=== PATIENT | female | born 1950 | race Caucasian/White ===

== ENCOUNTER 2020-08-05 11:08 | Outpatient (CLI) | payer MEDICARE, SELFPAY ==
[2020-08-05 11:26] LABS: Basophils Absolute Auto 0.04 K/mm3 (0.00-0.10); Basophils Percent Auto 0.6 % (0.0-1.0); Eosinophils Absolute Auto 0.24 K/mm3 (0.02-0.50); Eosinophils Percent Auto 3.8 % (1.0-6.0); Hematocrit 40.1 % (35.0-42.0); Hemoglobin 12.7 g/dL (11.7-13.8); Immature Granulocyte Absolute 0.04 K/mm3 (0.00-0.00); Immature Granulocyte Percent A 0.6 % (0.0-0.0); Lymphocytes Percent Auto 20.4 % (18.0-42.0); Mean Corpuscular HGB Conc 31.7 g/dL (32.0-36.0); Mean Corpuscular Hemoglobin 28.7 pg (27.0-31.0); Mean Corpuscular Volume 90.7 fL (78.0-102.0); Mean Platelet Volume 9.1 fl (9.2-11.8); Monocytes Absolute Auto 0.42 K/mm3 (0.10-0.90); Monocytes Percent Auto 6.6 % (2.0-11.0); Neutrophils Absolute Auto 4.3 K/mm3 (1.7-7.2); Platelet Count Result 225 K/mm3 (150-420); Red Blood Count 4.42 M/mm3 (4.20-5.40); Red Cell Distribution Width 14.4 % (11.6-14.4); White Blood Count 6.4 K/mm3 (4.8-10.8)
[2020-08-05 11:27] LABS: Add Urine Microscopic? NO; Appearance Urine Clear (Clear); Bilirubin Urine Negative (Negative); Blood Urine Negative (Negative); Color Urine Yellow (Yellow); Glucose Urine UA Negative (Negative); Ketones Urine Negative (Negative); Leukocyte Esterase Ur Negative LEU/UL (Negative); Nitrate Urine Negative (Negative); Protein Urine Negative (Negative); Urobilinogen Urine 0.2 mg/dL (0.2-1.0)
[2020-08-05 12:17] LABS: BNP 120 pg/mL (0-100)
[2020-08-05 12:27] LABS: Alanine Aminotransferase 24 U/L (14-59); Albumin Level 3.6 g/dL (3.4-5.0); Alkaline Phosphatase 95 U/L (46-116); Anion Gap 9 mmol/L (8-16); Aspartate Amino Transferase 15 U/L (15-37); Bilirubin,Total 0.5 mg/dL (0.00-1.00); Blood Urea Nitrogen 16 mg/dL (7-18); Calcium 8.6 mg/dL (8.5-10.1); Carbon Dioxide 29 mmol/L (21-32); Chloride 104 mmol/L (98-108); Estimated Glomerular Filt Rate 48; Glucose 86 mg/dL (70-99); Osmolality Calculated 294 mOsm/kg (285-295); Potassium 3.9 mmol/L (3.5-5.1); Sodium 142 mmol/L (136-145); Total Protein 7.4 g/dL (6.4-8.2)
== END 2020-08-05 11:09 | disposition home or self-care (01) ==
LOC: CHSLAB 11:12
PROVIDERS: PCP Family Medicine; Visit Provider Family Medicine
DX: R30.0 Dysuria (principal); I11.0 Hypertensive heart disease with heart failure; I50.9 Heart failure, unspecified; R06.00 Dyspnea, unspecified
CPT/HCPCS: 36415; 80053; 81003; 83880; 85025

== ENCOUNTER 2020-08-05 11:43 | Emergency (ER) | payer MEDICARE, SELFPAY ==
--- NOTE | ~2020-08-05 | XR_ITS ---
XR chest 2V 08/05/2020 12:18 Indication: Dyspnea. Shortness of breath. Procedure: AP and lateral views of the chest Comparison: Comparison to multiple prior studies sequentially, with oldest reviewed study dated 09/30. Findings: Moderate cardiomegaly. Interstitial edema. No pleural effusion or pneumothorax. No acute os seous abnormality. Impression: 1: Moderate cardiomegaly with interstitial edema. Reviewed, dictated and finalized at location B. Impression: 1: Moderate cardiomegaly with interstitial edema.
--- NOTE | ~2020-08-05 | CT_ITS ---
EXAMINATION: CT brain wo con DATE: 08/05/2020 12:01 INDICATION: Status post fall. Laceration to the head. TECHNIQUE: Computed tomography (CT) of the head was performed without intravenous contrast. The dose- length product was 605.33 mGy-cm. Automated exposure control and iterative reconstruction technique w ere employed. COMPARISON: None FINDINGS: Small left frontal scalp hematoma. Left frontal soft tissue gas, consistent with laceration . No acute intracranial hemorrhage, infarction, mass or mass effect. There are scattered mild periven tricular and subcortical white matter changes, most likely related to small vessel ischemic disease ( microangiopathy). There is intracranial atherosclerosis. Paranasal sinuses are unremarkable. Small le ft mastoid effusion. No depressed skull fractures. IMPRESSION: 1. No acute intracranial abnormality. Reviewed, dictated and finalized at location B.
--- NOTE | ~2020-08-05 | XR_ITS ---
XR knee RT 3V 08/05/2020 12:19 Indication: Status post fall. Right knee pain. Procedure: 3 views right knee Comparison: No prior studies for comparison. Findings: No fracture, subluxation or dislocation. No significant joint effusion. No radiopaque forei gn bodies. No significant joint space narrowing. Mild patellofemoral compartment osteoarthritis. Impression: 1: Mild osteoarthritis of the right kidney. Reviewed, dictated and finalized at location B. Impression: 1: Mild osteoarthritis of the right kidney.
[2020-08-05 11:45] VITALS: BP 194/106; PULSE 64; RESP 18; TEMP 36.6; O2SAT 94
--- NOTE | 2020-08-05 12:11 | ED.FALL ---
HPI - Fall General Chief Complaint: Head Injury Stated Complaint: fall Time Seen by Provider: 08/05/20 11:44 Source: patient Mode of arrival: wheelchair Limitations: no limitations History of Present Illness HPI Narrative: 70-year-old woman with a history of chronic kidney disease, COPD, ANNABEL and hypertension brought to the emergency department from x-ray after she fell while getting an outpatient chest x-ray. She saw her primary care doctor this morning who ordered labs and a chest film. She has a laceration on her left brow as well as abrasion over her right anterior ankle and right knee pain anteriorly. She denies any shortness of breath, chest pain, lightheadedness or palpitations that led to her fall. She states she has had intermittent shortness of breath for months. Onset (ago): minute(s) (20) Fall from: standing Fall witnessed: yes, by bystander Place fall occurred: other ( Radiology department) Loss of consciousness: none Prolonged down time: no Symptoms prior to fall: none Context: tripped/slipped ( over wheelchair) Location of injury: head Location of injury - extremities: Right: knee and lower leg Severity: moderate Quality: sharp Associated symptoms (after fall): denies Related Data Home Medications Medication Instructions Recorded Confirmed aspirin 81 mg tablet,delayed 81 mg PO DAILY 07/12/19 08/05/20 release cholecalciferol (vitamin D3) 125 5,000 unit PO DAILY 07/12/19 08/05/20 mcg (5,000 unit) capsule cholestyramine-aspartame 4 gram 4 gm PO BID 07/12/19 08/05/20 oral powder for susp in a packet cyanocobalamin (vitamin B-12) 1,000 mcg PO DAILY 07/12/19 08/05/20 1,000 mcg capsule diphenoxylate-atropine 2.5 1 tablet PO BID tablet 07/12/19 08/05/20 mg-0.025 mg tablet vit C 250 mg-vit E 90 mg-zinc 40 1 tablet PO BID 07/12/19 08/05/20 mg-copper 1 [id number] capsule atorvastatin 20 mg PO DAILY 08/05/20 08/05/20 irbesartan 300 mg PO DAILY 08/05/20 08/05/20 Allergies Allergy/AdvReac Type Severity Reaction Status Date / Time clindamycin Allergy Unknown Hives Verified 02/22/20 11:05 latex AdvReac Unknown BLISTERS Verified 02/22/20 11:05 FROM LATEX AND LATEX TAPE Review of Systems Constitutional: Constitutional: Denies chills and Denies fever(s) Eyes: Eyes: Denies change in vision and Denies photophobia ENT: Reports nasal congestion and Denies sore throat Cardiovascular: Cardiovascular: Denies chest pain and Denies radiating jaw, neck or arm pain Respiratory: Respiratory: Denies cough and Reports dyspnea Gastrointestinal: Gastrointestinal: Denies abdominal pain, Denies nausea and Denies vomiting Genitourinary: Genitourinary: Denies nocturia and Denies dysuria Musculoskeletal: Musculoskeletal: Denies back pain, Reports arthralgias and Denies joint swelling Integumentary/Breasts: Skin/Breast: Reports as per HPI, Denies pruritus, Denies erythema and Denies rash Neurologic: Denies system reviewed and no additional complaints, except as documented, Denies vertigo, Denies dizziness and Denies syncope Hematologic/Lymphatic: Hematologic/Lymphatic: Denies easy bleeding and Denies easy bruising Allergic/Immunologic: Allergic/Immunologic: Denies lip swelling and Denies throat swelling [facility] Past Medical History Medical History Cholecystectomy planned 1995 CKD (chronic kidney disease) COPD (chronic obstructive pulmonary disease) CPAP (continuous positive airway pressure) dependence Diverticulitis Hypertension Hypokalemia Obesity Osteoarthritis Prediabetes Sleep apnea Surgical History Surgical History H/O right heart catheterization 2008 H/O: hysterectomy 1989 Family History Family History (Updated 07/11/19 @ 16:01 by Tyra Copeland CMA) Father Lung cancer Type 2 diabetes mellitus Mother Carcinoma of colon Hypertension So
[2020-08-05] MEDS: TETANUS,DIPHTHERIA,AC PERTUSSIS ADULT 0.5 ML (ADACEL) IM (12:16)
[2020-08-05] MEDS: ACETAMINOPHEN 500 MG TABLET 1000 MG PO (13:26)
[2020-08-05 13:32] VITALS: BP 191/73
== END 2020-08-05 13:34 | disposition home or self-care (01) ==
PROVIDERS: Emergency Provider Emergency Medicine; PCP Family Medicine
DX: S01.112A Laceration without foreign body of left eyelid and periocular area, initial encounter (principal); W19.XXXA Unspecified fall, initial encounter; Z87.891 Personal history of nicotine dependence; I10 Essential (primary) hypertension; N18.9 Chronic kidney disease, unspecified
CPT/HCPCS: 12052; 36415; 70450; 71046; 73562; 80053; 81003; 83880; 85025; 90471; 90715; 99283; 99284

== ENCOUNTER 2020-08-07 07:51 | Emergency (ER) | payer MEDICARE, SELFPAY ==
--- NOTE | ~2020-08-07 | CT_ITS ---
EXAMINATION: CT facial bones wo con EXAM DATE: 08/07/2020 08:39 INDICATION: Retro-orbital pain after left forehead injury retro-orbital pain after fall and left fore head injury 2days ago . TECHNIQUE: Spiral CT of the facial bones was acquired in the axial plane without contrast. Coronal reformatted images were also reviewed. The dose-length product (DLP) for this examination was 258.13 mGy-cm. The exposure was tailored according to patient size, and iterative reconstruction (ASIR) wa s used as additional dose reduction technique. There is no prior study for comparison. FINDINGS: There are no displaced acute nasal bone fractures. The mandible, sinuses and orbits are in tact. Bilateral cataract surgery. Orbits otherwise unremarkable. Some The visualized sinuses and ma stoid air cells are well aerated. Small amount of left frontal scalp swelling. There is cervical sp ondylosis. IMPRESSION: 1. No acute facial fracture. Reviewed, dictated and finalized at location A.
[2020-08-07 08:03] VITALS: BP 174/83; PULSE 71; RESP 20; TEMP 36.2; O2SAT 95
--- NOTE | 2020-08-07 08:08 | ED.FALL ---
HPI - Fall General Chief Complaint: Fall Stated Complaint: eye problems Time Seen by Provider: 08/07/20 08:08 Source: patient Mode of arrival: ambulatory Limitations: no limitations History of Present Illness HPI Narrative: 70-year-old woman with a recent left forehead injury comes in today complaining of left retro-orbital pain and pain and her left brow. She also states that she has had swelling and discomfort on the left side her face around her eye. She denies any double vision, nausea, vomiting, fever, epistaxis, or difficulty walking. She was seen here after left forehead injury that occurred in our radiology department two days ago. complaint: fall Onset (ago): day(s) (2) Fall from: standing Fall witnessed: yes, by bystander Loss of consciousness: none Prolonged down time: no Symptoms prior to fall: none Context: tripped/slipped Location of injury: head Location of injury - extremities: Right: knee and lower leg Severity: moderate Quality: dull Associated symptoms (after fall): denies Related Data Home Medications Medication Instructions Recorded Confirmed aspirin 81 mg tablet,delayed 81 mg PO DAILY 07/12/19 08/07/20 release cholecalciferol (vitamin D3) 125 5,000 unit PO DAILY 07/12/19 08/07/20 mcg (5,000 unit) capsule cholestyramine-aspartame 4 gram 4 gm PO BID 07/12/19 08/07/20 oral powder for susp in a packet cyanocobalamin (vitamin B-12) 1,000 mcg PO DAILY 07/12/19 08/07/20 1,000 mcg capsule diphenoxylate-atropine 2.5 1 tablet PO BID tablet 07/12/19 08/07/20 mg-0.025 mg tablet vit C 250 mg-vit E 90 mg-zinc 40 1 tablet PO BID 07/12/19 08/07/20 mg-copper 1 [id number] capsule atorvastatin 20 mg PO DAILY 08/05/20 08/07/20 irbesartan 300 mg PO DAILY 08/05/20 08/07/20 Allergies Allergy/AdvReac Type Severity Reaction Status Date / Time clindamycin Allergy Unknown Hives Verified 08/07/20 08:10 latex AdvReac Unknown BLISTERS Verified 08/07/20 08:10 FROM LATEX AND LATEX TAPE Review of Systems Review of Systems: All systems reviewed & are unremarkable except as noted in HPI and below Constitutional: Constitutional: Denies chills and Denies fever(s) Eyes: Eyes: Denies change in vision and Denies photophobia ENT: Denies nasal congestion and Denies sore throat Cardiovascular: Cardiovascular: Denies chest pain and Denies radiating jaw, neck or arm pain Respiratory: Respiratory: Denies cough and Denies dyspnea Gastrointestinal: Gastrointestinal: Denies nausea and Denies vomiting Musculoskeletal: Musculoskeletal: Reports arthralgias and Denies joint swelling Integumentary/Breasts: Skin/Breast: Denies pruritus, Denies erythema and Denies rash Neurologic: Denies vertigo, Denies dizziness and Denies syncope Hematologic/Lymphatic: Hematologic/Lymphatic: Denies easy bleeding and Denies easy bruising Allergic/Immunologic: Allergic/Immunologic: Denies lip swelling and Denies throat swelling [facility] Past Medical History Medical History Cholecystectomy planned 1995 CKD (chronic kidney disease) COPD (chronic obstructive pulmonary disease) CPAP (continuous positive airway pressure) dependence Diverticulitis Hypertension Hypokalemia Obesity Osteoarthritis Prediabetes Sleep apnea Surgical History Surgical History H/O right heart catheterization 2008 H/O: hysterectomy 1989 Family History Family History (Updated 07/11/19 @ 16:01 by Tyra Copeland [facility]) Father Lung cancer Type 2 diabetes mellitus Mother Carcinoma of colon Hypertension Social History Social History Smoking status: Former smoker Smoking end date: 05/10/04 Alcohol intake: never Exam Const: General: alert Orientation/consciousness: patient oriented x3 Other: Mild acute distress. HENMT: Head: nor
[2020-08-07 09:09] VITALS: BP 154/74; PULSE 74; RESP 18; TEMP 36.7; O2SAT 98
== END 2020-08-07 09:10 | disposition home or self-care (01) ==
PROVIDERS: Emergency Provider Emergency Medicine; PCP Family Medicine
DX: S00.83XD Contusion of other part of head, subsequent encounter (principal); W18.30XD Fall on same level, unspecified, subsequent encounter
CPT/HCPCS: 70486; 99282; 99284

== ENCOUNTER 2020-12-19 11:51 | Outpatient (CLI) | payer MEDICARE, SELFPAY ==
--- NOTE | 2020-12-19 12:50 | ECHO_ITS ---
Patient Info Name: Cata Aj Age: 70 years : 1950 Gender: Female Ht: 60 in Wt: 234 lbs BSA: 2.19 m2 HR: 73 bpm BP: 171 / 78 mmHg Technical Quality: Poor Exam Date: 12/19/2020 11:45 AM Exam Location: [facility] Patient Status: Outpatient Admit Date: 12/19/2020 Staff Ordering Physician: Gigi Ornelas MD Cena: Helder Greenberg, ABDI, RT Attending Provider: Gigi Ornelas MD Referring Physician: Ceci COX; Exam Type: CA echo doppler color flow Study Info Indications I50.9 - Heart failure, unspecified Complete two-dimensional, color flow and Doppler transthoracic echocardiogram is performed. Summary 1. Complete two-dimensional, color flow and Doppler transthoracic echocardiogram is performed. 2. Technically suboptimal study due to poor sonographic images. 3. Left ventricular chamber dimension is normal. 4. Left ventricular systolic function is normal, estimated at 60-65%. 5. The left ventricular diastolic function is grade I diastolic dysfunction. 6. E/e' 11 is mildly elevated. 7. There is mild aortic valve sclerosis. 8. There is small to moderate circumferential pericardial effusion with maximum dimension posteriorly at 1.5 cm. No cardiac tamponade. Left Ventricle Technically suboptimal study due to poor sonographic images. E/e' 11 is mildly elevated. Left ventricular chamber dimension is normal. Left ventricular systolic function is normal, estimated at 60-65%. The left ventricular diastolic function is grade I diastolic dysfunction. Right Ventricle Right ventricular chamber dimension is not well visualized. Left Atria Left atrial chamber dimension is normal. Right Atria Right atrial chamber dimension is normal. Aortic Valve The aortic valve is trileaflet. There is mild aortic valve sclerosis. There is no aortic valve stenosis. There is no aortic valve regurgitation. Pulmonic Valve There is no pulmonic regurgitation. Mitral Valve There is no mitral valve stenosis. There is no mitral valve regurgitation. Tricuspid Valve The tricuspid valve leaflets are not well visualized. There is no tricuspid valve regurgitation. Pericardium/Pleural There is small to moderate circumferential pericardial effusion with maximum dimension posteriorly at 1.5 cm. No cardiac tamponade. Inferior Vena Cava Normal inferior vena cava with >50% collapse upon inspiration consistent with normal right atrial pressure, 5 mmHg. Aorta The aortic root size at the sinus of Valsalva is normal. Left Ventricular Outflow Tract Name Value Normal LVOT 2D LVOT Diameter 2.0 cm LVOT Doppler LVOT Peak Velocity 107 cm/s LVOT Peak Gradient 5 mmHg LVOT Mean Gradient 3 mmHg LVOT VTI 23 cm LVOT VTI/AV VTI Ratio 0.7 LVOT Stroke Volume 74 ml Mitral Valve Name Value Normal
== END 2020-12-19 11:52 | disposition home or self-care (01) ==
LOC: CHSIMG 11:52
PROVIDERS: PCP Family Medicine; Visit Provider Family Medicine
DX: I50.9 Heart failure, unspecified (principal)
CPT/HCPCS: 93306

== ENCOUNTER 2021-01-09 10:26 | Outpatient (CLI) | payer MEDICARE, SELFPAY ==
[2021-01-09 11:50] LABS: SARS-CoV-2 RNA PCR Negative (Negative)
== END 2021-01-09 10:27 | disposition home or self-care (01) ==
LOC: CHSLAB 10:28
PROVIDERS: PCP Family Medicine; Visit Provider Family Medicine
DX: Z20.822 Contact with and (suspected) exposure to COVID-19 (principal)
CPT/HCPCS: C9803; U0003; U0005

== ENCOUNTER 2021-02-24 07:54 | Outpatient (CLI) | payer MEDICARE, SELFPAY ==
--- NOTE | 2021-02-24 09:15 | EST_ITS ---
Patient Info Name: Cata Aj Age: 71 years : 1950 Gender: Female Ht: 60 in Wt: 237 lbs BSA: 2.20 m2 HR: 64 bpm BP: 131 / 78 mmHg Heart Rhythm: Sinus Rhythm Technical Quality: Excellent Exam Date: 02/24/2021 9:25 AM Exam Location: [facility] Patient Status: Outpatient Admit Date: 02/24/2021 Staff Ordering Physician: Sam, Helen Urbina APRN Attending Provider: Sam, Helen Urbina APRN Exercise Technologist: Cindy Epps CRT Exercise Physician: Jennifer Dow CEP Exam Type: CA stress arianna w NM Study Info Indications CP - SOB - ABNEKG - A nuclear stress test was performed. History/Risk Factors Hypertension: Yes Dyslipidemia: Yes Congestive Heart Failure (CHF): Hx CHF Date of Last Tobacco Use: 02/24/2007 Tobacco Use: Former History/Risk Factors ABN EKG. CP. SOB. Summary 1. 1. Inconclusive lexiscan stress test for ischemic ST changes by ECG criteria due to baseline LBBB. 2. 2. Hypertensive response to lexiscan. 3. 3. Nuclear scan to follow and will be reported separately. Please correlate with it. Protocol: LEXISCAN Stress ECG Details Stage: REST Duration (min): 0 min : 11 sec HR (bpm): 68 SBP (mmHg): --- DBP (mmHg): --- Stage: REST Duration (min): 0 min : 32 sec HR (bpm): 65 SBP (mmHg): --- DBP (mmHg): --- Stage: REST Duration (min): 0 min : 47 sec HR (bpm): 65 SBP (mmHg): --- DBP (mmHg): --- Stage: REST Duration (min): 1 min : 8 sec HR (bpm): 65 SBP (mmHg): --- DBP (mmHg): --- Stage: REST Duration (min): 6 min : 0 sec HR (bpm): 66 SBP (mmHg): --- DBP (mmHg): --- Stage: STAGE 1 Duration (min): 0 min : 6 sec HR (bpm): 66 SBP (mmHg): --- DBP (mmHg): --- Stage: RECOVERY Duration (min): 0 min : 53 sec HR (bpm): 78 SBP (mmHg): --- DBP (mmHg): --- Stage: RECOVERY Duration (min): 1 min : 53 sec HR (bpm): 78 SBP (mmHg): 115 DBP (mmHg): 62 Stage: RECOVERY Duration (min): 2 min : 53 sec HR (bpm): 75 SBP (mmHg): 121 DBP (mmHg): 63 Stage: RECOVERY Duration (min): 3 min : 53 sec HR (bpm): 74 SBP (mmHg): 143 DBP (mmHg): 62 Stage: RECOVERY Duration (min): 4 min : 53 sec HR (bpm): 73 SBP (mmHg): 167 DBP (mmHg): 69 Stage: RECOVERY Duration (min): 5 min : 53 sec HR (bpm): 73 SBP (mmHg): 182 DBP (mmHg): 70 Stage: RECOVERY Duration (min): 6 min : 3 sec HR (bpm): 71 SBP (mmHg): 182 DBP (mmHg): 70 Rest HR: 66 bpm Peak HR: 80 bpm Rest Sys BP: 118 mmHg Peak Sys BP: 182 mmHg Max Pred HR: 151 bpm % Max Pred HR: 53 % Target HR: 128 bpm Max RPP: 14,560 bpm*mmHg BP Response: Patient exhibited a hypertensive response with stress Termination Reason: Completed Protocol Cardiac Symptoms: Flushing, Nausea, Dyspnea Total Time:
--- NOTE | 2021-02-24 11:40 | P.NST_ITS ---
Nuclear Stress Test INDICATIONS Indications: Chest pain PROCEDURE Procedure Performed: Myocardial Perf Spect-Multi Procedure: Patient underwent a lexiscan stress test and immediately was injected with 33.6 mCi of cardiolyte. Multiple tomographic images were obtained. These are of suboptimal quality. There is evidence of small size, mild intensity anteroseptal perfusion defect, and a small size, mild intensity inferior perfusion defect during stress imaging. A separate resting imges were obtained after patient was injected with 10.6 mCi of cardiolyte. Multiple tomographic images were obtained. These are of sub optimal quality. There is evidence of moderate size, moderate intensity anteroseptal perfusion defect, and a small size, mild intensity inferior perfusion defect during rest imaging. CONCLUSION Conclusion: 1. Myocardial perfusion imaging demonstrating fixed defects in anteroseptal wall that was worse during rest imaging and fixed defects in inferior wall which are suggestive of breast and diaphragmatic attenuation artifacts. 2. No reversible ischemia. 3. Left ventriculogram did not demonstrate wall motion abnormalities and measured ejection fraction is 62%. 4. TID score 1.11 is not elevated.
== END 2021-02-24 07:55 | disposition home or self-care (01) ==
LOC: CHSIMG 07:55
PROVIDERS: PCP Family Medicine; Visit Provider Internal Medicine Cardiovascular Disease
DX: R07.9 Chest pain, unspecified (principal); R06.02 Shortness of breath; R93.1 Abnormal findings on diagnostic imaging of heart and coronary circulation; R94.31 Abnormal electrocardiogram [ECG] [EKG]
CPT/HCPCS: 78452; 93017; A9502; J2785

== ENCOUNTER 2021-05-12 10:00 | Outpatient (RCR) | payer MEDICARE, SELFPAY ==
--- NOTE | 2021-04-18 11:33 | PTOPEVAL ---
PHYSICAL THERAPY EVALUATION AND PLAN OF CARE 04-18-21 Thank you for referring Cata Aj to [facility] for the diagnosis of B LE lymphedema. She is scheduled to be seen for therapy? 3 x/week for 5 weeks. Please review, sign, date and return this plan of care AFIA. I agree with and certify that the following plan of care is medically necessary. 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 Hx Hypercholesterolemia Yes: meds Hx Hypertension Yes: meds Respiratory History Hx Sleep Apnea Yes: have CPAP machine Gastrointestinal History Hx Cholecystectomy Yes Hx Diverticulitis Yes Hx Hernia Yes: surgical repair 3x Genitourinary History Hx Genitourinary Disorders No Significant History Musculoskeletal History Hx Arthritis Yes: OA- all over hurts in all joints Hx Orthopedic Surgery Yes: carpal tunnel surgery B Hematological History Hx Hematological Disorders No Significant History Endocrine History Hx Endocrine Disorders No Significant History HEENT History Hx Cataracts Yes: surgery B Reproductive History Hx Post Menopausal Yes Evaluation Information Problem Diagnosis B LE lymphedema Onset July 2020 Prior Level of Function Activity Level (Last 3 Months) Occupation retired Activity of Daily Living Ability Independent Indoor/Home Mobility Independent Community Mobility Independent Stairs Ability Independent Functional Cognition (Planning, Shopping Independent , Taking Medications) Cooking Yes Cleaning Yes Laundry Yes Shopping Yes Driving No Home Setting Home Type House,Single Level Environmental Barriers Stairs, 2-4 Living Situation With Spouse Mobility Assistive Devices (Used Last 3 None,Walker, Rollator Months) Comments Additional Prior Level of Function limited time standing and Comments walking due to SOB, does most of home chores; assist with shoes and
--- NOTE | 2021-05-14 12:41 | PCPTNOTE ---
PHYSICAL THERAPY DISCHARGE 05-14-21 Attending Provider: Dr. Gigi Ornelas Patient:Cata Aj Date of :1950 Mrs. Aj has received 7 PT sessions, from April 18 to May 12, for the diagnosis of B LE lymphedema. At the last session, the circumferential measurements of her legs, from the bottom of her foot up to 56 cm: R was 525.1 cm, decreased by 55.9 cm and L was 550.7 cm, decreased by 49.8 cm, compared to the initial evaluation. There is minimal redness discoloration of the skin of the lower legs and the tissue is soft, without firmness. She has Circaid Juxtafit essential lower leggings and PAC band foot pieces for compression to her R and L lower legs. Her assists her with the garments. Education has been completed for lymphedema skin care, self manual lymph drainage and compression garments. The goals were met, therefore she will be discharged from PT at this time. Thank you for referring Cata to [facility]. Please review, sign, date and return this discharge summary AFIA. I have been updated about the patient's current status and I agree with discharge from the above service at this time. Referring Physician Date
== END 2021-07-02 07:30 | disposition home or self-care (01) ==
LOC: ANHPT 10:00
PROVIDERS: PCP Family Medicine
DX: I89.0 Lymphedema, not elsewhere classified (principal)
CPT/HCPCS: 29581; 97016; 97140; 97162

== ENCOUNTER 2021-06-21 16:24 | Emergency (ER) | payer MEDICARE, SELFPAY ==
[2021-06-21 16:41] VITALS: BP 161/95; PULSE 95; RESP 16; TEMP 37.5; O2SAT 95
--- NOTE | 2021-06-21 16:46 | ED.WOUNDLAC ---
HPI - Wound/Laceration General Chief Complaint: Wound/Laceration Stated Complaint: rash Time Seen by Provider: 06/21/21 16:46 Source: patient and family Mode of arrival: ambulatory Limitations: no limitations History of Present Illness HPI narrative: patient is a 71-year-old female presents with blisters / vesicles on an erythematous base located on the right upper back and following a dermatome into her right frontal it is painful there is some clear discharge with no fever chills no shortness of breath no chest pain patient also complaining of right ear pain and discomfort, there are no vesicles in the right ear canal no drainage no erythema, no abdominal pain no nausea vomiting no diarrhea or constipation. Currently no headaches no blurry vision. Onset (ago): day(s) Location: back Related Data Home Medications Medication Instructions Recorded Confirmed aspirin 81 mg tablet,delayed 81 mg PO DAILY 07/12/19 06/21/21 release cholecalciferol (vitamin D3) 125 5,000 unit PO DAILY 07/12/19 06/21/21 mcg (5,000 unit) capsule cholestyramine-aspartame 4 gram 4 gm PO BID 07/12/19 06/21/21 oral powder for susp in a packet cyanocobalamin (vitamin B-12) 1,000 mcg PO DAILY 07/12/19 06/21/21 1,000 mcg capsule diphenoxylate-atropine 2.5 1 tablet PO BID tablet 07/12/19 06/21/21 mg-0.025 mg tablet vit C 250 mg-vit E 90 mg-zinc 40 1 tablet PO BID 07/12/19 06/21/21 mg-copper 1 [id number] capsule atorvastatin 20 mg PO DAILY 08/05/20 06/21/21 irbesartan 300 mg PO DAILY 08/05/20 06/21/21 Allergies Allergy/AdvReac Type Severity Reaction Status Date / Time clindamycin Allergy Unknown Hives Verified 06/21/21 16:47 latex AdvReac Unknown BLISTERS Verified 06/21/21 16:47 FROM LATEX AND LATEX TAPE Review of Systems Review of Systems: All systems reviewed & are unremarkable except as noted in HPI and below PMFSH Past Medical History Medical History Cholecystectomy planned 1995 CKD (chronic kidney disease) COPD (chronic obstructive pulmonary disease) CPAP (continuous positive airway pressure) dependence Diverticulitis Hypertension Hypokalemia Obesity Osteoarthritis Prediabetes Sleep apnea Surgical History Surgical History H/O right heart catheterization 2008 H/O: hysterectomy 1989 Family History Family History Father Lung cancer Type 2 diabetes mellitus Mother Carcinoma of colon Hypertension Social History Social History Smoking status: Former smoker Smoking end date: 05/10/04 Alcohol intake: never Exam Const: General: no acute distress and alert Orientation/consciousness: patient oriented x3 HENMT: Head: normal to inspection Eyes: Conjunctivae: conjunctivae normal Pupils: Equal, round and reactive pupils present Neck: Neck: normal visual inspection, no lymphadenopathy and no meningeal signs Chest: Chest palpation & inspection: normal inspection of the chest Cardio: Rate: regular rate Rhythm: regular rhythm GI: GI Palp: Yes Soft to palpation Urinary Catheter: Urinary Catheter: patent and draining Skin: Other: Rash located on the right upper back and into the right pectoral area following a dermatome blisters/vesicles on an erythematous base Neuro: General: patient oriented x3, moves all extremities and no meningeal signs Extrem: General: normal to inspection and no pedal edema Psych: Mental Status: mental status grossly normal Affect: normal affect Course Course Emergency Course: patient received a dose of acyclovir and a dose of IM Toradol pain, advised patient to keep the area covered and should not have anyone come in contact with vesicles while there in the stage where there is watery discharge/clear discharge. Vital Si
[2021-06-21] MEDS: KETOROLAC 30 MG/ML VIAL (*BKC) IM (16:58)
[2021-06-21] MEDS: ACYCLOVIR 200 MG CAPSULE 400 MG PO (16:58)
[2021-06-21 17:02] VITALS: BP 183/77; PULSE 85; RESP 16; TEMP 36.9; O2SAT 100
== END 2021-06-21 17:15 | disposition home or self-care (01) ==
PROVIDERS: Emergency Provider Emergency Medicine; PCP Family Medicine
DX: B02.9 Zoster without complications (principal); J32.8 Other chronic sinusitis
CPT/HCPCS: 96372; 99283; A9270; J1885

== ENCOUNTER 2021-06-24 10:52 | Outpatient (CLI) | payer MEDICARE, SELFPAY ==
--- NOTE | ~2021-06-24 | XR_ITS ---
EXAMINATION: XR chest 2V DATE: 06/24/2021 11:37 INDICATION: Dyspnea. TECHNIQUE: Frontal and lateral views of the chest were obtained. COMPARISON: Chest 2 views 08/05/2020, chest CT 03/24/2010 FINDINGS: There are mild airspace opacities in right lower lung zone and left mid and lower lung zone s. No pleural effusion or pneumothorax. Cardiomegaly is noted. IMPRESSION: 1. Mild airspace opacities in right lower lung zone and left mid and lower lung zones, consistent wit h atelectasis versus pneumonia. 2. Cardiomegaly. Reviewed, dictated and finalized at location A. BRUSHER IMPRESSION: 1. Mild airspace opacities in right lower lung zone and left mid and lower lung zones, consistent with atelectasis versus pneumonia. 2. Cardiomegaly.
== END 2021-06-24 10:53 | disposition home or self-care (01) ==
LOC: CHSIMG 10:54
PROVIDERS: PCP Family Medicine; Visit Provider Family Medicine
DX: R06.00 Dyspnea, unspecified (principal)
CPT/HCPCS: 71046

== ENCOUNTER 2021-12-19 08:19 | Outpatient (CLI) | payer MEDICARE, SELFPAY ==
--- NOTE | ~2021-12-19 | XR_ITS ---
EXAMINATION: XR abdomen obstructive series DATE: 12/19/2021 09:21 INDICATION: Intestinal malabsorption, chronic diarrhea TECHNIQUE: Upright and supine views of the abdomen were obtained on four radiographs. COMPARISON: 09/30/2009 FINDINGS: There is no free intraperitoneal gas or evidence of bowel obstruction. The bowel gas patter n is normal. Surgical clips in the right upper quadrant are likely from prior cholecystectomy. Cardio megaly is noted. There is moderate osteoarthritis of the hips. IMPRESSION: 1. No radiographic correlate for the patient's symptoms. Reviewed, dictated and finalized at location A.
[2021-12-19 08:50] LABS: Basophils Absolute Auto 0.04 K/mm3 (0.00-0.10); Basophils Percent Auto 0.7 % (0.0-1.0); Eosinophils Absolute Auto 0.32 K/mm3 (0.02-0.50); Eosinophils Percent Auto 5.3 % (1.0-6.0); Hematocrit 43.6 % (35.0-42.0); Hemoglobin 13.4 g/dL (11.7-13.8); Immature Granulocyte Absolute 0.09 K/mm3 (0.00-0.00); Immature Granulocyte Percent A 1.5 % (0.0-0.0); Lymphocytes Absolute Auto 1.56 K/mm3 (1.10-4.50); Mean Corpuscular HGB Conc 30.7 g/dL (32.0-36.0); Mean Corpuscular Hemoglobin 27.5 pg (27.0-31.0); Mean Corpuscular Volume 89.5 fL (78.0-102.0); Mean Platelet Volume 9.4 fl (9.2-11.8); Monocytes Absolute Auto 0.51 K/mm3 (0.10-0.90); Monocytes Percent Auto 8.5 % (2.0-11.0); Neutrophils Absolute Auto 3.5 K/mm3 (1.7-7.2); Platelet Count Result 214 K/mm3 (150-420); Red Blood Count 4.87 M/mm3 (4.20-5.40)
[2021-12-19 09:29] LABS: Alanine Aminotransferase 21 U/L (14-59); Albumin Level 3.5 g/dL (3.4-5.0); Alkaline Phosphatase 120 U/L (46-116); Anion Gap 7 mmol/L (8-16); Aspartate Amino Transferase 15 U/L (15-37); Bilirubin,Total 0.5 mg/dL (0.00-1.00); Blood Urea Nitrogen 29 mg/dL (7-18); Calcium 8.9 mg/dL (8.5-10.1); Carbon Dioxide 30 mmol/L (21-32); Chloride 106 mmol/L (98-108); Estimated Glomerular Filt Rate 38; Free T4 Free Thyroxine 1.03 ng/dL (0.76-1.46); Glucose 92 mg/dL (70-99); Osmolality Calculated 301 mOsm/kg (285-295); Potassium 4.1 mmol/L (3.5-5.1); Sodium 143 mmol/L (136-145)
[2021-12-26 17:08] LABS: Gliadin AB, IgG <1.0 U/mL (<15.0); TTG IGA AB <1.0 U/mL (<15.0)
[2021-12-28 10:55] LABS: ANCA Screen Negative (Negative); Myeloperoxidase Ab <1.0 AI (<1.0); Proteinase-3 Ab <1.0 AI (<1.0); S cerevisiae Ab (IgA) 11.6 U (<=20.0); S cerevisiae Ab (IgG) 18.1 U (<=20.0)
== END 2021-12-19 08:20 | disposition home or self-care (01) ==
LOC: CHSLAB 08:22
PROVIDERS: PCP Family Medicine; Visit Provider Family Medicine
DX: K90.9 Intestinal malabsorption, unspecified (principal); R19.7 Diarrhea, unspecified; R79.89 Other specified abnormal findings of blood chemistry
CPT/HCPCS: 36415; 74019; 80053; 83516; 84439; 84443; 85025; 86036; 86255; 86671

== ENCOUNTER 2021-12-21 09:38 | Outpatient (CLI) | payer MEDICARE, SELFPAY ==
[2021-12-21 21:53] LABS: Occult Blood Negative (Negative)
[2021-12-21 21:53] LABS: Occult Blood Negative (Negative)
== END 2021-12-21 09:39 | disposition home or self-care (01) ==
LOC: CHSLAB 09:40
PROVIDERS: PCP Family Medicine; Visit Provider Family Medicine
DX: R19.7 Diarrhea, unspecified (principal)
CPT/HCPCS: 82272; 84376; 87045; 87177; 87209; 87427

== ENCOUNTER 2022-03-18 13:06 | Outpatient (CLI) | payer MEDICARE, SELFPAY ==
--- NOTE | ~2022-03-18 | XR_ITS ---
XR chest 2V DATE: 03/18/2022 13:37 INDICATION: Shortness of breath. Bradycardia. Abnormal EKG. TECHNIQUE: PA and lateral views COMPARISON: 06/24/2021 2 view chest FINDINGS: There is cardiomegaly with left ventricular enlargement. Pulmonary vascular redistribution may indicate mild pulmonary venous hypertension. No pulmonary consolidation or pleural effusion or pneumothorax. Dextroscoliosis and degenerative spurring of the thoracic spine. IMPRESSION: Cardiomegaly Pulmonary vascular redistribution may indicate mild pulmonary venous hypertension No active pulmonary disease Reviewed, dictated and finalized at location A. R LEAGUE BASEBALL UMPIRE IMPRESSION: Cardiomegaly Pulmonary vascular redistribution may indicate mild pulmonary venous hypertensi on No active pulmonary disease
[2022-03-18 13:24] LABS: Basophils Absolute Auto 0.04 K/mm3 (0.00-0.10); Basophils Percent Auto 0.6 % (0.0-1.0); Eosinophils Absolute Auto 0.19 K/mm3 (0.02-0.50); Eosinophils Percent Auto 3.1 % (1.0-6.0); Hematocrit 40.7 % (35.0-42.0); Immature Granulocyte Absolute 0.06 K/mm3 (0.00-0.00); Lymphocytes Absolute Auto 1.21 K/mm3 (1.10-4.50); Lymphocytes Percent Auto 19.5 % (18.0-42.0); Mean Corpuscular HGB Conc 31.9 g/dL (32.0-36.0); Mean Corpuscular Hemoglobin 29.8 pg (27.0-31.0); Mean Corpuscular Volume 93.3 fL (78.0-102.0); Mean Platelet Volume 9.6 fl (9.2-11.8); Monocytes Absolute Auto 0.48 K/mm3 (0.10-0.90); Monocytes Percent Auto 7.7 % (2.0-11.0); Neutrophils Absolute Auto 4.2 K/mm3 (1.7-7.2); Neutrophils Percent Auto 68.1 % (50.0-70.0); Platelet Count Result 197 K/mm3 (150-420); Red Blood Count 4.36 M/mm3 (4.20-5.40); Red Cell Distribution Width 13.8 % (11.6-14.4); White Blood Count 6.2 K/mm3 (4.8-10.8)
[2022-03-18 13:48] LABS: Alanine Aminotransferase 18 U/L (14-59); Albumin Level 3.1 g/dL (3.4-5.0); Alkaline Phosphatase 110 U/L (46-116); Anion Gap 8 mmol/L (8-16); Aspartate Amino Transferase 13 U/L (15-37); Bilirubin,Total 0.2 mg/dL (0.00-1.00); Blood Urea Nitrogen 31 mg/dL (7-18); Calcium 8.8 mg/dL (8.5-10.1); Carbon Dioxide 25 mmol/L (21-32); Chloride 110 mmol/L (98-108); Creatine Kinase 44 U/L (26-192); Estimated Glomerular Filt Rate 37; Glucose 106 mg/dL (70-99); Osmolality Calculated 302 mOsm/kg (285-295); Potassium 4.4 mmol/L (3.5-5.1); Sodium 143 mmol/L (136-145); Thyroid Stimulating Hormone 4.76 uIU/mL (0.36-3.74); Total Protein 7.2 g/dL (6.4-8.2)
[2022-03-18 13:58] LABS: Troponin I 203.7 ng/L (0.00-60.4)
== END 2022-03-18 13:07 | disposition home or self-care (01) ==
LOC: CHSLAB 13:09
PROVIDERS: PCP Family Medicine; Visit Provider Family Medicine
DX: R00.1 Bradycardia, unspecified (principal); R94.31 Abnormal electrocardiogram [ECG] [EKG]
CPT/HCPCS: 36415; 71046; 80053; 82550; 82553; 84443; 84484; 85025

== ENCOUNTER 2022-03-18 14:14 | Emergency (ER) | payer MEDICARE, SELFPAY ==
[2022-03-18] VITALS (19 sets, daily range): BP systolic 73–163; BP diastolic 44–109; PULSE 0–74; RESP 11–34; TEMP 36.5; O2SAT 91–99
--- NOTE | 2022-03-18 14:20 | ECG_ITS ---
Measurements Intervals [place] Rate: 37 P: SD: 0 QRS: -74 QRSD: 162 T: 48 QT: 584 QTc: 462 Interpretive Statements SINUS RHYTHM WITH COMPLETE HEART BLOCK SLOW JUNCTIONAL ESCAPE RHYTHM LEFT AXIS DEVIATION LEFT BUNDLE BRANCH BLOCK ABNORMAL ECG NO PREVIOUS ECG AVAILABLE FOR COMPARISON Electronically Signed On 03-18-2022 14:43:56 ELIGIBILITY SERVICES REPRESENTATIVE by Gurinder Cuellar D.O.
--- NOTE | 2022-03-18 14:45 | PC.NURSE ---
FAST PATCHES PLACED ON PT, PT HAS WITNESSED RUN OF VTACH, PT DENIES ANY COMPLAINTS WITH THIS. ERP IS AWARE. PT DENIES ANY PAIN, HOWEVER REPORTS HEARTBURN AND CHEST PRESSURE. PT IS SOB AT REST, O2 APPLIED AT 2L. WILL CONTINUE TO MONITOR.
--- NOTE | 2022-03-18 14:47 | ED.GENADULT ---
HPI - General Adult General Chief complaint: Recheck/Abnormal Lab/Rx Stated complaint: blood test came back abnormal Time Seen by Provider: 03/18/22 14:19 History of Present Illness HPI narrative: Cata is a 72F with a PMH of CKD, COPD, ANNABEL, diverticulosis, HTN, OA and prediabetes that had felt lightheaded, nauseated, had some chest pressure and was very fatigued. She went to see her PCP who did labs and an EKG. She was found to have a HR in the 30's and elevated troponin. She was then referred to the ED. There was no fevers, chills, syncope or vomiting. Related Data Home Medications Medication Instructions Recorded Confirmed aspirin 81 mg tablet,delayed 81 mg PO DAILY 07/12/19 03/18/22 release (Adult Low Dose Aspirin) cholecalciferol (vitamin D3) 125 5,000 unit PO DAILY 07/12/19 03/18/22 mcg (5,000 unit) capsule cholestyramine-aspartame 4 gram 4 gm PO BID 07/12/19 03/18/22 oral powder for susp in a packet (Prevalite) cyanocobalamin (vitamin B-12) 1,000 mcg PO DAILY 07/12/19 03/18/22 1,000 mcg capsule vit C 250 mg-vit E 90 mg-zinc 40 1 tablet PO BID 07/12/19 03/18/22 mg-copper 1 [id number] capsule (PreserVision AREDS-2) atorvastatin 20 mg tablet 20 mg PO DAILY 08/05/20 03/18/22 irbesartan 300 mg tablet 300 mg PO DAILY 08/05/20 03/18/22 metoprolol succinate 50 mg 50 mg PO DAILY 03/18/22 03/18/22 tablet,extended release 24 hr torsemide 20 mg tablet 20 mg PO DAILY 03/18/22 03/18/22 Allergies Allergy/AdvReac Type Severity Reaction Status Date / Time clindamycin Allergy Unknown Hives Verified 03/18/22 14:36 latex AdvReac Unknown BLISTERS Verified 03/18/22 14:36 FROM LATEX AND LATEX TAPE Review of Systems Review of Systems: All systems reviewed & are unremarkable except as noted in HPI and below PMFSH Past Medical History Medical History Cholecystectomy planned 1995 CKD (chronic kidney disease) COPD (chronic obstructive pulmonary disease) CPAP (continuous positive airway pressure) dependence Diverticulitis Hypertension Hypokalemia Obesity Osteoarthritis Prediabetes Sleep apnea Surgical History Surgical History H/O right heart catheterization 2008 H/O: hysterectomy 1989 Family History Family History Father Lung cancer Type 2 diabetes mellitus Mother Carcinoma of colon Hypertension Social History Social History Smoking status: Former smoker Smoking end date: 05/10/04 Alcohol intake: never Exam Const: General: ill appearing chronically Nutritional Appearance: well nourished and obese morbidly obese Orientation/consciousness: patient oriented x3 Limitations: no limitations HENMT: Head: normal to inspection Ears: external ears normal Face/Nose/Sinus: Normal external nose present Eyes: Conjunctivae: conjunctivae normal Pupils: Equal, round and reactive pupils present Neck: Neck: normal visual inspection Chest: Chest palpation & inspection: normal inspection of the chest Resp: Effort & Inspection: labored, no retractions and tachypneic Auscultation: clear to auscultation bilaterally Cardio: Other: Severe bradycardia with irregular rhythm GI: Inspection: non-distended GI Palp: Yes Soft to palpation and No Tenderness to palpation present (GI) Skin: General skin exam: normal color Neuro: General: patient oriented x3 and moves all extremities Cranial nerves: Yes Nystagmus not present Speech: normal speech Extrem: General: normal to inspection Psych: Mental Status: mental status grossly normal Course Course Emergency Course: Cata was brought over to the ER. She was given 2 doses of atropine with no effect. She was given ativan and pacing was attempted. The amps were increased but it would not catch. In
[2022-03-18] MEDS: ATROPINE SULFATE 1 MG/10 ML SYRINGE IV PUSH (14:52)
[2022-03-18] MEDS: ATROPINE SULFATE 1 MG/ML VIAL IV PUSH (15:02)
--- NOTE | 2022-03-18 15:04 | PC.NURSE ---
NO CHANGE WITH 2 DOSES OF ATROPINE. ERP IS AWARE.
[2022-03-18] MEDS: LORazepam INJ (*CRX) 2 MG/ML VIAL IV PUSH (15:21)
[2022-03-18] MEDS: fentaNYL CITRATE INJ (*CRX) 100 MCG/2 ML VIAL 50 MCG IV PUSH ×2 (15:33→16:30)
--- NOTE | 2022-03-18 16:03 | PC.NURSE ---
attempting to externally pace pt, pt is up to 72ma without success. erp at bedside.
--- NOTE | 2022-03-18 16:08 | PC.NURSE ---
1ST CALL TO [facility] WAS AT [address] SAHA, NO RETURN CALL OF YET. DR SAHA MAKES 2ND CALL AND EKG IS FAXED AT THIS TIME. NO CHANGE IN PT STATUS. WILL CONTINUE TO MONITOR.
--- NOTE | 2022-03-18 16:14 | PC.NURSE ---
HAS RETURNED TO BEDSIDE. AWAITING FURTHER ORDERS AT THIS TIME. WILL CONTINUE TO MONITOR.
--- NOTE | 2022-03-18 16:26 | PC.NURSE ---
TAMIKO IS SPEAKING WITH [facility] AT THIS TIME. WILL CONTINUE TO MONITOR. NO CHANGE IN PT STATUS.
--- NOTE | 2022-03-18 16:33 | PC.NURSE ---
PER ERP PACING IS STOPPED AT THIS TIME. PULSE 24.
--- NOTE | 2022-03-18 16:59 | PC.NURSE ---
PT IS SITTING UP TALKING WITH RN AND . PT IS AWAITING ON ROOM ASSIGNMENT AT [facility] AT THIS TIME. WILL CONTINUE TO MONITOR.
--- NOTE | 2022-03-18 17:27 | PC.NURSE ---
ANOTHER CALL PLACED TO [facility] NO ROOM ASSIGNMENT AT THIS TIME. PT REPORTS SHE IS UNSURE OF CODE STATUS AT THIS TIME. WILL CONTINUE TO MONITOR.
--- NOTE | 2022-03-18 17:53 | PC.NURSE ---
PT IS SPEAKING WITH FAMILY AT THIS TIME. PT IS TO BE TRANSFERRED TO [facility] AT [facility]. REPORT TO ANUM BRUCE. [facility] R[address]TE 15 MIN ETA.
--- NOTE | 2022-03-18 17:58 | PC.NURSE ---
PT IS SPEAKING WITH FAMILY WITHOUT DIFFICULTY, IS A & O X4. WILL CONTINUE TO MONITOR.
== END 2022-03-18 18:29 | disposition short-term general hospital (02) ==
PROVIDERS: Emergency Provider Family Medicine; PCP Family Medicine
DX: R00.1 Bradycardia, unspecified (principal); N18.9 Chronic kidney disease, unspecified; J44.9 Chronic obstructive pulmonary disease, unspecified; I10 Essential (primary) hypertension; Z87.891 Personal history of nicotine dependence
CPT/HCPCS: 36415; 71046; 80053; 82550; 82553; 84443; 84484; 85025; 93005; 96374; 96375; 96376; 99285; J0461; J2060; J3010

== ENCOUNTER 2022-03-23 16:24 | Outpatient (CLI) | payer MEDICARE, SELFPAY ==
--- NOTE | ~2022-03-23 | XR_ITS ---
EXAMINATION: XR chest 2V DATE: 03/23/2022 16:46 INDICATION: Shortness of breath TECHNIQUE: PA and lateral views of the chest are obtained. COMPARISON: 03/18/2022 FINDINGS: Cardiomegaly is noted. There has been interval insertion of a dual-lead pacemaker of the le ft chest wall which ends with leads in expected position. There is a mild diffuse interstitial patter n. No pleural effusion or pneumothorax. There is moderate thoracic spondylosis. Surgical clips in the right upper quadrant are likely from prior cholecystectomy. IMPRESSION: 1. Cardiomegaly with mild pulmonary edema. Interval pacemaker insertion. Reviewed, dictated and finalized at location F. ING MACHINE OPERATOR
== END 2022-03-23 16:25 | disposition home or self-care (01) ==
LOC: CHSIMG 16:27
PROVIDERS: PCP Family Medicine; Visit Provider Family Medicine
DX: R06.02 Shortness of breath (principal)
CPT/HCPCS: 71046

== ENCOUNTER 2022-12-31 08:16 | Outpatient (CLI) | payer MEDICARE, SELFPAY ==
[2022-12-31 08:29] LABS: Basophils Absolute Auto 0.05 K/mm3 (0.00-0.10); Basophils Percent Auto 0.9 % (0.0-1.0); Eosinophils Absolute Auto 0.36 K/mm3 (0.02-0.50); Eosinophils Percent Auto 6.7 % (1.0-6.0); Hematocrit 42.3 % (35.0-42.0); Hemoglobin 12.8 g/dL (11.7-13.8); Immature Granulocyte Absolute 0.09 K/mm3 (0.00-0.00); Immature Granulocyte Percent A 1.7 % (0.0-0.0); Lymphocytes Absolute Auto 1.09 K/mm3 (1.10-4.50); Lymphocytes Percent Auto 20.3 % (18.0-42.0); Mean Corpuscular HGB Conc 30.3 g/dL (32.0-36.0); Mean Corpuscular Hemoglobin 27.8 pg (27.0-31.0); Mean Corpuscular Volume 91.8 fL (78.0-102.0); Mean Platelet Volume 8.9 fl (9.2-11.8); Monocytes Absolute Auto 0.46 K/mm3 (0.10-0.90); Monocytes Percent Auto 8.6 % (2.0-11.0); Neutrophils Absolute Auto 3.3 K/mm3 (1.7-7.2); Neutrophils Percent Auto 61.8 % (50.0-70.0); Platelet Count Result 170 K/mm3 (150-420); Red Blood Count 4.61 M/mm3 (4.20-5.40); Red Cell Distribution Width 14.5 % (11.6-14.4); White Blood Count 5.4 K/mm3 (4.8-10.8)
== END 2022-12-31 08:17 | disposition home or self-care (01) ==
LOC: CHSLAB 08:19
PROVIDERS: PCP Family Medicine
DX: I48.0 Paroxysmal atrial fibrillation (principal); Z95.0 Presence of cardiac pacemaker; Z79.01 Long term (current) use of anticoagulants
CPT/HCPCS: 36415; 85025

== ENCOUNTER 2023-03-04 08:14 | Outpatient (CLI) | payer MEDICARE, SELFPAY ==
[2023-03-04 08:35] LABS: Basophils Absolute Auto 0.03 K/mm3 (0.00-0.10); Basophils Percent Auto 0.5 % (0.0-1.0); Eosinophils Percent Auto 6.5 % (1.0-6.0); Hematocrit 41.2 % (35.0-42.0); Hemoglobin 12.3 g/dL (11.7-13.8); Immature Granulocyte Absolute 0.09 K/mm3 (0.00-0.00); Immature Granulocyte Percent A 1.5 % (0.0-0.0); Lymphocytes Absolute Auto 1.22 K/mm3 (1.10-4.50); Lymphocytes Percent Auto 19.8 % (18.0-42.0); Mean Corpuscular HGB Conc 29.9 g/dL (32.0-36.0); Mean Corpuscular Hemoglobin 27.8 pg (27.0-31.0); Mean Platelet Volume 8.9 fl (9.2-11.8); Monocytes Absolute Auto 0.55 K/mm3 (0.10-0.90); Monocytes Percent Auto 8.9 % (2.0-11.0); Neutrophils Absolute Auto 3.9 K/mm3 (1.7-7.2); Neutrophils Percent Auto 62.8 % (50.0-70.0); Platelet Count Result 184 K/mm3 (150-420); Red Blood Count 4.43 M/mm3 (4.20-5.40); Red Cell Distribution Width 14.9 % (11.6-14.4); White Blood Count 6.2 K/mm3 (4.8-10.8)
[2023-03-04 08:37] LABS: Appearance Urine Clear (Clear); Bilirubin Urine Negative (Negative); Blood Urine Negative (Negative); Color Urine Yellow (Yellow); Glucose Urine UA Negative (Negative); Ketones Urine Negative (Negative); Leukocyte Esterase Ur Negative (Negative); Nitrate Urine Negative (Negative); Protein Urine Negative (Negative); Specific Grav Ur 1.025 (1.010-1.020); Urobilinogen Urine 0.2 mg/dL (0.2-1.0)
[2023-03-04 08:40] LABS: Add Urine Microscopic? NO
[2023-03-04 08:44] LABS: Creatinine Urine 189.67 mg/dL (40-278); MALB Creatinine Ratio 6.8 mg/g (0-30); Microalbumin Urine Random < 13.0 mg/L
[2023-03-04 09:16] LABS: Alanine Aminotransferase 17 U/L (14-59); Alkaline Phosphatase 123 U/L (46-116); Anion Gap 8 mmol/L (8-16); Aspartate Amino Transferase 15 U/L (15-37); Bilirubin,Total 0.4 mg/dL (0.00-1.00); Blood Urea Nitrogen 19 mg/dL (7-18); Calcium 9.2 mg/dL (8.5-10.1); Carbon Dioxide 32 mmol/L (21-32); Chloride 105 mmol/L (98-108); Estimated Glomerular Filt Rate 44; Free T4 Free Thyroxine 1.11 ng/dL (0.76-1.46); Glucose 93 mg/dL (70-99); Osmolality Calculated 302 mOsm/kg (285-295); Sodium 145 mmol/L (136-145); Thyroid Stimulating Hormone 3.64 uIU/mL (0.36-3.74)
== END 2023-03-04 08:15 | disposition home or self-care (01) ==
LOC: CHSLAB 08:17
PROVIDERS: PCP Family Medicine; Visit Provider Family Medicine
DX: I10 Essential (primary) hypertension (principal); R94.6 Abnormal results of thyroid function studies
CPT/HCPCS: 36415; 80053; 81003; 82043; 84439; 84443; 85025

== ENCOUNTER 2023-04-16 16:49 | Emergency (ER) | payer MEDICARE, SELFPAY ==
--- NOTE | ~2023-04-16 | XR_ITS ---
EXAMINATION: XR shoulder LT min 2V DATE: 04/16/2023 17:41 INDICATION: Left shoulder pain. TECHNIQUE: 4 views of left shoulder were obtained. COMPARISON: None. FINDINGS: Bone alignment is normal. No fracture. There is moderate osteoarthritis of glenohumeral david nt and acromioclavicular joint. A left chest pacer is noted. IMPRESSION: 1. Polyarticular osteoarthritis. Reviewed, dictated and finalized at location E. YL BOILING TUB OPERATOR
--- NOTE | ~2023-04-16 | XR_ITS ---
EXAMINATION: XR hip RT 2V w AP pelvis DATE: 04/16/2023 17:41 INDICATION: Right hip pain. Fall. TECHNIQUE: An anteroposterior view of the pelvis and 2 views of right hip were obtained. COMPARISON: None. FINDINGS: Bone alignment is normal. No fracture. There is moderate osteoarthritis of the hips. There is at least moderate lumbar spondylosis. IMPRESSION: 1. Moderate osteoarthritis of the hips. Reviewed, dictated and finalized at location E. ITY CONTROL ASSISTANT
[2023-04-16 16:50] VITALS: BP 156/80; PULSE 72; RESP 20; TEMP 36.6; O2SAT 94
--- NOTE | 2023-04-16 17:28 | ED.FALL ---
HPI - Fall General Chief Complaint: Fall Stated Complaint: fall, left shoulder pain Source: patient Mode of arrival: ambulatory Limitations: no limitations History of Present Illness HPI Narrative: Patient is a 73 year old female with a significant PMH that presents today from a fall on Wednesday. She fell in the shower on Wednesday and injured her right hip and her left shoulder. She says she does have a history of right hip pain however and says it usually dislocates and her chiropractor puts it back into place. She says the left shoulder she is unable to move without pain. She does not have a history of shoulder pain. complaint: fall Onset (ago): day(s) Fall from: standing Fall witnessed: no Place fall occurred: home Loss of consciousness: none Prolonged down time: yes and minute(s) Symptoms prior to fall: none Context: tripped/slipped Location of injury: pelvis Location of injury - extremities: Left: shoulder and Right: thigh Severity: moderate Severity scale (1-10): 6 Quality: sharp Associated symptoms (after fall): denies Related Data Home Medications Medication Instructions Recorded Confirmed aspirin 81 mg tablet,delayed 81 mg PO DAILY 07/12/19 03/18/22 release (Adult Low Dose Aspirin) cholecalciferol (vitamin D3) 125 5,000 unit PO DAILY 07/12/19 03/18/22 mcg (5,000 unit) capsule cholestyramine-aspartame 4 gram 4 gm PO BID 07/12/19 03/18/22 oral powder for susp in a packet (Prevalite) cyanocobalamin (vitamin B-12) 1,000 mcg PO DAILY 07/12/19 03/18/22 1,000 mcg capsule vit C 250 mg-vit E 90 mg-zinc 40 1 tablet PO BID 07/12/19 03/18/22 mg-copper 1 [id number] capsule (PreserVision AREDS-2) atorvastatin 20 mg tablet 20 mg PO DAILY 08/05/20 03/18/22 irbesartan 300 mg tablet 300 mg PO DAILY 08/05/20 03/18/22 metoprolol succinate 50 mg 50 mg PO DAILY 03/18/22 03/18/22 tablet,extended release 24 hr torsemide 20 mg tablet 20 mg PO DAILY 03/18/22 03/18/22 Allergies Allergy/AdvReac Type Severity Reaction Status Date / Time clindamycin Allergy Unknown Hives Verified 03/18/22 14:36 latex AdvReac Unknown BLISTERS Verified 03/18/22 14:36 FROM LATEX AND LATEX TAPE Review of Systems Review of Systems: All systems reviewed & are unremarkable except as noted in HPI and below Constitutional: Constitutional: Reports no additional constitutional complaints Eyes: Eyes: Reports no additional eye complaints ENT: Reports system reviewed and no additional complaints, except as documented Cardiovascular: Cardiovascular: Reports no additional cardiovascular complaints Respiratory: Respiratory: Reports no additional respiratory complaints Gastrointestinal: Gastrointestinal: Reports no additional gastrointestinal complaints Musculoskeletal: Musculoskeletal: Reports as per HPI and Reports arthralgias (left shoulder, right hip ) Integumentary/Breasts: Skin/Breast: Reports system reviewed and no additional complaints, except as docu Neurologic: Reports system reviewed and no additional complaints, except as documented Psychiatric: Psychiatric: Reports no additional psychiatric complaints Endocrine: Endocrine: Reports no additional endocrine complaints Hematologic/Lymphatic: Hematologic/Lymphatic: Reports no additional hematologic/lymphatic complaints PMFSH Past Medical History Medical History Cholecystectomy planned 1995 CKD (chronic kidney disease) COPD (chronic obstructive pulmonary disease) CPAP (continuous positive airway pressure) dependence Diverticulitis Hypertension Hypokalemia Obesity Osteoarthritis Prediabetes Sleep apnea Surgical History Surgical History H/O right heart catheterization 2008 H/O: hysterectomy 1989 Family History Family History Father Lung cancer Type 2 diabetes mellitus Moth
[2023-04-16] MEDS: KETOROLAC (*BKC) 60 MG/2 ML VIAL IM (17:41)
== END 2023-04-16 18:10 | disposition home or self-care (01) ==
PROVIDERS: Emergency Provider Family Medicine; PCP Family Medicine
DX: M16.0 Bilateral primary osteoarthritis of hip (principal); M25.512 Pain in left shoulder; I12.9 Hypertensive chronic kidney disease with stage 1 through stage 4 chronic kidney disease, or unspecified chronic kidney disease; N18.9 Chronic kidney disease, unspecified; J44.9 Chronic obstructive pulmonary disease, unspecified; Z87.891 Personal history of nicotine dependence; W18.2XXA Fall in (into) shower or empty bathtub, initial encounter; Y92.002 Bathroom of unspecified non-institutional (private) residence as the place of occurrence of the external cause
CPT/HCPCS: 73030; 73502; 96372; 99284; J1885

== ENCOUNTER 2023-05-17 12:44 | Outpatient (CLI) | payer MEDICARE, SELFPAY ==
--- NOTE | ~2023-05-17 | CT_ITS ---
EXAMINATION: CT shoulder LT wo con DATE: 05/17/2023 13:21 INDICATION: Left shoulder pain TECHNIQUE: High resolution computed tomography (CT) of the left shoulder was performed without intrav enous contrast. Additional sagittal and coronal reconstructions were performed. Automated exposure co ntrol and iterative reconstruction technique were employed. The dose-length product was 633.23 mGy-cm . COMPARISON: 04/16/2023 FINDINGS: Bone alignment is normal. The acromion undersurface is curved in morphology (type II). Small to moder ate-sized anterior subacromial spur. No fracture. Moderate left acromioclavicular osteoarthritis. Mil d left glenohumeral osteoarthritis. There is heterotopic ossification along the posterior superior ri m of the glenoid suggesting chronic labral degeneration. There is some cystic change along the greate r tuberosity of the left humerus which can be seen in the setting of chronic rotator cuff disease. No asymmetric muscular atrophy at the left shoulder girdle. No pathologically enlarged left axillary, h ilar or evident mediastinal lymphadenopathy. Moderate to severe lower cervical and mid thoracic pred ominant spondylosis. There is compressive atelectasis along the left lung base. Small calcified left basilar pulmonary nodule consistent with old granulomatous disease. Mosaic attenuation in the left mi d to upper lung most likely related to expiratory phase of imaging and some subsegmental air trapping related to small airway disease. Partially visualized left pectoral 3-lead cardiac pacemaker. Partia lly visualized at least moderate sized pericardial effusion. IMPRESSION: 1. Moderate left acromioclavicular and mild glenohumeral osteoarthritis. 2. Ectopic ossicle along the posterior superior rim of the glenoid suggestive of chronic labral degen eration. 3. Cystic change along the greater tuberosity of the left humerus which can be seen in the setting of chronic rotator cuff disease. 4. Partially visualized at least moderate-sized pericardial effusion. Reviewed, dictated and finalized at location A. AGENT IMPRESSION: 1. Moderate left acromioclavicular and mild glenohumeral osteoarthritis. 2. Ectopic ossicle along the posterior superior rim of the glenoid suggestive o f chronic labral degeneration. 3. Cystic change along the greater tuberosity of the left humerus which can be seen in the setting of chronic rotator cuff disease. 4. Partially visualized at least moderate-sized pericardial effusion.
== END 2023-05-17 12:45 | disposition home or self-care (01) ==
LOC: CHSIMG 12:46
PROVIDERS: PCP Family Medicine; Visit Provider Family Medicine
DX: M25.512 Pain in left shoulder (principal); M19.012 Primary osteoarthritis, left shoulder; I31.39 Other pericardial effusion (noninflammatory)
CPT/HCPCS: 73200

== ENCOUNTER 2023-09-23 09:09 | Outpatient (CLI) | payer MEDICARE, SELFPAY ==
--- NOTE | ~2023-09-23 | XR_ITS ---
EXAMINATION: XR chest 2V DATE: 09/23/2023 10:04 INDICATION: Dyspnea. TECHNIQUE: Frontal and lateral views of the chest were obtained. COMPARISON: Chest 2 views 03/23/2022 FINDINGS: There is no pneumonia, pleural effusion, or pneumothorax. Cardiomegaly is noted. There are prominent paracardial fat pads. There is a left chest pacer leads in right atrium, right ventricle, a nd coronary sinus. IMPRESSION: 1. Cardiomegaly. Reviewed, dictated and finalized at location E. IMPRESSION: 1. Cardiomegaly.
[2023-09-23 09:51] LABS: Hematocrit 37.4 % (35.0-42.0); Hemoglobin 11.2 g/dL (11.7-13.8); Mean Corpuscular HGB Conc 29.9 g/dL (32-36); Mean Corpuscular Hemoglobin 28.2 pg (27.0-31.0); Mean Corpuscular Volume 94.2 fL (78.0-102.0); Mean Platelet Volume 8.9 fl (9.2-11.8); Platelet Count Result 175 K/mm3 (150-420); Red Blood Count 3.97 M/mm3 (4.20-5.40); Red Cell Distribution Width 15.9 % (11.6-14.4); White Blood Count 5.6 K/mm3 (4.8-10.8)
[2023-09-23 09:54] LABS: Appearance Urine Clear (Clear); Bilirubin Urine Negative (Negative); Blood Urine Negative (Negative); Color Urine Yellow (Yellow); Glucose Urine UA Negative (Negative); Ketones Urine Negative (Negative); Leukocyte Esterase Ur Negative (Negative); Nitrate Urine Negative (Negative); Protein Urine Negative (Negative); Specific Grav Ur 1.025 (1.010-1.020); Urobilinogen Urine 0.2 mg/dL (0.2-1.0)
[2023-09-23 10:07] LABS: Add Urine Microscopic? NO
[2023-09-23 11:24] LABS: Alanine Aminotransferase 17 U/L (14-59); Alkaline Phosphatase 104 U/L (46-116); Anion Gap 6 mmol/L (4-12); Aspartate Amino Transferase 12 U/L (15-37); Bilirubin,Total 0.3 mg/dL (0.00-1.00); Blood Urea Nitrogen 18 mg/dL (7-18); Calcium 8.9 mg/dL (8.5-10.1); Carbon Dioxide 33 mmol/L (21-32); Chloride 104 mmol/L (98-108); Estimated Glomerular Filt Rate 41; Glucose 91 mg/dL (70-99); Osmolality Calculated 297 mOsm/kg (285-295); Potassium 4.2 mmol/L (3.5-5.1); Sodium 143 mmol/L (136-145); Thyroid Stimulating Hormone 3.26 uIU/mL (0.36-3.74); Total Protein 6.4 g/dL (6.4-8.2)
[2023-09-23 14:22] LABS: Iron 35 ug/dL (50-170); Percent Iron Saturation 11 % (12-57)
== END 2023-09-23 09:10 | disposition home or self-care (01) ==
LOC: CHSIMG 09:12
PROVIDERS: PCP Family Medicine; Visit Provider Family Medicine
DX: I11.9 Hypertensive heart disease without heart failure (principal); D64.9 Anemia, unspecified
CPT/HCPCS: 36415; 71046; 80053; 81003; 83540; 83550; 84443; 85027

== ENCOUNTER 2023-09-25 07:32 | Outpatient (NON) | payer MEDICARE, SELFPAY ==
[2023-09-25 07:36] LABS: Occult Blood Negative (Negative)
== END 2023-09-25 07:33 | disposition home or self-care (01) ==
LOC: CHSLAB 07:35
PROVIDERS: Visit Provider Family Medicine
DX: D50.9 Iron deficiency anemia, unspecified (principal)
CPT/HCPCS: 82272

== ENCOUNTER 2023-10-11 14:45 | Emergency (ER) | payer MEDICARE, SELFPAY ==
--- NOTE | ~2023-10-11 | XR_ITS ---
EXAMINATION: XR toe 3rd LT min 2V DATE: 10/11/2023 15:50 INDICATION: Left third toe injury. TECHNIQUE: 3 views of left third toe were obtained. COMPARISON: None. FINDINGS: Bone alignment is normal. No acute fracture. There is mild osteoarthritis of third metatars ophalangeal joint and third proximal and distal interphalangeal joints. IMPRESSION: 1. Mild polyarticular osteoarthritis. Reviewed, dictated and finalized at location A.
--- NOTE | 2023-10-11 14:46 | ED.LOWEXIN ---
HPI - Extremity Injury (Lower) General Chief Complaint: Extremity Injury, Lower Stated Complaint: toe issue Time Seen by Provider: 10/11/23 14:45 Source: patient Mode of arrival: ambulatory Limitations: no limitations History of Present Illness HPI Narrative: Patient is a 73-year-old female with a left foot 3rd toe injury at home prior to arrival. Patient tripped and fell landed on her left foot specifically at the toe and it peeled back the nail. The nail is hanging and ready to fall off at this time. Tetanus shot up-to-date. MD complaint: foot injury ( Left 3rd digit) Onset (ago): hour(s) (1) Type of Injury: blunt Place: home Severity: mild Severity scale (1-10): 1 Relieving factors: nothing Exacerbating factors: nothing Context: fall Associated symptoms: swelling ( toe left 3rd) Other symptoms: none Related Data Home Medications Medication Instructions Recorded Confirmed aspirin 81 mg tablet,delayed 81 mg PO DAILY 07/12/19 05/25/23 release (Adult Low Dose Aspirin) cholecalciferol (vitamin D3) 125 5,000 unit PO DAILY 07/12/19 05/25/23 mcg (5,000 unit) capsule cholestyramine-aspartame 4 gram 4 gm PO BID 07/12/19 05/25/23 oral powder for susp in a packet (Prevalite) cyanocobalamin (vitamin B-12) 1,000 mcg PO DAILY 07/12/19 05/25/23 1,000 mcg capsule vit C 250 mg-vit E 90 mg-zinc 40 1 tablet PO BID 07/12/19 05/25/23 mg-copper 1 [id number]-rrmlun-hitlsk capsule (PreserVision AREDS-2) atorvastatin 20 mg tablet 20 mg PO DAILY 08/05/20 05/25/23 irbesartan 300 mg tablet 300 mg PO DAILY 08/05/20 05/25/23 metoprolol succinate 50 mg 50 mg PO DAILY 03/18/22 05/25/23 tablet,extended release 24 hr torsemide 20 mg tablet 20 mg PO DAILY 03/18/22 05/25/23 Allergies Allergy/AdvReac Type Severity Reaction Status Date / Time clindamycin Allergy Unknown Hives Verified 10/11/23 14:48 latex AdvReac Unknown BLISTERS Verified 10/11/23 14:48 FROM LATEX AND LATEX TAPE Review of Systems Review of Systems: All systems reviewed & are unremarkable except as noted in HPI and below Constitutional: Constitutional: Reports no additional constitutional complaints Eyes: Eyes: Reports no additional eye complaints ENT: Reports system reviewed and no additional complaints, except as documented Cardiovascular: Cardiovascular: Reports no additional cardiovascular complaints Respiratory: Respiratory: Reports no additional respiratory complaints Gastrointestinal: Gastrointestinal: Reports no additional gastrointestinal complaints Genitourinary: Genitourinary: Reports no additional female genitourinary complaints Musculoskeletal: Musculoskeletal: Reports no additional musculoskeletal complaints Integumentary/Breasts: Skin/Breast: Reports system reviewed and no additional complaints, except as docu Neurologic: Reports system reviewed and no additional complaints, except as documented Psychiatric: Psychiatric: Reports no additional psychiatric complaints Endocrine: Endocrine: Reports no additional endocrine complaints Hematologic/Lymphatic: Hematologic/Lymphatic: Reports no additional hematologic/lymphatic complaints Allergic/Immunologic: Allergic/Immunologic: Reports no additional allergic/immunologic complaints PMFSH Past Medical History Medical History Cholecystectomy planned 1995 CKD (chronic kidney disease) COPD (chronic obstructive pulmonary disease) CPAP (continuous positive airway pressure) dependence Diverticulitis Hypertension Hypokalemia Obesity Osteoarthritis Prediabetes Sleep apnea Surgical History Surgical History H/O right heart catheterization 2008 H/O: hysterectomy 1989 Family History Family History Father Lung cancer Type 2 diabetes mellitus Mother Carcinoma of colon Hypertension Social History
[2023-10-11 14:49] VITALS: BP 167/58; PULSE 70; RESP 16; TEMP 36.7; O2SAT 92
[2023-10-11 16:28] VITALS: BP 158/62; PULSE 75; RESP 16; TEMP 36.7; O2SAT 92
== END 2023-10-11 16:28 | disposition home or self-care (01) ==
PROVIDERS: Emergency Provider Emergency Medicine; PCP Family Medicine
DX: S90.222A Contusion of left lesser toe(s) with damage to nail, initial encounter (principal); W22.8XXA Striking against or struck by other objects, initial encounter; I12.9 Hypertensive chronic kidney disease with stage 1 through stage 4 chronic kidney disease, or unspecified chronic kidney disease; N18.9 Chronic kidney disease, unspecified; J44.9 Chronic obstructive pulmonary disease, unspecified; G47.30 Sleep apnea, unspecified; R73.03 Prediabetes; Z87.891 Personal history of nicotine dependence; Z79.82 Long term (current) use of aspirin
CPT/HCPCS: 73660; 99283

== ENCOUNTER 2023-11-24 11:34 | Outpatient (CLI) | payer MEDICARE, SELFPAY ==
[2023-11-24] VITALS (9 sets, daily range): PULSE 65–83; O2SAT 87–94
--- NOTE | 2023-11-24 12:13 | HOMEO2EVAL ---
Evaluation was performed at [facility] Home Oxygen Evaluation RC: Home Oxygen (O2) Evaluation Start: 11/24/23 11:58 Freq: Status: Active Protocol: RPE Activity Type Activity Date Activity User E-sign Co-sign Detail Recorded Client Recorded Date Recorded By Document 11/24/23 11:44 RES [id number] 11/24/23 12:03 RES Document 11/24/23 11:45 RES [id number] 11/24/23 12:03 RES Document 11/24/23 11:46 RES [id number] 11/24/23 12:12 RES Document 11/24/23 11:47 RES [id number] 11/24/23 12:12 RES Document 11/24/23 11:48 RES [id number] 11/24/23 12:12 RES Document 11/24/23 11:49 RES [id number] 11/24/23 12:12 RES Document 11/24/23 11:50 RES [id number] 11/24/23 12:12 RES Document 11/24/23 11:51 RES [id number] 11/24/23 12:12 RES Document 11/24/23 11:52 RES [id number] 11/24/23 12:12 RES 11/24/23 11/24/23 11/24/23 11:44 11:45 11:46 Home O2 Evaluation [Oxygen] -Test Phase Resting Resting Resting -Oxygen Delivery Room Air Nasal Cannula Nasal Cannula -Oxygen Flow Rate (L/min) 2 3 -Fraction of Inspired Oxygen (%) 21 28 32 [Pulse Oximetry] -Pulse Oximetry (90-100 %) 88 L 88 L 90 [Pulse Rate] -Pulse Rate (60-100 beats/min) 67 65 65 [Evaluation] -Activity Tolerance Good Good Good -Rating of Perceived Dyspnea (PD) +2 Mild, Some +2 Mild, Some +2 Mild, Some Difficulty, Difficulty, Difficulty, Noticeable to Noticeable to Noticeable to the Observer the Observer the Observer -Rate of Perceived Exertion (PE) 11 Fairly light 11 Fairly light 11 Fairly light Query Text:Click the Protocol Button to View the RPE Scale [Exercise] -Ambulation Distance (feet) -Ambulation Distance (meters) [Comments] -Home Oxygen Evaluation Comments Increased Patient resting Patient sats 90 patient to 1lpm in chair on % on 3lpm sats still 88% 2lpm sats still resting in increased are 88%. I chair. patient to 2lpm increased patient to 3lpm . [Charges] -Evaluation Charges O2 Evaluation Charge 11/24/23 11/24/23 11/24/23 11:47 11:48 11:49 Home O2 Evaluation [Oxygen] -Test Phase Exercise Exercise Exercise -Oxygen Delivery Nasal Cannula Nasal Cannula Nasal Cannula -Oxygen Flow Rate (L/min) 3 4 4 -Fraction of Inspired Oxygen (%) 32 36 36 [Pulse Oximetry] -Pulse Oximetry (90-100 %) 87 L 92 93 [Pulse Rate] -Pulse Rate (60-100 beats/min) 72 75 78 [Evaluation] -Activity Tolerance Good Good Good -Rating of Perceived Dyspnea (PD) +2 Mild, Some +2 Mild, Some +2 Mild, Some Difficulty, Difficulty, Difficulty, Noticeable to Noticeable to Noticeable to the Observer the Observer the Observer -Rate of Perceived Exertion (PE) 11 Fairly light 12 12 Query Text:Click the Protocol Button to View the RPE Scale [Exercise] -Ambulation Distance (feet) -Ambulation Distance (meters) [Comments] -Home Oxygen Evaluation Comments After patient started walking sats decreased to 87%. I increased patient to 4lpm . Patient stated she gets very SOB and has to take alot of breaks. [Charges] -Evaluation Charges 11/24/23 11/24/23 11/24/23 11:50 11:51 11:52 Home O2 Evaluation [Oxygen] -Test Phase Exercise Exercise Exercise -Oxygen Delivery Nasal Cannula Nasal Cannula Nasal Cannula -Oxygen Flow Rate (L/min) 4 4 5 -Fraction of Inspired Oxygen (%) 36 36 40 [Pulse Oximetry] -Pulse Oximetry (90-100 %) 92 88 L 94 [Pulse Rate] -Pulse Rate (60-100 beats/min) 80 83 78 [Evaluation] -Activity Tolerance Good Good Good -Rating of Perceived Dyspnea (PD) +2 Mild, Some +2 Mild, Some +2 Mild, Some Difficulty, Difficulty, Difficulty, Noticeable to Noticeable to Noticeable to the Observer the Observer
== END 2023-11-24 11:35 | disposition home or self-care (01) ==
LOC: CHSCARD 11:37
PROVIDERS: PCP Family Medicine; Visit Provider Family Medicine
DX: R06.02 Shortness of breath (principal); R09.02 Hypoxemia
CPT/HCPCS: 94618

== ENCOUNTER 2023-12-21 09:18 | Outpatient (CLI) | payer MEDICARE, SELFPAY ==
--- NOTE | ~2023-12-21 | CT_ITS ---
EXAMINATION:CT diagnostic chest wo con DATE: 12/21/2023 10:05 INDICATION: Shortness of breath. TECHNIQUE: Computed tomography (CT) of the chest was performed without intravenous contrast. Automate d exposure control and iterative reconstruction technique were employed. The dose-length product (DLP ) was 438.29 mGy-cm. COMPARISON: Chest CT 03/24/2010 FINDINGS: There is mild atelectasis in the lungs. A calcified right lung nodule and calcified right h ilar and mediastinal lymph nodes are consistent with old granulomatous disease. There is a 3 mm nodul e in right lower lobe, likely benign. There is mosaic attenuation in the lungs, likely small airways disease. No pleural effusion. Cardiomegaly is noted. There is a large pericardial effusion. There is a left chest pacer with leads in right atrium, right ventricle, and coronary sinus. There are changes of cholecystectomy. The central arteries are enlarged, consistent with pulmonary arterial hypertensi on. There is severe thoracic spondylosis. IMPRESSION: 1. Mosaic attenuation in the lungs, likely small airways disease. 2. Large pericardial effusion. Reviewed, dictated and finalized at location A.
[2023-12-21 11:03] LABS: Cholesterol 164 mg/dL (0-200); Estimated Glomerular Filt Rate 39; HDL Direct 61 mg/dL (40-60); LDL Cholesterol Calculated 50 mg/dL (<130); Triglycerides 264 mg/dL (0-150)
--- NOTE | 2024-01-03 11:41 | P.PCNPFT_ITS ---
PFT Procedure Performed PFT Procedure Performed Spirometry with Pre/Post Bronchodilator Plethysmography (Lung Vol) Diffusing Cap (DLCO) Flow Vol Loop PFT Interpretation DOS: 12/21/2023 REQUESTING: Delgado Horn APRN REASON FOR TESTING: Dyspnea PULMONARY FUNCTION TESTS Results are reliable and reproducible. Repeatability of spirometry FEV1 maneuver pre and post bronchodilator is Grade A. Spirometry: The pre-bronchodilator FEV1 is 0.74 L, 40%, severely decreased. The pre-bronchodilator FVC is 0.95 L, 41%, severely decreased. The FEV1/FVC ratio is 78%, normal. After bronchodilator, the FEV1 is 0.79 L, 42%, +6%. The post bronchodilator FVC is 0.95 L, 41%, + 1%. The FEV1/FVC ratio is 82%. The FEF 25- 75% is 0.71 L, 35% predicted, and after bronchodilator is 0.96 L, 48%, +36% increase. Lung volumes: The total lung capacity is 3.09 L, 77%, decreased, consistent with restriction. The FRC is 2.32 L, 151%, increased The residual volume is 2.14 L, 132% consistent with air trapping. The RV/TLC is 69% consistent with air trapping. Airway resistance is increased. Diffusion: DLCO is 8.7, 38%, severely decreased. The DLCO/VA is 5.93, 166%, over corrects for alveolar volume. Flow volume loop: The flow volume loop is consistent with restriction. IMPRESSION: This spirometry shows severe decrease in the FEV1 and FVC with a normal FEV1%, no response to bronchodilator, decreased total lung capacity consistent with restriction, increased RV and RV/TLC consistent with air trapping and severe decrease in diffusion which over corrects for alveolar volume. This is a mixed picture with restriction and obstruction. There is no standardized method for interpreting obstruction in the setting of restriction. A prior study 02/12/2015 is similar, same decreased FEV1 and FVC with a normal ratio, decreased total lung capacity and severe decrease in the DLCO. This process has been present for at least 9 years. Dai Bacon MD
== END 2023-12-21 09:19 | disposition home or self-care (01) ==
LOC: CHSIMG 09:22
PROVIDERS: PCP Family Medicine; Visit Provider Nurse Practitioner Family
DX: R94.2 Abnormal results of pulmonary function studies (principal); R06.09 Other forms of dyspnea; E78.2 Mixed hyperlipidemia; R91.8 Other nonspecific abnormal finding of lung field; I31.39 Other pericardial effusion (noninflammatory)
CPT/HCPCS: 36600; 71250; 80061; 82375; 82805; 83050; 94060; 94726; 94729

== ENCOUNTER 2024-05-23 04:05 | Emergency (ER) | payer MEDICARE, SELFPAY ==
[2024-05-23 04:08] VITALS: BP 115/89; PULSE 78; RESP 18; TEMP 36.8; O2SAT 94
--- NOTE | 2024-05-23 04:27 | ED_ITS ---
HPI - Fall General Chief Complaint: Fall Stated Complaint: fall Time Seen by Provider: 05/23/24 04:20 History of Present Illness HPI Narrative: Pt has chronic issues with diarrhea and had diarrhea tonight and got it on herelf so she was in shower and lost balance and fell in shower and could not get up. 911 called for lift assist and when they were getting her up she caught her leg on the metal around the shower causing a skin avulsion/laceration to the right leg which is chronically edematous. Pt unsure of her last tetanus. Pt syas nothing is new other than the cut. Related Data Home Medications ?Medication ?Instructions ?Recorded ?Confirmed ?Last Taken ?Type cholecalciferol (vitamin D3) 125 5,000 unit PO DAILY 07/12/19 02/18/24 08/06/20 History mcg (5,000 unit) capsule cholestyramine-aspartame 4 gram 4 gm PO BID 07/12/19 02/18/24 08/06/20 History oral powder for susp in a packet (Prevalite) cyanocobalamin (vitamin B-12) 1,000 mcg PO DAILY 07/12/19 02/18/24 08/06/20 History 1,000 mcg capsule vit C 250 mg-vit E 90 mg-zinc 40 1 tablet PO BID 07/12/19 02/18/24 08/06/20 History mg-copper 1 [id number] capsule (PreserVision AREDS-2) irbesartan 300 mg tablet 300 mg PO DAILY 08/05/20 02/18/24 08/06/20 History metoprolol succinate 50 mg 50 mg PO DAILY 03/18/22 02/18/24 Unknown History tablet,extended release 24 hr torsemide 20 mg tablet 20 mg PO DAILY 03/18/22 02/18/24 Unknown History apixaban 5 mg tablet (Eliquis) 5 mg PO BID 02/18/24 02/18/24 Unknown History Allergies Allergy/AdvReac Type Severity Reaction Status Date / Time clindamycin Allergy Unknown Hives Verified 02/18/24 09:23 latex AdvReac Unknown BLISTERS Verified 02/18/24 09:23 FROM LATEX AND LATEX TAPE Review of Systems Review of Systems: All systems reviewed & are unremarkable except as noted in HPI and below PMFSH Past Medical History Medical History Cholecystectomy planned 1995 CKD (chronic kidney disease) COPD (chronic obstructive pulmonary disease) CPAP (continuous positive airway pressure) dependence Diverticulitis Hypertension Hypokalemia Obesity Osteoarthritis Prediabetes Sleep apnea Surgical History Surgical History H/O right heart catheterization 2008 H/O: hysterectomy 1989 Family History Family History Father Lung cancer Type 2 diabetes mellitus Mother Carcinoma of colon Hypertension Social History Social History Smoking packs per day: 0.75 Smoking cigarettes per day: 15.0 Years smoked: 35 Smoking pack-years: 26.25 Smoking status: Former smoker Smoking end date: 05/10/04 Alcohol intake: never Substance use type: does not use Living arrangements: with family Gender identity (if verbalized by the patient): Female Exam Const: General: no acute distress Nutritional Appearance: obese Orientation/consciousness: patient oriented x3 Limitations: no limitations Eyes: EOM: EOMs intact bilaterally Resp: Effort & Inspection: normal respiratory effort Auscultation: clear to auscultation bilaterally Cardio: Rate: regular rate Rhythm: regular rhythm GI: Auscultation: normal bowel sounds Skin: Wounds: wounds noted (large square area of tissue avulsion right leg and skin tear above it) Neuro: General: patient oriented x3, moves all extremities and no focal motor deficits Speech: normal speech Extrem: General: edema bilateral (3 plus) Psych: Mental Status: mental status grossly normal Affect: normal affect Attitude: cooperative Course Vital Signs Vital signs: Vital Signs Temperature 98.2 F 05/23/24 04:08 Pulse Rate 78 05/23/24 04:08 Respiratory Rate 18 05/23/24 04:08 Blood Pressure 115/89 05/23/24 04:08 Pulse Oximetry 94 05/23/24 04:08 Oxygen Delivery Nasal Cannula 05/23/24 04:08 Oxygen Flow Rate 3 05/23/24 04:08 Temperature 98.2 F 05/23/24 04:08 Pulse Rate 78 05/23/24 04:08 Respiratory Rate 18 05/23/24 04:08 Blood Pressure 115/89 05/23/24 04:08 Pulse Oximetry 94 05/23/24 04:08 Oxygen Delivery Nasal Cannula 05/23/24 04:08 Oxygen Flow Rate 3 05/23/24 04:08 MDM - Fall MDM Narrative Medical decision making narrative: Pt has large skin tear and tissue avulsion to chronically edematous right leg. There is nothing to suture. area was cleaned and wet to dry dressing applied. Pt given tetanus and morphine for pain and zofran for nausea. Pt will need to follow up with PCP to get wound care or home health involved because the risk of infection with this injury is great. Discharge Plan Discharge Clinical Impression: Skin tear, Avulsion of skin Patient Disposition: Home, Self-Care Condition: Stable Instructions: Antibiotic Form, Skin Avulsion (ED) Additional Instructions: follow up with pcp to get home health assistance for car of wound Patient Language: Congolese Prescriptions: New hydrocodone-acetaminophen 5-325 mg tablet 1 tablet PO Q6H PRN (Reason: pain) Qty: 10 0RF hydrocodone-acetaminophen 5-325 mg tablet 1 tablet PO Q6H PRN (Reason: pain) Qty: 10 0RF No Action irbesartan 300 mg tablet 300 mg PO DAILY fluticasone propionate [Flonase Allergy Relief] 50 mcg/actuation spray,suspension 2 spray intranasal DAILY Qty: 16 0RF Rx Instructions: administer into each nostril metoprolol succinate 50 mg tablet extended release 24 hr 50 mg PO DAILY torsemide 20 mg tablet 20 mg PO DAILY PreserVision AREDS-2 [phone] sl-[id number]-mg capsule 1 tablet PO BID Rx Instructions: administer with meals Prevalite 4 gram powder in packet 4 gm PO BID Rx Instructions: administer w/meal; avoid other meds within 1hr before or 4-6hr after dose cyanocobalamin (vitamin B-12) 1,000 mcg capsule 1,000 mcg PO DAILY cholecalciferol (vitamin D3) 125 mcg (5,000 unit) capsule 5,000 unit PO DAILY Eliquis 5 mg tablet 5 mg PO BID tiotropium bromide 1.25 mcg/actuation mist for inhalation 1.25 mcg/actuation mist 0RF gabapentin 300 mg capsule 300 mg PO BID Qty: 90 1RF potassium chloride [Klor-Con 10] 10 mEq tablet extended release 10 meq PO DAILY Qty: 90 1RF triamcinolone acetonide 0.1 % cream 1 applic TOPICAL BID Qty: 30 1RF budesonide-formoterol [Symbicort] 80-4.5 mcg/actuation HFA aerosol inhaler 2 puff inhalation Q12H Qty: 30.6 1RF Rx Instructions: rinse and spit Follow-up/Referrals: Gigi Ornelas MD [Primary Care Provider] -
[2024-05-23] MEDS: ONDANSETRON HCL ODT 4 MG TABLET PO (04:37)
[2024-05-23] MEDS: TETANUS,DIPHTHERIA,AC PERTUSSIS ADULT 0.5 ML (ADACEL) IM (04:38)
[2024-05-23] MEDS: MORPHINE SULFATE (*CRX) 4 MG/ML INJ IM (04:39)
[2024-05-23 05:00] VITALS: BP 138/69; PULSE 85; RESP 18; O2SAT 98
== END 2024-05-23 05:00 | disposition home or self-care (01) ==
PROVIDERS: Emergency Provider Emergency Medicine; PCP Family Medicine
DX: S81.811A Laceration without foreign body, right lower leg, initial encounter (principal); I12.9 Hypertensive chronic kidney disease with stage 1 through stage 4 chronic kidney disease, or unspecified chronic kidney disease; N18.9 Chronic kidney disease, unspecified; J44.9 Chronic obstructive pulmonary disease, unspecified; Z87.891 Personal history of nicotine dependence; Z23 Encounter for immunization; W18.2XXA Fall in (into) shower or empty bathtub, initial encounter
CPT/HCPCS: 90471; 90715; 96372; 99283; A9270; J2270

== ENCOUNTER 2024-09-22 11:30 | Emergency (ER) | payer MEDICARE, SELFPAY ==
[2024-09-22] VITALS (40 sets, daily range): BP systolic 112–194; BP diastolic 41–139; PULSE 77–89; RESP 17–29; TEMP 37.6–37.9; O2SAT 88–100
--- NOTE | ~2024-09-22 | XR_ITS ---
EXAMINATION: XR chest 1V portable DATE: 09/22/2024 12:09 INDICATION: Cough, congestion and shortness of breath TECHNIQUE: frontal view of the chest was obtained. COMPARISON: Chest radiograph dated 09/23/[address] dated 12/21/2023 FINDINGS: Again seen is an enlarged cardiac silhouette to be due to cardiomegaly and/or pericardial effusion wi th large pericardial effusion evident on the CT from several months prior. Unchanged opacities at the left lower lung zone correspond to a small left paracardial fat pad and adjacent atelectasis in the lingula and left lower lobe. No new airspace opacities, pulmonary edema, pleural effusion or pneumoth orax. Three lead pacemaker seen with leads projecting over the expected locations of the right atrial appendage, apex of the right ventricle and overlying the left ventricle likely having traversed the coronary sinus. IMPRESSION: 1. Persistent large cardiac silhouette which could represent cardiomegaly or a persistent pericardial effusion. Reviewed, dictated and finalized at location A.
--- OUTSIDE RECORDS SUMMARY | 2024-09-22 11:32 | XMS_ITS | Clinical Summary ---
Author Organization [facility] Address [address] [place] [address] Care Team Providers Care Facialist Name Role Phone Gigi Ornelas MD Primary Care Provider [phone] Jordi Gould PA-C Unavailable [phone] Kajal Javed MD Unavailable [phone] Cindy Elias ANP- Unavailable [phone] Allergies Active Allergy Reactions Criticality Noted Date Comments Amoxicillin-Pot Clavulanate Nausea Only 021 Clindamycin Hives 01/30/2021 Silicone Rash Low 02/07/2021 Tape Unknown 01/30/2021 Medications triamcinolone 0.1 % creamIndicatio ns:rash APPLY CREAM EXTERNALLY TO AFFECTED AREA TWICE DAILY 1 Active PREVALITE 4 g packetIndicati ons:Diarrhea MIX AND TAKE THE CONTENTS OF 1 PACKET BY MOUTH DAILY. 1 Active gabapentin 300 MG capsuleIndicat ions:Neuropath y Take 2 capsules by mouth 2 (two) times daily. Indications: Nerve Disease Patient takes 2 capsules BID and one capsule mid afternoon 1 Active irbesartan 300 MG tabletIndicati ons:Hypertensi on Take 1 tablet by mouth daily. Indications: High Blood Pressure 1 Active Multiple Vitamins-Birdseye als (PRESERVISION AREDS) capsuleIndicat ions:Supplemen t Take 1 capsule by mouth daily. Indications: Supplement Active cholecalcifero l (VITAMIN D3) 125 MCG (5000 UT) TabIndications :Supplement Take 1 tablet by mouth daily. Indications: Supplement Active Cyanocobalamin (VITAMIN B-12) 5000 MCG TABLET DISPERSIBLEInd ications:Suppl ement Take 5,000 mcg by mouth daily. Indications: Supplement Active metoprolol succinate ER 50 MG 24 hr tabletIndicati ons:Hypertensi on Take 1.5 tablets by mouth daily. Indications: High Blood Pressure 1 Active VENTOLIN HFA 108 (90 Base) MCG/ACT inhalerIndicat ions:COPD 2 puffs as needed. Indications: COPD 2 Active albuterol (2.5 MG/3ML) 0.083% nebulizer solutionIndica tions:COPD as needed. Indications: COPD 2 Active SV IRON 325 (65 Fe) MG tabletIndicati ons:supplement Take 1 tablet by mouth daily with breakfast. Indications: supplement 4 Active vitamin C (ASCORBIC ACID) 250 MG tabletIndicati ons:Supplement Take 500 mg by mouth daily. Indications: Supplement 5 Active OXYGENIndicati ons:Dyspnea 4 L/min by Nasal route continuous. Indications: Difficulty Breathing 5 Active apixaban (ELIQUIS) 5 MG tablet Take 1 tablet by mouth twice daily 60 tablet 5 5 Active potassium chloride CR (MICRO-K) 10 MEQ CR capsuleIndicat ions:supplemen t Take 1 capsule (10 mEq total) by mouth daily. Indications: supplement 60 capsule 2 5 Active torsemide (DEMADEX) 20 MG tabletIndicati ons:CHF Take 1 tablet (20 mg total) by mouth daily. Indications: CHF 60 tablet 2 5 Active HYDROcodone-ac etaminophen (NORCO) 5-325 MG tabletIndicati ons:Acute Pain < 7 Day Supply every 6 hours as needed for pain 4 08/29/19 25 Discontinu ed(Discont inued by another clinician) potassium chloride CR (MICRO-K) 10 MEQ CR capsuleIndicat ions:supplemen t Take 2 capsules by mouth once daily 60 capsule 2 5 08/29/19 25 Discontinu ed(Sig Adjustment ) torsemide (DEMADEX) 20 MG tabletIndicati ons:CHF Take 2 tablets by mouth once daily 60 tablet 2 5 08/29/19 25 Discontinu ed(Sig Adjustment ) torsemide (DEMADEX) 20 MG tabletIndicati ons:CHF Take 1 tablet (20 mg total) by mouth daily. Indications: CHF 5 09/06/19 Discontinu ed(Reorder ) Active Problems Problem Noted Date Diagnosed Date Morbid (severe) obesity due to excess calories 0 08/28/2024 Body mass index (BMI) 45.0-49.9, adult Anticoagulant long-term use 12/29/2023 Chronic combined systolic an d diastolic heart failure ([facility]) 07/02/2022 Left ventricular systolic dysfunction (LVSD) Biventricular cardiac pacemaker in situ 03/19/20 Complete heart block ([facility]) 2 Symptomatic bradycardia 03/18/2022 Chronic venous insufficiency 02/25/2021 Sleep apnea 05/10/2008 Other hyperlipidemia 05/10/2008 Hypertension 05/10/1989 Lymphedema Pericardial effusion ([facility]) SOBOE (shortness of breath on exertion) Encounters Date Type Department Care Team Description 09/05/2024 Telephone [facility] [address] [place] [address] Cindy Elias, ANP-BC Refill Request 08/28/2024 1:00 PM CDT Office Visit [facility] [place] [address] Cindy Elias ANP-BC Follow Up (Pericardial effusion, shortness of breath) 08/28/2024 12:43 PM CDT - 08/28/2024 11:59 PM CDT Hospital Encounter [facility] [address] [place] [address] [place] [address] Precious Phillips MD Discharge Disposition: Home or Self Care (Routine Discharge) 08/28/2024 Travel 08/17/2024 11:03 AM CDT - 08/17/2024 11:59 PM CDT Hospital Encounter [facility] [address] [place] [address] Chyna Mcallister, Maria Fernanda Diez, OT Discharge Disposition: Home or Self Care (Routine Discharge) 08/17/2024 Travel 08/07/2024 1:17 PM CDT - 08/07/2024 11:59 PM CDT Hospital Encounter [facility] [address] [place] [address] Chyna Mcallister, Maria Fernanda Diez, OT Discharge Disposition: Home or Self Care (Routine Discharge) 08/07/2024 Travel 07/31/2024 1:17 PM CDT - 07/31/2024 11:59 PM CDT Hospital En[facility] [address] [place] [address] Chyna Mcallister, Maria Fernanda Diez, OT Discharge Disposition: Home or Self Care (Routine Discharge) 07/31/2024 Travel 07/24/2024 1:18 PM CDT - 07/24/2024 11:59 PM CDT Hospital En[facility] [address] [place] [address] Chyna Mcallister, Maria Fernanda Diez, OT Discharge Disposition: Home or Self Care (Routine Discharge) 07/24/2024 Travel 07/17/2024 1:30 PM CDT - 07/17/2024 11:59 PM CDT Hospital Encounter [facility] [address] [place] [address] Chyna Mcallister, Maria Fernanda Diez, OT Discharge Disposition: Home or Self Care (Routine Discharge) 07/17/2024 Travel 07/14/2024 3:30 AM REFRIGERATOR MOVER Allied Health/Nurse Visit [facility] [address] [place] [address] Kajal Javed MD 07/07/2024 12:00 PM REFRIGERATOR MOVER Home Care Visit [facility] [address] [place] [address] Natali Elizabeth, RN SN OASIS DISCHARGE/ASSESSME NT 07/05/2024 2:39 PM REFRIGERATOR MOVER - 07/05/2024 11:59 PM REFRIGERATOR MOVER Hospital Encounter [facility] [address] [place] [address] Chyna Mcallister, BONER MEAT Discharge Disposition: Home or Self Care (Routine Discharge) 07/05/2024 Travel 06/30/2024 10:45 AM REFRIGERATOR MOVER Home Care Visit [facility] [address] [place] [address] Eufemia Beal LPN SN HOME VISIT 06/28/2024 11:00 AM REFRIGERATOR MOVER [facility] [address] [place] [address] Eufemia Beal LPN SN HOME VISIT 06/26/2024 11:30 AM REFRIGERATOR MOVER - 06/26/2024 11:59 PM [facility] Hospital Encounter [facility] [address] [facility] [place] [address] Kathy Murdock, EMERGENCY VEHICLE TECHNICIAN Discharge Disposition: Home or Self Care (Routine Discharge) 06/26/2024 Travel from Last 3 Months Family History Medical History Relation Comments Cancer Brother Cancer Father Heart Attack Mother Stroke Mother Heart Attack Paternal Grandfather Stroke Paternal Grandfather Heart Attack Paternal Grandmother Relation Status Comments Brother Father Maternal Grandfather Maternal Grandmother Mother Paternal Grandfather Paternal Grandmother Social History Tobacco Use Types Packs/Day Years Used Date Smoking Tobacco: Former Cigarettes Q uit: 2006 Smokeless Tobacco: Never Tobacco Cessation:Counseling Given: Not Answered Alcohol Use Standard Drinks/Week Comments Never 0 (1 standard drink = 0.6 oz pur e alcohol) OASIS D0700: Social Isolation Answer Da te Recorded Frequency of experiencing loneliness or isolatio n Never 07/07/2024 OASIS A1250: Transportation Answer Date Recorded Lack of Transportation (Medical) No 07/07/2024 Lack of Transportation (Non-Medical) No 07/07/2024 Patient Unable or Declines to Respond No 07/07/2024 OASIS B1300: Health Literacy Answer Parker e Recorded Frequency of needing help to read materials from doctor or pharmacy Never 07/07/2024 Comments Unknown Sex and Gender Information Value Date Recorded Sex Assigned at Female 05/24/2024 2:24 PM REFRIGERATOR MOVER Legal Sex Female 10:24 PM CDT Gender Identity Not on file Sexual Orientation Not on file Last Filed Vital Signs Vital Sign Reading Time Taken Comments Blood Pressure 130/64 08/28/2024 1:49 PM CDT man ual Pulse 67 08/28/2024 1:49 PM CDT Temperature 36.8 C (98.2 F) 06/30/2024 10:57 AM REFRIGERATOR MOVER Respiratory Rate 18 08/28/2024 1:49 PM CDT Oxygen Saturation 90% 08/28/2024 1:49 PM CDT 4L NC Inhaled Oxygen Concentration - - Weight 107.3 kg (236 lb 9.6 oz) 08/28/2024 1:49 PM CDT Height 152.4 cm (5') 08/28/2024 1:49 PM CDT Body Mass Index 46.21 08/28/2024 1:49 PM CDT Plan of Treatment Upcoming Encounters Date Type Department Care Team (Late st Contact Info) Description 10/31/2024 1:30 AM CDT Allied Health/Nurse Visit [address] [address] Kajal Javed MD [address] [address] 12/29/2024 2:00 PM CDT Allied Health/Nurse Visit [address] [address] Jordi Gould PA-C [address] [place] [address] 12/29/2024 2:30 PM CDT Office Visit [address] [address] Jordi Gould PA-C [address] [place] [address] Health Maintenance Due Date Last Done Comments Colorectal Cancer Screening Colonoscopy (10 Years) 1950 Hepatitis C 02/16/1970 DTaP, Tdap and Td Vaccines ( 1 - Tdap) 02/16/1971 Pneumococcal Vaccine: 50+ Years (1 of 2 - PCV) 02/16/1971 Mammogram Screening 1992 Zoster Vaccines (1 of 2) 02/16/2002 RSV Immunization or 60+ Years (1 - Risk 60-74 years 1-dose series) 2012 Annual Medicare Wellness Visit 02/16/2017 Dexa Scan (General) 02/16/2017 COVID-19 Vaccine (2023-2 5 season) 2024 08/28/2020, 07/16/2020 Meningococcal B Vaccine Aged Out No l onger eligible based on patient's age to complete this topic Meningococcal Vaccine Aged Out No alyssa mireya eligible based on patient's age to complete this topic RSV Immunizations Under 20 Months Aged Out No longer eligible b ased on patient's age to complete this topic Medical Devices Implanted Type Area Instructor Of Education Device Identifier Shelf Expiration Date Model / Serial / Lot Medtronic Rv-03/18/2022 Implanted:Qty: 1 on 03/18/2022 by Holden Lombardo MD Lead Implant [employer] 02/04/2024 4076-52 / [id number] / Medtronic Ra-03/18/2022 Implanted:Qty: 1 on 03/18/2022 by Holden Lombardo MD Lead Implant [employer] 12/27/2023 4076-45 / [id number] / Medtronic Cs-08/24/2022 Implanted:08/08 by Holden Lombardo MD (Quantity not on file) Lead Implant [employer] 06/18/2024 [id number] / [id number] / Medtronic Percepta Quad Biv-08/24/2022 Implanted:08/08 by Holden Lombardo MD (Quantity not on file) Pacemaker [employer] 01/05/2024 [id number] / [id number] / Description:DX: CHB Explanted Type Area Instructor Of Education Device Identifier Shelf Expiration Date Model / Serial / Lot Medtronic [place] Mri Dr-03/18/2022 Implanted:Qty: 1 on 03/18/2022 by Holden Lombardo MD Explanted:08/24 by Holden Lombardo MD (Quantity not on file) Pacemaker [employer] 08/22/2023 [id number] / [id number] / Procedures Procedure Name Priority Date/Time Associated Diagnosis Comments ECG 12-LEAD Routine 08/28/2024 12:52 PM CDT Heart failure (CMS/HCC [facility]/HCC) from Last 3 Months Results * ECG 12-Lead (08/28/2024 12:52 PM CDT) 08/28/2024 12:5 2 PM CDT Narrative [facility] - 08/29/2024 6:43 AM CDT [address] [place] [address] Test Date: 2024-08-28 Pat Name: CATA YI Department: 3 Room: Gender: Female Scientific Investigator: : 1950 Requested By: CINDY ELIAS Order Number: [id number] Reading MD: Precious Phillips Measurements Intervals [place] Rate: 72 P: 244 WA: 204 QRS: 236 QRSD: 98 T: 44 QT: 384 QTc: 421 Interpretive Statements ELECTRONIC ATRIAL PACEMAKER ELECTRONIC VENTRICULAR PACEMAKER ABNORMAL RHYTHM ECG Procedure Note Precious Phillips MD - 08/29/[address] [place] [address] Test Date: 2024-08-28 Pat Name: CATA YI Department: 3 Room: Gender: Female Scientific Investigator: : 1950 Requested By: CINDY ELIAS Order Number: [id number] Reading MD: Precious Phillips Measurements Intervals [place] Rate: 72 P: 244 WA: 204 QRS: 236 QRSD: 98 T: 44 QT: 384 QTc: 421 Interpretive Statements ELECTRONIC ATRIAL PACEMAKER ELECTRONIC VENTRICULAR PACEMAKER ABNORMAL RHYTHM ECG Cindy Elias [facility]- ECG ORDERABLES Final Res ult [facility] from Last 3 Months Insurance MEDICARE AETNA Advance Directives Documents on File Type Date Recorded Patient Outbound Sales Professional Expl anation Advance Directives and Living Will 03/20/2022 11:47 AM [employer] Advance Directives and Living Will 02/20/2021 9:06 AM Refer to THOMAS bell regarding Advanced Directives - NO BLOOD Power of Linux Engineer 02/20/2021 9:06 AM Lucie Yi, HCA-spouse; Aram Yi, 1st alternate HCA-other; * Full Code (Latest Code Status on File) Date Activated Date Inactivated Comments 05/29/2024 1:49 PM * Full Code Date Activated Date Inactivated Comments 08/24/2022 3:56 PM 08/24/2022 7:49 PM * Full Code Date Activated Date Inactivated Comments 03/18/2022 10:30 PM 03/19/2022 3:15 PM * Full Code Date Activated Date Inactivated Comments 03/18/2022 7:34 PM 03/18/2022 10:30 PM Healthcare Agents on File Name Relationship Healthcare Agent Relationship Communication Omar Gaxiola Jean Marie (POAH) Spouse Health Care Agent Aram Marshall Jean Marie Other First Alter huyen Health Care Agent Care Teams Facialist Relationship Specialty Start Date End Date Gigi Ornelas MD [address] [place] [address] PCP - General FAMILY PRACTICE 02/05/21 Jordi Gould PA-C [address] [place] [phone] PHYSICIAN NEEDLE GRADER 07/30/22 Kajal Javed MD [address] [place] [phone] Consulting Physician Electrophysiology 02/04/23 Cindy Elias, GABRIELA- [address] [place] [phone] Nurse Practitioner NURSE PRACTITIONER ADULT HEALTH 08/23/23
--- OUTSIDE RECORDS SUMMARY | 2024-09-22 11:32 | XMS_ITS | Encounter Summary ---
Author Organization [facility] Address [address] [place] [address] Care Team Providers Care Clam Digger Name Role Phone Gigi Ornelas MD Primary Care Provider [phone] Vickey Rider MD Unavailable [phone] Dominic Arrington MD Unavailable Holden Lombardo MD Unavailable Unavailable Jordi Gould PA-C Unavailable [phone] Kajal Javed MD Unavailable [phone] Isael Diaz MD Unavailable Cindy Elias ANP- Unavailable +-3 Encounter Details Date Type Department Care Team (Late st Contact Info) Description 08/19/2022 Hospital Orders Only [facility] Pre/Post [address] [place] [address] Holden Lombardo MD Social History Tobacco Use Types Packs/Day Years Used Date Smoking Tobacco: Former Cigarettes Q uit: 2005 Smokeless Tobacco: Never Alcohol Use Standard Drinks/Week Comments Never 0 (1 standard drink = 0.6 oz pur e alcohol) Comments Unknown Sex and Gender Information Value Date Recorded Sex Assigned at Female 05/24/2024 2:24 PM AUTOMATION/CONTROLS MANAGER Legal Sex Female 10:24 PM CDT Gender Identity Not on file Sexual Orientation Not on file COVID-19 Exposure Response Date Recorded In the last 10 days, have yo u been in contact with someone who was confirmed or suspected to have Coronavirus/COVID-19? No / Unsure 08/21/2022 11:03 AM CDT documented as of this encounter Functional Status * RETIRED Are you deaf or do you have serious difficulty hearing Answer Date of Assessment Author Status No 03/18/2022 10:00 PM AUTOMATION/CONTROLS MANAGER 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 Answer Date of Assessment Author Status No 03/18/2022 10:00 PM AUTOMATION/CONTROLS MANAGER Acti ve * Do you have serious difficulty walking or climbing stairs? Answer Date of Assessment Author Status No 03/18/2022 10:00 PM Prem Leblanc RN Active * Do you have difficulty dressing or bathing? Answer Date of Assessment Author Status No 03/18/2022 10:00 PM Prem Leblanc RN Active * Because of a physical, mental, or emotional condition, do you have difficulty doing errands alone such as visiting a doctor's office or shopping? Answer Date of Assessment Author Status No 03/18/2022 10:00 PM Prem Leblanc RN Active documented as of this encounter Mental Status * Because of a physical, mental, or emotional condition, do you have serious difficulty concentrating, remembering, or making decisions? Answer Entry Date Author Status No 03/18/2022 10:00 PM Prem Leblanc RN Active documented in this encounter Plan of Treatment Upcoming Encounters Date Type Department Care Team (Late st Contact Info) Description 10/31/2024 1:30 AM CDT Allied Health/Nurse Visit [facility] [address] [place] [address] Kajal Javed MD [address] [place] [address] 12/29/2024 2:00 PM CDT Allied Health/Nurse Visit [facility] [address] [place] [phone] Jordi Gould PA-C [address] [place] [address] 12/29/2024 2:30 PM CDT Office Visit [facility] [address] [place] [address] Jordi Gould PA-C [address] [place] [address] documented as of this encounter Visit Diagnoses Not on filedocumented in this encounter Care Teams Clam Digger Relationship Specialty Start Date End Date Gigi Ornelas MD [address] [place] [phone] PCP - General FAMILY PRACTICE 02/05/21 Vickey Rider MD [address] [place] [phone] [place] Social Worker Masters CARDIOVASCULAR DISEASE 02/05/21 08/22/23 Dominic Arrington MD [address] [place] [phone] Vascular/Cardiologis t INTERNAL MEDICINE 02/24/21 07/14/24 Holden Lombardo MD [address] [place] [phone] Consulting Physician CLINICAL CARDIAC ELECTROPHYSIOLOGY 07/30/22 02/03/23 Jordi Gould PA-C [address] [place] [phone] PHYSICIAN SENIOR RESEARCH CONSULTANT 07/30/22 Kajal Javed MD [address] [place] [address] [address] [place] [address] Consulting Physician Electrophysiology 02/04/23 Isael Diaz MD [address] [place] [address] [address] INTERVENTIONAL CARDIOLOGY 08/23/2307/14 Cindy Elias, [facility]- [address] [place], [place] [phone] Nurse Practitioner NURSE PRACTITIONER ADULT HEALTH 08/23/23 documented as of this encounter
--- OUTSIDE RECORDS SUMMARY | 2024-09-22 11:32 | XMS_ITS | Encounter Summary ---
Author Organization [facility] Address [address] [place] [address] Care Team Providers Care Independent Video Producer Name Role Phone iGgi Ornelas MD Primary Care Provider [phone] Vickey Rider MD Unavailable [phone] Dominic Arrington MD Unavailable Holden Lombardo MD Unavailable Unavailable Jordi Gould PA-C Unavailable [phone] Kajal Javed MD Unavailable [phone] Isael Diaz MD Unavailable [phone] Cindy Elias ANP- Unavailable +-[phone] Encounter Details Date Type Department Care Team (Late st Contact Info) Description 01/30/2021 Abstract [facility] [address] [place] [phone] Helen Vargas, PAINTER SPRING, MUSIC ADAPTER-C [address] [facility] [address] [place] [phone] Social History Tobacco Use Types Packs/Day Years Used Date Smoking Tobacco: Former Cigarettes Q uit: 2005 Comments Unknown Sex and Gender Information Value Date Recorded Sex Assigned at Female 05/24/2024 2:24 PM THROUGH OPERATOR Legal Sex Female 10:24 PM CDT Gender Identity Not on file Sexual Orientation Not on file documented as of this encounter Plan of Treatment Upcoming Encounters Date Type Department Care Team (Late st Contact Info) Description 10/31/2024 1:30 AM CDT Allied Health/Nurse Visit [facility] [address] [place] [address] Kajal Javed MD [address] [facility] [address] [address] 12/29/2024 2:00 PM CDT Allied Health/Nurse Visit [facility] [address] [place] [phone] Jordi Gould PA-C [address] [place] [address] 12/29/2024 2:30 PM CDT Office Visit [facility] [address] [place] [address] Jordi Gould PA-C [address] [place] [address] [phone] documented as of this encounter Visit Diagnoses Not on filedocumented in this encounter Care Teams Independent Video Producer Relationship Specialty Start Date End Date Gigi Ornelas MD [address] [place] [address] PCP - General FAMILY PRACTICE 02/05/21 Vickey Rider MD [address] [place] [phone] [place] Tape Rules Printing Machine Operator CARDIOVASCULAR DISEASE 02/05/21 08/22/23 Dominic Arrington MD [address] [place] [phone] Vascular/Cardiologis t INTERNAL MEDICINE 02/24/21 07/14/24 Holden Lombardo MD [address] [place] [phone] Consulting Physician CLINICAL CARDIAC ELECTROPHYSIOLOGY 07/30/22 02/03/23 Jordi Gould PA-C [address] [place], [place] [phone] PHYSICIAN BRICKLAYER PAVING BRICK 07/30/22 Kajal Javed MD [address] [place], [place] [phone] Consulting Physician Electrophysiology 02/04/23 Isael Diaz MD [address] [place], [place] [phone] INTERVENTIONAL CARDIOLOGY 08/23/2307/14 Cindy Elias, [facility]- [address] [place] [address] Nurse Practitioner NURSE PRACTITIONER ADULT HEALTH 08/23/23 documented as of this encounter
--- OUTSIDE RECORDS SUMMARY | 2024-09-22 11:32 | XMS_ITS | Data Portability ---
Author Organization [facility], [address] [place] [address] Neurology ([place]) Address [address] [place] [address] Care Team Providers Care Educator Senior Clinical Name Role Phone PIYUSH MEDELLIN Primary Care Provider Assessment Encounter Date Assessment Date Assessment LastModified by Organization Details LastModified Time 03/22/2024 03/22/2024 IMPRESSION: 1. Clinical features consistent with SLE versus possible overlap with Sjogren s syndrome. Her SLEDAI-2K score is 15, indicating significant and active disease. 2. Osteoarthritis. 3. Lymphedema. PLAN: 1. Labs today, including a CBC, CMP, acute phase reactants, arthritis panel, double-stranded DNA antibody, CH50, C3 and C4 complement levels, hepatitis B and C screens and TPMT level. 2. Consider initiation of azathioprine therapy if her TPMT level is normal. 3. Offered the patient a course of low to moderate dose cortisone therapy today to help establish more immediate control of her joint symptoms, but this is declined. 4. Followup visit in 2 months for recheck. Further recommendations to follow once the results of her labs are available. Today I had a lengthy discussion with the patient and her and detail about my clinical impressions and overall recommendations. We discussed other treatment options, including methotrexate therapy versus Cell-Cept therapy though azathioprine has a better track record for managing pericarditis and would offer substantial immunosuppressive control of her other features. She really has a predominance of lupus type features. All of her questions and concerns were addressed in detail today. I personally spent a total of 60 minutes on the patient on this date of service including both mqxu-av-pirf and uhu-hfaz-pt-face time excluding any separately reportable services. ela [email or web address] Not available 03/23/2024 11:48:15 Plan of Treatment Reminders Order Date Submit Date Provider Last Modified By Organization Details Last Modified Time Details Appointments Establish ed Patient 15.EST 2024 02:30P M Dr. Jean Paul Smith Not available Not available Not available Lab CBC 2023 [facility], [address] [place] [address], [id number], 03/22/2024 18:04:30 CMP, serum or plasma 2023 [facility], [address] [place] [address], [id number], 03/22/2024 18:29:04 C-reactiv e protein, quantitat kristin, serum or plasma 2023 [facility], [address] [place] [address], [id number], 03/22/2024 18:29:02 arthritis panel 2023 [facility], [address] [place] [address], [id number], 03/22/2024 18:29:05 DNA double strand Ab, QL, serum 2023 [facility], [address] [place] [address], [id number], 03/23/2024 16:52:04 complemen t, total, CH50, serum or plasma 2023 [facility], [address] [place] [address], [id number], 03/23/2024 16:13:54 C3 (compleme nt), serum or plasma 2023 [facility], [address] [place] [address], [id number], 03/23/2024 08:20:12 C4 (compleme nt), serum or plasma 2023 [facility], [address] [place] [address], [id number], 03/23/2024 08:20:10 Hepatitis B virus core Ab, qual immunoass ay, serum or plasma 2023 [facility], [address] [place] [address], [id number], 03/23/2024 07:41:15 HBsAg (hepatiti s B surface Ag), serum 2023 [facility], [address] [place] [address], [id number], 03/22/2024 18:40:56 hepatitis C Ab, serum 2023 [facility], [address] [place] [address], [id number], 03/22/2024 19:01:49 TPMT gene product metabolic activity interpret ation, blood or tissue (OBS) 2023 [facility], [address] [place] [address], [id number], 03/28/2024 03:38:56 BNP (B-type natriuret ic peptide), serum or plasma 2023 [email or web address], [address] [place] [address], [id number], 04/11/2024 11:26:04 Referral None recorded. Procedures None recorded. Surgeries None recorded. Imaging None recorded. Medication Orders None recorded. Patient TargetsNo targets recorded. Patient InstructionsNo instructions recorded. Reason for Referral None Reported. Results Created Date Observation Date Name Description Value Unit Range Abnormal Flag Note LastModifiedBy Organization Detail LastModifiedTime 03/22/20 24 03/22/2024 CBC CBC Not Available [facility] [address] [place] [address], [id number], 03/22/2024 18:04:30 03/22/20 24 03/22/2024 CBC WBC 4.9 K/uL 3.8-11 .2 Not Available [facility] [address] [place] [address], [id number], 03/22/2024 18:04:30 03/22/20 24 03/22/2024 CBC RBC 3.34 M/uL 3.92-5 .10 low Not Available [facility] [address] [place] [address], [id number], 03/22/2024 18:04:30 03/22/20 24 03/22/2024 CBC HGB 9.5 g/dL 11.8-1 5.3 low Not Available [facility] [address] [place] [address], [id number], 03/22/2024 18:04:30 03/22/20 24 03/22/2024 CBC HCT 31.5 % 36.5-4 4.8 low Not Available [facility] [address] [place] [address], [id number], 03/22/2024 18:04:30 03/22/20 24 03/22/2024 CBC MCV 94.3 fL 80.0-9 9.0 Not Available [facility] [address] [place] [address], [id number], 03/22/2024 18:04:30 03/22/20 24 03/22/2024 CBC MCH 28.4 pg 25.5-3 3.6 Not Available [facility] [address] [place] [address], [id number], 03/22/2024 18:04:30 03/22/20 24 03/22/2024 CBC MCHC 30.2 g/dL 32.0-3 6.0 low Not Available [facility] [address] [place] [address], [id number], 03/22/2024 18:04:30 03/22/20 24 03/22/2024 CBC RDW-SD 52.2 fL 35.1 - 46.3 high Not Available [facility] [address] [place] [address], [id number], 03/22/2024 18:04:30 03/22/20 24 03/22/2024 CBC plt 196 K/uL 130-40 0 Not Available [facility] [address] [place] [address], [id number], 03/22/2024 18:04:30 03/22/20 24 03/22/2024 CBC MPV 9.3 fL 9.3-12 .8 Not Available [facility] [address] [place] [address], [id number], 03/22/2024 18:04:30 03/22/20 24 03/22/2024 C-nelida ctive prote in, quant itati ve, serum or plasm a CRP high Not Available [facility] [address] [place] [address], [id number], 03/22/2024 18:29:02 03/22/20 24 03/22/2024 C-nelida ctive prote in, quant itati ve, serum or plasm a CRP 2.9 mg/dL <0.4-0 .5 high Not Available [facility] [address] [place] [address], [id number], 03/22/2024 18:29:02 03/22/20 24 03/22/2024 CMP, serum or plasm a comp. met. panel Not Available [facility] [address] [place] [address], [id number], 03/22/2024 18:29:04 03/22/20 24 03/22/2024 CMP, serum or plasm a sodium 142 mmol/ L 136-14 6 Not Available [facility] [address] [place] [address], [id number], 03/22/2024 18:29:04 03/22/20 24 03/22/2024 CMP, serum or plasm a potassium 3.9 mmol/ L 3.5-5. 1 Not Available [facility] [address] [place] [address], [id number], 03/22/2024 18:29:04 03/22/20 24 03/22/2024 CMP, serum or plasm a chloride 106 mmol/ L 98-110 Not Available [facility] [address] [place] [address], 51227, 03/22/2024 18:29:04 03/22/20 24 03/22/2024 CMP, serum or plasm a CO2 31 mEq/L 20-32 Not Available [facility] [address] [place] [address], [id number], 03/22/2024 18:29:04 03/22/20 24 03/22/2024 CMP, serum or plasm a anion gap 9 mmol/ L 10-22 low Not Available [facility] [address] [place] [address], [id number], 03/22/2024 18:29:04 03/22/20 24 03/22/2024 CMP, serum or plasm a glucose 92 mg/dL 70-100 Not Available [facility] [address] [place] [address], [id number], 03/22/2024 18:29:04 03/22/20 24 03/22/2024 CMP, serum or plasm a calcium 9.5 mg/dL 8.4-10 .4 Not Available [facility] [address] [place] [address], [id number], 03/22/2024 18:29:04 03/22/20 24 03/22/2024 CMP, serum or plasm a total protein 7.2 g/dL 6.4-8. 3 Not Available [facility] [address] [place] [address], 14653, 03/22/2024 18:29:04 03/22/20 24 03/22/2024 CMP, serum or plasm a albumin 3.8 g/dL 3.5-5. 3 Not Available [facility] [address] [place] [address], 12587, 03/22/2024 18:29:04 03/22/20 24 03/22/2024 CMP, serum or plasm a ALP 113 U/L 44 - 127 Not Available [facility] [address] [place] [address], [id number], 03/22/2024 18:29:04 03/22/20 24 03/22/2024 CMP, serum or plasm a AST (SGOT) 14 U/L 10-40 Not Available [facility] [address] [place] [address], 15957, 03/22/2024 18:29:04 03/22/20 24 03/22/2024 CMP, serum or plasm a total bilirubin 0.3 mg/dL 0.2-1. 0 Not Available [facility] [address] [place] [address], 75096, 03/22/2024 18:29:04 03/22/20 24 03/22/2024 CMP, serum or plasm a ALT (SGPT) 9 U/L 8-35 Not Available [facility] [address] [place] [address], 13401, 03/22/2024 18:29:04 03/22/20 24 03/22/2024 CMP, serum or plasm a BUN 19 mg/dL 7-21 Not Available [facility] [address] [place] [address], [id number], 03/22/2024 18:29:04 03/22/20 24 03/22/2024 CMP, serum or plasm a creatinine 1.3 mg/dL 0.7-1. 3 Not Available [facility] [address] [place] [address], 52678, 03/22/2024 18:29:04 03/22/20 24 03/22/2024 CMP, serum or plasm a GFR(non-afri can indonesian) 43 Not Available [facility] [address] [place] [address], 51696, 03/22/2024 18:29:04 03/22/20 24 03/22/2024 CMP, serum or plasm a GFR() 52 (SANDBLAST OPERATOR CHUCKY KIDNE Y DISEA SE HAS A GFR LESS THAN 60 ML/MD N/1.7 3 MM FOR A PERIO D OF THREE MONTH S OR MORE. ) Not Available [facility] [address] [place] [address], [id number], 03/22/2024 18:29:04 03/22/20 24 03/22/2024 HBsAg (hepa titis B surfa ce Ag), serum hepatitis B surface Ag NONREA CTIVE nonrea ctive Not Available [facility] [address] [place] [address], [id number], 03/22/2024 18:40:56 03/22/20 24 03/22/2024 hepat itis C Ab, serum hepatitis C Ab NONREA CTIVE nonrea ctive Not Available [facility] [address] [place] [address], 80988, 03/22/2024 19:01:49 03/22/2003/23/2024 Hepat itis B virus core Ab, qual immun oassa y, serum or plasm a hepatitis B core Ab NEGATI VE negati ve Not Available [facility] [address] [place] [address], 31531, 03/23/2024 07:41:15 03/22/20 24 03/23/2024 C4 (comp lemen t), serum or plasm a complement C4 12 mg/dL 12-38 Not Available [facility] [address] [place] [address], 26590, 03/23/2024 08:20:10 03/22/20 24 03/23/2024 C3 (comp lemen t), serum or plasm a complement C3 181 mg/dL 82-167 high [facility] [address] [place] [address], [id number], 03/23/2024 08:20:12 03/22/2003/22/2024 arthr itis panel uric acid 7.4 mg/dL 2.3-6. 6 high Not Available [facility] [address] [place] [address], 27026, 03/23/2024 12:40:52 03/22/2003/22/2024 arthr itis panel sed rate 45 mm/HR 0 - 30 high Not Available [facility] [address] [place] [address], 81720, 03/23/2024 12:40:52 03/22/2003/22/2024 arthr itis panel rf 72 IU/mL <3.5-1 4 high Not Available [facility] [address] [place] [address], [id number], 03/23/2024 12:40:52 03/22/20 24 03/22/2024 arthr itis panel ccp antibody, IgG <0.54 U/mL <=4.9 Not Available [facility] [address] [place] [address], 49186, 03/23/2024 12:40:52 03/22/2003/23/2024 arthr itis panel arthritis panel Not Available [facility] [address] [place] [address], 34545, 03/23/2024 12:40:52 03/22/2003/23/2024 arthr itis panel LEXUS screen POSITI VE negati ve abnormal Titer to follo w Perfo rmed by Bio-R ad enzym e immun oassa y Not Available [facility] [address] [place] [address], [id number], 03/23/2024 12:40:52 03/22/20 24 03/23/2024 compl ement , total , CH50, serum or plasm a ch50 58 U/mL >41 Age Male Femal e 1 - 30 days Not Estab . Not Estab . 31 days - 6 month s >32 >20 7 month s - 17 years >39 >39 >17 years >41 >41 NOT E: The adult ( >17 years ) refer ence inter nguyen range is used to flag abnor mals on this repor t. If the patie nt is 17 years old or young er, use the table above to deter mine out of range value s. Not Available [facility] [address] [place] [address], [id number], 03/23/2024 16:13:54 03/22/20 24 03/23/2024 DNA doubl e stran d Ab, QL, serum DNA Ab; double stranded NEGATI VE negati ve Not Available [facility] [address] [place] [address], 89836, 03/23/2024 16:52:04 03/22/20 24 03/23/2024 LEXUS (anti nucle ar antib odies ) titer + lionel rn, ifa, serum LEXUS titer * <=1:16 0 Great er than or equal to 1:640 Speck led (LEXUS INTER PRETA TION: <1:16 0 PROBA RAMAKRISHNA NOT SIGNI FICAN T. 1:160 BORDE RLINE ;POSS IBLY SIGNI FIC. REPEA T IN 30 DAYS IF CLINI SUE INDIC ATED. 1:320 - 1:640 PROBA RAMAKRISHNA SIGNI FICAN T. CORRE LATIO N W/ LEXUS SEROL OGIC PROFI LE AND CLINI AKI FINDI NGS ORDER CHEVY AND DNA.) Perfo rmed by indir ect fluor escen t antib fausto using HEp-2 cell line Not Available [facility] [address] [place] [address], [id number], 03/23/2024 16:52:06 03/22/20 24 03/28/[address] gene produ ct metab olic activ ity inter preta tion, blood or tissu e (OBS) thiopurine methyltransf er Not Available [facility] [address] [place] [address], 32192, 03/28/2024 03:38:56 03/22/20 24 03/28/[address]MT gene produ ct metab olic activ ity inter preta tion, blood or tissu e (OBS) tpmt activity 24.2 Refer ence Range : Christine l: 15.1 - 26.4 Heter ozygo us for low TPMT varia nt: 6.3 - 15.0 Homoz ygous for low TPMT varia nt: <6.3 Not Available [facility] [address] [place] [address], 55069, 03/28/2024 03:38:56 03/22/20 24 03/28/[address]MT gene produ ct metab olic activ ity inter preta tion, blood or tissu e (OBS) tpmt interpretati on The above resul ts can be inter prete d as Christine l for red blood cell Thiop urine Methy ltran sfera se activ ity. For patie nts havin g an intri nsic low level of TPMT, recen t RBC trans fusio n can varia ramakrishna incre ase their assay ed enzym atic activ ity depbobby sosa on the amoun t and circu latin g half- life of the trans fused red blood cells . This test was devel oped and its perfo rmanc e corry cteri stics deter mined by [facility]. It has not been clear ed or appro shannan by the Food and Drug Admin istra tion. This case has been revie wed, appro shannan, inter prete d and elect jessika siddiqi faye d by Francois walls, PhD, [facility] . Not Available [facility] [address] [place] [address], 62551, 03/28/2024 03:38:56 03/22/20 24 03/28/[address] TPMT gene produ ct metab olic activ ity inter preta tion, blood or tissu e (OBS) tpmt method ENZYMA TIC ENDPOI NT/LIQ UID CHROMA TOGRAP HY - TANDEM MASS SPECTR OMETRY (LC-MS /MS) Not Available [facility] [address] [place] [address], 63853, 03/28/2024 03:38:56 03/22/2003/22/2024 arthr itis panel arthritis panel Not Available [facility] [address] [place] [address], [id number], 03/22/2024 19:14:05 03/22/2003/22/2024 arthr itis panel uric acid 7.4 mg/dL 2.3-6. 6 high Not Available [facility] [address] [place] [address], 55623, 03/22/2024 19:14:05 03/22/2003/22/2024 arthr itis panel sed rate 45 mm/HR 0 - 30 high Not Available [facility] [address] [place] [address], 46997, 03/22/2024 19:14:05 03/22/2003/22/2024 arthr itis panel LEXUS screen PENDIN G Not Available [facility] [address] [place] [address], 87381, 03/22/2024 19:14:05 03/22/2003/22/2024 arthr itis panel rf 72 IU/mL <3.5-1 4 high Not Available [facility] [address] [place] [address], 54697, 03/22/2024 19:14:05 03/22/2003/22/2024 arthr itis panel ccp antibody, IgG <0.54 U/mL <=4.9 Not Available [facility] [address] [place] [address], 63531, 03/22/2024 19:14:05 03/22/20 24 03/22/2024 arthr itis panel arthritis panel Not Available [facility] [address] [place] [address], 07267, 03/22/2024 18:29:05 03/22/20 24 03/22/2024 arthr itis panel uric acid 7.4 mg/dL 2.3-6. 6 high Not Available [facility] [address] [place] [address], 75818, 03/22/2024 18:29:05 03/22/20 24 03/22/2024 arthr itis panel sed rate 45 mm/HR 0 - 30 high Not Available [facility] [address] [place] [address], 82134, 03/22/2024 18:29:05 03/22/20 24 03/22/2024 arthr itis panel LEXUS screen PENDIN G Not Available [facility] [address] [place] [address], 39118, 03/22/2024 18:29:05 03/22/20 24 03/22/2024 arthr itis panel rf 72 IU/mL <3.5-1 4 high Not Available [facility] [address] [place] [address], 54717, 03/22/2024 18:29:05 03/22/20 24 03/22/2024 arthr itis panel ccp antibody, IgG PENDIN G Not Available [facility] [address] [place] [address], 02139, 03/22/2024 18:29:05 03/06/20 24 05/24/2023 imagi ng/di agnos tic resul t No observ ation record ed. [email or web address] Not Available 21:19:10 03/06/20 24 05/24/2023 imagi ng/di agnos tic resul t No observ ation record ed. [email or web address] Not Available 21:19:10 Result Notes None recorded. 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 Jean Paul Smith MD [address] [facility], [place], [address], [facility] 4 15:12:00 Generalized osteoarthritis 950377675 Active 2023 Jean Paul Smith MD [address] [facility], [place], [address], [facility] 4 15:12:08 Dependent lymphedema 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 Procedures Surgical History None recorded. Imaging Results Imaging Date Name Status LastModified by [facility]iz [facility] Details LastModified Time 05/24/2023 imaging/diag nostic result completed Information not available 03/06/2024 21:19:10 05/24/2023 imaging/diag nostic result completed Information not available 03/06/2024 21:19:10 Procedure Notes None recorded. Medical Equipment None Reported. Allergies Allergen ID Allergen Name Allergen Category Reaction Reaction Severity Criticality Documentation Date Start Date Code Code System Note Provider Name and Address Organization Details Recorded Time 1321111 Augmentin medicatio n nausea Not available Not available 03/22/2024 57251 2 RxNorm Betsy Abdifatah [facility] 4 13:01:50 [id number] clindamyc in Not available hives Not available Not available 03/22/2024 2582 RxNorm Betsy Gardiner [facility] 4 13:02:11 [id number] silicones environme nt,medica tion rash Not available Not available 03/22/2024 9778 RxNorm Betsy Gardiner [facility] 4 13:02:26 7626075 adhesive tape environme nt,medica tion Not available Not available Not available 03/22/2024 94861 UNK Betsy Gardiner [facility] 13:02:55 0414829 peanut allergeni c extract food,medi cation diarrhea Not available Not available 03/22/2024 47080 8 RxNorm Betsy Gardiner [facility] 14:44:16 Medications Name Sig Start Date Stop Date Status Note LastModified by Organization Details LastModified Time potassium chloride ER 10 mEq capsule,e xtended release TAKE 2 CAPSULES BY MOUTH ONCE DAILY active Not Available Not Available No t Available torsemide 20 mg tablet TAKE 2 TABLETS BY MOUTH ONCE DAILY active Not Available Not Available No t Available Klor-Con 10 mEq tablet,ex tended release Take 1 tablet every day by oral route. active Not Available Not Available No t Available azithromy troy 250 mg tablet TAKE 2 TABLETS BY MOUTH TODAY, THEN TAKE 1 TABLET DAILY FOR 4 DAYS DIRECTED active Not Available Not Available No t Available metoprolo l succinate ER 50 mg tablet,ex tended release 24 hr TAKE 1 & 1/2 (ONE & ONE-HALF ) TABLETS BY MOUTH ONCE DAILY active Not Available Not Available No t Available hydrocodo ne 5 mg-acetam inophen 325 mg tablet TAKE 1 TABLET BY MOUTH EVERY 6 HOURS NEEDED FOR PAIN active Not Available Not Available No t Available cyanocoba lainey (vit B-12) 1,000 mcg tablet Take 1 tablet every day by oral route. active Not Available Not Available No t Available azathiopr ine 50 mg tablet TAKE 2 TABLETS BY MOUTH ONCE DAILY 06/14 completed patient stopped med due to chills, nausea Not Available Not Available Not Available levofloxa troy 250 mg tablet TAKE 2 TABLETS BY MOUTH ON DAY 1, THEN 1 TAB DAILY ON DAYS 2 - 10 active Not Available Not Available No t Available doxycycli ne monohydra te 100 mg tablet TAKE 1 TABLET BY MOUTH TWICE DAILY active Not Available Not Available No t Available triamcino lone acetonide 0.1 % topical cream APPLY A THIN LAYER TO THE AFFECTED AREA(S) BY TOPICAL ROUTE 2 TIMES PER DAY active Not Available Not Available No t Available Vitamin C 100 mg tablet as directed active Not Available Not Available No t Available Prevalite 4 gram powder for suspensio n in a packet DISSOLVE 1 PACKET OF POWDER IN 2-6 OUNCES OF WATER OR NONCARBO NATED BEVERAGE AND TAKE BY MOUTH TWICE DAILY active Not Available Not Available No t Available gabapenti n 300 mg capsule TAKE 2 CAPSULES BY MOUTH TWICE DAILY active Not Available Not Available No t Available albuterol sulfate HFA 90 mcg/actua tion aerosol inhaler INHALE 2 PUFFS BY INHALATI ON ROUTE AT LEAST 15 MINUTES BEFORE EXERTION active Not Available Not Available No t Available cholecalc iferol (vitamin D3) 125 mcg (5,000 unit) capsule Take 1 capsule every day by oral route. active Not Available Not Available No t Available irbesarta n 300 mg tablet TAKE 1 TABLET BY MOUTH ONCE DAILY active Not Available Not Available No t Available neomycin- polymyxin -hydrocor t 3.5 mg-10,000 unit/mL-1 % ear drops,hailee p INSTILL 4 DROPS INTO AFFECTED EAR(S) THREE TIMES DAILY FOR 7 DAYS active Not Available Not Available No t Available Symbicort 80 mcg-4.5 mcg/actua tion HFA aerosol inhaler Inhale 2 puffs twice a day by inhalati on route. active Not Available Not Available No t Available FeroSul 325 mg (65 mg iron) tablet TAKE 1 TABLET BY MOUTH ONCE DAILY TAKE WITH AN OTC CHEWABLE VITAMIN C TABLET TO HELP IMPROVE ABSORPTI ON active Not Available Not Available No t Available Xarelto 20 mg tablet TAKE 1 TABLET BY MOUTH ONCE DAILY WITH SUPPER WITH FOOD active Not Available Not Available No t Available apixaban 5 mg tablet Take 1 tablet twice a day by oral route. active Not Available Not Available No t Available PreserVis ion AREDS-2 1 tablet by mouth twice a day with meals active Not Available Not Available No t Available Flonase Allergy Relief 50 mcg/actua tion nasal spray,hailee pension [place] 2 sprays every day by intranas al route. active Not Available Not Available No t Available Vitals Date Recorded Heart rate Oxygen saturation Oxygen saturation in Arterial blood by Pulse oximetry Pain severity - 0-10 verbal numeric rating [Score] - Reported Systolic blood pressure Diastolic blood pressure Provider Name and Address Organization Details Last Updated DateTime 4 64 /min 95 % 95 % 5 116 mm[Hg] 68 mm[Hg] Betsy Gardiner [facility] 4 14:31:19 Social History Question Answer Notes LastModified by Organizat ion Details LastModified Time Tobacco Smoking Status Former Smoker Betsy Gardiner [facility] 03/22/2024 14:43:28 How Many Packs Per Day (PPD)? 1 Information not available 03/22/2024 How Long Have You Smoked? Since Age 20 Information not available 03/22/2024 When Did You Quit Smoking? 2004 Information not available 03/22/2024 Sex: Unknown Functional Status None recorded. Mental Status None recorded. Family History Nothing Reported. Medical History No medical history recorded. Gynecological HistoryNo gynecological history recorded. Obstetrics History GPAL:G 0 P 0 0 0 0 Past Encounters Encounter ID Performer Location Encounter Start Date Encounter Closed Date Diagnosis/Indication Diagnosis SNOMED-CT Code Diagnosis ICD10 Code Diagnosis Note [id number] Jean Paul Smith MD [address] [place] [address] [facility] [address] 03/22/2024 13:34:10 03/22/2024 18:17:52 Systemic lupus erythematosus 59111011 M32.12 Secondary Sj gren's syndrome 181568100 M35.00 Generalize d osteoarthritis 234917060 M15.9 Dependent lymphedema 445 644734 I89.0 Stasis dermatitis 888874 05 I87.2 Health Concerns Section Related Observation LastModified by Organization Detai ls LastModified Time None Recorded Concern Status LastModified by Organization Details LastModified Time None Recorded Advance Directives Directive None Recorded Payers Insurance Date Sequence Insurance Name Policy Number Policy Martin Covered Member ID Martin Member ID Guarantor Name 05/20/2024 1 [place] Cata Aj [id number] Cata Aj 05/19/2024 [employer] (MEDICARE SUPPLEMENT) Cata Aj [id number] Cata Aj 05/19/2024 2 AET[employer] (MEDICARE SUPPLEMENT) Cata Aj [id number] Cata Aj Notes Date Note Type Note Provider Name and Address Organization Details Recorded Time 03/22/2024 text/html The patient is a 74-year-old postmenopausal white female, previous smoker, nondrinker, with a history of hyperlipidemia, hypertension, atrial fibrillation, both systolic and diastolic CHF, bradycardia with complete hear [id number]|2024-09-29 14:50:34|2024-09-29 14:50:34|PC.NURSE||||"Blood culture x1 Final report positive for staphylococcus epidermidis. Pt transferred from [facility] ER to [facility]. Pt has already been discharged. Called PCP and spoke to ANUM Adam who states Pt has not been seen in their office since July. Dr. Holguin reviewed chart. Pt received 1gram rocephin while in [facility] ER. Per Dr. Holguin, no further treatment required. "
--- NOTE | 2024-09-22 11:41 | ED_ITS ---
HPI - General Adult General Chief complaint: Shortness of Breath/Dyspnea Stated complaint: sob, cough, congestion Time Seen by Provider: 09/22/24 11:41 Source: patient and family Mode of arrival: ambulatory Limitations: no limitations History of Present Illness HPI narrative: 74-year-old obese white female complains of chest congestion cough productive of yellow sputum since yesterday she is short of breath all the time but she is worse more than usual she is using on 3-5 L nasal cannula get short of breath walking from the bedroom delivery room this is normal for her she is has chronic lymphedema that is worsened she has not been using her stockings over last few days. Complains of retrosternal chest burning since yesterday constant 6/10 worse with cough. Denies any problems eating or drinking voiding or stooling. Her legs always hurt if she has an extended period denies any dizziness or lightheadedness denies any other pain. Denies any runny nose sore throat or any other complaints Related Data Home Medications Medication Instructions Recorded Confirmed Last Taken Type cholecalciferol (vitamin D3) 125 5,000 unit PO DAILY 07/12/19 08/16/24 08/06/20 History mcg (5,000 unit) capsule cholestyramine-aspartame 4 gram 4 gm PO BID 07/12/19 08/16/24 08/06/20 History oral powder for susp in a packet (Prevalite) cyanocobalamin (vitamin B-12) 1,000 mcg PO DAILY 07/12/19 08/16/24 08/06/20 History 1,000 mcg capsule vit C 250 mg-vit E 90 mg-zinc 40 1 tablet PO BID 07/12/19 08/16/24 08/06/20 History mg-copper 1 oe-ezzuoz-lclyje capsule (PreserVision AREDS-2) irbesartan 300 mg tablet 300 mg PO DAILY 08/05/20 08/16/24 08/06/20 History metoprolol succinate 50 mg 50 mg PO DAILY 03/18/22 08/16/24 Unknown History tablet,extended release 24 hr torsemide 20 mg tablet 20 mg PO DAILY 03/18/22 08/16/24 Unknown History apixaban 5 mg tablet (Eliquis) 5 mg PO BID 02/18/24 08/16/24 Unknown History cholestyramine 4 gram oral powder g PO 08/09/24 08/16/24 Unknown History for suspension in a packet (Prevalite) ferrous sulfate 325 mg (65 mg mg PO 08/09/24 08/16/24 Unknown History iron) tablet nmwwevns-miyayrfgg-wqkeflwxd 3.5 drp otic (ear) 08/09/24 08/16/24 Unknown History mg-10,000 unit/mL-1 % ear drops,susp potassium chloride 10 mEq meq PO 08/09/24 08/16/24 Unknown History capsule,extended release Allergies Allergy/AdvReac Type Severity Reaction Status Date / Time clindamycin Allergy Unknown Hives Verified 09/22/24 11:37 latex AdvReac Unknown BLISTERS Verified 09/22/24 11:37 FROM LATEX AND LATEX TAPE Review of Systems 2 Review of Systems: All systems reviewed & are unremarkable except as noted in HPI and below PMFSH Past Medical History Medical History Cholecystectomy planned 1995 Osteoarthritis Diverticulitis CPAP (continuous positive airway pressure) dependence Sleep apnea Hypokalemia COPD (chronic obstructive pulmonary disease) CKD (chronic kidney disease) Prediabetes Hypertension Obesity Surgical History Surgical History H/O right heart catheterization 2008 H/O: hysterectomy 1989 Family History Family History Father Lung cancer Type 2 diabetes mellitus Mother Carcinoma of colon Hypertension Social History Social History Smoking packs per day: 0.75 Smoking cigarettes per day: 15.0 Years smoked: 35 Smoking pack-years: 26.25 Smoking status: Former smoker Smoking end date: 05/10/04 Alcohol intake: never Substance use type: does not use Living arrangements: with family Gender identity (if verbalized by the patient): Female Comments history of heart block pacemaker placed atrial fib Eliquis congestive heart failure Exam 2 Narrative: morbidly obese white female mild distress looks a little pale temp 100.2° respirations 22 pulse 88 regular blood pressure 112/95 repeat 141/62. Conjunctiva slightly pale oropharynx is clear without exudates neck is supple no lymphadenopathy back is nontender lungs show diffuse rales and wheezes. Heart is regular without murmurs gallops or rubs she has a pacemaker left upper chest abdomen is obese soft and nontender extremities have tense edema of her lower extremities. No calf tenderness she has full range of motion of her extremities. Neurological she is alert and oriented x4 motor and sensory grossly intact. Course Vital Signs Vital signs: Vital Signs Temperature 37.9 C H 09/22/24 11:30 Pulse Rate 88 09/22/24 11:30 Respiratory Rate 22 H 09/22/24 11:30 Blood Pressure 112/95 H 09/22/24 11:30 Pulse Oximetry 91 09/22/24 11:30 Oxygen Delivery Nasal Cannula 09/22/24 11:30 Oxygen Flow Rate 6 09/22/24 11:30 Temperature 37.6 C H 09/22/24 15:15 Pulse Rate 79 09/22/24 15:15 Respiratory Rate 24 H 09/22/24 15:15 Blood Pressure 154/82 H 09/22/24 15:15 Pulse Oximetry 95 09/22/24 15:15 Oxygen Delivery Nasal Cannula 09/22/24 15:15 Oxygen Flow Rate 6 09/22/24 15:15 Medical Decision Making [facility] Narrative Medical decision making narrative: Patient was placed in room 3 with her history and physical was performed chest x-ray was done labs were drawn EKG was ordered and done which showed electronic atrial and ventricular pacemaker at a rate of 82. she is given baby aspirin 40 of IV Lasix DuoNeb and nitroglycerin sublingual . patient given a 2nd DuoNeb and Rocephin 1 g [facility] accepted patient in transfer at 1:22 p.m. with a diagnosis of acute on chronic respiratory failure chronic pleural effusion. Patient had been discussed with Allie Pardo nurse practitioner or unable to do up echocardiogram until Wednesday of next week, therefore patient needs to be transferred. Differential Diagnosis Differential Diagnosis: Pneumonia COPD exacerbation congestive heart failure PE anemia electrolyte imbalance myocardial infarction Vital Signs Vital Signs: Vital Signs Temperature 37.9 C H 09/22/24 11:30 Pulse Rate 88 09/22/24 11:30 Respiratory Rate 22 H 09/22/24 11:30 Blood Pressure 112/95 H 09/22/24 11:30 Pulse Oximetry 91 09/22/24 11:30 Oxygen Delivery Nasal Cannula 09/22/24 11:30 Oxygen Flow Rate 6 09/22/24 11:30 Temperature 37.6 C H 09/22/24 15:15 Pulse Rate 79 09/22/24 15:15 Respiratory Rate 24 H 09/22/24 15:15 Blood Pressure 154/82 H 09/22/24 15:15 Pulse Oximetry 95 09/22/24 15:15 Oxygen Delivery Nasal Cannula 09/22/24 15:15 Oxygen Flow Rate 6 09/22/24 15:15 Lab Data 09/22/24 12:15 09/22/24 12:15 Labs: Lab Results 09/22/24 09/22/24 09/22/24 Range/Units 11:36 12:15 14:14 WBC 8.0 (4.8-10.8) K/mm3 RBC 3.14 L (4.20-5.40) M/mm3 Hgb 8.5 L (11.7-13.8) g/dL Hct 29.8 L (35.0-42.0) % MCV 94.9 (78.0-102.0) fL MCH 27.1 (27.0-31.0) pg MCHC 28.5 L (32-36) g/dL RDW 16.1 H (11.6-14.4) % Plt Count 151 (150-420) K/mm3 MPV 9.1 L (9.2-11.8) fl Immature Gran % (Auto) 0.5 H (0.0-0.0) % Neut % (Auto) 80.4 H (50.0-70.0) % Lymph % (Auto) 7.3 L (18.0-42.0) % [place] % (Auto) 10.5 (2.0-11.0) % Eos % (Auto) 1.0 (1.0-6.0) % Baso % (Auto) 0.3 (0.0-1.0) % Lymph # (Auto) 0.58 L (1.10-4.50) K/mm3 [place] # (Auto) 0.84 (0.10-0.90) K/mm3 Eos # (Auto) 0.08 (0.02-0.50) K/mm3 Baso # (Auto) 0.02 (0.00-0.10) K/mm3 Abs Immat Gran (auto) 0.04 H (0.00-0.00) K/mm3 Absolute Neuts (auto) 6.41 (1.70-7.20) K/mm3 Absolute Nucleated RBC 0.00 (0.00-0.00) K/mm3 Nucleated RBC % 0.0 (0-0.0) % PT 12.4 H (9.50-12.1) Seconds INR 1.1 APTT 31.2 H (23.9-30.70) Sec D-Dimer 0.56 H* (0.19-0.50) mg/L Sodium 141 (137-145) mmol/L Potassium 4.3 (3.4-5.0) mmol/L Chloride 103 (98-107) mmol/L Carbon Dioxide 37 H (22-30) mmol/L Anion Gap 1 L (4-12) mmol/L BUN 20 H (7-17) mg/dL Creatinine 1.43 H (0.7-1.0) mg/dL Estim Creat Clear Calc 35 ml/min Estimated GFR 36 L (59 - ) Glucose 110 (65-110) mg/dL Calculated Osmolality 295 (285-295) mOsm/kg Lactic Acid 1.6 (0.4-2.0) mmol/L Calcium 8.7 (8.4-10.2) mg/dL Magnesium 1.9 (1.6-2.3) mg/dL Total Bilirubin 0.4 (0.2-1.3) mg/dL AST 19 (14-36) U/L ALT 12 (6-35) U/L Alkaline Phosphatase 105 (38-126) U/L Troponin I < 0.012 < 0.012 (0.000-0.034) ng/mL NT-Pro-B Natriuret Pep 869 H (19.9-100) pg/mL Total Protein 7.2 (6.3-8.2) g/dL Albumin 3.5 (3.5-5.1) g/dL Influenza A (RT-PCR) Negative (Negative) Influenza B (RT-PCR) Negative (Negative) RSV (RT-PCR) Negative (Negative) SARS-CoV-2 RNA (RT-PCR) Negative (Negative) ABG Data ABG results: 09/22/24 12:15 Puncture Site Left radial ABG pH 7.40 ABG pCO2 52.3 H ABG pO2 57.9 L ABG HCO3 32.0 H ABG O2 Saturation 90.3 L ABG Base Excess 5.8 H Oxyhemoglobin 89.3 L O2 Delivery Device Nasal cannula O2 Liters/Min 5.0 Discharge Plan Discharge Clinical Impression: Chronic pericardial effusion Acute and chronic respiratory failure Qualifiers: Respiratory failure complication: hypoxia and hypercapnia Qualified Code(s): J 96.21 - Acute and chronic respiratory failure with hypoxia Chest pain Qualifiers: Chest pain type: unspecified Qualified Code(s): R07.9 - Chest pain, unspecified Patient Disposition: Acute Care Hospital Condition: Stable Additional Instructions: patient transferred to [facility] in [facility] via ground ambulance to Patient Language: Croatian Prescriptions: No Action irbesartan 300 mg tablet 300 mg PO DAILY fluticasone propionate [Flonase Allergy Relief] 50 mcg/actuation spray,suspension 2 spray intranasal DAILY Qty: 16 0RF Rx Instructions: administer into each nostril metoprolol succinate 50 mg tablet extended release 24 hr 50 mg PO DAILY torsemide 20 mg tablet 20 mg PO DAILY otlqmdhe-ahushpwbp-YH 3.5-10,000-1 mg/mL-unit/mL-% drops,suspension otic (ear) Prevalite 4 gram powder in packet PO potassium chloride 10 mEq capsule, extended release PO ferrous sulfate 325 mg (65 mg iron) tablet PO PreserVision AREDS-2 099-576-50-1 jb-lreq-in-mg capsule 1 tablet PO BID Rx Instructions: administer with meals Prevalite 4 gram powder in packet 4 gm PO BID Rx Instructions: administer w/meal; avoid other meds within 1hr before or 4-6hr after dose cyanocobalamin (vitamin B-12) 1,000 mcg capsule 1,000 mcg PO DAILY cholecalciferol (vitamin D3) 125 mcg (5,000 unit) capsule 5,000 unit PO DAILY Eliquis 5 mg tablet 5 mg PO BID gabapentin 300 mg capsule 300 mg PO BID Qty: 90 1RF potassium chloride [Klor-Con 10] 10 mEq tablet extended release 10 meq PO DAILY Qty: 90 1RF triamcinolone acetonide 0.1 % cream 1 applic TOPICAL BID Qty: 30 1RF budesonide-formoterol [Symbicort] 80-4.5 mcg/actuation HFA aerosol inhaler 2 puff inhalation Q12H Qty: 30.6 1RF Rx Instructions: rinse and spit Follow-up/Referrals: Gigi Ornelas MD [Primary Care Provider] -
--- NOTE | 2024-09-22 11:54 | ECG_ITS ---
Test Date: 2024-09-22 12:23:17 Measurements Intervals [place] Rate: 82 P: 84 MI: 196 QRS: 237 QRSD: 103 T: 70 QT: 346 QTc: 406 Interpretive Statements ELECTRONIC ATRIAL PACEMAKER ELECTRONIC VENTRICULAR PACEMAKER ABNORMAL RHYTHM ECG No previous ECG available for comparison Electronically Signed On 09-22-2024 15:09:55 CDT by Nikhli Bennett M.D.
--- OUTSIDE RECORDS SUMMARY | 2024-09-22 12:06 | XMS_ITS | Clinical Summary ---
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 ([facility]) 07/02/2022 Left ventricular systolic dysfunction (LVSD) Biventricular cardiac pacemaker in situ 03/19/20 Complete heart block ([facility]) 2 Symptomatic bradycardia 03/18/2022 Chronic venous insufficiency 02/25/2021 Sleep apnea 05/10/2008 Other hyperlipidemia 05/10/2008 Hypertension 05/10/1989 Lymphedema Pericardial effusion ([facility]) SOBOE (shortness of breath on exertion) Encounters Date Type Department Care Team Description 09/05/2024 [facility]phone [facility] [address] [place] [address] Cindy Elias, ANP-BC Refill Request 08/28/2024 1:00 PM CDT [facility] [address] Cindy Elias ANP-BC Follow Up (Pericardial effusion, shortness of breath) 08/28/2024 12:43 PM CDT - 08/28/2024 11:59 PM CDT Hospital Encounter [facility] [address] [place] [address] [place] [address] Precious Phillips MD Discharge Disposition: Home or Self Care (Routine Discharge) 08/28/2024 Travel 08/17/2024 11:03 AM CDT - 08/17/2024 11:59 PM CDT Hospital Encounter [facility] [address] [place] [address] Chyna Mcallister, Maria Fernanda Diez, OT Discharge Disposition: Home or Self Care (Routine Discharge) 08/17/2024 Travel 08/07/2024 1:17 PM CDT - 08/07/2024 11:59 PM CDT Hospital Encounter [facility] [address] [place] [address] Chyna Mcallister, Maria Fernanda Diez, OT Discharge Disposition: Home or Self Care (Routine Discharge) 08/07/2024 Travel 07/31/2024 1:17 PM CDT - 07/31/2024 11:59 PM CDT [facility] [address] [place] [address] Chyna Mcallister, Maria Fernanda Diez, OT Discharge Disposition: Home or Self Care (Routine Discharge) 07/31/2024 Travel 07/24/2024 1:18 PM CDT - 07/24/2024 11:59 PM CDT Hospital [facility] [address] [place] [address] Chyna Mcallister, Maria Fernanda Diez, OT Discharge Disposition: Home or Self Care (Routine Discharge) 07/24/2024 Travel 07/17/2024 1:30 PM CDT - 07/17/2024 11:59 PM CDT Hospital [facility] [address] [place] [address] Chyna Mcallister, Maria Fernanda Diez, OT Discharge Disposition: Home or Self Care (Routine Discharge) 07/17/2024 Travel 07/14/2024 3:30 AM E LEARNING DESIGNER Allied Health/Nurse Visit [facility] [address] [place] [address] Kajal Javed MD 07/07/2024 12:00 PM E LEARNING DESIGNER Home Care Visit [facility] Home Care [facility] [address] [place] [address] Natali Elizabeth, RN SN OASIS DISCHARGE/ASSESSME NT 07/05/2024 2:39 PM E LEARNING DESIGNER - 07/05/2024 11:59 PM E LEARNING DESIGNER Hospital Encounter [facility] [address] [place] [address] Chyna Mcallister, CLINICAL MATERIAL HANDLER Discharge Disposition: Home or Self Care (Routine Discharge) 07/05/2024 Travel 06/30/2024 10:45 AM E LEARNING DESIGNER Home Care Visit [facility] Home Care [facility] [address] [place] [address] Eufemia Beal LPN SN HOME VISIT 06/28/2024 11:00 AM E LEARNING DESIGNER Home Care Visit [facility] [address] [place] [address] Eufemia Beal LPN SN HOME VISIT 06/26/2024 11:30 AM E LEARNING DESIGNER - 06/26/2024 11:59 PM [facility] Hospital Encounter [facility] [address] [place] [address] Kathy Murdock, ENDOCRINOLOGY NURSE Discharge Disposition: Home or Self Care (Routine [...] Sex Assigned at Female 05/24/2024 2:24 PM E LEARNING DESIGNER Legal Sex Female 10:24 PM CDT Gender Identity Not on file Sexual Orientation Not on file Last Filed Vital Signs Vital Sign Reading Time Taken Comments Blood Pressure 130/64 08/28/2024 1:49 PM CDT man ual Pulse 67 08/28/2024 1:49 PM CDT Temperature 36.8 C (98.2 F) 06/30/2024 10:57 AM E LEARNING DESIGNER Respiratory Rate 18 08/28/2024 1:49 PM CDT [...] 10/31/2024 1:30 AM CDT Allied Health/Nurse Visit [address] [address] Kajal Javed MD [address] [address] 12/29/2024 2:00 PM CDT Allied Health/Nurse Visit [address] [address] Jordi Gould PA-C [address] [place] [address] 12/29/2024 2:30 PM CDT Office Visit [address] [address] Jordi Gould PA-C [address] [place] [address] Health Maintenance Due Date Last Done Comments [...] this topic Medical Devices Implanted Type Area Wood Tank Erector Device Identifier Shelf Expiration Date Model / Serial / Lot Medtronic Rv-03/18/2022 Implanted:Qty: 1 on 03/18/2022 by Holden Lombardo MD Lead Implant [employer] 02/04/2024 4076-52 / [id number] / Medtronic Ra-03/18/2022 Implanted:Qty: 1 on 03/18/2022 by Holden Lombardo MD Lead Implant [employer] 12/27/2023 4076-45 / [id number] / Medtronic Cs-08/24/2022 Implanted:08/08 by Holden Lombardo MD (Quantity not on file) Lead Implant [employer] 06/18/2024 [id number] / [id number] / Medtronic Percepta Quad Biv-08/24/2022 Implanted:08/08 by Holden Lombardo MD (Quantity not on file) Pacemaker [employer] 01/05/2024 [id number] / [id number] / Description:DX: CHB Explanted Type Area Wood Tank Erector Device Identifier Shelf Expiration Date Model / Serial / Lot Medtronic [place] [address]-03/18/2022 Implanted:Qty: 1 on 03/18/2022 by Holden Lombardo MD Explanted:08/24 by Holden Lombardo MD (Quantity not on file) Pacemaker [employer] 08/22/2023 [id number] / [id number] / Procedures Procedure Name Priority Date/Time Associated Diagnosis Comments ECG 12-LEAD Routine 08/28/2024 12:52 PM CDT Heart failure (CMS/HCC [facility]/HCC) from Last 3 Months Results * ECG 12-Lead (08/28/2024 12:52 PM CDT) 08/28/2024 12:5 2 PM CDT Narrative [facility] - 08/29/2024 6:43 AM CDT [address] [place] [address] Test Date: 2024-08-28 Pat Name: CATA YI Department: 3 Room: Gender: Female Professor Of Business: : 1950 Requested By: CINDY ELIAS Order Number: [id number] Reading MD: Precious Phillips Measurements Intervals [place] Rate: 72 P: 244 WY: 204 QRS: 236 QRSD: 98 T: 44 QT: 384 QTc: 421 Interpretive Statements ELECTRONIC ATRIAL PACEMAKER ELECTRONIC VENTRICULAR PACEMAKER ABNORMAL RHYTHM ECG Procedure Note Precious Phillips MD - 08/29/[address] [place] [address] Test Date: 2024-08-28 Pat Name: CATA YI Department: 3 Room: Gender: Female Professor Of Business: : 1950 Requested By: CINDY ELIAS Order Number: [id number] Reading MD: Precious Phillips Measurements Intervals [place] Rate: 72 P: 244 WY: 204 QRS: 236 QRSD: 98 T: 44 QT: 384 QTc: 421 Interpretive Statements ELECTRONIC ATRIAL PACEMAKER ELECTRONIC VENTRICULAR PACEMAKER ABNORMAL RHYTHM ECG Cindy Elias [facility]- ECG ORDERABLES Final Res ult [facility] from Last 3 Months Insurance MEDICARE AETNA Advance Directives Documents on File Type Date Recorded Patient Animal Therapist Expl anation Advance Directives and Living Will 03/20/2022 11:47 AM [employer] Advance Directives and Living Will 02/20/2021 9:06 AM Refer to THOMAS bell regarding Advanced Directives - NO BLOOD Power of Interior Decorator 02/20/2021 9:06 AM Lucie Yi, HCA-spouse; Aram [...] Alter huyen Health Care Agent Care Teams Plastic Design Applier Relationship Specialty Start Date End Date Gigi Ornelas MD [address] [place] [address] PCP - General FAMILY PRACTICE 02/05/21 Jordi Gould PA-C [address] [place] [phone] PHYSICIAN RE[employer]IGERATED COMPANY DRIVER 07/30/22 Kajal Javed MD [address] [place] [phone] Consulting Physician Electrophysiology 02/04/23 Cindy Elias, GABRIELA- [address] [place] [id number] Nurse Practitioner NURSE PRACTITIONER ADULT HEALTH 08/23/23
--- OUTSIDE RECORDS SUMMARY | 2024-09-22 12:06 | XMS_ITS | Encounter Summary ---
Author Organization [facility] Address [address] [place] [address] Care Team Providers Care Transmitter Tester Name Role Phone Gigi Ornelas MD Primary Care Provider [phone] Vickey Rider MD Unavailable [phone] Dominic Arrington MD Unavailable Holden Lombardo MD Unavailable Unavailable Jordi Gould PA-C Unavailable [phone] Kajal Javed MD Unavailable [phone] Isael Diaz MD Unavailable [phone] Cindy Elias ANP- Unavailable +-[phone] Encounter Details Date Type Department Care Team (Late st Contact Info) Description 08/19/2022 Hospital Orders Only [facility] Lab Pre/Post [address] [place] [address] Holden Lombardo MD Social History Tobacco Use Types Packs/Day Years Used Date Smoking Tobacco: Former Cigarettes Q uit: 2005 Smokeless Tobacco: Never Alcohol Use Standard Drinks/Week Comments Never 0 (1 standard drink = 0.6 oz pur e alcohol) Comments Unknown Sex and Gender Information Value Date Recorded Sex Assigned at Female 05/24/2024 2:24 PM COMPUTER TECHNICAL SUPPORT SPECIALIST Legal Sex Female 10:24 PM CDT Gender [...] Assessment Author Status No 03/18/2022 10:00 PM COMPUTER TECHNICAL SUPPORT SPECIALIST 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 Answer Date of Assessment Author Status No 03/18/2022 10:00 PM COMPUTER TECHNICAL SUPPORT SPECIALIST Acti ve * Do you have serious [...] 10/31/2024 1:30 AM CDT Allied Health/Nurse Visit [facility] [address] [place] [address] Kajal Javed MD [address] [place] [address] 12/29/2024 2:00 PM CDT Allied Health/Nurse Visit [facility] [address] [place] [phone] Jordi Gould PA-C [address] [place] [address] 12/29/2024 2:30 PM CDT Office Visit [facility] [address] [place] [address] Jordi Gould PA-C [address] [place] [address] documented as of this encounter Visit Diagnoses Not on filedocumented in this encounter Care Teams Transmitter Tester Relationship Specialty Start Date End Date Gigi Ornelas MD [address] [phone] PCP - General FAMILY PRACTICE 02/05/21 Vickey Rider MD [address] [place] [phone] [place] Dispatcher Clerk CARDIOVASCULAR DISEASE 02/05/21 08/22/23 Dominic Arrington MD [address] [place] [phone] Vascular/Cardiologis t INTERNAL MEDICINE 02/24/21 07/14/24 Holden Lombardo MD [address] [place] [phone] Consulting Physician CLINICAL CARDIAC ELECTROPHYSIOLOGY 07/30/22 02/03/23 Jordi Gould PA-C [address] [place] [phone] PHYSICIAN ELECTRICAL MECHANIC 07/30/22 Kajal Javed MD [address] [place] [address] [address] [place] [address] Consulting Physician Electrophysiology 02/04/23 Isael Diaz MD [address] [place] [address] [address] INTERVENTIONAL CARDIOLOGY 08/23/2307/14 Cindy Elias, [facility]- [address] [place], [place] [phone] Nurse Practitioner NURSE PRACTITIONER ADULT HEALTH 08/23/23 documented as of this encounter
--- OUTSIDE RECORDS SUMMARY | 2024-09-22 12:06 | XMS_ITS | Encounter Summary ---
Author Organization [facility] Address [address] [place] [address] Care Team Providers Care Human Service Worker Name Role Phone Gigi Ornelas MD Primary Care Provider [phone] Vickey Rider MD Unavailable [phone] Dominic Arrington MD Unavailable Holden Lombardo MD Unavailable Unavailable Jordi Gould PA-C Unavailable [phone] Kajal Javed MD Unavailable [phone] Isael Diaz MD Unavailable [phone] Cindy Elias ANP- Unavailable +-[phone] Encounter Details Date Type Department Care Team (Late st Contact Info) Description 01/30/2021 Abstract [facility] [address] [place] [phone] Helen Vargas, AUDIOMETRIST, MANAGER REVENUE-C [address] [facility] [address] [place] [phone] Social History Tobacco Use Types Packs/Day Years Used Date Smoking Tobacco: Former Cigarettes Q uit: 2005 Comments Unknown Sex and Gender Information Value Date Recorded Sex Assigned at Female 05/24/2024 2:24 PM FUR FINISHER SEAMSTRESS Legal Sex Female 10:24 PM CDT Gender Identity Not on file Sexual Orientation Not on file documented as of this encounter Plan of Treatment Upcoming Encounters Date Type Department Care Team (Late st Contact Info) Description 10/31/2024 1:30 AM CDT Allied Health/Nurse Visit [facility] [address] [place] [address] Kajal Javed MD [address] [facility] [address] [address] 12/29/2024 2:00 PM CDT Allied Health/Nurse Visit [facility] [address] [place] [phone] Jordi Gould PA-C [address] [place] [address] 12/29/2024 2:30 PM CDT Office Visit [facility] [address] [place] [address] Jordi Gould PA-C [address] [place] [address] [phone] documented as of this encounter Visit Diagnoses Not on filedocumented in this encounter Care Teams Human Service Worker Relationship Specialty Start Date End Date Gigi Ornelas MD [address] [place] [address] PCP - General FAMILY PRACTICE 02/05/21 Vickey Rider MD [address] [place] [phone] [place] Grievance And Appeals Coordinator CARDIOVASCULAR DISEASE 02/05/21 08/22/23 Dominic Arrington MD [address] [place] [phone] Vascular/Cardiologis t INTERNAL MEDICINE 02/24/21 07/14/24 Holden Lombardo MD [address] [place] [phone] Consulting Physician CLINICAL CARDIAC ELECTROPHYSIOLOGY 07/30/22 02/03/23 Jordi Gould PA-C [address] [place], [place] [phone] PHYSICIAN JEWELRY MAKING INSTRUCTOR 07/30/22 Kajal Javed MD [address] [place], [place] [phone] Consulting Physician Electrophysiology 02/04/23 Isael Diaz MD [address] [place], [place] [phone] INTERVENTIONAL CARDIOLOGY 08/23/2307/14 Cindy Elias, [facility]- [address] [place] [address] Nurse Practitioner NURSE PRACTITIONER ADULT HEALTH 08/23/23 documented as of this encounter
[2024-09-22] MEDS: IPRATROPIUM 0.5 MG/ALBUTEROL SULFATE 2.5 MG AMPUL.NEB 3 ML INHALATION ×2 (12:15→13:40)
[2024-09-22] MEDS: FUROSEMIDE INJ 40 MG/4 ML VIAL IV PUSH (12:17)
[2024-09-22] MEDS: ASPIRIN 81 MG CHEWABLE TABLET 324 MG PO (12:17)
[2024-09-22 12:24] LABS: Base Excess ABG 5.8 mmol/L (0-2); Oxygen Saturation ABG 90.3 % (95-97); Oxyhemoglobin 89.3 % (94-100); PCO2 ABG 52.3 mmHg (35-45); PO2 ABG 57.9 mmHg (75-85)
[2024-09-22 12:25] LABS: Device NASAL CANNULA; Modified Allen's Test Pass; Site Drawn LEFT RADIAL
[2024-09-22 12:30] LABS: Basophils Absolute Auto 0.02 K/mm3 (0.00-0.10); Basophils Percent Auto 0.3 % (0.0-1.0); Eosinophils Absolute Auto 0.08 K/mm3 (0.02-0.50); Hematocrit 29.8 % (35.0-42.0); Hemoglobin 8.5 g/dL (11.7-13.8); Immature Granulocyte Absolute 0.04 K/mm3 (0.00-0.00); Immature Granulocyte Percent A 0.5 % (0.0-0.0); Lymphocytes Absolute Auto 0.58 K/mm3 (1.10-4.50); Lymphocytes Percent Auto 7.3 % (18.0-42.0); Mean Corpuscular HGB Conc 28.5 g/dL (32-36); Mean Corpuscular Hemoglobin 27.1 pg (27.0-31.0); Mean Corpuscular Volume 94.9 fL (78.0-102.0); Mean Platelet Volume 9.1 fl (9.2-11.8); Monocytes Absolute Auto 0.84 K/mm3 (0.10-0.90); Monocytes Percent Auto 10.5 % (2.0-11.0); Neutrophils Absolute Auto 6.41 K/mm3 (1.70-7.20); Neutrophils Percent Auto 80.4 % (50.0-70.0); Platelet Count Result 151 K/mm3 (150-420); Red Blood Count 3.14 M/mm3 (4.20-5.40); Red Cell Distribution Width 16.1 % (11.6-14.4)
[2024-09-22 12:32] LABS: Lactic Acid Reflex 1.6 mmol/L (0.4-2.0)
[2024-09-22 12:33] LABS: Alanine Aminotransferase 12 U/L (6-35); Albumin Level 3.5 g/dL (3.5-5.1); Alkaline Phosphatase 105 U/L (38-126); Anion Gap 1 mmol/L (4-12); Aspartate Amino Transferase 19 U/L (14-36); Bilirubin,Total 0.4 mg/dL (0.2-1.3); Blood Urea Nitrogen 20 mg/dL (7-17); Calcium 8.7 mg/dL (8.4-10.2); Carbon Dioxide 37 mmol/L (22-30); Chloride 103 mmol/L (98-107); Estimated CRCL calculation 35 ml/min; Estimated Glomerular Filt Rate 36; Glucose 110 mg/dL (65-110); Magnesium 1.9 mg/dL (1.6-2.3); Osmolality Calculated 295 mOsm/kg (285-295); Potassium 4.3 mmol/L (3.4-5.0); Sodium 141 mmol/L (137-145); Total Protein 7.2 g/dL (6.3-8.2)
[2024-09-22 12:40] LABS: INR 1.1; Partial Thromboplastin Time 31.2 Sec (23.9-30.70); Prothrombin Time 12.4 Seconds (9.50-12.1)
[2024-09-22 12:43] LABS: D Dimer 0.56 mg/L (0.19-0.50)
[2024-09-22 12:45] LABS: NT Pro B Type Natriuretic Pept 869 pg/mL (19.9-100); Troponin I < 0.012 ng/mL (0.000-0.034)
[2024-09-22 12:59] LABS: Influenza A QL RT-PCR Negative (Negative); Influenza B QL RT-PCR Negative (Negative); RSV RNA, RT-PCR Negative (Negative); SARS-CoV-2 RNA PCR Negative (Negative)
[2024-09-22 14:43] LABS: Troponin I < 0.012 ng/mL (0.000-0.034)
--- NOTE | 2024-09-24 09:25 | PC.NURSE ---
preliminary blood culture reviewed. gram positive cocci isolated. pt was transferred to [facility] in [place]. nurse at [facility] 5th floor contacted and blood culture report provided. nurse coby states pt had a second set of blood cultures drawn when she arrived at [facility] and it is also showing gram positive cocci. nurse coby states pt's attending at [facility] is aware of culture reports.
--- NOTE | 2024-09-25 12:25 | PC.NURSE ---
PRELIMINARY URINE CULTURE REPORT; STAPHYLOCOCCUS EPIDERMIDIS; FAXED TO [facility] [phone]
--- NOTE | 2024-09-28 13:12 | PC.NURSE ---
final blood cultures x2 reviewed. no growth after 5 days. no change in plan of care
== END 2024-09-22 15:15 | disposition short-term general hospital (02) ==
PROVIDERS: Emergency Provider Emergency Medicine; PCP Family Medicine
DX: I31.39 Other pericardial effusion (noninflammatory) (principal); J96.21 Acute and chronic respiratory failure with hypoxia; R07.9 Chest pain, unspecified; I12.9 Hypertensive chronic kidney disease with stage 1 through stage 4 chronic kidney disease, or unspecified chronic kidney disease; N18.9 Chronic kidney disease, unspecified; J44.9 Chronic obstructive pulmonary disease, unspecified; Z90.49 Acquired absence of other specified parts of digestive tract; Z20.822 Contact with and (suspected) exposure to COVID-19; Z87.891 Personal history of nicotine dependence
CPT/HCPCS: 36415; 36600; 71045; 80053; 82805; 83605; 83735; 83880; 84484; 85025; 85380; 85610; 85730; 87040; 87147; 87181; 87637; 93005; 94640; 96365; 96375; 99285; A9270; J0696; J1938

== ENCOUNTER 2024-11-13 09:14 | Inpatient (IN) | payer MEDICARE, SELFPAY ==
[2024-11-13] VITALS (17 sets, daily range): BP systolic 112–150; BP diastolic 38–94; PULSE 78–126; RESP 16–23; TEMP 36.6–38.4; O2SAT 90–99; BMI 48.6
--- NOTE | 2024-11-13 | CONSULT_PTH ---
PATIENT: Cata Aj LOC: [facility] U#:[id number] AGE/SX: 74/F ROOM: [facility] RE11/13/[address]: Allie Pardo APRN : 1950 BED: 1 DIS: 11/17/2024 SPEC #: [id number] RECD: 11/13/24 10:12 STATUS: JACOB REQ #: [id number] FRANC: 11/13/24 00:[address]: Zia Vo DEPT: [facility] Consult RECD BY: Giselle Montez MLT, ([facility]) ENTERED: 11/13/24 10:12 SP TYPE: Consult OTHR DR: Gigi Ornelas MD Tissues: A - Peripheral Smear Procedures: Hematology Consult
--- NOTE | ~2024-11-13 | CT_ITS ---
CLINICAL INDICATION: Chronic shortness of breath with intermittent cough COMPARISON: Reference is made to a plain film evaluation performed approximately 24 hours earlier as well as previous CT examination of the chest from November 2023. TECHNIQUE: Multiple contiguous axial images of the chest was performed without the administration of intravenous contrast. This CT examination was performed utilizing dose reduction techniques. DLP: 580 mGy-cm FINDINGS/OBSERVATIONS: LUNG: Patchy groundglass nodular opacification detected bilaterally. This may be infectious or inflammatory in origin. Varicose bronchiectasis is also detected. Left basilar atelectasis is appreciated. Trace left sided pleural effusion is noted. HEART: The heart is markedly enlarged, with a large pericardial effusion, largely unchanged from 12/21/2023. The large pericardial effusion and cardiac enlargement compresses the left lower lobe bronchi leading to left basilar atelectasis/consolidation. MEDIASTINUM: Limited evaluation without intravenous contrast. SOFT TISSUES OF THE CHEST: Unremarkable. BONES OF THE CHEST: No acute fracture. Marked kyphosis, further decreasing the available lung volume, as well as pectus excavatum. There are bridging endplate osteophytes at multiple levels in the mid to lower thoracic spine, consis tent with diffuse idiopathic skeletal hyperostosis (DISH). UPPER ABDOMEN: Small hiatal hernia. The gallbladder is surgically absent. IMPRESSION: Cardiomegaly with a large pericardial effusion compressing the left lower lobe bronchi leading to lef t basilar atelectasis/consolidation. Patchy groundglass nodular opacification detected within the remainder of the visualized lung beth with varicose bronchiectasis. Only trace left-sided pleural effusion is noted. Reviewed, dictated and finalized at location A. IMPRESSION: Cardiomegaly with a large pericardial effusion compressing the left lower lobe bronchi leading to left basilar atelectasis/consolidation. Patchy groundglass nodular opacification detected within the remainder of the v isualized lung beth with varicose bronchiectasis. Only trace left-sided pleural effusion is noted.
--- NOTE | ~2024-11-13 | CT_ITS ---
History: Fall PROCEDURE: CT head without contrast. COMPARISON: 08/05/2020 TECHNIQUE: Axial imaging of the head performed from the skull base to the vertex without IV contrast. Sagittal a nd coronal reformations obtained. DLP: 10/12/1929 mGy-cm FINDINGS: The ventricles are enlarged. The dilatation of the ventricles is proportional to the degree of sulcal prominence, not uncommon in the senescent brain. Decreased attenuation is identified within the periventricular white matter, likely secondary to micr ovascular ischemic disease, in a patient of this age. There is no mass, mass effect or midline shift. There is no abnormal extra-axial fluid collection or intracranial hemorrhage. Visualized paranasal sinuses are clear. The mastoid air cells are well aerated. No acute displaced fractures within the overlying cranium. Impression: No acute intracranial hemorrhage or suspicious mass effect. Reviewed, dictated and finalized at location A. Impression: No acute intracranial hemorrhage or suspicious mass effect.
--- NOTE | ~2024-11-13 | XR_ITS ---
CHEST RADIOGRAPH CLINICAL HISTORY: weakness, fall X today, current UTI . COMPARISON: 09/22/2024 TECHNIQUE: Single portable view of the chest. FINDINGS The left mid lung is partially obscured due to pacemaker/AICD generator. Wires project over the right atrium, coronary sinus and right ventricle. The remainder of the cardiomediastinal silhouette is enlarged and otherwise unremarkable. Left-sided pleural effusion with adjacent compressive atelectasis. The remainder of the lungs are clear. IMPRESSION: Left-sided pleural effusion with adjacent compressive atelectasis. Reviewed, dictated and finalized at location A.
--- OUTSIDE RECORDS SUMMARY | 2024-11-13 09:23 | XMS_ITS | Encounter Summary ---
Author Organization [facility] Address [address] [place] [address] Care Team Providers Care Buyer Broker Name Role Phone Gigi Ornelas MD Primary Care Provider [phone] Vickey Rider MD Unavailable [phone] Dominic Arrington MD Unavailable Holden Lombardo MD Unavailable Unavailable Jordi Gould PA-C Unavailable [phone] Kajal Javed MD Unavailable [phone] Isael Diaz MD Unavailable [phone] Cindy Elias ANP-BC Unavailable [phone] Precious Phillips MD Unavailable Jean Paul Smith MD Unavailable [phone] Encounter Details Date Type Department Care Team (Late st Contact Info) Description 08/19/2022 Hospital Orders Only [facility] Human Service Technician Pre/Post [address] [place] [address] Holden Lombardo MD Social History Tobacco Use Types Packs/Day Years Used Date Smoking Tobacco: Former Cigarettes Q uit: 2005 Smokeless Tobacco: Never Alcohol Use Standard Drinks/Week Comments Never 0 (1 standard drink = 0.6 oz pur e alcohol) Comments Unknown Sex and Gender Information Value Date Recorded Sex Assigned at Female 05/24/2024 2:24 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 Allied Health/Nurse Visit [facility] [address] [place] [phone] Kajal Javed MD [address] [phone] documented as of this encounter Visit Diagnoses Not on filedocumented in this encounter Care Teams Buyer Broker Relationship Specialty Start Date End Date Gigi Ornelas MD [address] [phone] PCP - General FAMILY PRACTICE 02/05/21 Vickey Rider MD [address] [place] [phone] [place] Processing Clerk CARDIOVASCULAR DISEASE 02/05/21 08/22/23 Dominic Arrington MD [address] [place] [phone] Vascular/Cardiologis t INTERNAL MEDICINE 02/24/21 07/14/24 Holden Lombardo MD [address] [place] [address] Consulting Physician CLINICAL CARDIAC ELECTROPHYSIOLOGY 07/30/22 02/03/23 Jordi Gould PA-C [address] [place] [phone] PHYSICIAN RECONDITIONER 07/30/22 Kajal Javed MD [address] [address] Consulting Physician Electrophysiology 02/04/23 Isael Diaz MD [address] [phone] INTERVENTIONAL CARDIOLOGY 08/23/2307/14 Cindy Elias, [facility] [address] [place] [phone] Nurse Practitioner NURSE PRACTITIONER ADULT HEALTH 08/23/23 Precious Phillips MD [address] [place] [address] Consulting Physician CARDIOVASCULAR DISEASE 09/24/24 Jean Paul Smith MD [address] [place] [address] Physician RHEUMATOLOGY 09/24/24 documented as of this encounter
--- OUTSIDE RECORDS SUMMARY | 2024-11-13 09:23 | XMS_ITS | Clinical Summary ---
Author Organization [facility] Address [address] [place] [address] Care Team Providers Care Email Marketing Executive Name Role Phone Gigi Ornelas MD Primary Care Provider [phone] Jordi Gould PA-C Unavailable [phone] Kajal Javed MD Unavailable [phone] Cindy Elias [facility]- Unavailable [phone] Precious Phillips MD Unavailable Jean Paul Smith MD Unavailable [phone] Allergies Active Allergy Reactions Criticality Noted Date Comments Amoxicillin-Pot Clavulanate Nausea Only 021 Clindamycin Hives 01/30/2021 Latex Rash Medium 09/22/2024 Silicone Rash Low 02/07/2021 Tape Unknown 01/30/2021 Medications triamcinolone 0.1 % creamIndication s:rash APPLY CREAM EXTERNALLY TO AFFECTED AREA TWICE DAILY Active PREVALITE 4 g packetIndicatio ns:Diarrhea MIX AND TAKE THE CONTENTS OF 1 PACKET BY MOUTH DAILY. 1 Active gabapentin 300 MG capsuleIndicati ons:Neuropathy Take 2 capsules (600 mg total) by mouth 2 (two) times daily. Indications: Nerve Disease Patient takes 2 capsules BID and one capsule mid afternoon 1 Active irbesartan 300 MG tabletIndicatio ns:Hypertension Take 1 tablet (300 mg total) by mouth daily. Indications: High Blood Pressure 1 Active Multiple Vitamins-Minera ls (PRESERVISION AREDS) capsuleIndicati ons:Supplement Take 1 capsule by mouth daily. Indications: Supplement Active cholecalciferol (VITAMIN D3) 125 MCG (5000 UT) TabIndications: Supplement Take 1 tablet (125 mcg total) by mouth daily. Indications: Supplement Active Cyanocobalamin (VITAMIN B-12) 5000 MCG TABLET DISPERSIBLEIndi cations:Supplem ent Take 5,000 mcg by mouth daily. Indications: Supplement Active metoprolol succinate ER 50 MG 24 hr tabletIndicatio ns:Hypertension Take 1.5 tablets (75 mg total) by mouth daily. Indications: High Blood Pressure 1 Active VENTOLIN HFA 108 (90 Base) MCG/ACT inhalerIndicati ons:COPD 2 puffs as needed. Indications: COPD 2 Active albuterol (2.5 MG/3ML) 0.083% nebulizer solutionIndicat ions:COPD as needed. Indications: COPD 2 Active SV IRON 325 (65 Fe) MG tabletIndicatio ns:supplement Take 1 tablet (325 mg total) by mouth daily with breakfast. Indications: supplement 4 Active vitamin C (ASCORBIC ACID) 250 MG tabletIndicatio ns:Supplement Take 2 tablets (500 mg total) by mouth daily. Indications: Supplement 5 Active OXYGENIndicatio ns:Dyspnea 4 L/min by Nasal route continuous. Indications: Difficulty Breathing 5 Active apixaban (ELIQUIS) 5 MG tablet Take 1 tablet by mouth twice daily 60 tablet 5 5 Active potassium chloride CR (MICRO-K) 10 MEQ CR capsuleIndicati ons:supplement Take 1 capsule (10 mEq total) by mouth daily. Indications: supplement 60 capsule 2 5 Active torsemide (DEMADEX) 20 MG tabletIndicatio ns:CHF Take 1 tablet (20 mg total) by mouth daily. Indications: CHF 60 tablet 2 5 Active Active Problems Problem Noted Date Diagnosed Date Acute on chronic respiratory failure ([facility]) 09/22/2024 CHF (congestive heart failure) ([facility]) 09/22/2024 Morbid (severe) obesity due to excess calories 0 08/28/2024 Body mass index (BMI) 45.0-49.9, adult 5 Anticoagulant long-term use 12/29/2023 Chronic combined systolic an d diastolic heart failure ([facility]) 07/02/2022 Left ventricular systolic dysfunction (LVSD) Biventricular cardiac pacemaker in situ 03/19/20 22 Complete heart block ([facility]) Symptomatic bradycardia 03/18/2022 Chronic venous insufficiency 02/25/2021 Sleep apnea 05/10/2008 Other hyperlipidemia 05/10/2008 Hypertension 05/10/1989 Lymphedema Pericardial effusion ([facility]) SOBOE (shortness of breath on exertion) Encounters Date Type Department Care Team Description 10/30/2024 11:10 AM CDT - 10/30/2024 11:59 PM CDT Hospital Encounter [facility] [address] [place] [address] Non-Staff, Provider Jean Paul Smith MD Discharge Disposition: Home or Self Care (Routine Discharge) 10/30/2024 2:05 AM CDT Allied Health/Nurse Visit [facility] [address] [place] [address] Kajal Javed MD 10/30/2024 Orders Only [facility] [address] [place] [address] Jean Paul Smith MD 10/30/2024 Travel 10/03/2024 1:18 PM CDT - 10/03/2024 11:59 PM CDT Hospital Encounter [facility] [address] [place] [address] Chencho Monroy MD Discharge Disposition: Home or Self Care (Routine Discharge) 10/03/2024 Travel 09/28/2024 Hospital Follow-up Call [facility] [address] [place] [address] Kathy Cason RN 09/25/2024 Telephone [facility] [address] [place] [address] Opal Patrick NP Appointment Request (Needs follow up appt with Cindy Elias in [place]) 09/22/2024 4:35 PM CDT - 09/26/2024 1:05 PM CDT Hospital Encounter [facility] [address] [place] [address] Earl Ambriz MD Kim, MD Eliana Servin Srikanth, MD Discharge Disposition: Home with Home Health Care 09/22/2024 Travel 09/05/2024 Telephone [facility] [address] [place] [address] Cindy Elias, ANP-BC Refill Request 08/28/2024 1:00 PM CDT [facility] [address] [place], [place] [address] [address] Cindy Elias, ANP-BC Follow Up (Pericardial effusion, shortness of breath) 08/28/2024 12:43 PM CDT - 08/28/2024 11:59 PM CDT Hospital Encounter [facility] [address] [place], [place] [address] [address] Precious Phillips MD Discharge Disposition: Home or Self Care (Routine Discharge) 08/28/2024 Travel 08/17/2024 11:03 AM CDT - 08/17/2024 11:59 PM CDT Hospital Encounter [facility] [address] [place] [address] Chyna Mcallister, Maria Fernanda iDez, OT Discharge Disposition: Home or Self Care (Routine Discharge) 08/17/2024 Travel from Last 3 Months Family History [...] materials from doctor or pharmacy Never 07/07/2024 [facility] Utilities Answer Date Recorded In the past 12 months has [facility] [employer], [employer], or water [employer] threatened to shut off services in your home? No 09/22/2024 Humiliation, Afraid, Rape, and Kick questionnair e Answer Date Recorded Within the last year, have y ou been afraid of your partner or ex-partner? No 09/22/2024 Within the last year, have y ou been humiliated or emotionally abused in other ways by your partner or ex-partner? No Within the last year, have y ou been kicked, hit, slapped, or otherwise physically hurt by your partner or ex-partner? No 09/22/2024 Within the last year, have y ou been raped or forced to have any kind of sexual activity by your partner or ex-partner? No 09/22/2024 Overall Financial Resource Strain (CARDIA) Answe r Date Recorded How hard is it for you to pa y for the very basics like food, housing, medical care, and heating? Not hard at all 09/22/2024 Hunger Vital Sign Answer Date Recorded Within the past 12 months, y ou worried that your food would run out before you got the money to buy more. Never true 09/23/19 25 Within the past 12 months, t he food you bought just didn't last and you didn't have money to get more. Never true 09/22/2024 PRAPARE - Transportation Answer Date Re corded In the past 12 months, has l ack of transportation kept you from medical appointments or from getting medications? No 09/07 In the past 12 months, has l ack of transportation kept you from meetings, work, or from getting things needed for daily living? No 09/22/2024 Housing Stability Vital Sign Answer Parker e Recorded In the last 12 months, was t here a time when you were not able to pay the mortgage or rent on time? No 09/22/2024 In the past 12 months, how m any times have you moved where you were living? 0 09/22/2024 At any time in the past 12 m onths, were you homeless or living in a fdc (including now)? No 09/22/2024 Comments Unknown Sex and Gender Information Value Date Recorded Sex Assigned at Female 05/24/2024 2:24 PM PHARM TECH Legal Sex Female 10:24 PM CDT Gender Identity Not on file Sexual Orientation Not on file Last Filed Vital Signs Vital Sign Reading Time Taken Comments Blood Pressure 150/48 09/26/2024 8:15 AM CDT Pulse 64 09/26/2024 8:15 AM CDT Temperature 36.4 C (97.5 F) 09/26/2024 8:15 AM CDT Respiratory Rate 18 09/25/2024 11:5 0 PM CDT Oxygen Saturation 99% 09/26/2024 8:15 AM CDT Inhaled Oxygen Concentration - - Weight 108.6 kg (239 lb 6.7 oz) 09/26/2024 5:00 AM CDT Height 152.4 cm (5') 09/22/2024 9:31 PM CDT Body Mass Index 46.76 09/22/2024 9:31 PM CDT Plan of Treatment Upcoming Encounters Date Type Department Care Team (Late st Contact Info) Description 01/16/2025 2:00 PM CDT Office Visit [facility] [address] [place] [address] Jordi Gould PA-C [address] [place] [phone] 01/16/2025 2:00 PM CDT Allied Health/Nurse Visit [facility] [address] [place] [phone] Jodri Gould PA-C [address] [place] [phone] 04/20/2025 1:30 AM PHARM TECH Allied Health/Nurse Visit [facility] [address] [place] [address] Kajal Javed MD [address] [id number] Health Maintenance Due Date Last Done Comments Colorectal Cancer Screening Colonoscopy (10 Years) 1950 Hepatitis C 02/16/1970 Pneumococcal Vaccine: 50+ Years (1 of 2 - PCV) 02/16/1971 Mammogram Screening 1992 Zoster Vaccines (1 of 2) 02/16/2002 Annual Medicare Wellness Visit 02/16/2017 Dexa Scan (General) 02/16/2017 COVID-19 Vaccine ( season) 2024 03/04/2023, 02/16/2022, 09/28/2021, Additional history exists DTaP, Tdap and Td Vaccines (2 - Td or Tdap) 08/05/2030 08/05/2020 RSV Immunization or 60+ Years Completed 05/17/2023 Meningococcal B Vaccine Aged Out No l onger eligible based on patient's age to complete this topic Meningococcal Vaccine Aged Out No alyssa mireya eligible based on patient's age to complete this topic RSV Immunizations Under 20 Months Aged Out No longer eligible based on patient's age to complete this topic Medical Devices Implanted Type Area Tar And Ammonia Pump Operator Device Identifier Shelf Expiration Date Model / Serial / Lot Medtronic Rv-03/18/2022 Implanted:Qty: 1 on 03/18/2022 by Holden Lombardo MD Lead Implant [employer] 02/04/2024 4076-52 / [id number] / Medtronic Ra-03/18/2022 Implanted:Qty: 1 on 03/18/2022 by Holden Lombardo MD Lead Implant [employer] 12/27/2023 [id number] / [id number] / Medtronic Cs-08/24/2022 Implanted:08/08 by Holden Lombardo MD (Quantity not on file) Lead Implant [employer] 06/18/2024 [id number] / [id number] / Medtronic Percepta Quad Biv-08/24/2022 Implanted:08/08 by Holden Lombardo MD (Quantity not on file) Pacemaker [employer] 01/05/2024 [id number] / [id number] / Description:DX: CHB Explanted Type Area Tar And Ammonia Pump Operator Device Identifier Shelf Expiration Date Model / Serial / Lot Medtronic [place] Mri Dr-03/18/2022 Implanted:Qty: 1 on 03/18/2022 by Holden Lombardo MD Explanted:08/24 by Holden Lombardo MD (Quantity not on file) Pacemaker [employer] 08/22/2023 [id number] / [id number] / Procedures Procedure Name Priority Date/Time Associated Diagnosis Comments CBC W/DIFF AUTOMATED Routine 10/30/2024 11:25 AM CDT 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 ([facility] HHS/HCC) SED RATE, ERYTHROCYTE (ESR) Routine 10/30/2024 11:25 AM CDT 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 ([facility] HHS/HCC) COMPREHENSIVE METABOLIC PANEL Routine 10/30/2024 11:25 AM CDT 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 ([facility] HHS/HCC) C-REACTIVE PROTEIN Routine 10/30/2024 11 :25 AM CDT 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 ([facility] HHS/HCC) CBC W/DIFF AUTOMATED Routine 10/03/2024 1:31 PM CDT Dyspnea COMPREHENSIVE METABOLIC PANEL Routine 10/03/2024 1:31 PM CDT Dyspnea CBC W/DIFF AUTOMATED Routine 09/26/2024 5:45 AM CDT BASIC METABOLIC PANEL Routine 09/26/2024 5:45 AM CDT BASIC METABOLIC PANEL Routine 09/25/2024 7:38 AM CDT CBC W/DIFF AUTOMATED Routine 09/25/2024 7:38 AM CDT BASIC METABOLIC PANEL Routine 09/24/2024 6:00 AM CDT CBC W/DIFF AUTOMATED Routine 09/24/2024 6:00 AM CDT USE ECHOCARDIOGRAM W CON AFIA 09/23/2024 8:54 AM CDT BLOOD GAS, ARTERIAL LAB STAT 09/23/2024 3:30 AM CDT COMPREHENSIVE METABOLIC PANEL Routine 09/23/2024 3:30 AM CDT CBC W/DIFF AUTOMATED Routine 09/23/2024 3:30 AM CDT ANTINUCLEAR ANTIBODIES TITER Routine 09/22/2024 5:52 PM CDT LEXUS IFA SCRN, WI REFLEX TO TITER Routine 09/22/2024 5:52 PM CDT HC CHEVY AB Routine 09/22/2024 5:52 PM CDT ANTINUCLEAR ANTIBODY WI RFX Routine 09/22/2024 5:52 PM CDT COMPREHENSIVE METABOLIC PANEL STAT 09/22/2024 5:52 PM CDT CBC W/DIFF AUTOMATED STAT 09/22/2024 5:52 PM CDT PRO-BRAIN NATRIURETIC PEPTIDE STAT 09/22/2024 5:52 PM CDT TROPONIN, QUANT STAT 09/22/2024 5:52 PM CDT XR CHEST PORTABLE STAT 09/22/2024 5:3 5 PM CDT ECG 12-LEAD STAT 09/22/2024 5:20 PM CDT ECG 12-LEAD Routine 08/28/2024 12:52 PM CDT Heart failure (CMS/HCC HHS/HCC) from Last 3 Months Results * (ABNORMAL) SED RATE, ERYTHROCYTE (ESR) (10/30/2024 11:25 AM CDT) Pathologist [facility] ESR 61(H) 0 - 20 MM/HR 10/30/2024 12:04 PM CDT [facility] 10/30/2024 11:2 5 AM CDT us Jean Paul Smith MD LABORATORY Final Resul t [facility] [place] [address], * (ABNORMAL) COMPREHENSIVE METABOLIC PANEL (10/30/2024 11:25 AM CDT) Only the most recent of4 resultswithin the time period is included. Pathologist [facility] SODIUM S/P/B 144 136 - 145 MMOL/L 10/30/2024 11:56 AM CDT [facility] POTASSIUM S/P/B 3.8 3.5 - 5.1 MMOL/L 10/30/2024 11:56 AM CDT [facility] CHLORIDE S/P/B 104 98 - 107 MMOL/L 10/30/2024 11:56 AM CDT [facility] CO2 34.8(H) 21.0 - 32.0 MMOL/L 10/30/2024 11:56 AM [facility] GLUCOSE 96 70 - 99 MG/DL 10/30/2024 11:56 AM [facility] Comment: FASTING GLUCOSE 100 TO 125 MG/DL IS CONSISTENT WITH IMPAIRED FASTING GLUCOSE. FASTING GLUCOSE >125 MG/DL IS CONSISTENT WITH DIABETES. RANDOM GLUCOSE >200 MG/DL WITH HYPERGLYCEMIC SYMPTOMS IS CONSISTENT WITH DIABETES. PER ADA GUIDELINES BUN 12 6 - 24 MG/DL 10/30/2024 11:56 AM [facility] CREATININE S/P/B 1.25(H) 0.55 - 1.02 MG/DL 10/30/2024 11:56 AM [facility] CALCIUM S/P/B 8.9 8.4 - 10.5 MG/DL 10/30/2024 11:56 AM [facility] BILIRUBIN TOTAL S/P/B 0.3 0.2 - 1.0 MG/DL 10/30/2024 11:56 AM [facility] Comment: THIS ASSAY IS NOT RECOMMENDED FOR PATIENTS UNDERGOING TREATMENT WITH ELTROMBOPAG DUE TO THE POTENTIAL FOR FALSELY ELEVATED RESULTS. ALKALINE PHOSPHATASE S/P/B 98 55 - 142 U/L 10/30/2024 11:56 AM [facility] AST 15 15 - 37 U/L 10/30/2024 11:56 AM [facility] ALT 13(L) 14 - 59 U/L 10/30/2024 11:56 AM [facility] TOTAL PROTEIN S/P/B 6.6 6.4 - 8.2 G/DL 10/30/2024 11:56 AM [facility] ALBUMIN S/P/B 2.6(L) 3.4 - 5.0 G/DL 10/30/2024 11:56 AM [facility] ANION GAP 5.2 5.0 - 15.0 MMOL/L 10/30/2024 11:56 AM [facility] OSMOLALITY (CALC) 298 MOSM/KG 025 11:56 AM [facility] Comment:REFERENCE RANGE NOT ESTABLISHED GFR ESTIMATE 46(L) >89 ML/MIN/1. 73 M2 10/30/2024 11:56 AM CDT [facility] GFR NOTES GFR REFERENCE S: 10/30/2024 11:56 AM CDT [facility] Comment: THE ESTIMATED GFR IS CALCULATED USING THE 2020 CKD-EPI EQUATION. THE FOLLOWING CATEGORIES FOR GRADING RENAL FUNCTION ARE RECOMMENDED BY THE INTERNATIONAL SOCIETY OF NEPHROLOGY (KDIGO 2012 CLINICAL PRACTICE GUIDELINE). G1,NORMAL OR HIGH: >89 ml/min/1.73 m2 G2,MILDLY DECREASED: 60-89 ml/min/1.73 m2 G3A,MILDLY TO MODERATELY DECREASED: 45-59 ml/min/1.73 m2 G3B,MODERATELY TO SEVERELY DECREASED: 30-44 ml/min/1.73 m2 G4,SEVERELY DECREASED: 15-29 ml/min/1.73 m2 G5,KIDNEY FAILURE: <15 ml/min/1.73 m2 10/30/2024 11:2 5 AM CDT Jean Paul Smith MD LABORATORY Final Resul t [facility] [address] [place] [address], * (ABNORMAL) C-REACTIVE PROTEIN (10/30/2024 11:25 AM CDT) C-REACTIVE PROTEIN 2.68(H) <0.30 mg/dL 10/30/2024 11:56 AM CDT [facility] 10/30/2024 11:2 5 AM CDT Jean Paul Smith MD LABORATORY Final Resul t [facility] [place] [address], * (ABNORMAL) CBC W/DIFF AUTOMATED (10/30/2024 11:25 AM CDT) Only the most recent of7 resultswithin the time period is included. WBC 7.43 4.00 - 10.80 x10'3/uL 10/30/2024 11:57 AM CDT [facility] RBC 2.93(L) 4.10 - 5.40 x10'6/uL 10/30/2024 11:57 AM CDT [facility] HGB 7.7(L) 12.0 - 16.0 G/DL 10/30/2024 11:57 AM CDT [facility] HCT 27.0(L) 36.0 - 47.0 % 10/30/2024 11:57 AM CDT [facility] MCV 92.2 78.0 - 100.0 FL 10/30/2024 11:57 AM CDT [facility] MCH 26.3(L) 27.0 - 31.0 PG 10/30/2024 11:57 AM CDT [facility] MCHC 28.5(L) 33.0 - 36.0 G/DL 10/30/2024 11:57 AM CDT [facility] RDW 16.5(H) 11.5 - 14.5 % 10/30/2024 11:57 AM CDT [facility] PLT 226 150 - 350 x10'3/uL 10/30/2024 11:57 AM CDT [facility] MPV 9.3 7.4 - 10.4 FL 10/30/2024 11:57 AM CDT [facility] CBC COMMENT NORMAL REFERENCE RANGE NOT ESTABLISHED FOR THE PROPORTIONAL LEUKOCYTE DIFFERENTIAL. 10/30/2024 11:57 AM CDT [facility] NEUTROPHILS % 74.8 % 10/30/2024 12:23 PM CDT [facility] LYMPHOCYTES % 9.2 % 10/30/2024 12:23 PM CDT [facility] MONOCYTES % 8.5 % 10/30/2024 12:23 PM CDT [facility] EOSINOPHILS % 3.8 % 10/30/2024 12:23 PM CDT [facility] BASOPHILS % 0.5 % 10/30/2024 12:23 PM CDT [facility] IMMATURE GRANS % 3.2 % 10/31/19 12:23 PM CDT [facility] NRBC % 0.0 % 10/30/2024 12:23 PM CDT [facility] ABS. NEUTROPHILS 5.56 1.60 - 8.30 x10'3/uL 10/30/2024 12:23 PM CDT [facility] ABS. LYMPHOCYTES 0.68(L) 0.80 - 4.70 x10'3/uL 10/30/2024 12:23 PM CDT [facility] ABS. MONOCYTES 0.63 0.00 - 1.50 x10'3/uL 10/30/2024 12:23 PM CDT [facility] ABS. EOSINOPHILS 0.28 0.00 - 0.40 x10'3/uL 10/30/2024 12:23 PM CDT [facility] ABS. BASOPHILS 0.04 0.00 - 0.20 x10'3/uL 10/30/2024 12:23 PM CDT [facility] ABS. IMMATURE GRANULOCYTES 0.24(H) 0.00 - 0.03 x10'3/uL 10/30/2024 12:23 PM CDT [facility] ABS. NUCLEATED RBC'S 0.00 0.00 - 0.01 x10'3/uL 10/30/2024 12:23 PM CDT [facility] PLT MORPH. NORMAL 10/30/2024 12:23 PM CDT [facility] RBC MORPHOLOGY 1+ 10/30/2024 12:23 PM CDT [facility] Comment: HYPOCHROMASIA 1+ ANISOCYTOSIS 1+ MACROCYTES 10/30/2024 11:2 5 AM CDT us Jean Paul Smith MD LABORATORY Final Resul t [facility] [address] [place] [address], * (ABNORMAL) BASIC METABOLIC PANEL (09/26/2024 5:45 AM CDT) Only the most recent of3 resultswithin the time period is included. SODIUM S/P/B 140 136 - 145 MMOL/L 09/26/2024 6:[address] [facility] POTASSIUM S/P/B 3.9 3.5 - 5.1 MMOL/L 09/26/2024 6:30 AM [facility] CHLORIDE S/P/B 106 97 - 115 MMOL/L 09/26/2024 6:30 AM [facility] CO2 30.1 21.0 - 32.0 MMOL/L 09/26/2024 6:30 AM [facility] GLUCOSE 130(H) 74 - 106 MG/DL 09/26/2024 6:30 AM [facility] BUN 48(H) 7 - 18 MG/DL 09/26/2024 6:30 AM [facility] CREATININE S/P/B 1.42(H) 0.55 - 1.02 MG/DL 09/26/2024 6:30 AM [facility] CALCIUM S/P/B 9.2 8.5 - 10.1 MG/DL 09/26/2024 6:30 AM [facility] ANION GAP 3.9 2.0 - 10.0 MMOL/L 09/26/2024 6:30 AM [facility] OSMOLALITY (CALC) 304 MOSM/KG 025 6:30 AM [facility] Comment:REFERENCE RANGE NOT ESTABLISHED GFR ESTIMATE 39(L) >90 ML/MIN/1. 73 M2 09/26/2024 6:30 AM [facility] GFR NOTES GFR REFERENCE S: 09/26/2024 6:30 AM [facility] Comment: THE ESTIMATED GFR IS CALCULATED USING THE 2020 CKD-EPI EQUATION. THE FOLLOWING CATEGORIES FOR GRADING RENAL FUNCTION ARE RECOMMENDED BY THE INTERNATIONAL SOCIETY OF NEPHROLOGY (KDIGO 2012 CLINICAL PRACTICE GUIDELINE). G1,NORMAL OR HIGH: >89 ml/min/1.73 m2 G2,MILDLY DECREASED: 60-89 ml/min/1.73 m2 G3A,MILDLY TO MODERATELY DECREASED: 45-59 ml/min/1.73 m2 G3B,MODERATELY TO SEVERELY DECREASED: 30-44 ml/min/1.73 m2 G4,SEVERELY DECREASED: 15-29 ml/min/1.73 m2 G5,KIDNEY FAILURE: <15 ml/min/1.73 m2 09/26/2024 5:45 AM CDT Chencho Monroy MD LABORATORY Final Res ult [facility] [address] [place] [address], [id number] * USE ECHOCARDIOGRAM W CON (09/23/2024 8:54 AM CDT) Anatomical Region Laterality Modality NA Echocardiogram 09/23/2024 8:07 AM CDT Narrative 09/23/2024 6:46 PM CDT Echocardiography Report Pat.Name: CATA YI Madhu Pat.ID: [id number] .Date: 09/23/2024 Refer.: [id number] KATHI Dillard EWDPROV EWDPROV Exam Time: 8:07:00 AM Study Type:ECHO W/CONTRAST COMPLETE Height: 59.8 in Weight: 236 lb BSA: 2 m2 Age: 10 1950,74Y Sex: F BP: 152/88 HR: 98 bpm Sonogrphr: Holden Herrera [facility] Pat. Stat.:Inpatient Room: [facility] CPT - 4: C8929 Reason for Study:CHF, Pericardial effusion History / Clinical:CHF, pericardial affusion Procedures: 2D, M-mode, Doppler, Color Flow, Definity was used to enhance endocardial definition. Race: W ++++++++++++++++++++++++++++++++++++ SUMMARY: ++++++++++++++++++++++++++++++++++++ The left ventricular size is normal. The calculated ejection fraction is 58%. The right ventricular size is normal. Right ventricular systolic function is normal. Moderate pericardial effusion, without tamponade physiology. The peak pulmonary artery systolic pressure is estimated to be approximately 45 mmHg. Inferior vena cava shows <50% collapse with respiration consistent with elevated right atrial pressure. Trace mitral regurgitation. A trace of tricuspid regurgitation. ++++++++++++++++++++++++++++++++++++ FINDINGS: ++++++++++++++++++++++++++++++++++++ LV: The left ventricular size is normal. The left ventricular systolic function is normal. The calculated ejection fraction is 58%. Left ventricular diastolic function is not reliably assessed. LVOT: The left ventricular outflow tract size is normal. RV: The right ventricular size is normal. Right ventricular systolic function is normal. A pacemaker wire is visualized in the right ventricle. IVS: Intraventricular septum is normal. LA: The left atrial volume is moderately increased (42-48 ml/M2). RA: A pacemaker wire is visualized in the right atrium. DOUG: Moderate pericardial effusion, without tamponade physiology. AO: Normal aortic root. PA: The peak pulmonary artery systolic pressure is estimated to be approximately 45 mmHg. Estimated right atrial pressure of 15 mmHg. PVn: Pulmonary vein velocity is consistent with normal left atrial pressures. SVn: Inferior vena cava shows <50% collapse with respiration consistent with elevated right atrial pressure. MV: Trace mitral regurgitation. No evidence of mitral stenosis. Myxomatous degeneration of mitral valve. PV: Structurally normal pulmonic valve. Trace pulmonic regurgitation. No evidence of pulmonic valve stenosis. TV: Structurally normal tricuspid valve. A trace of tricuspid regurgitation. No evidence of tricuspid valve stenosis. ++++++++++++++++++++++++++++++++++++ MEASUREMENTS: ++++++++++++++++++++++++++++++++++++ DOPPLER LVOT LVOTpkPG 3.8 mmHg LVOTmnPG 1.9 mmHg LVOTpkVel 97.5 cm/s (70-110) LVOT SV 60 ml LVOT TVI 20 cm LVOT CO 66.7 ml/s AV Forward Flow AV TVI 28.9 cm AV pkPG 7 mmHg AV pkVel 136 cm/s (100-170) Area (TVI) 2.07 cm2 (3-5)* AV mnVel 92.8 cm/s Area (Mike) 2.14 cm2 (3-5)* AV mnPG 4 mmHg MV Forward Flow MV DeTm 290 msec MV pkE 83.4 cm/s (60-130) MV E/A 0.9 MV pkA 92.6 cm/s TV Regurg Flow TV pkPG 27 mmHg TV pkVel 262 cm/s (30-70)+* TV Forward Flow TV E/A 1 TV pkA 49.5 cm/s TV pkE 51.9 cm/s Lat E' Lat e 4.37 cm/s Lat E/E' Lat E/e 19.1 Med E' Med e 4.87 cm/s Med E/E' Med E/e 17.1 Aortic Valve Aortic Valve Ar 1.03 Aortic Valve Ve 0.72 AV DI Value 0.7 MICAELA (VTI) Index Value 1.03 LV Mass 2D Value 197 g LV Mass Glmip1F Value 98.5 g/m2 Right Ventricle Right Ventricle 14 cm/s 2D Left Ventricle LVIDd 4.91 cm (3.6-5.2) LV EF(Bi-Plane) 58.2 % (55-75) LVIDs 3.36 cm (2.3-3.9) LVPW LVPWd 1.17 cm Ventricular Septum IVSd 1 cm Aorta Ao Asc 3.1 cm (zsc 2) LVOT LVOT 1.95 cm Ratios IVS LA Biplane LAVol I BP 42.5 ml/m2 MMODE Left Atrium LAID 4.7 cm (1.9-4)* Ratios LA/Ao 1.38 (0.87-1.1)* Aorta Ao Rt 3.4 cm (2-3.7) <Electronic Signature> 09/23/2024 06:46 PM Precious Phillips M.D. Procedure Note Precious Phillips MD - 09/23/2024 Echocardiography Report Pat.Name: CATA YI Pat.ID: [id number] .Date: 09/23/2024 : [id number] BREANNACINDY Dillard EWDPROV EWDPROV Exam Time: 8:07:00 AM Study Type:ECHO W/CONTRAST COMPLETE Height: 59.8 in Weight: 236 lb BSA: 2 m2 Age: 10 1950,74Y Sex: F BP: 152/88 HR: 98 bpm Sonogrphr: Holden Herrera [facility] Pat. Stat.:Inpatient Room: [facility] CPT - 4: C8929 Reason for Study:CHF, Pericardial effusion History / Clinical:CHF, pericardial affusion Procedures: 2D, M-mode, Doppler, Color Flow, Definity was used to enhance endocardial definition. Race: W ++++++++++++++++++++++++++++++++++++ SUMMARY: ++++++++++++++++++++++++++++++++++++ The left ventricular size is normal. The calculated ejection fraction is 58%. The right ventricular size is normal. Right ventricular systolic function is normal. Moderate pericardial effusion, without tamponade physiology. The peak pulmonary artery systolic pressure is estimated to be approximately 45 mmHg. Inferior vena cava shows <50% collapse with respiration consistent with elevated right atrial pressure. Trace mitral regurgitation. A trace of tricuspid regurgitation. ++++++++++++++++++++++++++++++++++++ FINDINGS: ++++++++++++++++++++++++++++++++++++ LV: The left ventricular size is normal. The left ventricular systolic function is normal. The calculated ejection fraction is 58%. Left ventricular diastolic function is not reliably assessed. LVOT: The left ventricular outflow tract size is normal. RV: The right ventricular size is normal. Right ventricular systolic function is normal. A pacemaker wire is visualized in the right ventricle. IVS: Intraventricular septum is normal. LA: The left atrial volume is moderately increased (42-48 ml/M2). RA: A pacemaker wire is visualized in the right atrium. DOUG: Moderate pericardial effusion, without tamponade physiology. AO: Normal aortic root. PA: The peak pulmonary artery systolic pressure is estimated to be approximately 45 mmHg. Estimated right atrial pressure of 15 mmHg. PVn: Pulmonary vein velocity is consistent with normal left atrial pressures. SVn: Inferior vena cava shows <50% collapse with respiration consistent with elevated right atrial pressure. MV: Trace mitral regurgitation. No evidence of mitral stenosis. Myxomatous degeneration of mitral valve. PV: Structurally normal pulmonic valve. Trace pulmonic regurgitation. No evidence of pulmonic valve stenosis. TV: Structurally normal tricuspid valve. A trace of tricuspid regurgitation. No evidence of tricuspid valve stenosis. ++++++++++++++++++++++++++++++++++++ MEASUREMENTS: ++++++++++++++++++++++++++++++++++++ DOPPLER LVOT LVOTpkPG 3.8 mmHg LVOTmnPG 1.9 mmHg LVOTpkVel 97.5 cm/s (70-110) LVOT SV 60 ml LVOT TVI 20 cm LVOT CO 66.7 ml/s AV Forward Flow AV TVI 28.9 cm AV pkPG 7 mmHg AV pkVel 136 cm/s (100-170) Area (TVI) 2.07 cm2 (3-5)* AV mnVel 92.8 cm/s Area (Mike) 2.14 cm2 (3-5)* AV mnPG 4 mmHg MV Forward Flow MV DeTm 290 msec MV pkE 83.4 cm/s (60-130) MV E/A 0.9 MV pkA 92.6 cm/s TV Regurg Flow TV pkPG 27 mmHg TV pkVel 262 cm/s (30-70)+* TV Forward Flow TV E/A 1 TV pkA 49.5 cm/s TV pkE 51.9 cm/s Lat E' Lat e 4.37 cm/s Lat E/E' Lat E/e 19.1 Med E' Med e 4.87 cm/s Med E/E' Med E/e 17.1 Aortic Valve Aortic Valve Ar 1.03 Aortic Valve Ve 0.72 AV DI Value 0.7 MICAELA (VTI) Index Value 1.03 LV Mass 2D Value 197 g LV Mass Gjtrf2N Value 98.5 g/m2 Right Ventricle Right Ventricle 14 cm/s 2D Left Ventricle LVIDd 4.91 cm (3.6-5.2) LV EF(Bi-Plane) 58.2 % (55-75) LVIDs 3.36 cm (2.3-3.9) LVPW LVPWd 1.17 cm Ventricular Septum IVSd 1 cm Aorta Ao Asc 3.1 cm (zsc 2) LVOT LVOT 1.95 cm Ratios IVS LA Biplane LAVol I BP 42.5 ml/m2 MMODE Left Atrium LAID 4.7 cm (1.9-4)* Ratios LA/Ao 1.38 (0.87-1.1)* Aorta Ao Rt 3.4 cm (2-3.7) <Electronic Signature> 09/23/2024 06:46 PM Precious Phillips M.D. us Eunice Sparks PA-C ECHO Itzel teresa Result * (ABNORMAL) ARTERIAL BLOOD GAS (09/23/2024 3:30 AM CDT) PH ARTERIAL 7.36 7.35 - 7.45 09/23/2024 3:[address] [facility] PCO2 57.8(H) 35.0 - 45.0 MMHG 09/23/2024 3:[address] [facility] PO2 68.1(L) 83.0 - 108.0 MMHG 09/23/2024 3:[address] [facility] BICARB ARTERIAL 31.9(H) 22 - 26 MMOL/L 09/23/2024 3:[address] [facility] TOTAL CO2 ARTERIAL 33.6(H) 23 - 27 MMOL/L 09/23/2024 3:[address] [facility] BE/BASE EXCESS 6.0(H) 0 - 2 MMOL/L 09/23/2024 3:[address] [facility] O2 Saturation 93(L) 95 - 98 % 09/23/2024 3:[address] [facility] SAUD TEST NEGATIVE 09/23/2024 3:[address] [facility] OXYGEN STATUS 6 09/23/2024 3:[address] [facility] DRAW SITE ARTERIAL RT RADIAL 09/23/2024 3:[address] [facility] 09/23/2024 3:30 AM CDT Yadiel Lemos MD LABORATORY Final Result [facility] [address] [place] [address], [place] [phone] [id number] * (ABNORMAL) LEXUS IFA SCRN, WI REFLEX TO TITER (09/22/2024 5:52 PM CDT) LEXUS POSITIVE( A) Negative 10/06/2024 1:57 PM CDT [employer] PABLO SANTO Comment: LEXUS IFA is a first line screen for detecting the presence of up to approximately 150 autoantibodies in various autoimmune diseases. A positive LEXUS IFA result is suggestive of autoimmune disease and reflexes to titer and pattern. Further laboratory testing may be considered if clinically indicated. For additional information, please refer to http://education.MAPPING/faq/IFA353 (This link is being provided for informational/ educational purposes only.) Test Performed by [employer] Gerald, [employer] [facility], [address] [place] [address] Noel Baldwin M.D., Ph.D., Director of Laboratories , [place] [id number] 09/22/2024 5:52 PM CDT Ariel Cole MD LABORATORY Final Result Performing Organization Address [facility]/ZIP Co de Phone Number [employer] , [place] [phone] * ANTINUCLEAR ANTIBODY WI RFX (09/22/2024 5:52 PM CDT) LEXUS 23 09/25/2024 1:[address] [facility] Comment: POSITIVE: >1.0 RATIO SEE SEPARATE PROFILE RESULTS AND IFA TITER THE LEXUS SCREEN TESTS FOR THE FOLLOWING ANTIBODIES BY EIA: SSA1 (RO), SSB1 (LA), TORRES, SCL70, JO1, CENTROMERE, MULTIMEDIA ARTIST HISTONE MUST BE ORDERED SEPARATELY DNA (DS) ANTIBODY 23 IU/ML 025 1:[address] [facility] Comment: NEGATIVE: <10 IU/mL EQUIVOCAL: 10 to 15 IU/mL POSITIVE: >15 IU/mL THIS QUANTITATIVE ASSAY IS CALIBRATED TO THE [employer]'S /80 STANDARD. THE LEVEL OF dsDNA AUTOANTIBODY GERERALLY CORRELATES WITH THE LEVEL OF DISEASE ACTIVITY IN SYSTEMIC LUPUS ERYTHMATOSUS 09/22/2024 5:52 PM CDT Ariel Cole MD LABORATORY Final Result Performing Organization Address City/[facility] Co de Phone Number [facility] [address] [place] [address], [id number] * (ABNORMAL) PRO-BRAIN NATRIURETIC PEPTIDE (09/22/2024 5:52 PM CDT) PRO-B TYPE NATRIURETIC PEPTIDE 1,302(H) <125 PG/ML 09/22/2024 6:[address] [facility] Comment: AGE INDEPENDENT: <300 PG/ML HAS A 99% NEGATIVE PREDICTIVE VALUE FOR EXCLUDING ACUTE CHF <50 YEARS: >450 PG/ML IS CONSISTENT WITH ACUTE CHF 50-75 YEARS: >900 PG/ML IS CONSISTENT WITH ACUTE CHF >75 YEARS: >1800 PG/ML IS CONSISTENT WITH ACUTE CHF IN PATIENTS WITH RENAL INSUFFICIENCY (GFR <60), >1200 PG/ML YIELDS A DIAGNOSTIC SENSITIVITY AND SPECIFICITY OF 89% AND 72% FOR ACUTE CHF. 09/22/2024 5:52 PM CDT Ariel Cole MD LABORATORY Final Result [facility] [address] [place] [address], [id number] * (ABNORMAL) LEXUS PROFILE (09/22/2024 5:52 PM CDT) SSA ANTIBODY >240(H) 0.0 - 6.9 U/mL 09/27/2024 3:[address] [facility] Comment: NEGATIVE: <7 U/mL EQUIVOCAL: 7 to 10 u/mL POSITIVE: >10 U/mL SSA AND/OR SSB AUTOANTIBODIES ARE DETECTED IN 60% TO 90% OF PATIENTS WITH SJOGREN'S SYNDROME AND IN 20% TO 40% OF PATIENTS WITH SYSTEMIC LUPUS ERYTHEMATOSUS. SSB ANTIBODY <0.4 0.0 - 6.9 U/mL 09/27/2024 3:[address] [facility] Comment: NEGATIVE: <7 U/mL EQUIVOCAL: 7 to 10 u/mL POSITIVE: >10 U/mL SSA AND/OR SSB AUTOANTIBODIES ARE DETECTED IN 60% TO 90% OF PATIENTS WITH SJOGREN'S SYNDROME AND IN 20% TO 40% OF PATIENTS WITH SYSTEMIC LUPUS ERYTHEMATOSUS. SM ANTIBODY <0.7 U/mL 09/27/2024 3:[address] [facility] Comment: NEGATIVE: <7 U/mL EQUIVOCAL: 7 to 10 u/mL POSITIVE: >10 U/mL Autoantibodies to Torres (Sm) antigen are found in 30% of patients with systemic lupus erythematosus and are highly specific for this disease. SCL 70 S/P/B 1.1 0.0 - 6.9 U/mL 09/27/2024 3:[address] [facility] Comment: NEGATIVE: <7 U/mL EQUIVOCAL: 7 to 10 u/mL POSITIVE: >10 U/mL AUTOANTIBODIES TO Scl-70 ARE FOUND IN UP TO 60% OF PATIENTS WITH SCLERODERMA (SYSTEMIC SCLEROSIS) AND ARE CONSIDERED TO BE SPECIFIC FOR THIS DISEASE. DAVE-1 ANTIBODY <0.3 U/mL 09/27/2024 3:[address] [facility] Comment: NEGATIVE: <7 U/mL EQUIVOCAL: 7 to 10 u/mL POSITIVE: >10 U/mL AUTOANTIBODIES TO Jo1 ARE FOUND IN 10% TO 50% OF PATIENTS WITH DERMATOMYOSITIS OR POLYMYOSITIS AND IN 20% OF PATIENTS WITH SCLERODERMA SYNDROME. Jo1 AUTOANTIBODIES ARE GENERALLY NOT SEEN OUTSIDE OF THESE DISEASE STATES. CENTROMERE B AB S/P/B <0.4 U/mL 09/27/2024 3:[address] [facility] Comment: NEGATIVE: <7 U/mL EQUIVOCAL: 7 to 10 u/mL POSITIVE: >10 U/mL AUTOANTIBODY TO CENTROMERE B IS SEEN IN 70% TO 85% OF PATIENTS WITH CREST (CALCINOSIS, RYNAUD'S PHENOMENON, ESOPHAGEAL HYPOMOTILITY, SCLERODACTYLY AND TELANGIECTASEA) SYNDROME VARIANT OF SYSTEMIC SCLEROSIS AND IN 10% TO 15% OF PATIENTS WITH PRIMARY BILIARY CIRRHOSIS. MULTIMEDIA ARTIST (U1) AB S/P/B 1.1 0.0 - 4.9 U/mL 09/27/2024 3:[address] [facility] Comment: NEGATIVE: <5 U/mL EQUIVOCAL: 5 to 10 U/mL POSITIVE: >10 U/mL AUTOANTIBODIES TO MULTIMEDIA ARTIST ARE FOUND IN GREATER THAN 95% OF PATIENTS WITH MIXED CONNECTIVE TISSUE DISEASE (MCTD), BUT ARE ALSO SEEN IN SYSTEMIC LUPUS ERYTHEMATOUS (40%), RHEUMATOID ARTHRITIS (10%), SCLERODERMA SYNDROME (10%), AND RARELY IN DRUG INDUCED LUPUS AND SJOGREN'S SYNDROME. ABSENCE OF MULTIMEDIA ARTIST ANTIBODIES USUALLY RULES OUT MCTD. 09/22/2024 5:52 PM CDT Ariel Cole MD LABORATORY Final Result [facility] [address] [place] [address], [id number] * (ABNORMAL) TROPONIN, QUANT (09/22/2024 5:52 PM CDT) TROPONIN I HIGH SENSITIVITY 96(H) 0 - 53 ng/L 09/22/2024 6:[address] [facility] 09/22/2024 5:52 PM CDT Ariel Cole MD LABORATORY Final Result [facility] [address] [place] [address], [place] [phone] [id number] * (ABNORMAL) ANTINUCLEAR ANTIBODIES TITER (09/22/2024 5:52 PM CDT) LEXUS TITER >=1:1280(A ) Negative 10/06/2024 2:26 PM CDT [employer] GIL-TISHA SANTO Comment: Reference Range: <1:40 Negative 1:40-1:80 Low Antibody Level >1:80 Elevated Antibody Level Test Performed by [employer] Gerald, [employer] [place], [address] [place] [address] Noel Baldwin M.D., Ph.D., Director of Laboratories , [facility] [id number] LEXUS PATTERN REPORT 10/06/2024 2:26 PM CDT [employer] GILRevealTISHA SANTO Comment: Nuclear, Speckled Speckled pattern is associated with mixed connective tissue disease (MCTD), systemic lupus erythematosus (SLE), Sjogren's syndrome, dermatomyositis, and systemic sclerosis/polymyositis overlap. AC-2, 4, 5, 29: Speckled International Consensus on LEXUS Patterns https://doi.org/10.1515/lunx-6710-0059 LEXUS TITER THREE END OF REPORT 10/06/2024 2:26 PM CDT [employer] JEFFERYRevealTISHA SANTO 09/22/2024 5:52 PM CDT Ariel Cole MD LABORATORY Final Result [facility] [id number] [place], [place] , [place] [phone] * XR CHEST PORTABLE (09/22/2024 5:35 PM CDT) Anatomical Region Laterality Modality Chest Radiographic Susan ging 09/22/2024 6:12 PM CDT Impressions 09/22/2024 6:14 PM CDT IMPRESSION: Cardiomegaly and mild vascular congestion. Referred By: ASPEN ARMENTA Interpreted By: Tre River MD, 09/22/2024 6:12 PM Narrative 09/22/2024 6:14 PM [address] [address] Examination: Chest x-ray 1 view Exam Date/Time: 09/22/2024 5:29 PM REASON FOR EXAM: 74 years-old Female with cough Comparison: Chest x-ray 08/24/2022 Technique: Single AP view of the chest was obtained. Findings: Left chest wall pacer minimally obscures the left lung. Heart size is enlarged, similar to prior. Mild vascular congestion. Lungs are otherwise clear. There is no pleural effusion or pneumothorax. No acute osseous lesions are seen. Procedure Note Tre River MD - 09/22/[address] [address] Examination: Chest x-ray 1 view Exam Date/Time: 09/22/2024 5:29 PM REASON FOR EXAM: 74 years-old Female with cough Comparison: Chest x-ray 08/24/2022 Technique: Single AP view of the chest was obtained. Findings: Left chest wall pacer minimally obscures the left lung. Heart size is enlarged, similar to prior. Mild vascular congestion. Lungs are otherwise clear. There is no pleuraleffusion or pneumothorax. No acute osseous lesions are seen. IMPRESSION: Cardiomegaly and mild vascular congestion. Referred By: ASPEN ARMENTA Interpreted By: Tre River MD, 09/22/2024 6:12 PM Ariel Cole MD GENERAL IMAGING Final Result * ECG 12 lead (09/22/2024 5:20 PM CDT) Only the most recent of2 resultswithin the time period is included. 09/22/2024 5:20 PM CDT Narrative [facility] - 09/22/2024 6:[address] [facility] [address] [place] [address] Test Date: 2024-09-22 Pat Name: CATA YI Department: 1 Room: 550AA Gender: Female Bag Machine Helper: Dawood : 1950 Requested By: ARIEL COLE Order Number: [id number] Reading MD: Francisco Javier Vuong Measurements Intervals [place] Rate: 82 P: 78 ID: [id number] QRS: 220 QRSD: 140 T: 48 QT: 372 QTc: 437 Interpretive Statements ELECTRONIC ATRIAL PACEMAKER ELECTRONIC VENTRICULAR PACEMAKER ABNORMAL RHYTHM ECG Procedure Note Francisco Javier Vuong MD - 09/22/2024 [facility] [address] [place] [address] Test Date: 2024-09-22 Pat Name: CATA YI Department: 1 Room: 550AA Gender: Female Bag Machine Helper: Dawood : 1950 Requested By: ARIEL COLE Order Number: [id number] Ruth Vuong Measurements Intervals [place] Rate: 82 P: 78 ID: [id number] QRS: 220 QRSD: 140 T: 48 QT: 372 QTc: 437 Interpretive Statements ELECTRONIC ATRIAL PACEMAKER ELECTRONIC VENTRICULAR PACEMAKER ABNORMAL RHYTHM ECG us Ariel Cole MD ECG ORDERABLES Final Result [facility] from Last 3 Months Insurance MEDICARE AETNA Advance Directives Documents on File Type Date Recorded Patient Key Account Representative Expl anation Advance Directives and Living Will 03/20/2022 11:47 AM [employer] Advance Directives and Living Will 02/20/2021 9:06 AM Refer to THOMAS bell regarding Advanced Directives - NO BLOOD Power of Claim Technician 02/20/2021 9:06 AM Lucie Yi, HCA-spouse; Aram Yi, 1st alternate HCA-other; * Full Code (Latest Code Status on File) Date Activated Date Inactivated Comments 09/22/2024 5:27 PM 09/26/2024 3:05 PM * Full Code Date Activated Date Inactivated Comments 09/22/2024 5:05 PM 09/22/2024 5:27 PM * Full Code Date Activated Date Inactivated Comments 05/29/2024 1:49 PM 09/22/2024 4:35 PM * Full Code Date Activated Date Inactivated Comments 08/24/2022 3:56 PM 08/24/2022 7:49 PM * Full Code Date Activated Date Inactivated Comments 03/18/2022 10:30 PM 03/19/2022 3:15 PM Healthcare Agents on File Name Relationship Healthcare Agent Relationship Communication Omar Yi (PO) Spouse Health Care Agent [phone] (Mobile ) Aram Yi [facility] Agent Care Teams Email Marketing Executive Relationship Specialty Start Date End Date Gigi Ornelas MD [address] [place] [address] PCP - General FAMILY PRACTICE 02/05/21 Jordi Gould PA-C [address] [place] [phone] PHYSICIAN ALMOND HULLER 07/30/22 Kajal Javed MD [address] [place] [address] [address] Consulting Physician Electrophysiology 02/04/23 Cindy Elias, [facility] [address] [place] [phone] Nurse Practitioner NURSE PRACTITIONER ADULT HEALTH 08/23/23 Precious Phillips MD [address] [place] [address] Consulting Physician CARDIOVASCULAR DISEASE 09/24/24 Jean Paul Smith MD [address] [place] [phone] Physician RHEUMATOLOGY 09/24/24
--- OUTSIDE RECORDS SUMMARY | 2024-11-13 09:23 | XMS_ITS | Encounter Summary ---
Author Organization [facility] Address [address] [place] [address] Care Team Providers Care Greenkeeper Name Role Phone Gigi Ornelas MD Primary Care Provider [phone] Jordi Gould PA-C Unavailable [phone] Kajal Javed MD Unavailable [phone] Cindy Elias ANP-BC Unavailable [phone] Precious Phillips MD Unavailable Jean Paul Smith MD Unavailable [phone] Encounter Details Date Type Department Care Team (Late st Contact Info) Description 09/28/2024 Hospital Follow-up Call [facility] [address] [place] [address] Kathy Cason, RN Social History Tobacco Use Types Packs/Day Years Used Date Smoking Tobacco: Former Cigarettes Q uit: 2006 Smokeless Tobacco: Never Alcohol Use Standard Drinks/Week [...] materials from doctor or pharmacy Never 07/07/2024 [facility] Utilities Answer Date Recorded In the past 12 months has th e Cap That, oil, or water Incentive [employer] threatened to shut off services in your [...] any time in the past 12 m [facility], were you homeless or living in a longterm (including now)? No 09/22/2024 Comments Unknown Sex and Gender Information Value Date Recorded Sex Assigned at Female 05/24/2024 2:24 PM LARRY OPERATOR Legal Sex Female 10:24 PM CDT Gender Identity Not on file Sexual Orientation Not on file documented as of this encounter Functional Status * Are you deaf or do you have serious difficulty hearing Answer Date of Assessment Author Status No 09/26/2024 11:57 AM Adilene Lion RN Active * Are you blind or do you have serious difficulty seeing, even when wearing glasses? Answer Date of Assessment Author Status No 09/26/2024 11:57 AM Adilene Lion RN Active * Do you have serious difficulty walking or climbing stairs? Answer Date of Assessment Author Status No 09/26/2024 11:57 AM Adilene Lion RN Active * Do you have difficulty dressing or bathing? Answer Date of Assessment Author Status No 09/26/2024 11:57 AM Adilene Lion RN Active * Because of a physical, mental, or emotional condition, do you have difficulty doing errands alone such as visiting a doctor's office or shopping? Answer Date of Assessment Author Status No 09/26/2024 11:57 AM Adilene Lion RN Active documented as of this encounter Mental Status * Because of a physical, mental, or emotional condition, do you have serious difficulty concentrating, remembering, or making decisions? Answer Entry Date Author Status No 09/26/2024 11:57 AM Adilene Lion RN Active documented in this encounter Plan of Treatment Upcoming Encounters Date Type Department Care Team (Late st Contact Info) Description 01/16/2025 2:00 PM CDT Office Visit [facility] [address] [place] [address] Jordi Gould PA-C [address] [place] [phone] 01/16/2025 2:00 PM CDT Allied Health/Nurse Visit [facility] [address] [place] [phone] Jordi Gould PA-C [address] [place] [phone] 04/20/2025 1:30 AM LARRY OPERATOR Allied Health/Nurse Visit [facility] [address] [place] [phone] Kajal Javed MD [address] [phone] documented as of this encounter Visit Diagnoses Not on filedocumented in this encounter Care Teams Greenkeeper Relationship Specialty Start Date End Date Gigi Ornelas MD [address] [place] [address] PCP - General FAMILY PRACTICE 02/05/21 Jordi Gould PA-C [address] [place] [phone] PHYSICIAN BUSINESS COMMUNICATIONS INSTRUCTOR 07/30/22 Kajal Javed MD [address] [place] [phone] Consulting Physician Electrophysiology 02/04/23 Cindy Elias ANP- [address] [place] [phone] Nurse Practitioner NURSE PRACTITIONER ADULT HEALTH 08/23/23 Precious Phillips MD [address] [place] [address] Consulting Physician CARDIOVASCULAR DISEASE 09/24/24 Jean Paul Smith MD [address] [place] [address] Physician RHEUMATOLOGY 09/24/24 documented as of this encounter
--- OUTSIDE RECORDS SUMMARY | 2024-11-13 09:23 | XMS_ITS | Encounter Summary ---
Author Organization [facility] Address [address] [place] [address] Care Team Providers Care Operations Advisor Name Role Phone Gigi Ornelas MD Primary Care Provider [phone] Vickey Rider MD Unavailable [phone] Dominic Arrington MD Unavailable Holden Lombardo MD Unavailable Unavailable Jordi Gould-C Unavailable [phone] Kajal Javed MD Unavailable [phone] Isael Diaz MD Unavailable [phone] Cindy Elias ANP-BC Unavailable [phone] Precious Phillips MD Unavailable Jean Paul Smith MD Unavailable [phone] Encounter Details Date Type Department Care Team (Late st Contact Info) Description 01/30/2021 Abstract [facility] [address] [place] [address] Helen Vargas, CODE ENFORCEMENT INSPECTOR, IT PROGRAMMER ANALYST-C [address] [phone] Social History Tobacco Use Types Packs/Day Years Used Date Smoking Tobacco: Former Cigarettes Q uit: 2004 Comments Unknown Sex and Gender Information Value Date Recorded Sex Assigned at Female 05/24/2024 2:24 PM ACUTE COORDINATOR Legal Sex Female 10:24 PM CDT Gender Identity Not on file Sexual Orientation Not on file documented as of this encounter Plan of Treatment Upcoming Encounters Date Type Department Care Team (Late st Contact Info) Description 01/16/2025 2:00 PM CDT Office Visit [address] [phone] Jordi Gould PA-C [address] [place] [address] 01/16/2025 2:00 PM CDT Allied Health/Nurse Visit [address] [address] Jordi Gould PA-C [address] [place] [address] [phone] 04/20/2025 1:30 AM ACUTE COORDINATOR Allied Health/Nurse Visit [address] [phone] Kajal Javed MD [address] [address] documented as of this encounter Visit Diagnoses Not on filedocumented in this encounter Care Teams Operations Advisor Relationship Specialty Start Date End Date Gigi Ornelas MD [address] [place] [address] PCP - General FAMILY PRACTICE 02/05/21 Vickey Rider MD [address] [place] [address] Malin Pulmonary Function Technician CARDIOVASCULAR DISEASE 02/05/21 08/22/23 Dominic Arrington MD [address] [place] [address] Vascular/Cardiologis t INTERNAL MEDICINE 02/24/21 07/14/24 Holden Lombardo MD [address] [place] [phone] Consulting Physician CLINICAL CARDIAC ELECTROPHYSIOLOGY 07/30/22 02/03/23 Jordi Gould PA-C [address] [place], [place] [address] PHYSICIAN MATH TEACHER 07/30/22 Kajal Javed MD [address] [place] [address] Consulting Physician Electrophysiology 02/04/23 Isael Diaz MD [address] [place] [address] INTERVENTIONAL CARDIOLOGY 08/23/2307/14 Cindy Elias, [facility]- [address] [place] [id number] Nurse Practitioner NURSE PRACTITIONER ADULT HEALTH 08/23/23 Precious Phillips MD [address] [place] [address] Consulting Physician CARDIOVASCULAR DISEASE 09/24/24 Jean Paul Smith MD [address] [place], [place] [id number] Physician RHEUMATOLOGY 09/24/24 documented as of this encounter
--- OUTSIDE RECORDS SUMMARY | 2024-11-13 09:23 | XMS_ITS | Data Portability ---
Author Organization [facility], [address] [place] [address] [place]rology ([place]) Address [address] [address] Care Team Providers Care Striper Spray Gun Name Role Phone PIYUSH MEDELLIN Primary Care [...] on this date of service including both jykk-ny-tubt and nwt-oxta-cg-face time excluding any separately reportable services. ela Not available 03/23/2024 11:48:15 09/28/2024 09/28/2024 IMPRESSION: 1. Complex clinical picture with a history of pericarditis, elevated rheumatoid factor and possible SSA antibody, as well as LEXUS antibody elevation. At this time, most of her features support a diagnosis of Sjogren s disease with possible underlying rheumatoid arthritis. She does not have enough features to suggest SLE. 2. Osteoarthritis. 3. Fibromyalgia syndrome. 4. Lymphedema in the lower extremities. PLAN: 1. Today I had a lengthy discussion with the patient regarding various treatment options. At this point, given her recent infection and underlying health conditions, including chronic lung disease, I am very leery of prescribing any type of biologic therapy at this point. Furthermore, we discussed hydroxychloroquine therapy, however, she has underlying macular changes and the early stages of eye disease in the retina, thus, we will avoid hydroxychloroquine therapy. I am reticent to use methotrexate therapy so as to avoid the risk of pneumonitis in this patient who already requires supplemental oxygen. She failed a trial of azathioprine. We discussed mycophenolate as a possible option. I reviewed its indications, risks, benefits and potential side effects, including risk of GI bleeding, diarrhea, cytopenias, severe and potentially life-threatening infections. I will initiate low doses and slowly titrate her mycophenolate therapy to see how she tolerates the medication. At this time, we will initiate mycophenolate therapy 500 mg p.o. b.i.d. x10 days, then advance to 1 g in the morning and 500 mg in the evening for 10 days, then 1 g p.o. b.i.d. thereafter. She is advised today that if she develops any signs or symptoms of infection, all of which are reviewed with her today, she is to stop her mycophenolate and contact this office immediately. 2. DMARD labs monthly as ordered. 3. We will call the patient in 4 weeks for an update on how she is doing. 4. Followup visit in 3 months for recheck. ela Not available 09/29/2024 10:02:50 Plan of Treatment Reminders Order Date Submit Date Provider Last Modified By Organization Details Last Modified Time Details Appointments Establish ed Patient 15.EST 2024 02:00P M Dr. Jean Paul Smith Not available Not available Not available Lab CBC 2023 [facility] Only - [facility], [address] [place] [address], [id number], 03/22/2024 18:04:30 CMP, serum or plasma 2023 [facility] - [facility], [address] [place] [address], [id number], 03/22/2024 18:29:04 C-reactiv e protein, quantitat kristin, serum or plasma 2023 [facility], [address] [place] [address], [id number], 03/22/2024 18:29:02 arthritis panel 2023 [facility] - [facility], [address] [place] [address], [id number], 03/22/2024 18:29:05 DNA double strand Ab, QL, serum 2023 [facility], [address] [place] [address], 05333, 03/23/2024 16:52:04 complemen t, total, CH50, serum or plasma 2023 [facility] - [facility], [address] [place] [address], 71453, 03/23/2024 16:13:54 C3 (compleme nt), serum or plasma 2023 [facility], [address] [place] [address], [id number], 03/23/2024 08:20:12 C4 (compleme nt), serum or plasma 2023 [facility], [address] [place] [address], 65151, 03/23/2024 08:20:10 Hepatitis B virus core Ab, qual immunoass ay, serum or plasma 2023 [facility] Only - [facility], [address] [place] [address], [id number], 03/23/2024 07:41:15 HBsAg (hepatiti s B surface Ag), serum 2023 024 [facility] Only - [facility], [address] [place] [address], [id number], 03/22/2024 18:40:56 hepatitis C Ab, serum 2023 [facility] Only - [facility], [address] [place] [address], [id number], 03/22/2024 19:01:49 TPMT gene product metabolic activity interpret ation, blood or tissue (OBS) 2023 [facility] Only - [facility], [address] [place] [address], [id number], 03/28/2024 03:38:56 BNP (B-type natriuret ic peptide), serum or plasma [facility]23 [email or web address], [address] [place] [address], [id number], 04/11/2024 11:26:04 Referral None recorded. Procedures None recorded. Surgeries None recorded. Imaging None recorded. Medication Orders None recorded. Patient TargetsNo targets recorded. Patient InstructionsNo instructions recorded. Reason for Referral None Reported. Results Created Date Observation Date Name Description Value Unit Range Abnormal Flag Note LastModifiedBy Organization Detail LastModifiedTime 03/22/2003/22/2024 CBC CBC Not Available [facility] [address] [place] [address], [id number], 03/22/2024 18:04:30 03/22/2003/22/2024 CBC WBC 4.9 K/uL 3.8-11 .2 Not Available [facility] [address] [place] [address], 25127, 03/22/2024 18:04:30 03/22/20 24 03/22/2024 CBC RBC 3.34 M/uL 3.92-5 .10 low Not Available [facility] - [facility] [address] [place] [address], 34537, 03/22/2024 18:04:30 03/22/20 24 03/22/2024 CBC HGB 9.5 g/dL 11.8-1 5.3 low Not Available [facility] [address] [place] [address], 99743, 03/22/2024 18:04:30 03/22/20 24 03/22/2024 CBC HCT 31.5 % 36.5-4 4.8 low Not Available [facility] - [facility] [address] [place] [address], 75161, 03/22/2024 18:04:30 03/22/20 24 03/22/2024 CBC MCV 94.3 fL 80.0-9 9.0 Not Available [facility] - [facility] [address] [place] [address], [id number], 03/22/2024 18:04:30 03/22/20 24 03/22/2024 CBC MCH 28.4 pg 25.5-3 3.6 Not Available [facility] [address] [place] [address], 67506, 03/22/2024 18:04:30 03/22/20 24 03/22/2024 CBC MCHC 30.2 g/dL 32.0-3 6.0 low Not Available [facility] - [facility] [address] [place] [address], 53846, 03/22/2024 18:04:30 03/22/20 24 03/22/2024 CBC RDW-SD 52.2 fL 35.1 - 46.3 high Not Available [facility] Only - [facility] [address] [place] [address], 02154, 03/22/2024 18:04:30 03/22/20 24 03/22/2024 CBC plt 196 K/uL 130-40 0 Not Available [facility] - [facility] [address] [place] [address], 05918, 03/22/2024 18:04:30 03/22/20 24 03/22/2024 CBC MPV 9.3 fL 9.3-12 .8 Not Available [facility] - [facility] [address] [place] [address], 18952, 03/22/2024 18:04:30 03/22/20 24 03/22/2024 C-nelida ctive prote in, quant itati ve, serum or plasm a CRP high Not Available [facility] [address] [place] [address], [id number], 03/22/2024 18:29:02 03/22/20 24 03/22/2024 C-nelida ctive prote in, quant itati ve, serum or plasm a CRP 2.9 mg/dL <0.4-0 .5 high Not Available [facility] [address] [place] [address], 45224, 03/22/2024 18:29:02 03/22/20 24 03/22/2024 CMP, serum or plasm a comp. met. panel Not Available [facility] [address] [place] [address], 81916, 03/22/2024 18:29:04 03/22/20 24 03/22/2024 CMP, serum or plasm a sodium 142 mmol/ L 136-14 6 Not Available [facility] [address] [place] [address], 02653, 03/22/2024 18:29:04 03/22/20 24 03/22/2024 CMP, serum or plasm a potassium 3.9 mmol/ L 3.5-5. 1 Not Available [facility] - [facility] [address] [place] [address], 50515, 03/22/2024 18:29:04 03/22/20 24 03/22/2024 CMP, serum or plasm a chloride 106 mmol/ L 98-110 Not Available [facility] - [facility] [address] [place] [address], 23847, 03/22/2024 18:29:04 03/22/20 24 03/22/2024 CMP, serum or plasm a CO2 31 mEq/L 20-32 Not Available [facility] [address] [place] [address], 79081, 03/22/2024 18:29:04 03/22/20 24 03/22/2024 CMP, serum or plasm a anion gap 9 mmol/ L 10-22 low Not Available [facility] - [facility] [address] [place] [address], 66526, 03/22/2024 18:29:04 03/22/20 24 03/22/2024 CMP, serum or plasm a glucose 92 mg/dL 70-100 Not Available [facility] [address] [place] [address], 40639, 03/22/2024 18:29:04 03/22/20 24 03/22/2024 CMP, serum or plasm a calcium 9.5 mg/dL 8.4-10 .4 Not Available [facility] [address] [place] [address], 92574, 03/22/2024 18:29:04 03/22/20 24 03/22/2024 CMP, serum or plasm a total protein 7.2 g/dL 6.4-8. 3 Not Available [facility] [address] [place] [address], 00895, 03/22/2024 18:29:04 03/22/20 24 03/22/2024 CMP, serum or plasm a albumin 3.8 g/dL 3.5-5. 3 Not Available [facility] [address] [place] [address], 56977, 03/22/2024 18:29:04 03/22/20 24 03/22/2024 CMP, serum or plasm a ALP 113 U/L 44 - 127 Not Available [facility] [address] [place] [address], 20595, 03/22/2024 18:29:04 03/22/20 24 03/22/2024 CMP, serum or plasm a AST (SGOT) 14 U/L 10-40 Not Available [facility] [address] [place] [address], 20387, 03/22/2024 18:29:04 03/22/2003/22/2024 CMP, serum or plasm a total bilirubin 0.3 mg/dL 0.2-1. 0 Not Available [facility] [address] [place] [address], 20982, 03/22/2024 18:29:04 03/22/20 24 03/22/2024 CMP, serum or plasm a ALT (SGPT) 9 U/L 8-35 Not Available [facility] [address] [place] [address], 01100, 03/22/2024 18:29:04 03/22/20 24 03/22/2024 CMP, serum or plasm a BUN 19 mg/dL 7-21 Not Available [facility] - [facility] [address] [place] [address], 08403, 03/22/2024 18:29:04 03/22/20 24 03/22/2024 CMP, serum or plasm a creatinine 1.3 mg/dL 0.7-1. 3 Not Available [facility] [address] [place] [address], 88037, 03/22/2024 18:29:04 03/22/20 24 03/22/2024 CMP, serum or plasm a GFR(non-afri can georgian) 43 Not Available [facility] [address] [place] [address], 49283, 03/22/2024 18:29:04 03/22/20 24 03/22/2024 CMP, serum or plasm a GFR() 52 ([employer] CHUCKY KIDNE Y DISEA SE HAS A GFR LESS THAN 60 ML/CA N/1.7 3 MM FOR A PERIO D OF THREE MONTH S OR MORE. ) Not Available [facility] [address] [place] [address], 13320, 03/22/2024 18:29:04 03/22/20 24 03/22/2024 HBsAg (hepa titis B surfa ce Ag), serum hepatitis B surface Ag NONREA CTIVE nonrea ctive Not Available [facility] [address] [place] [address], 50482, 03/22/2024 18:40:56 03/22/20 24 03/22/2024 hepat itis C Ab, serum hepatitis C Ab NONREA CTIVE nonrea ctive Not Available [facility] [address] [place] [address], 09084, 03/22/2024 19:01:49 03/22/20 24 03/23/2024 Hepat itis B virus core Ab, qual immun oassa y, serum or plasm a hepatitis B core Ab NEGATI VE negati ve Not Available [facility] [address] [place] [address], 27594, 03/23/2024 07:41:15 03/22/20 24 03/23/2024 C4 (comp lemen t), serum or plasm a complement C4 12 mg/dL 12-38 Not Available [facility] [address] [place] [address], 12536, 03/23/2024 08:20:10 03/22/20 24 03/23/2024 C3 (comp lemen t), serum or plasm a complement C3 181 mg/dL 82-167 high Not Available [facility] [address] [place] [address], 83886, 03/23/2024 08:20:12 03/22/20 24 03/22/2024 arthr itis panel uric acid 7.4 mg/dL 2.3-6. 6 high Not Available [facility] [address] [place] [address], 96249, 03/23/2024 12:40:52 03/22/20 24 03/22/2024 arthr itis panel sed rate 45 mm/HR 0 - 30 high Not Available [facility] [address] [place] [address], 70644, 03/23/2024 12:40:52 03/22/2003/22/2024 arthr itis panel rf 72 IU/mL <3.5-1 4 high Not Available [facility] [address] [place] [address], 03753, 03/23/2024 12:40:52 03/22/20 24 03/22/2024 arthr itis panel ccp antibody, IgG <0.54 U/mL <=4.9 Not Available [facility] [address] [place] [address], 44487, 03/23/2024 12:40:52 03/22/20 24 03/23/2024 arthr itis panel arthritis panel Not Available [facility] [address] [place] [address], 19577, 03/23/2024 12:40:52 03/22/20 24 03/23/2024 arthr itis panel LEXUS screen POSITI VE negati ve abnormal Titer to follo w Perfo rmed by Bio-R ad enzym e immun oassa y Not Available [facility] - [facility] [address] [place] [address], [id number], 03/23/2024 12:40:52 03/22/20 24 03/23/2024 compl ement [...] out of range value s. Not Available [facility] Only - [facility] [address] [place] [address], 00895, 03/23/2024 16:13:54 03/22/20 24 03/23/2024 DNA doubl e stran d Ab, QL, serum DNA Ab; double stranded NEGATI VE negati ve Not Available [facility] - [facility] [address] [place] [address], 21119, 03/23/2024 16:52:04 03/22/20 24 03/23/2024 LEXUS (anti [...] fausto using HEp-2 cell line Not Available [facility] Only - [facility] [address], [address], 03/23/2024 16:52:06 03/22/20 24 03/28/[address] TPMT gene produ ct metab olic activ ity inter preta tion, blood or tissu e (OBS) thiopurine methyltransf er Not Available [facility] [address] [place] [address], 00406, 03/28/2024 03:38:56 03/22/20 24 03/28/[address] TPMT gene produ ct metab olic activ ity inter preta tion, blood or tissu e (OBS) tpmt activity 24.2 Refer ence Range : Christine l: 15.1 - 26.4 Heter ozygo us for low TPMT varia nt: 6.3 - 15.0 Homoz ygous for low TPMT varia nt: <6.3 Not Available [facility] [address] [place] [address], 30218, 03/28/2024 03:38:56 03/22/20 24 03/28/2024 TPMT gene [...] their assay ed enzym atic activ ity depen ding on the amoun t and circu latin g half- life of the trans fused red blood cells . This test was devfarideh lopez and its perfo rmanc e corry cteri stics deter mined by [employer]. It has not been clear ed or appro shannan by the Food and Drug Admin istra tion. This case has been revie wed, appro shannan, inter prete d and elect jessika siddiqi faye d by Francois walls, PhD, [facility] . Not Available [facility] [address] [place] [address], 43035, 03/28/2024 03:38:56 03/22/20 24 03/28/[address] TPMT gene produ ct metab olic activ ity inter preta tion, blood or tissu e (OBS) tpmt method ENZYMA TIC ENDPOI NT/LIQ UID CHROMA TOGRAP HY - TANDEM MASS SPECTR OMETRY (LC-MS /MS) Not Available [facility] Only - [facility] [address] [place] [address], 68121, 03/28/2024 03:38:56 03/22/2003/22/2024 arthr itis panel arthritis panel Not Available [facility] [address] [place] [address], 68197, 03/22/2024 19:14:05 03/22/2003/22/2024 arthr itis panel uric acid 7.4 mg/dL 2.3-6. 6 high Not Available [facility] [address] [place] [address], 19283, 03/22/2024 19:14:05 03/22/2003/22/2024 arthr itis panel sed rate 45 mm/HR 0 - 30 high Not Available [facility] [address] [place] [address], 43376, 03/22/2024 19:14:05 03/22/20 24 03/22/2024 arthr itis panel LEXUS screen PENDIN G Not Available [facility] - [facility] [address] [place] [address], 84341, 03/22/2024 19:14:05 03/22/2003/22/2024 arthr itis panel rf 72 IU/mL <3.5-1 4 high Not Available [facility] [address] [place] [address], 33197, 03/22/2024 19:14:05 03/22/2003/22/2024 arthr itis panel ccp antibody, IgG <0.54 U/mL <=4.9 Not Available [facility] [address] [place] [address], 34497, 03/22/2024 19:14:05 03/22/2003/22/2024 arthr itis panel arthritis panel Not Available [facility] [address] [place] [address], 79554, 03/22/2024 18:29:05 03/22/20 24 03/22/2024 arthr itis panel uric acid 7.4 mg/dL 2.3-6. 6 high Not Available [facility] - [facility] [address] [place] [address], 42875, 03/22/2024 18:29:05 03/22/20 24 03/22/2024 arthr itis panel sed rate 45 mm/HR 0 - 30 high Not Available [facility] [address] [place] [address], 64957, 03/22/2024 18:29:05 03/22/20 24 03/22/2024 arthr itis panel LEXUS screen PENDIN G Not Available [facility] Only - [facility] [address] [place] [address], 46083, 03/22/2024 18:29:05 03/22/20 24 03/22/2024 arthr itis panel rf 72 IU/mL <3.5-1 4 high Not Available [facility] [address] [place] [address], 35871, 03/22/2024 18:29:05 03/22/20 24 03/22/2024 arthr itis panel ccp antibody, IgG PENDIN G Not Available [facility] [address] [place] [address], 85524, 03/22/2024 18:29:05 03/06/20 24 05/24/2023 imagi ng/di agnos tic resul t No observ ation record ed. [email or web address] Not Available 21:19:10 03/06/20 24 05/24/2023 imagi ng/di agnos tic resul t No observ ation record ed. [email or web address] Not Available 21:19:10 Result Notes None recorded. 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 2023 Jean Paul Smith MD [address] [place] [address], 36246[address] 3, [facility] 4 15:12:00 Generalized osteoarthri tis 914428480 Active 2023 Jean Paul Smith MD [address] [place] [address], 78259-559 3, [facility] 4 15:12:08 Dependent lymphedema 479750252 Active 2023 Jean Paul Smith MD [address] [place] [address], 58671-199 3, [facility] 4 15:12:21 Stasis dermatitis 83104630 Active 2023 Jean Paul Smith MD [address] [place] [address], 65453-126 3, [facility] 4 15:12:34 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 2024 Jean Paul Smith MD [facility] [place] [address], 72012-325 3, [facility] 5 16:33:46 Fibromyalgi a 354784212 Active 2024 Jean Paul Smith MD [address] [place] [address], 03088-938 3, [facility] 5 16:33:56 Moderate chronic obstructive pulmonary disease 083173655 Active 2024 Jean Paul Smith MD [address] [place] [address], 65996-491 3, [facility] 5 16:34:25 Chronic combined systolic and diastolic heart failure 5400075054566 00 Active 2024 Jean Paul Smith MD [address] [place] [address], 09650-665 3, [facility] 5 16:34:42 Problem Notes None recorded. Medical Equipment None Reported. Allergies Allergen ID Allergen Name Allergen Category Reaction Reaction Severity Criticality Documentation Date Start Date Code Code System Note Provider Name and Address Organization Details Recorded Time 9416264 Augmentin medicatio n nausea Not available Not available 03/22/2024 42540 2 RxNorm Betsy yman [facility] 4 13:01:50 2616052 clindamyc in Not available hives Not available Not available 03/22/2024 2582 RxNorm Betsy yman [facility] 4 13:02:11 3061421 silicones environme nt,medica tion rash Not available Not available 03/22/2024 9778 RxNorm Betsy ymanalilia [facility] 4 13:02:26 0029113 adhesive tape environme nt,medica tion Not available Not available Not available 03/22/2024 44438 UNK Betsy ymanalilia [facility] 4 13:02:55 9219223 peanut allergeni c extract food,medi cation diarrhea Not available Not available 03/22/2024 26235 8 RxNorm Betsy yman [facility] 4 14:44:16 Medications Name Sig Start Date Stop Date Status Note LastModified by Organization Details LastModified Time potassium chloride ER 10 mEq capsule,e xtended release TAKE 1 CAPSULE BY MOUTH ONCE DAILY active Not Available Not Available No t Available torsemide 20 mg tablet TAKE 1 TABLET BY MOUTH ONCE DAILY active Not Available Not Available No t Available Klor-Con 10 mEq tablet,ex tended release Take 1 tablet every day by oral route. 09/28 completed Not Available Not Available Not Available azithromy tory 250 mg tablet TAKE 2 TABLETS BY MOUTH TODAY, THEN TAKE 1 TABLET DAILY FOR 4 DAYS DIRECTED 09/28 completed Not Available Not Available Not Available metoprolo l succinate ER 50 mg tablet,ex tended release 24 hr TAKE 1 & 1/2 (ONE & ONE-HALF ) TABLETS BY MOUTH ONCE DAILY active Not Available Not Available No t Available hydrocodo ne 5 mg-acetam inophen 325 mg tablet TAKE 1 TABLET BY MOUTH EVERY 6 HOURS NEEDED FOR SEVERE PAIN 09/28 completed Not Available Not Available Not Available prednison e 20 mg tablet TAKE 2 TABLETS BY MOUTH ONCE DAILY FOR 3 DAYS 09/28 completed Not Available Not Available Not Available cyanocoba lainey (vit B-12) 1,000 mcg tablet Take 1 tablet every day by oral route. active Not Available Not Available No t Available leflunomi de 10 mg tablet Take 1 tablet every day by oral route. 2024 active Not Available Not Available Not Avai lable azathiopr ine 50 mg tablet TAKE 2 TABLETS BY MOUTH ONCE DAILY 06/14 completed patient stopped med due to chills, nausea Not Available Not Available Not Available levofloxa troy 250 mg tablet TAKE 2 TABLETS BY MOUTH ON DAY 1, THEN 1 TAB DAILY ON DAYS 2 - 10 09/28 completed Not Available Not Available Not Available doxycycli ne monohydra te 100 mg tablet TAKE 1 TABLET BY MOUTH TWICE DAILY 09/25 completed Not Available Not Available Not Available triamcino lone acetonide 0.1 % topical cream APPLY A THIN LAYER TO THE AFFECTED AREA(S) BY TOPICAL ROUTE 2 TIMES PER DAY active Not Available Not Available No t Available Cholestyr amine Light 4 gram powder for suspensio n in a packet DISSOLVE ONE PACKET OF POWDER IN 2-6 OUNCES OF WATER OR NONCARBO NATED BEVERAGE AND TAKE BY MOUTH TWICE DAILY 09/28 completed Not Available Not Available Not Available mycopheno late mofetil 500 mg tablet TAKE 1 TABLET BY MOUTH TWICE DAILY FOR 10 DAYS, THEN TAKE 2 TABLETS IN THE MORNING AND 1 TABLET IN THE EVENING FOR 10 DAYS, THEN TAKE 2 TABLETS IN THE MORNING AND 2 TABLETS IN THE EVENING THEREAFT ER. 11/09 completed GI upset Not Available Not Available Not Available benzonata te 100 mg capsule TAKE 1 CAPSULE BY MOUTH THREE TIMES DAILY NEEDED FOR COUGH active Not Available Not Available No t Available Vitamin C 100 mg tablet as directed active Not Available Not Available No t Available ferrous sulfate 325 mg (65 mg iron) tablet TAKE [...] Not Available No t Available doxycycli ne hyclate 100 mg tablet Take 1 tablet twice a day by oral route. active Not Available Not Available No t Available irbesarta n 300 mg tablet TAKE 1 TABLET BY MOUTH ONCE DAILY active Not Available Not Available No t Available neomycin- polymyxin -hydrocor t 3.5 mg-10,000 unit/mL-1 % ear drops,hailee p INSTILL 4 DROPS INTO AFFECTED EAR(S) THREE TIMES DAILY FOR 7 DAYS 09/25 completed Not Available Not Available Not Available ferrous sulfate 65mg elementa l active Not Available Not Available No t Available Symbicort 80 mcg-4.5 mcg/actua tion HFA aerosol inhaler Inhale 2 puffs twice a day by inhalati on route. active Not Available Not Available No t Available Xarelto 20 mg tablet TAKE 1 TABLET BY MOUTH ONCE DAILY WITH SUPPER WITH FOOD 09/28 completed Not Available Not Available Not Available Eliquis 5 mg tablet TAKE 1 TABLET BY MOUTH TWICE DAILY active Not Available Not Available No t Available PreserVis ion AREDS-2 1 tablet by mouth twice a day with meals active Not Available Not Available No t Available Flonase Allergy Relief 50 mcg/actua tion nasal spray,hailee pension [place] 2 sprays every day by intranas al route. active Not Available Not Available No t Available Vitals Date Recorded Heart rate Oxygen saturation Oxygen saturation in Arterial blood by Pulse oximetry Provider Name and Address Organization Details Last Updated DateTime 09/28/2024 72 /min 93 % 93 % Alpesh David [facility] 09/28/2024 15:40:40 Date Recorded Heart rate Oxygen saturation Oxygen saturation in Arterial blood by Pulse oximetry Systolic And Diastolic Provider Name and Address Organization Details Last Updated DateTime 03/22/2024 64 /min 95 % 95 % 116/68 mm[Hg] Betsy Gardiner [facility] 14:31:19 Social History Question Answer Notes LastModified [...] GPAL:G 0 P 0 0 0 0 Immunizations Vaccine Type Date Status Note Provider Nam e and Address Organization Details Recorded Time Influenza, high-dose, quadrivalent, PF 02/16/2022 completed Zoi Dunse [facility] 09/28/2024 15:40:49 Influenza, high-dose, quadrivalent, PF 03/15/2020 completed Zoi Dunse [facility] 09/28/2024 15:40:49 Influenza, adjuvanted, quadrivalent, PF 03/04/2023 completed Zoi Dunse [facility] 09/28/2024 15:40:49 COVID-19, mRNA, LNP-S, PF, 30 mcg/0.3 mL dose 07/16/2020 completed Zoi Dunse [facility] 09/28/2024 15:40:49 COVID-19, mRNA, LNP-S, PF, 30 mcg/0.3 mL dose 08/28/2020 completed Zoi Dunse [facility] 09/28/2024 15:40:49 COVID-19, mRNA, LNP-S, PF, 30 mcg/0.3 mL dose 02/28/2021 completed Zoi Dunse [facility] 09/28/2024 15:40:49 COVID-19, mRNA, LNP-S, PF, 30 mcg/0.3 mL dose, jaylen-sucrose 09/28/2021 [facility] 15:40:49 COVID-19, mRNA, LNP-S, bivalent, PF, 30 mcg/0.3 mL dose 02/16/2022 [facility] 09/28/2024 15:40:49 RSV, recombinant, protein subunit RSVpreF, adjuvant reconstituted, 0.5 mL, PF 05/17/2023 completed Zoi Dunse [facility] 09/28/2024 15:40:49 COVID-19, mRNA, LNP-S, PF, jaylen-sucrose, 30 mcg/0.3 mL 03/04/2023 completed Zoi Dunse [facility] 09/28/2024 15:40:49 Tdap [facility] 15:40:49 Influenza, split virus, quadrivalent, PF 01/16/2021 completed Zoi Dunse [facility] 09/28/2024 15:40:49 Past Encounters Encounter ID Performer Location Encounter Start Date Encounter Closed Date Diagnosis/Indication Diagnosis SNOMED-CT Code Diagnosis ICD10 Code Diagnosis Note [id number] Jean Paul Smith MD [address] [place] [address] [place] [address] [address] 03/22/2024 13:34:10 03/22/2024 18:17:52 Systemic lupus erythematosus 30432131 M32.12 Secondary Sj gren's syndrome 015011676 M35.00 Generalize d osteoarthritis 415676835 M15.9 Dependent lymphedema 445 363642 I89.0 Stasis dermatitis 001020 05 I87.2 [id number] Jean Paul Smith MD [facility] ([place]) [address] [place] [phone] 09/28/2024 15:28:48 10/04/2024 08:27:30 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 Fibromyalgia 393438755 M 79.7 Generalize d osteoarthritis 971920436 M15.9 Health Concerns Section Related Observation LastModified by Organization Detai ls LastModified Time None Recorded Concern Status LastModified by Organization Details LastModified Time None Recorded Advance Directives Directive None Recorded Payers Insurance Date Sequence Insurance Name Policy Number Policy Martin Covered Member ID Martin Member ID Guarantor Name 09/23/2024 1 [place] Cata [place] [id number] Cata Aj 11/03/2024 [employer] (MEDICARE SUPPLEMENT) Cata Aj [id number] Cata Aj 11/03/2024 2 [employer] (MEDICARE SUPPLEMENT) Cata Aj [id number] Cata Aj Notes Date Note Type Note Provider Name and Address Organization Details Recorded Time 03/22/2024 text/html The patient is a 74-year-old postmenopausal white female, previous smoker, nondrinker, with a history of hyperlipidemia, hypertension, atrial fibrillation, both systolic and diastolic CHF, bradycardia with complete heart block status post 3 lead implanted pacemaker, also with a history of 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 Diaz, her circuits engineer from [facility], regarding rheumatologic evaluation of chronic pericarditis and pericardial effusion in the setting of an elevated LEXUS titer, rule out underlying systemic lupus. The patient states that she has noticed over the past 2 years issues with chronic shortness of breath on exertion and occasional bouts of chest pain. She has been following previously with Dr. Rider of [facility] regarding a chronic pericardial effusion occasionally associated with chest discomfort that was found incidentally on a CT of the chest in 2014. She states that the fluid has waxed and waned in severity around her heart. However, over the past 2 years, she has been noticing some low grade fevers and issues with dry eyes and dry mouth, as well as low grade fevers. She has also noticed aching in her joints, especially at the MCP and PIP joints of the hands, bilateral wrists, and occasionally the elbows, shoulders, knees, ankles and MTP joints of the feet. She reports feeling stiff all day. At home she has to use a walker alternating with a cane for ambulation. Today she is using a wheelchair for long distance transport from the front of the clinic to the exam room in the back. She states for years she struggled with dry eyes and dry mouth. She admits she does not see a dentist on a frequent basis, but does use Sensodyne toothpaste and tries to keep water at her bedside at all times. In addition to her low grade fever, she has encountered some what she describes as malar rashes across her cheeks with sparing of the nose. She has not noticed any aphthous ulcers. No oral thrush. No salivary gland swelling, neck swelling, lymph node swelling, cough or hemoptysis. No chest pain at this time. She has been using oxygen per nasal cannula 24 hours a day, 7 days a week for the past 4 months. The patient reports she has been seeing a stamping press operator, Dr. Delgado Horn, in [place], [place]. Unfortunately, I do not have access to neither the [facility] notes in any detail nor Dr. Horn s notes at all. I was able to fish out some scattered details from reviews of [facility] records I could pull through out [facility] medical record system from her [facility] visit and labs from January 31, 2024, demonstrating an elevated LEXUS titer of 24 units, with a titer of greater than 1:1280 in a nuclear speckled pattern with a positive SSA antibody of greater than 240 with an SSB antibody of less than 0.4, Westergren sed rate of 91 mm/hour with a double-stranded DNA antibody of 40, clear urinalysis, but an anemia with a hemoglobin of 11.2 g/dL, serum creatinine modestly elevated at 1.35 mg/dL. The patient s echocardiogram from January 12, 2024, demonstrates a moderate pericardial effusion, but no tamponade. There is an ejection fraction relatively well preserved at this time between 50%-55%. Further screening from her January labs included anti-Torres antibody, SCL70, anticentromere antibody, anti-Terri-1 antibody and [employer] screens, all of which were normal or negative. On further review, the patient denies any history of hemodialysis, gross hematuria, diabetes, DVT or PE, cytopenia or seizures. She has a history of sensory peripheral neuropathy of the feet. She has had previous left carpal tunnel symptoms in the past. Family history is remarkable for a mother and a sister, both of whom suffered from aggressive rheumatoid arthritis. I have reviewed the patient s past medical history and [employer] intake form.ela Smith MD [address] [place] [address], [phone], [facility] 03/23/2024 22:21:25 09/28/2024 text/html The patient is a 74-year-old female with a complex medical history. She was referred to rule out underlying connective tissue disease at last visit. She, in fact, has an elevated LEXUS titer of 1:640 on workup from March, however, her C3 and C4 complement levels were within acceptable limits. Her rheumatoid factor was moderately elevated, double-stranded DNA negative. She returns today having been hospitalized for 4 days in mid September 2024 at [facility] for a COPD exacerbation, community acquired pneumonia and CHF flare. The patient completed her IV antibiotics and finished her oral outpatient regimen post discharge just 3 days ago. She reports an occasional cough, but no longer has the sputum production she was experiencing in the hospital. No fever or chills at this time. She does require supplemental oxygen. She uses a walker at home for ambulation. She is here today in a wheelchair for convenience. She reports she did try to start the azathioprine, but it caused severe nausea. She had to stop it after trying to escalate her dose to 100 mg daily. The patient currently reports h urting all over. She encounters some swelling in her hands, especially at the wrists and MCP joints and PIP joints. She had been struggling with some wounds on her lower extremities, but saw Wound Care and now she reports today that the wounds have healed on her lower extremities where she suffers chronic lymphedema and stasis dermatitis changes. She denies at this time any hemoptysis, chest pain or palpitations. No GERD, melena or hematochezia, diarrhea or constipation, dysuria or gross hematuria or bleeding from the nares or gums. She does have chronic kidney disease stage 3. She has had no gross hematuria.ela Smith MD [address] [place] [address], [phone], [facility] 10/03/2024 09:04:58 OBGyn Episode No OBEpisode recorded.
--- NOTE | 2024-11-13 09:29 | ECG_ITS ---
Test Date: 2024-11-13 09:44:43 Measurements Intervals [place] Rate: 83 P: 193 HI: 195 QRS: 221 QRSD: 98 T: 42 QT: 377 QTc: 445 Interpretive Statements ELECTRONIC ATRIAL PACEMAKER ELECTRONIC VENTRICULAR PACEMAKER ABNORMAL RHYTHM ECG Compared to ECG 09/22/2024 12:23:17 No significant changes Electronically Signed On 11-13-2024 22:19:20 CDT by Rubens Bronson M.D.
--- NOTE | 2024-11-13 09:36 | PC.NURSE ---
LAB AT THE BEDSIDE. ED WITH RT AT THE BEDSIDE FOR EKG
--- NOTE | 2024-11-13 09:46 | PC.NURSE ---
EKG WAS COMPLETED AND GIVEN TO DR PEREZ. RADIOLOGY OUTSIDE THE ROOM
[2024-11-13 09:51] LABS: Hematocrit 27.9 % (35.0-42.0); Hemoglobin 7.7 g/dL (11.7-13.8); Immature Granulocyte Percent A 1.4 % (0.0-0.0); Lymphocytes Absolute Auto 0.33 K/mm3 (1.10-4.50); Mean Corpuscular HGB Conc 27.6 g/dL (32-36); Mean Corpuscular Hemoglobin 25.6 pg (27.0-31.0); Mean Corpuscular Volume 92.7 fL (78.0-102.0); Nucleated Red Blood Cells Absolute Auto 0.00 K/mm3 (0.00-0.00); Nucleated Red Blood Cells Perc 0.0 % (0-0.0); Platelet Count Result 176 K/mm3 (150-420); Red Blood Count 3.01 M/mm3 (4.20-5.40); White Blood Count 7.7 K/mm3 (4.8-10.8)
--- OUTSIDE RECORDS SUMMARY | 2024-11-13 09:51 | XMS_ITS | Clinical Summary ---
Author Organization [facility] Address [address] [place] [address] Care Team Providers Care Carousel Attendant Name Role Phone Gigi Ornelas MD Primary Care Provider [phone] Jordi Gould PA-C Unavailable [phone] Kajal Javed MD Unavailable [phone] Cindy Elias [facility]- Unavailable [phone] Precious Phillips MD Unavailable Jean Paul Smith MD Unavailable [phone] Allergies Active Allergy Reactions Criticality Noted Date [...] Diagnosed Date Acute on chronic respiratory failure ([facility]) 09/22/2024 CHF (congestive heart failure) ([facility]) 09/22/2024 Morbid (severe) obesity due to excess calories 0 08/28/2024 Body mass index (BMI) 45.0-49.9, adult 5 Anticoagulant long-term use 12/29/2023 Chronic combined systolic an d diastolic heart failure ([facility]) 07/02/2022 Left ventricular systolic dysfunction (LVSD) Biventricular cardiac pacemaker in situ 03/19/20 22 Complete heart block ([facility]) Symptomatic bradycardia 03/18/2022 Chronic venous insufficiency 02/25/2021 Sleep apnea 05/10/2008 Other hyperlipidemia 05/10/2008 Hypertension 05/10/1989 Lymphedema Pericardial effusion ([facility]) SOBOE (shortness of breath on exertion) Encounters Date Type Department Care Team Description 10/30/2024 11:10 AM CDT - 10/30/2024 11:59 PM CDT Hospital Encounter [facility] [address] [place] [address] Non-Staff, Provider Jean Paul Smith MD Discharge Disposition: Home or Self Care (Routine Discharge) 10/30/2024 2:05 AM CDT Allied Health/Nurse Visit [facility] [address] [place] [address] Kajal Javed MD 10/30/2024 Orders Only [facility] [address] [place] [address] Jean Paul Smith MD 10/30/2024 Travel 10/03/2024 1:18 PM CDT - 10/03/2024 11:59 PM CDT Hospital Encounter [facility] [address] [place] [address] Chencho Monroy MD Discharge Disposition: Home or Self Care (Routine Discharge) 10/03/2024 Travel 09/28/2024 Hospital Follow-up Call [facility] [address] [place] [address] Kathy Cason RN 09/25/2024 Telephone [facility] [address] [place] [address] Opal Patrick NP Appointment Request (Needs follow up appt with Cindy Elias in [place]) 09/22/2024 4:35 PM CDT - 09/26/2024 1:05 PM CDT Hospital Encounter [facility] [address] [place] [address] Earl Ambriz MD Kim, MD Eliana Servin Srikanth, MD Discharge Disposition: Home with Home Health Care 09/22/2024 Travel 09/05/[address] [facility] [address] [place] [address] Cindy Elias, ANP-BC Refill Request 08/28/2024 1:00 PM CDT [facility] [address] [place], [place] [address] [address] Cindy Elias, ANP-BC Follow Up (Pericardial effusion, shortness of breath) 08/28/2024 12:43 PM CDT - 08/28/2024 11:59 PM CDT Hospital Encounter [facility] [address] [place], [place] [address] [place] [address] Precious Phillips MD Discharge Disposition: Home or Self Care (Routine Discharge) 08/28/2024 Travel 08/17/2024 11:03 AM CDT - 08/17/2024 11:59 PM CDT Hospital Encounter [facility] [address] [place] [address] Chyna Mcallister, Maria Fernanda Diez, OT Discharge [...] materials from doctor or pharmacy Never 07/07/2024 [facility] Utilities Answer Date Recorded In the past 12 months has [facility] [employer], [employer], or water [employer] threatened to shut off services in your [...] were you homeless or living in a alf (including now)? No 09/22/2024 Comments Unknown Sex and Gender Information Value Date Recorded Sex Assigned at Female 05/24/2024 2:24 PM HTML DEVELOPER Legal Sex Female 10:24 PM CDT Gender [...] 01/16/2025 2:00 PM CDT Office Visit [facility] [address] [place] [address] Jordi Gould PA-C [address] [place] [phone] 01/16/2025 2:00 PM CDT Allied Health/Nurse Visit [facility] [address] [place] [phone] Jordi Gould PA-C [address] [place] [phone] 04/20/2025 1:30 AM HTML DEVELOPER Allied Health/Nurse Visit [facility] [address] [place] [address] Kajal Javed MD [address] [id number] Health Maintenance Due Date Last Done Comments [...] this topic Medical Devices Implanted Type Area Fish And Wildlife Warden Device Identifier Shelf Expiration Date Model / Serial / Lot Medtronic Rv-03/18/2022 Implanted:Qty: 1 on 03/18/2022 by Holden Lombardo MD Lead Implant [employer] 02/04/2024 4076-52 / [id number] / Medtronic Ra-03/18/2022 Implanted:Qty: 1 on 03/18/2022 by Holden Lombardo MD Lead Implant [employer] 12/27/2023 4076-45 / [id number] / Medtronic Cs-08/24/2022 Implanted:08/08 by Holden Lombardo MD (Quantity not on file) Lead Implant [employer] 06/18/2024 [id number] / [id number] / Medtronic Percepta Quad Biv-08/24/2022 Implanted:08/08 by Holden Lombardo MD (Quantity not on file) Pacemaker [employer] 01/05/2024 [id number] / [id number] / Description:DX: CHB Explanted Type Area Fish And Wildlife Warden Device Identifier Shelf Expiration Date Model / Serial / Lot Medtronic [place] [address]-03/18/2022 Implanted:Qty: 1 on 03/18/2022 by Holden Lombardo MD Explanted:08/24 by Holden Lombardo MD (Quantity not on file) Pacemaker [employer] 08/22/2023 [id number] / [id number] / Procedures Procedure Name Priority Date/Time Associated Diagnosis Comments CBC W/DIFF AUTOMATED Routine 10/30/2024 11:25 AM CDT 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 ([facility]) SED RATE, ERYTHROCYTE (ESR) Routine 10/30/2024 11:25 AM CDT 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 ([facility]) COMPREHENSIVE METABOLIC PANEL Routine 10/30/2024 11:25 AM CDT 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 ([facility]) C-REACTIVE PROTEIN Routine 10/30/2024 11 :25 AM CDT 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 ([facility]) CBC W/DIFF AUTOMATED Routine 10/03/2024 1:31 [...] ERYTHROCYTE (ESR) (10/30/2024 11:25 AM CDT) Pathologist [facility] ESR 61(H) 0 - 20 MM/HR 10/30/2024 12:04 PM CDT [facility] 10/30/2024 11:2 5 AM CDT us Jean Paul Smith MD LABORATORY Final Resul t [facility] [place] [address], * (ABNORMAL) COMPREHENSIVE METABOLIC PANEL (10/30/2024 11:25 AM CDT) Only the most recent of4 resultswithin the time period is included. Pathologist [facility] SODIUM S/P/B 144 136 - 145 MMOL/L 10/30/2024 11:56 AM CDT [facility] POTASSIUM S/P/B 3.8 3.5 - 5.1 MMOL/L 10/30/2024 11:56 AM CDT [facility] CHLORIDE S/P/B 104 98 - 107 MMOL/L 10/30/2024 11:56 AM CDT [facility] CO2 34.8(H) 21.0 - 32.0 MMOL/L 10/30/2024 11:56 AM [facility] GLUCOSE 96 70 - 99 MG/DL 10/30/2024 11:56 AM [facility] Comment: FASTING GLUCOSE 100 TO 125 MG/DL IS CONSISTENT WITH IMPAIRED FASTING GLUCOSE. FASTING GLUCOSE >125 MG/DL IS CONSISTENT WITH DIABETES. RANDOM GLUCOSE >200 MG/DL WITH HYPERGLYCEMIC SYMPTOMS IS CONSISTENT WITH DIABETES. PER ADA GUIDELINES BUN 12 6 - 24 MG/DL 10/30/2024 11:56 AM [facility] CREATININE S/P/B 1.25(H) 0.55 - 1.02 MG/DL 10/30/2024 11:56 AM [facility] CALCIUM S/P/B 8.9 8.4 - 10.5 MG/DL 10/30/2024 11:56 AM [facility] BILIRUBIN TOTAL S/P/B 0.3 0.2 - 1.0 MG/DL 10/30/2024 11:56 AM [facility] Comment: THIS ASSAY IS NOT RECOMMENDED FOR PATIENTS UNDERGOING TREATMENT WITH ELTROMBOPAG DUE TO THE POTENTIAL FOR FALSELY ELEVATED RESULTS. ALKALINE PHOSPHATASE S/P/B 98 55 - 142 U/L 10/30/2024 11:56 AM [facility] AST 15 15 - 37 U/L 10/30/2024 11:56 AM [facility] ALT 13(L) 14 - 59 U/L 10/30/2024 11:56 AM [facility] TOTAL PROTEIN S/P/B 6.6 6.4 - 8.2 G/DL 10/30/2024 11:56 AM [facility] ALBUMIN S/P/B 2.6(L) 3.4 - 5.0 G/DL 10/30/2024 11:56 AM [facility] ANION GAP 5.2 5.0 - 15.0 MMOL/L 10/30/2024 11:56 AM [facility] OSMOLALITY (CALC) 298 MOSM/KG 025 11:56 AM [facility] Comment:REFERENCE RANGE NOT ESTABLISHED GFR ESTIMATE 46(L) >89 ML/MIN/1. 73 M2 10/30/2024 11:56 AM CDT [facility] GFR NOTES GFR REFERENCE S: 10/30/2024 11:56 AM CDT [facility] Comment: THE ESTIMATED GFR IS CALCULATED [...] Paul Smith MD LABORATORY Final Resul t [facility] [address] [place] [address], * (ABNORMAL) C-REACTIVE PROTEIN (10/30/2024 11:25 AM CDT) C-REACTIVE PROTEIN 2.68(H) <0.30 mg/dL 10/30/2024 11:56 AM CDT [facility] 10/30/2024 11:2 5 AM CDT Jean Paul Smith MD LABORATORY Final Resul t [facility] [place] [address], * (ABNORMAL) CBC W/DIFF AUTOMATED (10/30/2024 11:25 AM CDT) Only the most recent of7 resultswithin the time period is included. WBC 7.43 4.00 - 10.80 x10'3/uL 10/30/2024 11:57 AM CDT [facility] RBC 2.93(L) 4.10 - 5.40 x10'6/uL 10/30/2024 11:57 AM CDT [facility] HGB 7.7(L) 12.0 - 16.0 G/DL 10/30/2024 11:57 AM CDT [facility] HCT 27.0(L) 36.0 - 47.0 % 10/30/2024 11:57 AM CDT [facility] MCV 92.2 78.0 - 100.0 FL 10/30/2024 11:57 AM CDT [facility] MCH 26.3(L) 27.0 - 31.0 PG 10/30/2024 11:57 AM CDT [facility] MCHC 28.5(L) 33.0 - 36.0 G/DL 10/30/2024 11:57 AM CDT [facility] RDW 16.5(H) 11.5 - 14.5 % 10/30/2024 11:57 AM CDT [facility] PLT 226 150 - 350 x10'3/uL 10/30/2024 11:57 AM CDT [facility] MPV 9.3 7.4 - 10.4 FL 10/30/2024 11:57 AM CDT [facility] CBC COMMENT NORMAL REFERENCE RANGE NOT ESTABLISHED FOR THE PROPORTIONAL LEUKOCYTE DIFFERENTIAL. 10/30/2024 11:57 AM CDT [facility] NEUTROPHILS % 74.8 % 10/30/2024 12:23 PM CDT [facility] LYMPHOCYTES % 9.2 % 10/30/2024 12:23 PM CDT [facility] MONOCYTES % 8.5 % 10/30/2024 12:23 PM CDT [facility] EOSINOPHILS % 3.8 % 10/30/2024 12:23 PM CDT [facility] BASOPHILS % 0.5 % 10/30/2024 12:23 PM CDT [facility] IMMATURE GRANS % 3.2 % 10/31/19 12:23 PM CDT [facility] NRBC % 0.0 % 10/30/2024 12:23 PM CDT [facility] ABS. NEUTROPHILS 5.56 1.60 - 8.30 x10'3/uL 10/30/2024 12:23 PM CDT [facility] ABS. LYMPHOCYTES 0.68(L) 0.80 - 4.70 x10'3/uL 10/30/2024 12:23 PM CDT [facility] ABS. MONOCYTES 0.63 0.00 - 1.50 x10'3/uL 10/30/2024 12:23 PM CDT [facility] ABS. EOSINOPHILS 0.28 0.00 - 0.40 x10'3/uL 10/30/2024 12:23 PM CDT [facility] ABS. BASOPHILS 0.04 0.00 - 0.20 x10'3/uL 10/30/2024 12:23 PM CDT [facility] ABS. IMMATURE GRANULOCYTES 0.24(H) 0.00 - 0.03 x10'3/uL 10/30/2024 12:23 PM CDT [facility] ABS. NUCLEATED RBC'S 0.00 0.00 - 0.01 x10'3/uL 10/30/2024 12:23 PM CDT [facility] PLT MORPH. NORMAL 10/30/2024 12:23 PM CDT [facility] RBC MORPHOLOGY 1+ 10/30/2024 12:23 PM CDT [facility] Comment: HYPOCHROMASIA 1+ ANISOCYTOSIS 1+ MACROCYTES 10/30/2024 11:2 5 AM CDT us Jean Paul Smith MD LABORATORY Final Resul t [facility] [address] [place] [address], * (ABNORMAL) BASIC METABOLIC PANEL (09/26/2024 5:45 AM CDT) Only the most recent of3 resultswithin the time period is included. SODIUM S/P/B 140 136 - 145 MMOL/L 09/26/2024 6:[address] [facility] POTASSIUM S/P/B 3.9 3.5 - 5.1 MMOL/L 09/26/2024 6:30 AM [facility] CHLORIDE S/P/B 106 97 - 115 MMOL/L 09/26/2024 6:30 AM [facility] CO2 30.1 21.0 - 32.0 MMOL/L 09/26/2024 6:30 AM [facility] GLUCOSE 130(H) 74 - 106 MG/DL 09/26/2024 6:30 AM [facility] BUN 48(H) 7 - 18 MG/DL 09/26/2024 6:30 AM [facility] CREATININE S/P/B 1.42(H) 0.55 - 1.02 MG/DL 09/26/2024 6:30 AM [facility] CALCIUM S/P/B 9.2 8.5 - 10.1 MG/DL 09/26/2024 6:30 AM [facility] ANION GAP 3.9 2.0 - 10.0 MMOL/L 09/26/2024 6:30 AM [facility] OSMOLALITY (CALC) 304 MOSM/KG 025 6:30 AM [facility] Comment:REFERENCE RANGE NOT ESTABLISHED GFR ESTIMATE 39(L) >90 ML/MIN/1. 73 M2 09/26/2024 6:30 AM [facility] GFR NOTES GFR REFERENCE S: 09/26/2024 6:30 AM [facility] Comment: THE ESTIMATED GFR IS CALCULATED [...] Monroy MD LABORATORY Final Res ult [facility] [address] [place] [address], [id number] * USE ECHOCARDIOGRAM W CON (09/23/2024 8:54 AM CDT) Anatomical Region Laterality Modality NA Echocardiogram 09/23/2024 8:07 AM CDT Narrative 09/23/2024 6:46 PM CDT Echocardiography Report Pat.Name: CATA YI Madhu Pat.ID: [id number] .Date: 09/23/2024 Refer.: [id number] KATHI Dillard EWDPROV EWDPROV Exam Time: 8:07:00 AM Study Type:ECHO W/CONTRAST COMPLETE Height: 59.8 in Weight: 236 lb BSA: 2 m2 Age: 10 1950,74Y Sex: F BP: 152/88 HR: 98 bpm Sonogrphr: Holden Herrera [facility] Pat. Stat.:Inpatient Room: [facility] CPT - 4: C8929 Reason for Study:CHF, [...] Mass 2D Value 197 g LV Mass [id number] Value 98.5 g/m2 Right Ventricle Right Ventricle [...] 09/23/2024 Echocardiography Report Pat.Name: CATA YI Pat.ID: [id number] .Date: 09/23/2024 : [id number] BREANNACINDY Dillard EWDPROV EWDPROV Exam Time: 8:07:00 AM Study Type:ECHO W/CONTRAST COMPLETE Height: 59.8 in Weight: 236 lb BSA: 2 m2 Age: 10 1950,74Y Sex: F BP: 152/88 HR: 98 bpm Sonogrphr: Holden Herrera [facility] Pat. Stat.:Inpatient Room: [facility] CPT - 4: C8929 Reason for Study:CHF, [...] Mass 2D Value 197 g LV Mass [id number] Value 98.5 g/m2 Right Ventricle Right Ventricle [...] - 7.45 09/23/2024 3:[address] [facility] PCO2 57.8(H) 35.0 - 45.0 MMHG 09/23/2024 3:[address] [facility] PO2 68.1(L) 83.0 - 108.0 MMHG 09/23/2024 3:[address] [facility] BICARB ARTERIAL 31.9(H) 22 - 26 MMOL/L 09/23/2024 3:[address] [facility] TOTAL CO2 ARTERIAL 33.6(H) 23 - 27 MMOL/L 09/23/2024 3:[address] [facility] BE/BASE EXCESS 6.0(H) 0 - 2 MMOL/L 09/23/2024 3:[address] [facility] O2 Saturation 93(L) 95 - 98 % 09/23/2024 3:[address] [facility] SAUD TEST NEGATIVE 09/23/2024 3:[address] [facility] OXYGEN STATUS 6 09/23/2024 3:[address] [facility] DRAW SITE ARTERIAL RT RADIAL 09/23/2024 3:[address] [facility] 09/23/2024 3:30 AM CDT Yadiel Lemos MD LABORATORY Final Result [facility] [address] [place] [address], [place] [phone] [id number] * (ABNORMAL) LEXUS IFA SCRN, WI REFLEX TO TITER (09/22/2024 5:52 PM CDT) LEXUS POSITIVE( A) Negative 10/06/2024 1:57 PM CDT [employer] PABLO SANTO Comment: LEXUS IFA is a first line screen for detecting the presence of up to approximately 150 autoantibodies in various autoimmune diseases. A positive LEXUS IFA result is suggestive of autoimmune disease and reflexes to titer and pattern. Further laboratory testing may be considered if clinically indicated. For additional information, please refer to http://education.[employer]/faq/PEA134 (This link is being provided for informational/ educational purposes only.) Test Performed by rocket staff Gerald, [employer] [facility], [address] [place] [address] Noel Baldwin M.D., Ph.D., Director of Laboratories , [place] [id number] 09/22/2024 5:52 PM CDT Ariel Cole MD LABORATORY Final Result Performing Organization Address [facility]/ZIP Co de Phone Number [employer] , [place] [phone] * ANTINUCLEAR ANTIBODY WI RFX (09/22/2024 5:52 PM CDT) LEXUS 23 09/25/2024 1:[address] [facility] Comment: POSITIVE: >1.0 RATIO SEE SEPARATE PROFILE RESULTS AND IFA TITER THE LEXUS SCREEN TESTS FOR THE FOLLOWING ANTIBODIES BY EIA: SSA1 (RO), SSB1 (LA), TORRES, SCL70, JO1, CENTROMERE, SHEAR GRINDER OPERATOR HISTONE MUST BE ORDERED SEPARATELY DNA (DS) ANTIBODY 23 IU/ML 025 1:[address] [facility] Comment: NEGATIVE: <10 IU/mL EQUIVOCAL: 10 to 15 IU/mL POSITIVE: >15 IU/mL THIS QUANTITATIVE ASSAY IS CALIBRATED TO THE [employer]'S /80 STANDARD. THE LEVEL OF dsDNA AUTOANTIBODY GERERALLY CORRELATES WITH THE LEVEL OF DISEASE ACTIVITY IN SYSTEMIC LUPUS ERYTHMATOSUS 09/22/2024 5:52 PM CDT Ariel Cole MD LABORATORY Final Result Performing Organization Address City/[facility] Co de Phone Number [facility] [address] [place] [address], [id number] * (ABNORMAL) PRO-BRAIN NATRIURETIC PEPTIDE (09/22/2024 5:52 PM CDT) PRO-B TYPE NATRIURETIC PEPTIDE 1,302(H) <125 PG/ML 09/22/2024 6:[address] [facility] Comment: AGE INDEPENDENT: <300 PG/ML HAS [...] Ariel Cole MD LABORATORY Final Result [facility] [address] [place] [address], [id number] * (ABNORMAL) LEXUS PROFILE (09/22/2024 5:52 PM CDT) SSA ANTIBODY >240(H) 0.0 - 6.9 U/mL 09/27/2024 3:[address] [facility] Comment: NEGATIVE: <7 U/mL EQUIVOCAL: 7 to 10 u/mL POSITIVE: >10 U/mL SSA AND/OR SSB AUTOANTIBODIES ARE DETECTED IN 60% TO 90% OF PATIENTS WITH SJOGREN'S SYNDROME AND IN 20% TO 40% OF PATIENTS WITH SYSTEMIC LUPUS ERYTHEMATOSUS. SSB ANTIBODY <0.4 0.0 - 6.9 U/mL 09/27/2024 3:[address] [facility] Comment: NEGATIVE: <7 U/mL EQUIVOCAL: 7 to 10 u/mL POSITIVE: >10 U/mL SSA AND/OR SSB AUTOANTIBODIES ARE DETECTED IN 60% TO 90% OF PATIENTS WITH SJOGREN'S SYNDROME AND IN 20% TO 40% OF PATIENTS WITH SYSTEMIC LUPUS ERYTHEMATOSUS. SM ANTIBODY <0.7 U/mL 09/27/2024 3:[address] [facility] Comment: NEGATIVE: <7 U/mL EQUIVOCAL: 7 to 10 u/mL POSITIVE: >10 U/mL Autoantibodies to Torres (Sm) antigen are found in 30% of patients with systemic lupus erythematosus and are highly specific for this disease. SCL 70 S/P/B 1.1 0.0 - 6.9 U/mL 09/27/2024 3:[address] [facility] Comment: NEGATIVE: <7 U/mL EQUIVOCAL: 7 to 10 u/mL POSITIVE: >10 U/mL AUTOANTIBODIES TO Scl-70 ARE FOUND IN UP TO 60% OF PATIENTS WITH SCLERODERMA (SYSTEMIC SCLEROSIS) AND ARE CONSIDERED TO BE SPECIFIC FOR THIS DISEASE. DAVE-1 ANTIBODY <0.3 U/mL 09/27/2024 3:[address] [facility] Comment: NEGATIVE: <7 U/mL EQUIVOCAL: 7 to 10 u/mL POSITIVE: >10 U/mL AUTOANTIBODIES TO Jo1 ARE FOUND IN 10% TO 50% OF PATIENTS WITH DERMATOMYOSITIS OR POLYMYOSITIS AND IN 20% OF PATIENTS WITH SCLERODERMA SYNDROME. Jo1 AUTOANTIBODIES ARE GENERALLY NOT SEEN OUTSIDE OF THESE DISEASE STATES. CENTROMERE B AB S/P/B <0.4 U/mL 09/27/2024 3:[address] [facility] Comment: NEGATIVE: <7 U/mL EQUIVOCAL: 7 to 10 u/mL POSITIVE: >10 U/mL AUTOANTIBODY TO CENTROMERE B IS SEEN IN 70% TO 85% OF PATIENTS WITH CREST (CALCINOSIS, RYNAUD'S PHENOMENON, ESOPHAGEAL HYPOMOTILITY, SCLERODACTYLY AND TELANGIECTASEA) SYNDROME VARIANT OF SYSTEMIC SCLEROSIS AND IN 10% TO 15% OF PATIENTS WITH PRIMARY BILIARY CIRRHOSIS. SHEAR GRINDER OPERATOR (U1) AB S/P/B 1.1 0.0 - 4.9 U/mL 09/27/2024 3:[address] [facility] Comment: NEGATIVE: <5 U/mL EQUIVOCAL: 5 to 10 U/mL POSITIVE: >10 U/mL AUTOANTIBODIES TO SHEAR GRINDER OPERATOR ARE FOUND IN GREATER THAN 95% OF PATIENTS WITH MIXED CONNECTIVE TISSUE DISEASE (MCTD), BUT ARE ALSO SEEN IN SYSTEMIC LUPUS ERYTHEMATOUS (40%), RHEUMATOID ARTHRITIS (10%), SCLERODERMA SYNDROME (10%), AND RARELY IN DRUG INDUCED LUPUS AND SJOGREN'S SYNDROME. ABSENCE OF SHEAR GRINDER OPERATOR ANTIBODIES USUALLY RULES OUT MCTD. 09/22/2024 5:52 PM CDT Ariel Cole MD LABORATORY Final Result [facility] [address] [place] [address], [id number] * (ABNORMAL) TROPONIN, QUANT (09/22/2024 5:52 PM CDT) TROPONIN I HIGH SENSITIVITY 96(H) 0 - 53 ng/L 09/22/2024 6:[address] [facility] 09/22/2024 5:52 PM CDT Ariel Cole MD LABORATORY Final Result [facility] [address] [place] [address], [place] [phone] [id number] * (ABNORMAL) ANTINUCLEAR ANTIBODIES TITER (09/22/2024 5:52 PM CDT) LEXUS TITER >=1:1280(A ) Negative 10/06/2024 2:26 PM CDT [employer] GIL-TISHA SANTO Comment: Reference Range: <1:40 Negative 1:40-1:80 Low Antibody Level >1:80 Elevated Antibody Level Test Performed by [employer] Gerald, [place], [address] [place] [address] Noel Baldwin M.D., Ph.D., Director of Laboratories , [facility] [id number] LEXUS PATTERN REPORT 10/06/2024 2:26 PM CDT [employer] [id number] SANTO Comment: Nuclear, Speckled Speckled pattern is associated with mixed connective tissue disease (MCTD), systemic lupus erythematosus (SLE), Sjogren's syndrome, dermatomyositis, and systemic sclerosis/polymyositis overlap. AC-2, 4, 5, 29: Speckled International Consensus on LEXUS Patterns https://doi.org/10.1515/nuoy-3345-2919 LEXUS TITER THREE END OF REPORT 10/06/2024 2:26 PM CDT [employer] [id number] SANTO 09/22/2024 5:52 PM CDT Ariel Cole MD LABORATORY Final Result [facility] [id number] [place], [place] , [place] [phone] * XR CHEST PORTABLE (09/22/2024 5:35 PM CDT) Anatomical Region Laterality Modality Chest Radiographic Susan ging 09/22/2024 6:12 PM CDT Impressions 09/22/2024 6:14 PM CDT IMPRESSION: Cardiomegaly and mild vascular congestion. Referred By: ASPEN ARMENTA Interpreted By: Tre River MD, 09/22/2024 6:12 PM Narrative 09/22/2024 6:14 PM [address] [address] Examination: Chest x-ray 1 view Exam Date/Time: [...] Procedure Note Tre River MD - 09/22/[address] [address] Examination: Chest x-ray 1 view Exam Date/Time: [...] is included. 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1950 Requested By: ARIEL COLE Order Number: [id number] Reading MD: Francisco Javier Vuong Measurements Intervals Delta Rate: 82 P: 78 FL: 164 QRS: 220 QRSD: 140 T: 48 QT: 372 QTc: 437 Interpretive Statements ELECTRONIC ATRIAL PACEMAKER ELECTRONIC VENTRICULAR PACEMAKER ABNORMAL RHYTHM ECG Procedure Note Francisco Javier Vuong MD - 09/22/2024 [facility] [address] [place] [address] Test Date: 2024-09-22 Pat Name: CATA YI Department: 1 Room: 550AA Gender: Female 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1950 Requested By: ARIEL COLE Order Number: [id number] Ruth Vuong Measurements Intervals Delta Rate: 82 P: 78 FL: 164 QRS: 220 QRSD: 140 T: 48 QT: 372 QTc: 437 Interpretive Statements ELECTRONIC ATRIAL PACEMAKER ELECTRONIC VENTRICULAR PACEMAKER ABNORMAL RHYTHM ECG us Ariel Cole MD ECG ORDERABLES Final Result [facility] RAD from Last 3 Months Insurance MEDICARE AETNA Advance Directives Documents on File Type Date Recorded Patient Biomedical Equipment Support Specialist Expl anation Advance Directives and Living Will 03/20/2022 11:47 AM [employer] Advance Directives and Living Will 02/20/2021 9:06 AM Refer to THOMAS bell regarding Advanced Directives - NO BLOOD Power of Dianeticist 02/20/2021 9:06 AM Lucie Yi, HCA-spouse; Aram [...] Omar Yi (PO) Spouse Health Care Agent [phone] (Mobile ) Aram Yi [facility] Agent Care Teams Carousel Attendant Relationship Specialty Start Date End Date Gigi Ornelas MD [address] [place] [address] PCP - General FAMILY PRACTICE 02/05/21 Jordi Gould PA-C [address] [place] [phone] PHYSICIAN BLUEPRINT MAKER 07/30/22 Kajal Javed MD [address] [place] [address] [address] Consulting Physician Electrophysiology 02/04/23 Cindy Elias, [facility] [address] [place] [address] Nurse Practitioner NURSE PRACTITIONER ADULT HEALTH 08/23/23 Precious Phillips MD [address] [place] [address] Consulting Physician CARDIOVASCULAR DISEASE 09/24/24 Jean Paul Smith MD [address] [place] [address] Physician RHEUMATOLOGY 09/24/24
--- OUTSIDE RECORDS SUMMARY | 2024-11-13 09:51 | XMS_ITS | Encounter Summary ---
Author Organization [facility] Address [address] [place] [address] Care Team Providers Care Network Systems Administrator Name Role Phone Gigi Ornelas MD Primary Care Provider [phone] Vickey Rider MD Unavailable [phone] Dominic Arrington MD Unavailable Holden Lombardo MD Unavailable Unavailable Jordi Gould-C Unavailable [phone] Kajal Javed MD Unavailable + [phone] Isael Diaz MD Unavailable [phone] Cindy Elias ANP-BC Unavailable [phone] Precious Phillips MD Unavailable Jean Paul Smith MD Unavailable [phone] Encounter Details Date Type Department Care Team (Late st Contact Info) Description 01/30/2021 [facility] [address] [place] [address] Helen Vargas, CENTER MACHINE SET UP OPERATOR, CALCULATION CLERK-C [address] [phone] Social History Tobacco Use Types Packs/Day Years Used Date Smoking Tobacco: Former Cigarettes Q uit: 2004 Comments Unknown Sex and Gender Information Value Date Recorded Sex Assigned at Female 05/24/2024 2:24 PM MEAT SUPERVISOR Legal Sex Female 10:24 PM CDT Gender Identity Not on file Sexual Orientation Not on file documented as of this encounter Plan of Treatment Upcoming Encounters Date Type Department Care Team (Late st Contact Info) Description 01/16/2025 2:00 PM CDT Office Visit [address] [phone] Jordi Gould PA-C [address] [place] [address] 01/16/2025 2:00 PM CDT Allied Health/Nurse Visit [address] [address] Jordi Gould PA-C [address] [place] [address] [phone] 04/20/2025 1:30 AM MEAT SUPERVISOR Allied Health/Nurse Visit [address] [phone] Kajal Javed MD [address] [address] documented as of this encounter Visit Diagnoses Not on filedocumented in this encounter Care Teams Network Systems Administrator Relationship Specialty Start Date End Date Gigi Ornelas MD [address] [place] [address] PCP - General FAMILY PRACTICE 02/05/21 Vickey Rider MD [address] [place] [address] [place] [employer] Machine Catcher CARDIOVASCULAR DISEASE 02/05/21 08/22/23 Dominic Arrington MD [address] [place] [address] Vascular/Cardiologis t INTERNAL MEDICINE 02/24/21 07/14/24 Holden Lombardo MD [address] [place] [phone] Consulting Physician CLINICAL CARDIAC ELECTROPHYSIOLOGY 07/30/22 02/03/23 Jordi Gould PA-C [address] [place], [place] [phone] PHYSICIAN COLLAR STAY FUSER TENDER 07/30/22 Kajal Javed MD [address] [place] [address] Consulting Physician Electrophysiology 02/04/23 Isael Diaz MD [address] [place] [address] INTERVENTIONAL CARDIOLOGY 08/23/2307/14 Cindy Elias, [facility] [address] [place] [address] Nurse Practitioner NURSE PRACTITIONER ADULT HEALTH 08/23/23 Precious Phillips MD [address] [place] [address] Consulting Physician CARDIOVASCULAR DISEASE 09/24/24 Jean Paul Smith MD [address] [place], [place] [phone] Physician RHEUMATOLOGY 09/24/24 documented as of this encounter
--- OUTSIDE RECORDS SUMMARY | 2024-11-13 09:51 | XMS_ITS | Encounter Summary ---
Author Organization [facility] Address [address] [place] [address] Care Team Providers Care Rn Patient Care Name Role Phone Gigi Ornelas MD Primary Care Provider [phone] Vickey Rider MD Unavailable [phone] Dominic Arrington MD Unavailable Holden Lombardo MD Unavailable Unavailable Jordi Gould PA-C Unavailable [phone] Kajal Javed MD Unavailable + [phone] Isael Diaz MD Unavailable [phone] Cindy Elias ANP-BC Unavailable [phone] Precious Phillips MD Unavailable Jean Paul Smith MD Unavailable [phone] Encounter Details Date Type Department Care Team (Late st Contact Info) Description 08/19/2022 Hospital Orders Only [facility] [address] [place] [address] Holden Lombardo MD Social History Tobacco Use Types Packs/Day Years Used Date Smoking Tobacco: Former Cigarettes Q uit: 2005 Smokeless Tobacco: Never Alcohol Use Standard Drinks/Week Comments Never 0 (1 standard drink = 0.6 oz pur e alcohol) Comments Unknown Sex and Gender Information Value Date Recorded Sex Assigned at Female 05/24/2024 2:24 PM WET FINISHER WOOL Legal Sex Female 10:24 PM CDT Gender [...] Assessment Author Status No 03/18/2022 10:00 PM WET FINISHER WOOL 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 Answer Date of Assessment Author Status No 03/18/2022 10:00 PM WET FINISHER WOOL Acti ve * Do you have serious difficulty walking or climbing stairs? Answer Date of Assessment Author Status No 03/18/2022 10:00 PM Prem Leblanc RN Active * Do you have difficulty dressing or bathing? Answer Date of Assessment Author Status No 03/18/2022 10:00 PM Prme Leblanc RN Active * Because of a [...] Description 01/16/2025 2:00 PM CDT Office Visit [facility] [address] [place] [address] Jordi Gould PA-C [address] [place] [phone] 01/16/2025 2:00 PM CDT Allied Health/Nurse Visit [facility] [address] [place] [phone] Jordi Gould PA-C [address] [place] [address] 04/20/2025 1:30 AM WET FINISHER WOOL Allied Health/Nurse Visit [facility] [address] [place] [phone] Kajal Javed MD [address] [phone] documented as of this encounter Visit Diagnoses Not on filedocumented in this encounter Care Teams Rn Patient Care Relationship Specialty Start Date End Date Gigi Ornelas MD [address] [place] [phone] PCP - General FAMILY PRACTICE 02/05/21 Vickey Rider MD [address] [place] [phone] [employer]ing Plant Supervisor CARDIOVASCULAR DISEASE 02/05/21 08/22/23 Dominic Arrington MD [address] [place] [phone] Vascular/Cardiologis t INTERNAL MEDICINE 02/24/21 07/14/24 Holden Lombardo MD [address] [place] [address] Consulting Physician CLINICAL CARDIAC ELECTROPHYSIOLOGY 07/30/22 02/03/23 Jordi Gould PA-C [address] [place] [phone] PHYSICIAN FACILITIES CLERK 07/30/22 Kajal Javed MD [address] [address] Consulting Physician Electrophysiology 02/04/23 Isael Diaz MD [address] [phone] INTERVENTIONAL CARDIOLOGY 08/23/2307/14 Cindy Elias, [facility] [address] [place] [address] Nurse Practitioner NURSE PRACTITIONER ADULT HEALTH 08/23/23 Precious Phillips MD [address] [place] [address] Consulting Physician CARDIOVASCULAR DISEASE 09/24/24 Jean Paul Smith MD [address] [place] [address] Physician RHEUMATOLOGY 09/24/24 documented as of this encounter
--- OUTSIDE RECORDS SUMMARY | 2024-11-13 09:51 | XMS_ITS | Encounter Summary ---
Author Organization [facility] Address [address] [place] [address] Care Team Providers Care Pulmonology Technician Name Role Phone Gigi Ornelas MD Primary Care Provider [phone] Jordi Gould PA-C Unavailable [phone] Kajal Javed MD Unavailable [phone] Cindy Elias ANP-BC Unavailable [phone] Precious Phillips MD Unavailable Jean Paul Smith MD Unavailable [phone] Encounter Details Date Type Department Care Team (Late st Contact Info) Description 09/28/2024 Hospital Follow-up Call [facility] [address] [place] [address] Kathy Cason, RN Social History [...] materials from doctor or pharmacy Never 07/07/2024 [facility] Utilities Answer Date Recorded In the past 12 months has th e [employer], oil, or water [employer] threatened to shut off services in your [...] any time in the past 12 [facility], were you homeless or living in a correction (including now)? No 09/22/2024 Comments Unknown Sex and Gender Information Value Date Recorded Sex Assigned at Female 05/24/2024 2:24 PM RELIGIOUS HEALER Legal Sex Female 10:24 PM CDT Gender [...] Description 01/16/2025 2:00 PM CDT Office Visit [facility] [address] [place] [address] Jordi Gould PA-C [address] [place] [address] 01/16/2025 2:00 PM CDT Allied Health/Nurse Visit [facility] [address] [place] [phone] Jordi Gould PA-C [address] [place] [phone] 04/20/2025 1:30 AM RELIGIOUS HEALER Allied Health/Nurse Visit [facility] [address] [place] [phone] Kajal Javed MD [address] [phone] documented as of this encounter Visit Diagnoses Not on filedocumented in this encounter Care Teams Pulmonology Technician Relationship Specialty Start Date End Date Gigi Ornelas MD [address] [place] [address] PCP - General FAMILY PRACTICE 02/05/21 Jordi Gould PA-C [address] [place] [phone] PHYSICIAN TICKET TAKER FERRYBOAT 07/30/22 Kajal Javed MD [address] [place] [phone] Consulting Physician Electrophysiology 02/04/23 Cindy Elias ANP- [address] [place] [address] Nurse Practitioner NURSE PRACTITIONER ADULT HEALTH 08/23/23 Precious Phillips MD [address] [place] [address] Consulting Physician CARDIOVASCULAR DISEASE 09/24/24 Jean Paul Smith MD [address] [place] [address] Physician RHEUMATOLOGY 09/24/24 documented as of this encounter
--- NOTE | 2024-11-13 09:52 | PC.NURSE ---
PATIENT TAKEN TO RADIOLOGY VIA STRETCHER
--- NOTE | 2024-11-13 10:00 | PC.NURSE ---
UPDATED PATIENTS ON PLAN FOR THE DAY. HE VERBALIZED UNDERSTANDING
[2024-11-13 10:05] LABS: INR 1.2; Partial Thromboplastin Time 31.3 Sec (23.9-30.70); Prothrombin Time 12.7 Seconds (9.50-12.1)
[2024-11-13 10:07] LABS: Alanine Aminotransferase 10 U/L (6-35); Albumin Level 3.4 g/dL (3.5-5.1); Alkaline Phosphatase 87 U/L (38-126); Anion Gap 0 mmol/L (4-12); Aspartate Amino Transferase 17 U/L (14-36); Bilirubin,Total 0.5 mg/dL (0.2-1.3); Blood Urea Nitrogen 22 mg/dL (7-17); Calcium 8.3 mg/dL (8.4-10.2); Carbon Dioxide 35 mmol/L (22-30); Chloride 101 mmol/L (98-107); Estimated CRCL calculation 29 ml/min; Estimated Glomerular Filt Rate 28; Glucose 106 mg/dL (65-110); Osmolality Calculated 285 mOsm/kg (285-295); Potassium 4.5 mmol/L (3.4-5.0); Sodium 136 mmol/L (137-145); Total Protein 6.5 g/dL (6.3-8.2)
[2024-11-13 10:11] LABS: CRP 6.9 mg/dL (<1.0); Creatine Kinase < 20 U/L (30-135)
[2024-11-13 10:16] LABS: NT Pro B Type Natriuretic Pept 371 pg/mL (19.9-100)
[2024-11-13 10:19] LABS: Troponin I < 0.012 ng/mL (0.000-0.034)
[2024-11-13 10:28] LABS: Influenza A QL RT-PCR Negative (Negative); Influenza B QL RT-PCR Negative (Negative); RSV RNA, RT-PCR Negative (Negative); SARS-CoV-2 RNA PCR Negative (Negative)
[2024-11-13 10:32] LABS: Add Urine Microscopic? YES; Appearance Urine Clear (Clear); Glucose Urine UA Negative (Negative); Leukocyte Esterase Ur Trace LEU/UL (Negative); Nitrate Urine Negative (Negative); Specific Grav Ur 1.015 (1.010-1.020)
[2024-11-13] MEDS: SODIUM CHLORIDE 0.9% IV 1,000 ML 999 ML IV CONT (11:17)
--- NOTE | 2024-11-13 11:26 | PC.NURSE ---
RESTING ON STRETCHER WITH AT HER SIDE. REPOSITIONED FOR COMFORT. CALL LIGHT IN REACH
--- NOTE | 2024-11-13 11:29 | PC.NURSE ---
DR PEREZ AT THE BEDSIDE
--- NOTE | 2024-11-13 11:30 | ED_ITS ---
HPI - Weakness General Chief complaint: Weakness Stated complaint: weakness Time Seen by Provider: 11/13/24 09:25 Source: patient, family and EMS Mode of arrival: EMS Limitations: physical limitation and clinical condition History of Present Illness HPI Narrative: this is a 74-year-old female who presents from home via EMS with generalized weakness and with no chest pain no abdominal pain with no nausea vomiting no chest pain or shortness of breath. There is some dysuria, the patient was diagnosed with a urinary tract infection has been on p.o. antibiotics. The patient started having generalized weakness for the last 24hours with no hematuria no hematemesis no hematochezia. Patient has no flank pain no fever chills. Patient has known iron deficiency anemia and is in the process of receiving iron infusions via her primary care physician, does follow with operating systems programmer and recently started on medication per Rheumatology. MD Complaint: generalized weakness Onset (ago): day(s) Duration: constant Location: generalized Related Data Home Medications ?Medication ?Instructions ?Recorded ?Confirmed ?Last Taken ?Type cholecalciferol (vitamin D3) 125 5,000 unit PO DAILY 07/12/19 08/16/24 08/06/20 History mcg (5,000 unit) capsule cholestyramine-aspartame 4 gram 4 gm PO BID 07/12/19 08/16/24 08/06/20 History oral powder for susp in a packet (Prevalite) cyanocobalamin (vitamin B-12) 1,000 mcg PO DAILY 07/12/19 08/16/24 08/06/20 History 1,000 mcg capsule vit C 250 mg-vit E 90 mg-zinc 40 1 tablet PO BID 07/12/19 08/16/24 08/06/20 History mg-copper 1 uf-ftskbj-rvnrak capsule (PreserVision AREDS-2) irbesartan 300 mg tablet 300 mg PO DAILY 08/05/20 08/16/24 08/06/20 History metoprolol succinate 50 mg 50 mg PO DAILY 03/18/22 08/16/24 Unknown History tablet,extended release 24 hr torsemide 20 mg tablet 20 mg PO DAILY 03/18/22 08/16/24 Unknown History apixaban 5 mg tablet (Eliquis) 5 mg PO BID 02/18/24 08/16/24 Unknown History cholestyramine 4 gram oral powder g PO 08/09/24 08/16/24 Unknown History for suspension in a packet (Prevalite) ferrous sulfate 325 mg (65 mg mg PO 08/09/24 08/16/24 Unknown History iron) tablet rwrhdxwz-thxitffbq-lbkmnpsmb 3.5 drp otic (ear) 08/09/24 08/16/24 Unknown History mg-10,000 unit/mL-1 % ear drops,susp potassium chloride 10 mEq meq PO 08/09/24 08/16/24 Unknown History capsule,extended release leflunomide 10 mg tablet 10 mg PO BID 11/13/24 11/13/24 Unknown History Allergies Allergy/AdvReac Type Severity Reaction Status Date / Time clindamycin Allergy Unknown Hives Verified 11/13/24 09:33 latex AdvReac Unknown BLISTERS Verified 11/13/24 09:33 FROM LATEX AND LATEX TAPE Review of Systems 2 Review of Systems: All systems reviewed & are unremarkable except as noted in HPI and below PMFSH Past Medical History Medical History Cholecystectomy planned 1995 Osteoarthritis Diverticulitis CPAP (continuous positive airway pressure) dependence Sleep apnea Hypokalemia COPD (chronic obstructive pulmonary disease) CKD (chronic kidney disease) Prediabetes Hypertension Obesity Surgical History Surgical History H/O right heart catheterization 2008 H/O: hysterectomy 1989 Family History Family History Father Lung cancer Type 2 diabetes mellitus Mother Carcinoma of colon Hypertension Social History Social History Smoking packs per day: 0.75 Smoking cigarettes per day: 15.0 Years smoked: 35 Smoking pack-years: 26.25 Smoking status: Former smoker Smoking end date: 05/10/04 Alcohol intake: never Substance use type: does not use Living arrangements: with family Gender identity (if verbalized by the patient): Female Exam 2 Const: General: healthy appearing, no acute distress, alert and ill appearing Nutritional Appearance: well nourished Orientation/consciousness: patient oriented x3 Limitations: no limitations HENMT: Head: normal to inspection Eyes: Conjunctivae: conjunctivae normal Pupils: Equal, round and reactive pupils present EOM: EOMs intact bilaterally Direct Ophthalmoscopy: no photophobia Neck: Neck: normal visual inspection Chest: Chest palpation & inspection: normal inspection of the chest Resp: Effort & Inspection: normal respiratory effort Auscultation: clear to auscultation bilaterally Cardio: Rate: regular rate Rhythm: regular rhythm GI: GI Palp: Yes Soft to palpation Auscultation: normal bowel sounds : General: Yes bladder normal to palpation Urinary Catheter: Urinary Catheter: patent and draining Back/Spine/Pelvis: Back: no CVA tenderness Skin: General skin exam: normal color Rashes: no rashes Neuro: General: patient oriented x3, moves all extremities, no meningeal signs and no focal motor deficits Extrem: General: normal to inspection Other: Chronic venous stasis Course Course Emergency Course: patient here for weakness has chest x-ray that shows some atelectasis, with no infiltrate, CT scan of the brain with no acute abnormalities. EKG shows atrial paced rhythm. The patient has a history of AFib currently her pacer is pacing in atrial rhythm. Patient is on Eliquis and has a history of iron deficiency anemia and her primary/operating systems programmer trying to set up outpatient iron infusions. Patient recently diagnosed with urinary tract infection and started on p.o. antibiotics. Patient started on IV fluids and started on IV Levaquin for urinary tract infection. Patient had a stool guaiac which was negative for occult blood. Vital Signs Vital signs: Vital Signs Temperature 37.1 C 11/13/24 09:15 Pulse Rate 89 11/13/24 09:15 Respiratory Rate 19 11/13/24 09:15 Blood Pressure 123/81 11/13/24 09:15 Pulse Oximetry 97 11/13/24 09:15 Oxygen Delivery Nasal Cannula 11/13/24 09:15 Oxygen Flow Rate 4 11/13/24 09:15 Temperature 37.1 C 11/13/24 09:15 Pulse Rate 84 11/13/24 11:16 Respiratory Rate 19 11/13/24 11:16 Blood Pressure 128/51 L 11/13/24 11:16 Pulse Oximetry 95 11/13/24 11:16 Oxygen Delivery Nasal Cannula 11/13/24 11:16 Oxygen Flow Rate 4 11/13/24 11:16 MDM - Weakness Lab Data 11/13/24 09:44 11/13/24 09:44 Labs: Lab Results 0711/13/24 11/13/24 Range/Units 09:44 10:24 11:10 WBC 7.7 (4.8-10.8) K/mm3 RBC 3.01 L (4.20-5.40) M/mm3 Hgb 7.7 L (11.7-13.8) g/dL Hct 27.9 L (35.0-42.0) % MCV 92.7 (78.0-102.0) fL MCH 25.6 L (27.0-31.0) pg MCHC 27.6 L (32-36) g/dL RDW 16.4 H (11.6-14.4) % Plt Count 176 (150-420) K/mm3 MPV 8.5 L (9.2-11.8) fl Immature Gran % (Auto) 1.4 H (0.0-0.0) % Neut % (Auto) 85.9 H (50.0-70.0) % Lymph % (Auto) 4.3 L (18.0-42.0) % [place] % (Auto) 6.1 (2.0-11.0) % Eos % (Auto) 2.0 (1.0-6.0) % Baso % (Auto) 0.3 (0.0-1.0) % Lymph # (Auto) 0.33 L (1.10-4.50) K/mm3 [place] # (Auto) 0.47 (0.10-0.90) K/mm3 Eos # (Auto) 0.15 (0.02-0.50) K/mm3 Baso # (Auto) 0.02 (0.00-0.10) K/mm3 Abs Immat Gran (auto) 0.11 H (0.00-0.00) K/mm3 Absolute Neuts (auto) 6.61 (1.70-7.20) K/mm3 Absolute Nucleated RBC 0.00 (0.00-0.00) K/mm3 Nucleated RBC % 0.0 (0-0.0) % PT 12.7 H (9.50-12.1) Seconds INR 1.2 APTT 31.3 H (23.9-30.70) Sec Sodium 136 L (137-145) mmol/L Potassium 4.5 (3.4-5.0) mmol/L Chloride 101 (98-107) mmol/L Carbon Dioxide 35 H (22-30) mmol/L Anion Gap 0 L (4-12) mmol/L BUN 22 H (7-17) mg/dL Creatinine 1.78 H (0.7-1.0) mg/dL Estim Creat Clear Calc 29 ml/min Estimated GFR 28 L (59 - ) Glucose 106 (65-110) mg/dL Calculated Osmolality 285 (285-295) mOsm/kg Lactic Acid 1.7 (0.4-2.0) mmol/L Calcium 8.3 L (8.4-10.2) mg/dL Total Bilirubin 0.5 (0.2-1.3) mg/dL AST 17 (14-36) U/L ALT 10 (6-35) U/L Alkaline Phosphatase 87 (38-126) U/L Total Creatine Kinase < 20 L (30-135) U/L Troponin I < 0.012 (0.000-0.034) ng/mL C-Reactive Protein 6.9 H (<1.0) mg/dL NT-Pro-B Natriuret Pep 371 H (19.9-100) pg/mL Total Protein 6.5 (6.3-8.2) g/dL Albumin 3.4 L (3.5-5.1) g/dL Urine Color Yellow (Yellow) Urine Appearance Clear (Clear) Urine pH 6.0 (5.0-8.0) Ur Specific [place] 1.015 (1.010-1.020) Urine Protein Negative (Negative) Urine Glucose (UA) Negative (Negative) Urine Ketones Trace H (Negative) Ur Blood (Man) Negative (Negative) Urine Nitrate Negative (Negative) Urine Bilirubin Negative (Negative) Urine Urobilinogen 0.2 (0.2-1.0) mg/dL Leukocyte Esterase Rfl Trace H (Negative) DO/UL Urine RBC None seen (0-2) /hpf Urine WBC 0-5 (0-3) /hpf Ur Squamous Epith Cells Moderate H (Few) /hpf Urine Bacteria 1+ H (None) /hpf Hyaline Casts Present (None) /lpf Stool Occult Blood Negative (Negative) Influenza A (RT-PCR) Negative (Negative) Influenza B (RT-PCR) Negative (Negative) RSV (RT-PCR) Negative (Negative) SARS-CoV-2 RNA (RT-PCR) Negative (Negative) Critical Care Time Critical Care Time Critical Care Time: No Discharge Plan Discharge Clinical Impression: Weakness, Acute UTI Anemia Qualifiers: Anemia type: iron deficiency Iron deficiency anemia type: unspecified iron deficiency Qualified Code(s): D50.9 - Iron deficiency anemia, unspecified Patient Disposition: Acute Care Hospital Condition: Guarded Prognosis Patient Language: Martiniquais Prescriptions: No Action irbesartan 300 mg tablet 300 mg PO DAILY fluticasone propionate [Flonase Allergy Relief] 50 mcg/actuation spray,suspension 2 spray intranasal DAILY Qty: 16 0RF Rx Instructions: administer into each nostril metoprolol succinate 50 mg tablet extended release 24 hr 50 mg PO DAILY torsemide 20 mg tablet 20 mg PO DAILY leflunomide 10 mg tablet 10 mg PO BID grnkkbcl-ushtwgrom-GV 3.5-10,000-1 mg/mL-unit/mL-% drops,suspension otic (ear) Prevalite 4 gram powder in packet PO potassium chloride 10 mEq capsule, extended release PO ferrous sulfate 325 mg (65 mg iron) tablet PO PreserVision AREDS-2 768-933-57-1 vo-slxi-vr-mg capsule 1 tablet PO BID Rx Instructions: administer with meals Prevalite 4 gram powder in packet 4 gm PO BID Rx Instructions: administer w/meal; avoid other meds within 1hr before or 4-6hr after dose cyanocobalamin (vitamin B-12) 1,000 mcg capsule 1,000 mcg PO DAILY cholecalciferol (vitamin D3) 125 mcg (5,000 unit) capsule 5,000 unit PO DAILY Eliquis 5 mg tablet 5 mg PO BID gabapentin 300 mg capsule 300 mg PO BID Qty: 90 1RF potassium chloride [Klor-Con 10] 10 mEq tablet extended release 10 meq PO DAILY Qty: 90 1RF triamcinolone acetonide 0.1 % cream 1 applic TOPICAL BID Qty: 30 1RF budesonide-formoterol [Symbicort] 80-4.5 mcg/actuation HFA aerosol inhaler 2 puff inhalation Q12H Qty: 30.6 1RF Rx Instructions: rinse and spit Follow-up/Referrals: Gigi Ornelas MD [Primary Care Provider] -
[2024-11-13] MEDS: levoFLOXacin 500 MG/D5W 100 ML 500 MG/100 ML BAG 100 MG IVPB (11:34)
--- NOTE | 2024-11-13 11:38 | PC.NURSE ---
PLAN FOR ADMISSION
--- NOTE | 2024-11-13 11:43 | PC.NURSE ---
LEVAQUIN STOPPED PER DR PEREZ REQUEST. DONE
--- NOTE | 2024-11-13 11:45 | PC.NURSE ---
SPOKE WITH DAVID ROWAN ON MED SURG, ROOM ASSIGNMENT IS ROOM 5
[2024-11-13] MEDS: cefTRIAXone 1 GM in SODIUM CHLORIDE 0.9% IV 50 ML 100 ML IVPB (11:50)
--- NOTE | 2024-11-13 12:32 | ADMGEN ---
This patient, Cata Aj, was admitted to 2nd Floor Room 205-1. Patient/family oriented to hospital policies and general routines including ID bracelet, bed and alarms, visiting hours, pain management, procedures, bathroom and other care routines, personal items, smoking policy, room service/diet, and visiting hours. Information on how to activate the Rapid Response Team has been discussed. Patient/Family are encouraged to report perceived risks to care and to ask questions if they do not understand what they are told or what they should do.
[2024-11-13] MEDS: SPIRONOLACTONE 25 MG TABLET 50 MG PO (14:39)
[2024-11-13] MEDS: IRON SUCROSE COMPLEX 200 MG in SODIUM CHLORIDE 0.9% IV 100 ML 220 MG IVPB (14:39)
[2024-11-13] MEDS: GABAPENTIN 300 MG CAPSULE PO (18:04)
[2024-11-13] MEDS: FERROUS SULFATE 325 MG TABLET DR BY MOUTH (18:04)
[2024-11-13] MEDS: BUDESONIDE/FORMOTEROL 80/4.5 MCG 6.9 GM INHALER (*SP) 2 PUFF INHALATION (22:01)
[2024-11-13] MEDS: APIXABAN 2.5 MG TABLET 5 MG BY MOUTH (22:01)
[2024-11-13] MEDS: TOLNAFTATE 1% POWDER 45 GM BTL 1 APPLIC TOPICAL (22:02)
[2024-11-13] MEDS: ACETAMINOPHEN 325 MG TABLET 650 MG PO (22:16)
[2024-11-14] VITALS (10 sets, daily range): BP systolic 119–150; BP diastolic 34–81; PULSE 69–89; RESP 18–20; TEMP 36.3–38.4; O2SAT 88–100
[2024-11-14 05:18] LABS: Hematocrit 26.0 % (35.0-42.0); Hemoglobin 7.0 g/dL (11.7-13.8); Immature Granulocyte Percent A 1.9 % (0.0-0.0); Lymphocytes Absolute Auto 0.46 K/mm3 (1.10-4.50); Mean Corpuscular HGB Conc 26.9 g/dL (32-36); Mean Corpuscular Hemoglobin 25.4 pg (27.0-31.0); Mean Corpuscular Volume 94.2 fL (78.0-102.0); Nucleated Red Blood Cells Absolute Auto 0.00 K/mm3 (0.00-0.00); Nucleated Red Blood Cells Perc 0.0 % (0-0.0); Platelet Count Result 151 K/mm3 (150-420); Red Blood Count 2.76 M/mm3 (4.20-5.40); White Blood Count 5.9 K/mm3 (4.8-10.8)
[2024-11-14 05:30] LABS: Alanine Aminotransferase 9 U/L (6-35); Albumin Level 3.1 g/dL (3.5-5.1); Alkaline Phosphatase 92 U/L (38-126); Anion Gap 0 mmol/L (4-12); Aspartate Amino Transferase 20 U/L (14-36); Bilirubin,Total 0.4 mg/dL (0.2-1.3); Blood Urea Nitrogen 27 mg/dL (7-17); Calcium 8.2 mg/dL (8.4-10.2); Carbon Dioxide 36 mmol/L (22-30); Chloride 103 mmol/L (98-107); Estimated CRCL calculation 25 ml/min; Estimated Glomerular Filt Rate 23; Glucose 98 mg/dL (65-110); Magnesium 2.0 mg/dL (1.6-2.3); Osmolality Calculated 293 mOsm/kg (285-295); Potassium 4.5 mmol/L (3.4-5.0); Sodium 139 mmol/L (137-145); Total Protein 6.2 g/dL (6.3-8.2)
[2024-11-14] MEDS: ACETAMINOPHEN 325 MG TABLET 650 MG PO ×2 (09:08→20:12)
[2024-11-14] MEDS: BUDESONIDE/FORMOTEROL 80/4.5 MCG 6.9 GM INHALER (*SP) 2 PUFF INHALATION ×2 (09:10→21:52)
[2024-11-14] MEDS: GABAPENTIN 300 MG CAPSULE PO ×2 (09:11→17:53)
[2024-11-14] MEDS: SPIRONOLACTONE 25 MG TABLET 50 MG PO (09:11)
[2024-11-14] MEDS: APIXABAN 2.5 MG TABLET 5 MG BY MOUTH (09:11)
[2024-11-14] MEDS: IRBESARTAN 150 MG TABLET 300 MG PO (09:12)
[2024-11-14] MEDS: METOPROLOL SUCCINATE EXT REL 50 MG TABCR PO (09:12)
[2024-11-14] MEDS: CYANOCOBALAMIN 1,000 MCG TABLET 1000 MCG PO (09:12)
[2024-11-14] MEDS: FERROUS SULFATE 325 MG TABLET DR BY MOUTH ×2 (09:12→17:53)
[2024-11-14] MEDS: TORSEMIDE 20 MG TABLET PO (09:13)
[2024-11-14] MEDS: FLUTICASONE PROPIONATE 0.05% NA SPR 16 GM BTL (*BKC) 2 SPRAY NASAL (09:13)
[2024-11-14] MEDS: TOLNAFTATE 1% POWDER 45 GM BTL 1 APPLIC TOPICAL ×2 (09:13→21:52)
[2024-11-14] MEDS: CHOLECALCIFEROL (VITAMIN D3) 125 MCG (5,000 UNITS) TABLET 5000 MCG PO (09:25)
[2024-11-14] MEDS: CHOLECALCIFEROL (VITAMIN D3) 125 MCG (5,000 UNITS) TABLET PO (09:26)
--- NOTE | 2024-11-14 10:05 | P.HP_ITS ---
H&P: HPI History of Present Illness Date/Time: 11/14/24 10:05 Chief Complaint: SOB/Weakness Narrative: Patient is a 74-year-old female who presented to the emergency department with complaints of generalized weakness and worsening dyspnea with ambulation for the last 2 days. patient reports she was previously seen at her primary care physician's office and was diagnosed with a urinary tract infection and was started on oral Bactrim for since her generalized weakness continued to worsen with increased shortness a breath she came to the emergency department for evaluation. Patient has history of chronic respiratory failure on 4 L supplemental oxygen at home. patient also reported past medical history of chronic large pericardial effusion, atrial and ventricle pacemaker placed 2021, sleep apnea, new anemia, new diagnosis of RA and seen a order builder, CKD, and hypertension. In the ED: patient with no leukocytosis hemoglobin of 7.7, with acute on chronic kidney injury creatinine 1.78 BUN 22, mildly elevated BNP, and UA suspicious for urinary tract infection. CXR showing left pleural effusion with adjacent comprehensive atelectasis, EKG showing a rate of 83 with electronic atrial pacemaker electronic ventricle pacemaker. Patient was then admitted to the medical unit for further evaluation and treatment of generalized weakness, acute kidney injury, and urinary tract infec tion. patient was seen following day did note she was febrile overnight with a peak temp of 101.2? Review of Systems Review of Systems: All systems reviewed & are unremarkable except as noted in HPI and below PMFSH Past Medical History Medical History Cholecystectomy planned 1995 Osteoarthritis Diverticulitis CPAP (continuous positive airway pressure) dependence Sleep apnea Hypokalemia COPD (chronic obstructive pulmonary disease) CKD (chronic kidney disease) Prediabetes Hypertension Obesity Surgical History Surgical History H/O right heart catheterization 2008 H/O: hysterectomy 1989 Family History Family History Father Lung cancer Type 2 diabetes mellitus Mother Carcinoma of colon Hypertension Social History Social History Smoking packs per day: 0.75 Smoking cigarettes per day: 15.0 Years smoked: 35 Smoking pack-years: 26.25 Smoking status: Never smoker Second hand tobacco smoke exposure: No Smoking end date: 05/10/04 Alcohol intake: never Substance use: never Substance use type: does not use Do You Feel Safe in your Home?: Yes Lack of Transportation: No Lack of Food: Never True Current Housing: I Have Housing Concerned About Future Housing: No Difficulty Paying Gas/Electric Bills: No Difficulty Paying for Meds: No Currently Unemployed: No Education: High School Diploma/GED Difficulty w/ Childcare or Family Care: No Living arrangements: with family Gender identity (if verbalized by the patient): Female Spiritual care concerns: No Meds Home Medications and Allergies Home Medications ?Medication ?Instructions ?Recorded ?Confirmed ?Type cholecalciferol (vitamin D3) 125 5,000 unit PO DAILY 07/12/19 11/13/24 History mcg (5,000 unit) capsule cholestyramine-aspartame 4 gram 4 gm PO BID 07/12/19 11/13/24 History oral powder for susp in a packet (Prevalite) cyanocobalamin (vitamin B-12) 1,000 mcg PO DAILY 07/12/19 11/13/24 History 1,000 mcg capsule vit C 250 mg-vit E 90 mg-zinc 40 1 tablet PO BID 07/12/19 11/13/24 History mg-copper 1 [id number] capsule (PreserVision AREDS-2) gabapentin 300 mg capsule 300 mg PO BID #90 caps 02/17/20 11/13/24 Rx potassium chloride 10 mEq 10 meq PO DAILY #90 tabs 02/17/20 11/13/24 Rx tablet,extended release (Klor-Con) triamcinolone acetonide 0.1 % 1 applic topical BID #30 grams 07/17/20 11/13/24 Rx topical cream irbesartan 300 mg tablet 300 mg PO DAILY 08/05/20 11/13/24 History fluticasone propionate 50 2 spray intranasal DAILY #16 grams 06/21/21 11/13/24 Rx mcg/actuation nasal spray,suspension (Flonase Allergy Relief) metoprolol succinate 50 mg 50 mg PO DAILY 03/18/22 11/13/24 History tablet,extended release 24 hr torsemide 20 mg tablet 20 mg PO DAILY 03/18/22 11/13/24 History Symbicort 80 mcg-4.5 mcg/actuation 2 puff inhalation Q12H #30.6 grams 02/15/24 11/13/24 Rx HFA aerosol inhaler (budesonide-formoterol) apixaban 5 mg tablet (Eliquis) 5 mg PO BID 02/18/24 11/13/24 History cholestyramine 4 gram oral powder 4 g PO BID 08/09/24 11/13/24 History for suspension in a packet (Prevalite) ferrous sulfate 325 mg (65 mg 325 mg PO DAILY 08/09/24 11/13/24 History iron) tablet potassium chloride 10 mEq 10 meq PO DAILY 08/09/24 11/13/24 History capsule,extended release hydrocodone 5 mg-acetaminophen 325 1 tablet PO Q6H PRN pain (scale 11/13/24 11/13/24 History mg tablet score 4-6) leflunomide 10 mg tablet 10 mg PO BID 11/13/24 11/13/24 History Allergies Allergy/AdvReac Type Severity Reaction Status Date / Time clindamycin Allergy Unknown Hives Verified 11/13/24 09:33 latex AdvReac Unknown BLISTERS Verified 11/13/24 09:33 FROM LATEX AND LATEX TAPE Vital Signs Vital Signs - 24 hr 11/13/24 10:14 11/13/24 10:16 11/13/24 10:31 Temperature Pulse Rate 87 90 82 Respiratory Rate 16 18 18 Blood Pressure 144/41 H 143/91 H 146/55 H Pulse Oximetry 97 94 94 Oxygen Delivery Nasal Cannula Nasal Cannula Nasal Cannula Oxygen Flow Rate 4 4 4 11/13/24 10:46 11/13/24 11:01 11/13/24 11:16 Temperature Pulse Rate 80 82 84 Respiratory Rate 18 20 19 Blood Pressure 147/51 H 147/57 H 128/51 L Pulse Oximetry 93 99 95 Oxygen Delivery Nasal Cannula Nasal Cannula Nasal Cannula Oxygen Flow Rate 4 4 4 11/13/24 11:31 11/13/24 12:15 11/13/24 13:00 Temperature 97.8 F Pulse Rate 78 84 Respiratory Rate 23 H 20 Blood Pressure 150/56 H 144/41 H Pulse Oximetry 95 95 95 Oxygen Delivery Nasal Cannula Nasal Cannula Oxygen Flow Rate 4 4 4 11/13/24 13:12 11/13/24 16:35 11/13/24 20:00 Temperature 97.9 F Pulse Rate 84 85 88 Respiratory Rate 20 18 18 Blood Pressure 142/51 H Pulse Oximetry 95 94 90 Oxygen Delivery Nasal Cannula Nasal Cannula Nasal Cannula Oxygen Flow Rate 4 4 4 11/13/24 22:16 11/13/24 23:15 11/14/24 00:00 Temperature 101.2 F H 100.8 F H 101.2 F H Pulse Rate 89 Respiratory Rate 20 Blood Pressure 119/34 L Pulse Oximetry 88 L Oxygen Delivery Nasal Cannula Oxygen Flow Rate 6 11/14/24 00:00 11/14/24 04:00 11/14/24 06:00 Temperature 99.1 F Pulse Rate 87 73 84 Respiratory Rate 18 Blood Pressure Pulse Oximetry 95 Oxygen Delivery Nasal Cannula Oxygen Flow Rate 4 11/14/24 08:00 11/14/24 08:00 11/14/24 09:12 Temperature 99.2 F Pulse Rate 80 80 80 Respiratory Rate 20 Blood Pressure 132/47 L Pulse Oximetry 95 Oxygen Delivery Nasal Cannula Oxygen Flow Rate 4 Exam Const: General: comfortable and no acute distress Other: Chronically Ill female, obese on 4L oxygen HENMT: Ears: TM's normal bilaterally Face/Nose/Sinus: Normal nares present Mouth: Yes moist mucous membranes Eyes: General: appearance normal, both eyes and all related structures Sclera: sclerae normal Pupils: Equal, round and reactive pupils present Neck: Neck: supple and no JVD Resp: Effort & Inspection: normal respiratory effort Auscultation: diminished lung sounds on the left Other: 4L NC supplemental oxygen chronic Cardio: Rate: regular rate Other: Atrial/ventricle pacemaker GI: GI Palp: Yes Soft to palpation Auscultation: normal bowel sounds Other: Obese Skin: General skin exam: normal color and no rashes or lesions noted Wounds: no wounds Neuro: Speech: normal speech Sensory Exam: normal sensation Other: Strength equal bilateral Extrem: General: edema bilateral (LE ) Psych: Mental Status: mental status grossly normal Affect: normal affect H&P: Results Labs Labs: Short CBC 11/14/24 Range/Units 05:13 WBC 5.9 (4.8-10.8) K/mm3 Hgb 7.0 L (11.7-13.8) g/dL Hct 26.0 L (35.0-42.0) % Plt Count 151 (150-420) K/mm3 [facility] 11/13/24 11/14/24 09:44 05:13 Sodium 136 L 139 Potassium 4.5 4.5 Chloride 101 103 Carbon Dioxide 35 H 36 H BUN 22 H 27 H Creatinine 1.78 H 2.12 H Glucose 106 98 Calcium 8.3 L 8.2 L Cardiac Enzymes 11/13/24 Range/Units 09:44 Total Creatine Kinase < 20 L (30-135) U/L Troponin I < 0.012 (0.000-0.034) ng/mL Liver Function 11/13/24 11/14/24 Range/Units 09:44 05:13 Total Bilirubin 0.5 0.4 (0.2-1.3) mg/dL AST 17 20 (14-36) U/L ALT 10 9 (6-35) U/L Alkaline Phosphatase 87 92 (38-126) U/L Albumin 3.4 L 3.1 L (3.5-5.1) g/dL Urine 11/13/24 Range/Units 10:24 Urine Color Yellow (Yellow) Urine Appearance Clear (Clear) Urine pH 6.0 (5.0-8.0) Ur Specific [place] 1.015 (1.010-1.020) Urine Protein Negative (Negative) Urine Glucose (UA) Negative (Negative) Assessment and Plan Assessment and plan (1) Acute UTI: Code(s): N39.0 - Urinary tract infection, site not specified Status: Acute Assessment and Plan: patient initially treated on oral Bactrim outpatient from her primary care physician presented with worsening weakness * patient started on IV Rocephin pending cultures and sensitivities (2) Chronic respiratory failure with hypoxia: Code(s): J96.11 - Chronic respiratory failure with hypoxia Status: Acute Assessment and Plan: patient has chronic respiratory failure with hypoxia on 4 L supplemental oxygen home follows with pulmonology outpatient * supplemental oxygen at 4 L * follow-up with her translation director outpatient (3) Chronic pericardial effusion: Code(s): I31.39 - Other pericardial effusion (noninflammatory) Status: Acute Assessment and Plan: patient with history chronic large pericardial effusion follows with cardiology outpatient. last echocardiogram 01/12/2024 showed normal ventricular systolic function with an LVEF of 50-55%. this is likely related to patient's new diagnosis of RA * continued patient's oral Lasix * added spironolactone * on continuous cardiac monitoring * recommend outpatient diagnostic tap or potential window * Needs follow-up Echo (4) Morbid obesity: Code(s): E66.01 - Morbid (severe) obesity due to excess calories Status: Acute Assessment and Plan: * he would benefit from consult to dietitian * recommend heart healthy diet * encourage activity and weight loss (5) Fever: Code(s): R50.9 - Fever, unspecified Status: Acute Assessment and Plan: Patient was afebrile overnight peak temp of 101.2. Could be secondary to patient's UTI blood cultures are pending however there is still some concern for hardware infection with her pacemaker * blood cultures pending * Echo pending * antipyretics * currently on IV Rocephin (6) Pacemaker: Code(s): Z95.0 - Presence of cardiac pacemaker Status: Acute Assessment and Plan: Of Note (7) Weakness: Code(s): R53.1 - Weakness Status: Acute Assessment and Plan: could be multifocal due to chronic comorbidities as well as current UTI infection * PT/OT for evaluation (8) Anemia: Qualifiers: Anemia type: iron deficiency Iron deficiency anemia type: unspecified iron deficiency Qualified Code(s): D50.9 - Iron deficiency anemia, unspecified Code(s): D64.9 - Anemia, unspecified Status: Acute Assessment and Plan: patient with chronic microcytic anemia reports her PCP was planning to switch her to iron infusions outpatient, HGB 7.8 POA likely secondary to patient's rheumatoid arthritis no evidence of active bleed, occult stool was negative * Hgb 7.0 today * gave iron infusion * resumed oral iron supplements * Transfuse PRBC if Hgb <7.0 (9) Sleep apnea: Qualifiers: Sleep apnea type: unspecified type Qualified Code(s): G47.30 - Sleep apnea, unspecified Code(s): G47.30 - Sleep apnea, unspecified Status: Acute Assessment and Plan: patient is supposed to wear CPAP at home however reports she does not wear currently due to her mass in a fitting correctly * will need follow-up with her translation director outpatient (10) Rheumatoid arthritis: Code(s): M06.9 - Rheumatoid arthritis, unspecified Status: Acute Assessment and Plan: * Continued patient Leflunomide (11) Acute kidney injury superimposed on CKD: Code(s): N17.9 - Acute kidney failure, unspecified; N18.9 - Chronic kidney disease, unspecified Status: Acute Assessment and Plan: patient with acute on chronic kidney injury creatinine 1.78 on admission, Baseline 1.4 CKD stage 3 * bumped today to 2.12 * Gentle IV hydration in ED discontinued * Avoid nephrotoxic drugs. * Monitor antihypertensive drug therapy. * Avoid NSAIDs. * Routine CMP monitoring GFR. * Monitor electrolytes especially potassium. Plan Code status: Full code per patient DVT prophylaxis: Eliquis Stress ulcer prophylaxis: Protonix 40 daily PT/OT notes: PT/OT evaluation Disposition: Quality VTE Prophylaxis VTE prophylaxis: pharmacologic ordered -Patient's previous records reviewed on admission -ER notes reviewed in detail on admission -discussed all findings and current treatment plan with patient/Family/POA -Consultations reviewed for recommendations -Patient's disposition for safe discharge discussed with correctional casework specialist Dictation performed by [employer] direct speech recognition software, therefore parts manager variants and typographical errors may occur. Hospitalist MIPS Advance Care Plan I have confirmed that the patient's Advanced Care Plan is present, code status is documented, or surrogate decision maker is listed in patient medical record.: Yes Medication Reconciliation I have utilized all available resources to obtain, update and review the patients current medications (includes all prescriptions, OTC, herbals, cannabis, and nutritional supplements).: Yes The patient is not eligible for med reconciliation; the patient is in a emergent medical situation where delaying treatment would jeopardize the patients health.: No
--- NOTE | 2024-11-14 10:25 | PC.NURSE ---
To imaging via wheelchair and oxygen on at 4 L NC
--- NOTE | 2024-11-14 10:41 | PC.NURSE ---
Returned from imaging, back to chair, legs down per request, oxygen on at 4 L NC
[2024-11-14] MEDS: cefTRIAXone 1 GM in SODIUM CHLORIDE 0.9% IV 50 ML 100 ML IVPB (11:19)
--- NOTE | 2024-11-14 14:30 | ECHO_ITS ---
Patient Info Name: Cata Aj Age: 74 years : 1950 Gender: Female Ht: 60 in Wt: 260 lbs BSA: 2.31 m2 HR: 76 bpm BP: 147 / 59 mmHg Technical Quality: Good Exam Date: 11/15/2024 3:25 PM Patient Status: I Admit Date: 11/13/2024 Exam Type: CA echo dop color flow w con Complete two-dimensional, color flow and Doppler transthoracic echocardiogram is performed with contrast to opacify the left ventricle and to improve the deliniation of the left ventricle endocardial borders. Staff Referring Physician: Allie Pardo It Professional: Marguerite Chandler Attending Provider: Luis Marrero Contrast/Agitated Saline Contrast/Ag. Saline: Definity Amount: 2.00 ml Administered By: Marguerite Chandler Existing IV Access: Yes IV Access Condition: patent with no signs of infiltration Summary 1. Definity contrast administered improved wall motion interpretation. 2. Left ventricular chamber dimension is normal. 3. Left ventricular systolic function is normal, estimated at 55-60. 4. The left ventricular diastolic function is grade I diastolic dysfunction. 5. Linear artifact in right ventricle suggestive of catheter(s), pacemaker lead(s), or ICD lead(s). 6. Left atrial chamber dimension is mildly enlarged. 7. Linear artifact in the right atrium suggestive of catheter(s), pacemaker lead(s), or ICD lead(s). 8. There is trace mitral valve regurgitation. 9. There is trace tricuspid valve regurgitation. 10. No pulmonary hypertension, estimated pulmonary arterial systolic pressure is 39 mmHg. 11. There is moderate pericardial effusion located posteriorly and small circumferential pericardial effusion. Left Ventricle Definity contrast administered improved wall motion interpretation. Left ventricular chamber dimension is normal. Left ventricular systolic function is normal, estimated at 55-60. The left ventricular diastolic function is grade I diastolic dysfunction. Right Ventricle Right ventricular chamber dimension is normal. Right ventricular systolic function is normal and with normal TAPSE 2.4 cm. Linear artifact in right ventricle suggestive of catheter(s), pacemaker lead(s), or ICD lead(s). Left Atria Left atrial chamber dimension is mildly enlarged. Right Atria Right atrial chamber dimension is normal. Linear artifact in the right atrium suggestive of catheter(s), pacemaker lead(s), or ICD lead(s). Aortic Valve The aortic valve is probable trileaflet. There is no aortic valve stenosis. There is no aortic valve regurgitation. Pulmonic Valve There is no pulmonic regurgitation. Mitral Valve There is no mitral valve stenosis. There is trace mitral valve regurgitation. Tricuspid Valve There is trace tricuspid valve regurgitation. No pulmonary hypertension, estimated pulmonary arterial systolic pressure is 39 mmHg. Pericardium/Pleural There is moderate pericardial effusion located posteriorly and small circumferential pericardial effusion. No cardiac tamponade. Inferior Vena Cava Normal inferior vena cava with >50% collapse upon inspiration consistent with normal right atrial pressure, 5 mmHg. Aorta The aortic root size at the sinus of Valsalva is normal. Left Ventricular Outflow Tract Name Value Normal LVOT 2D LVOT Diameter 1.9 cm LVOT Doppler LVOT Peak Velocity 102 cm/s LVOT Peak Gradient 4 mmHg LVOT Mean Gradient 2 mmHg LVOT VTI 21 cm LVOT VTI/AV VTI Ratio 0.7 LVOT Stroke Volume 57 ml LVOT CO 4.0 l/min LVOT CI 1.9 l/min/m2 Pulmonic Valve Name Value Normal PV Doppler PV Peak Velocity 116 cm/s PV Peak Gradient 5 mmHg Mitral Valve Name Value Normal MV Doppler MV Peak Gradient 6 mmHg MV Mean Gradient 2 mmHg MV Area (Cont Eq VTI) 1.8 cm2 MV Regurgitation Doppler MR Peak Gradient 60 mmHg MV Diastolic Function MV E Peak Velocity 7 cm/s MV A Peak Velocity 121 cm/s MV E/A 0.8 MV Decel Time (PW) 224 ms MV Annular TDI MV E/e' (Lateral) 11.5 Tricuspid Valve Name Value Normal TV Regurgitation Doppler TR Peak Velocity 290 cm/s TR Peak Gradient 34 mmHg Estimated PAP/RSVP RA Pressure 5 mmHg <=5 PA Systolic Pressure 39 mmHg <36 RV Systolic Pressure 39 mmHg <36 TV Annular TDI TV Lateral Meche s' Velocity 10.2 cm/s >=9.5 Aortic Valve Name Value Normal AV Doppler AV Peak Velocity 129 cm/s AV Peak Gradient 7 mmHg AV Mean Gradient 3 mmHg AV VTI 30 cm AV Area (Cont Eq VTI) 1.9 cm2 >=3.0 AV Area (Cont Eq Mike) 2.2 cm2 AV DI (Mike) 0.79 AV Regurgitation 2D LVOT Area 2.8 cm2 Ventricles Name Value Normal LV Dimensions 2D/MM IVS Diastolic Thickness (2D) 1.0 cm 0.6-1.0 LVID Diastole (2D) 4.9 cm 3.8-5.2 LVIW Diastolic Thickness (2D) 1.1 cm 0.6-0.9 LVID Systole (2D) 3.4 cm 2.2-3.5 LVOT Diameter 1.9 cm LV Mass (2D Cubed) 185.98 g 67.00-162.00 LV Mass Index (2D Cubed) 80 g/m2 43-95 Relative Wall Thickness (2D) 0.45 <=0.42 LV Fractional Shortening/Ejection Fraction 2D/MM LV Fractional Shortening (2D) 30 % 27-45 LV EF (2D Teichholz) 57 % LV Diastolic Volume (4C MOD) 149 ml LV EF (4C MOD) 65 % LV Diastolic Length (4C) 8.7 cm LV Systolic Length (4C) 5.8 cm LV Stroke Volume (4C MOD) 97 ml Atria Name Value Normal LA Dimensions LA Volume (4C A-L) 43 ml Report Signatures
[2024-11-15] VITALS (8 sets, daily range): BP systolic 105–147; BP diastolic 38–59; PULSE 69–83; RESP 16–21; TEMP 36.6–37.7; O2SAT 90–97
--- NOTE | 2024-11-15 05:27 | P.PNIM_ITS ---
Progress Note: A&P Assessment and Plan (1) Acute UTI: Code(s): N39.0 - Urinary tract infection, site not specified Status: Acute Assessment and Plan: patient initially treated on oral Bactrim outpatient from her primary care physician presented with worsening weakness * patient started on IV Rocephin got Original cultures and sensitivities from outpatient PCP office in her enterobacter clocace per sensitivities will transition patient to PO Levofloxacin (2) Chronic respiratory failure with hypoxia: Code(s): J96.11 - Chronic respiratory failure with hypoxia Status: Acute Assessment and Plan: patient has chronic respiratory failure with hypoxia on 4 L supplemental oxygen home follows with pulmonology outpatient * supplemental oxygen at 4 L * follow-up with her glass blower helper outpatient (3) Chronic pericardial effusion: Code(s): I31.39 - Other pericardial effusion (noninflammatory) Status: Acute Assessment and Plan: patient with history chronic large pericardial effusion follows with cardiology outpatient. last echocardiogram 01/12/2024 showed normal ventricular systolic function with an LVEF of 50-55%. this is likely related to patient's new diagnosis of RA * continued patient's oral Lasix * added spironolactone * on continuous cardiac monitoring * recommend outpatient diagnostic tap or potential window * Needs follow-up Echo plan to be performed today need to also r/o pericarditis (Fever, elevated CRP, and ESR) (4) Morbid obesity: Code(s): E66.01 - Morbid (severe) obesity due to excess calories Status: Acute Assessment and Plan: * he would benefit from consult to dietitian * recommend heart healthy diet * encourage activity and weight loss (5) Fever: Code(s): R50.9 - Fever, unspecified Status: Acute Assessment and Plan: Patient was afebrile overnight peak temp of 101.2. Could be secondary to patient's UTI blood cultures are pending however there is still some concern for hardware infection with her pacemaker * blood cultures pending * Needs follow-up Echo plan to be performed today need to also r/o pericarditis (Fever, elevated CRP, and ESR) * antipyretics * currently on IV Rocephin (6) Pacemaker: Code(s): Z95.0 - Presence of cardiac pacemaker Status: Acute Assessment and Plan: Of Note (7) Weakness: Code(s): R53.1 - Weakness Status: Acute Assessment and Plan: could be multifocal due to chronic comorbidities as well as current UTI infection vs Leflunomide had just started taking this for 1 day could be contributing to her symptom vs RA flare * PT/OT for evaluation (8) Anemia: Qualifiers: Anemia type: iron deficiency Iron deficiency anemia type: unspecified iron deficiency Qualified Code(s): D50.9 - Iron deficiency anemia, unspecified Code(s): D64.9 - Anemia, unspecified Status: Acute Assessment and Plan: patient with chronic microcytic anemia reports her PCP was planning to switch her to iron infusions outpatient, HGB 7.8 POA likely secondary to patient's rheumatoid arthritis no evidence of active bleed, occult stool was negative * Hgb 7.0 today * give iron infusion * resumed oral iron supplements * Transfuse PRBC if Hgb <7.0 (9) Sleep apnea: Qualifiers: Sleep apnea type: unspecified type Qualified Code(s): G47.30 - Sleep apnea, unspecified Code(s): G47.30 - Sleep apnea, unspecified Status: Acute Assessment and Plan: patient is supposed to wear CPAP at home however reports she does not wear currently due to her mass in a fitting correctly * will need follow-up with her glass blower helper outpatient (10) Rheumatoid arthritis: Code(s): M06.9 - Rheumatoid arthritis, unspecified Status: Acute Assessment and Plan: * Continued patient Leflunomide had just started taking this for 1 day could be contributing to her symptoms * ESR and CRP elevated * added 10mg prednisone daily (11) Acute kidney injury superimposed on CKD: Code(s): N17.9 - Acute kidney failure, unspecified; N18.9 - Chronic kidney disease, uns pecified Status: Acute Assessment and Plan: patient with acute on chronic kidney injury creatinine 1.78 on admission, Baseline 1.4 CKD stage 3 * bumped today to 2.12 * Gentle IV hydration in ED discontinued * Avoid nephrotoxic drugs. * Monitor antihypertensive drug therapy. * Avoid NSAIDs. * Routine CMP monitoring GFR. * Monitor electrolytes especially potassium. Plan Code status: Full code per patient DVT prophylaxis: Eliquis Stress ulcer prophylaxis: Protonix 40 daily PT/OT notes: PT/OT evaluation Disposition: patient admitted to the medical unit continues admission will treat for generalized weakness and urinary tract infection plan for echocardiogram need to rule out any pericarditis appears new medication for her RA may be contributing to some of her weakness as well as anemia ESR and CRP elevated. PT/OT has been ordered for evaluation for discharge planning needs. Time Spent With Patient Time with patient: 15 - 25 minutes Subjective Date/time seen: 11/15/24 05:27 Interval history: Patient is a 74 year old female admitted for further evaluation of generalized weakness secondary to UTI and anemia. 11/15/2024: Patient still with overall weakness and SOB with exertion. Patient also reporting headache. Echo is pending to rule out pericarditis but remained afebrile overnight. Denied CP, N/V, or ABD pain. Review of Systems Review of Systems: All systems reviewed & are unremarkable except as noted in HPI and below Exam Const: General: comfortable and no acute distress Other: Chronically Ill female, obese on 4L oxygen HENMT: Ears: TM's normal bilaterally Face/Nose/Sinus: Normal nares present Mouth: Yes moist mucous membranes Eyes: General: appearance normal, both eyes and all related structures Sclera: sclerae normal Pupils: Equal, round and reactive pupils present Neck: Neck: supple and no JVD Resp: Effort & Inspection: normal respiratory effort Auscultation: diminished lung sounds on the left Other: 4L NC supplemental oxygen chronic Cardio: Rate: regular rate Other: Atrial/ventricle pacemaker GI: Auscultation: normal bowel sounds Other: Obese Skin: General skin exam: normal color and no rashes or lesions noted Wounds: no wounds Neuro: Cranial nerves: Yes Equal, round and reactive pupils present Speech: normal speech Sensory Exam: normal sensation Other: Strength equal bilateral Extrem: General: edema bilateral (LE ) Psych: Mental Status: mental status grossly normal Affect: normal affect Objective Data Vital Signs Vital Signs: Vital Signs - 24 hr 11/14/24 05:30 11/14/24 06:00 11/14/24 08:00 Temperature 99.1 F Pulse Rate 84 80 Respiratory Rate 18 Blood Pressure Pulse Oximetry 90 95 Oxygen Delivery Nasal Cannula Oxygen Flow Rate 4 4 11/14/24 08:00 11/14/24 09:12 11/14/24 10:59 Temperature 99.2 F 99 F Pulse Rate 80 80 84 Respiratory Rate 20 20 Blood Pressure 132/47 L 150/47 H Pulse Oximetry 95 93 Oxygen Delivery Nasal Cannula Nasal Cannula Oxygen Flow Rate 4 4 11/14/24 12:00 11/14/24 16:00 11/14/24 16:00 Temperature 97.4 F L Pulse Rate 84 70 69 Respiratory Rate 18 Blood Pressure 147/81 H Pulse Oximetry 100 Oxygen Delivery Nasal Cannula Oxygen Flow Rate 4 11/14/24 20:00 11/14/24 20:00 11/15/24 00:00 Temperature Pulse Rate 69 69 83 Respiratory Rate 18 Blood Pressure Pulse Oximetry 89 L Oxygen Delivery Nasal Cannula Oxygen Flow Rate 4 11/15/24 00:00 11/15/24 04:00 Temperature 99.8 F H Pulse Rate 82 76 Respiratory Rate 16 Blood Pressure 105/38 L Pulse Oximetry 90 Oxygen Delivery Nasal Cannula Oxygen Flow Rate 4 Intake/Output Intake/Output: Intake & Output 11/12/24 11/13/24 11/14/24 11/15/24 23:59 23:59 23:59 23:59 Intake Total 1510 1720 Output Total 100 900 Balance 1410 820 Meds/Results Medications: Active Medications Generic Name Dose Route Start Last Admin Trade Name Freq PRN Reason Stop Dose Admin Acetaminophen 650 mg 11/13/24 13:10 11/14/24 20:12 Acetaminophen 325 Mg Tablet PO 650 mg Q4H PRN Administration Mild Pain (1-3) or Fever Hydrocodone Bitart/Acetaminophen 1 tab 11/13/24 13:06 Hydrocodone/Acetaminophen (*Crx) 5-325 Mg Tablet PO Q6H PRN pain (scale score 4-6) Apixaban 5 mg 11/13/24 21:00 11/14/24 09:11 Apixaban 2.5 Mg Tablet BY MOUTH 5 mg Q12HR ESTHER Administration Budesonide/Formoterol Fumarate 2 puff 11/13/24 21:00 11/14/24 21:52 Budesonide/Formoterol 80/4.5 Mcg 6.9 Gm Inhaler (*Sp) INHALATION 2 puff Q12HR ESTHER Administration Cyanocobalamin 1,000 mcg 11/14/24 09:00 11/14/24 09:12 Cyanocobalamin 1,000 Mcg Tablet PO 1,000 mcg DAILY ESTHER Administration Ferrous Sulfate 325 mg 11/13/24 17:00 11/14/24 17:53 Ferrous Sulfate [address] BY MOUTH 325 mg BID ESTHER Administration Fluticasone Propionate 2 spray 11/14/24 09:00 11/14/24 09:13 Fluticasone Propionate 0.05% Na Spr 16 Gm Btl (*Bkc) NASAL 2 spray DAILY ESTHER Administration Gabapentin 300 mg 11/13/24 17:00 11/14/24 17:53 Gabapentin 300 Mg Capsule PO 300 mg BID ESTHER Administration Ceftriaxone Sodium 1 gm/ 50 mls @ 100 mls/hr 11/14/24 12:00 11/14/24 11:51 Sodium Chloride IVPB Infused Q24H ESTHER Infusion Irbesartan 300 mg 11/14/24 09:00 11/14/24 09:12 Irbesartan 150 Mg Tablet PO 300 mg DAILY ESTHER Administration Leflunomide 10 mg 11/14/24 17:00 Leflunomide 10 Mg Tablet BY MOUTH BID [facility] Metoprolol Succinate 50 mg 11/14/24 09:00 11/14/24 09:12 Metoprolol Succinate Ext Rel 50 Mg Tabcr PO 50 mg DAILY ESTHER Administration Ondansetron HCl 4 mg 11/13/24 13:10 Ondansetron Inj 4 Mg/2 Ml Vial IV PUSH Q6H PRN Nausea And Vomiting Perflutren Lipid Microsphere 0 ml 11/14/24 11:37 Perflutren Lipid Microspheres 1.5 Ml Vial Diluted To 10 Ml Total Volume IV PUSH 11/17/24 11:37 ONCE PRN adequate visualization Protocol Spironolactone 50 mg 11/13/24 13:10 11/14/24 09:11 Spironolactone 25 Mg Tablet PO 50 mg QAM ESTHER Administration Tolnaftate 1 applic 11/13/24 21:00 11/14/24 21:52 Tolnaftate 1% Powder 45 Gm Btl TOPICAL 1 applic Q12HR ESTHER Administration Torsemide 20 mg 11/14/24 09:00 11/14/24 09:13 Torsemide 20 Mg Tablet PO 20 mg DAILY ESTHER Administration Vitamin D 125 mcg 11/14/24 09:00 11/14/24 09:26 Cholecalciferol (Vitamin D3) 125 Mcg (5,000 Units) Tablet PO 125 mcg DAILY ESTHER Administration Radiology Results: ITS Impressions Head CT 11/13/24 10:20 Impression: No acute intracranial hemorrhage or suspicious mass effect. Chest X-Ray 11/13/24 10:29 IMPRESSION: Left-sided pleural effusion with adjacent compressive atelectasis. Chest CT 11/14/24 11:24 IMPRESSION: Cardiomegaly with a large pericardial effusion compressing the left lower lobe bronchi leading to left basilar atelectasis/consolidation. Patchy groundglass nodular opacification detected within the remainder of the visualized lung beth with varicose bronchiectasis. Only trace left-sided pleural effusion is noted. Labs Labs: Laboratory Results - last 24 hr 11/14/24 05:13 Sodium 139 Potassium 4.5 Chloride 103 Carbon Dioxide 36 H Anion Gap 0 L BUN 27 H Creatinine 2.12 H Estim Creat Clear Calc 25 Estimated GFR 23 L Glucose 98 Calculated Osmolality 293 Calcium 8.2 L Magnesium 2.0 Total Bilirubin 0.4 AST 20 ALT 9 Alkaline Phosphatase 92 Total Protein 6.2 L Albumin 3.1 L Quality VTE Prophylaxis VTE prophylaxis: pharmacologic ordered -Patient's previous records reviewed on admission -ER notes reviewed in detail on admission -discussed all findings and current treatment plan with patient/Family/POA -Consultations reviewed for recommendations -Patient's disposition for safe discharge discussed with telephonic nurse case manager Dictation performed by [employer] direct speech recognition software, therefore baby attendant variants and typographical errors may occur. Hospitalist MIPS Advance Care Plan I have confirmed that the patient's Advanced Care Plan is present, code status is documented, or surrogate decision maker is listed in patient medical record.: Yes Medication Reconciliation I have utilized all available resources to obtain, update and review the patients current medications (includes all prescriptions, OTC, herbals, cannabis, and nutritional supplements).: Yes The patient is not eligible for med reconciliation; the patient is in a emergent medical situation where delaying treatment would jeopardize the patients health.: No
[2024-11-15 05:51] LABS: Hematocrit 26.1 % (35.0-42.0); Hemoglobin 7.0 g/dL (11.7-13.8); Immature Granulocyte Percent A 1.7 % (0.0-0.0); Lymphocytes Absolute Auto 0.51 K/mm3 (1.10-4.50); Mean Corpuscular HGB Conc 26.8 g/dL (32-36); Mean Corpuscular Hemoglobin 25.2 pg (27.0-31.0); Mean Corpuscular Volume 93.9 fL (78.0-102.0); Nucleated Red Blood Cells Absolute Auto 0.00 K/mm3 (0.00-0.00); Nucleated Red Blood Cells Perc 0.0 % (0-0.0); Platelet Count Result 186 K/mm3 (150-420); Red Blood Count 2.78 M/mm3 (4.20-5.40); White Blood Count 6.7 K/mm3 (4.8-10.8)
[2024-11-15 06:00] LABS: Alanine Aminotransferase 10 U/L (6-35); Albumin Level 3.3 g/dL (3.5-5.1); Alkaline Phosphatase 94 U/L (38-126); Anion Gap 2 mmol/L (4-12); Aspartate Amino Transferase 21 U/L (14-36); Bilirubin,Total 0.3 mg/dL (0.2-1.3); Blood Urea Nitrogen 30 mg/dL (7-17); Calcium 8.5 mg/dL (8.4-10.2); Carbon Dioxide 34 mmol/L (22-30); Chloride 102 mmol/L (98-107); Estimated CRCL calculation 28 ml/min; Estimated Glomerular Filt Rate 27; Glucose 97 mg/dL (65-110); Magnesium 2.3 mg/dL (1.6-2.3); Osmolality Calculated 292 mOsm/kg (285-295); Potassium 4.7 mmol/L (3.4-5.0); Sodium 138 mmol/L (137-145); Total Protein 6.6 g/dL (6.3-8.2)
[2024-11-15 06:07] LABS: CRP > 9.0 mg/dL (<1.0)
[2024-11-15] MEDS: HYDROcodone/acetaminophen (*CRX) 5-325 MG TABLET 1 TAB PO (08:11)
[2024-11-15] MEDS: KETOROLAC 30 MG/ML VIAL (*BKC) IV PUSH (10:33)
[2024-11-15] MEDS: IRON SUCROSE COMPLEX 200 MG in SODIUM CHLORIDE 0.9% IV 100 ML 220 MG IVPB (10:33)
[2024-11-15] MEDS: IRBESARTAN 150 MG TABLET 300 MG PO (10:34)
[2024-11-15] MEDS: GABAPENTIN 300 MG CAPSULE PO ×2 (10:34→17:33)
[2024-11-15] MEDS: SPIRONOLACTONE 25 MG TABLET 50 MG PO (10:34)
[2024-11-15] MEDS: CHOLECALCIFEROL (VITAMIN D3) 125 MCG (5,000 UNITS) TABLET PO (10:34)
[2024-11-15] MEDS: CYANOCOBALAMIN 1,000 MCG TABLET 1000 MCG PO (10:35)
[2024-11-15] MEDS: FERROUS SULFATE 325 MG TABLET DR BY MOUTH ×2 (10:35→17:33)
[2024-11-15] MEDS: METOPROLOL SUCCINATE EXT REL 50 MG TABCR PO (10:35)
[2024-11-15] MEDS: FLUTICASONE PROPIONATE 0.05% NA SPR 16 GM BTL (*BKC) 2 SPRAY NASAL (10:35)
[2024-11-15] MEDS: LEFLUNOMIDE 10 MG TABLET BY MOUTH ×2 (10:35→17:33)
[2024-11-15] MEDS: TOLNAFTATE 1% POWDER 45 GM BTL 1 APPLIC TOPICAL ×2 (10:35→20:25)
[2024-11-15] MEDS: TORSEMIDE 20 MG TABLET PO (10:35)
[2024-11-15] MEDS: BUDESONIDE/FORMOTEROL 80/4.5 MCG 6.9 GM INHALER (*SP) 2 PUFF INHALATION ×2 (10:36→20:23)
[2024-11-15] MEDS: levoFLOXacin TAB 500 MG, levoFLOXacin TAB 250 MG 750 MG PO (10:38)
[2024-11-15] MEDS: ONDANSETRON INJ 4 MG/2 ML VIAL IV PUSH (14:34)
[2024-11-15] MEDS: PERFLUTREN LIPID MICROSPHERES 1.5 ML VIAL DILUTED TO 10 ML TOTAL VOLUME IV PUSH (15:20)
--- NOTE | 2024-11-15 16:20 | IVDEFINITY ---
Prior to administration of IV Definity the patient was educated on the risks and benefits of the imaging enhancing agent including potential adverse side effects. The patient verbalized understanding. Allergies were verified. No exclusion criteria were identified and at least one of the following inclusion criteria were met: 1) physician request, 2) patient technically difficult to image (per the [place] [employer]ocardi[employer] guidelines of two or more segments not discernable within the apical view), or 3) questionable left ventricular function. ?
--- NOTE | 2024-11-15 18:45 | PC.NURSE ---
ASSUMED CARE. REPORT RECEIVED FROM MERYL ROWAN
--- NOTE | 2024-11-15 23:04 | PC.NURSE ---
UP TO BEDSIDE COMMODE WITH GAIT BELT AND WALKER
--- NOTE | 2024-11-15 23:09 | PC.NURSE ---
PATIENT REQUESTED TO SIT UP IN CHAIR. PATIENT USED WALKER AND GAIT BELT TO GET FROM BED TO BEDSIDE COMMODE TO CHAIR
[2024-11-16] VITALS: BP 124/43; PULSE 73; RESP 18; TEMP 36.2; O2SAT 96
[2024-11-16 05:25] LABS: Hematocrit 23.8 % (35.0-42.0); Immature Granulocyte Percent A 1.8 % (0.0-0.0); Lymphocytes Absolute Auto 0.48 K/mm3 (1.10-4.50); Mean Corpuscular HGB Conc 27.3 g/dL (32-36); Mean Corpuscular Hemoglobin 25.5 pg (27.0-31.0); Mean Corpuscular Volume 93.3 fL (78.0-102.0); Nucleated Red Blood Cells Absolute Auto 0.00 K/mm3 (0.00-0.00); Nucleated Red Blood Cells Perc 0.0 % (0-0.0); Platelet Count Result 178 K/mm3 (150-420); Red Blood Count 2.55 M/mm3 (4.20-5.40); White Blood Count 5.6 K/mm3 (4.8-10.8)
[2024-11-16 05:27] LABS: Hemoglobin 6.5 g/dL (11.7-13.8)
[2024-11-16 05:30] VITALS: O2SAT 96
[2024-11-16 05:36] LABS: Alanine Aminotransferase 10 U/L (6-35); Albumin Level 3.1 g/dL (3.5-5.1); Alkaline Phosphatase 83 U/L (38-126); Anion Gap 2 mmol/L (4-12); Aspartate Amino Transferase 20 U/L (14-36); Bilirubin,Total 0.3 mg/dL (0.2-1.3); Blood Urea Nitrogen 32 mg/dL (7-17); Calcium 8.4 mg/dL (8.4-10.2); Carbon Dioxide 33 mmol/L (22-30); Chloride 102 mmol/L (98-107); Estimated CRCL calculation 29 ml/min; Estimated Glomerular Filt Rate 27; Glucose 86 mg/dL (65-110); Magnesium 2.2 mg/dL (1.6-2.3); Osmolality Calculated 289 mOsm/kg (285-295); Potassium 5.2 mmol/L (3.4-5.0); Sodium 137 mmol/L (137-145); Total Protein 6.3 g/dL (6.3-8.2)
[2024-11-16] MEDS: IRON SUCROSE COMPLEX 200 MG in SODIUM CHLORIDE 0.9% IV 100 ML 220 MG IVPB (06:19)
[2024-11-16 08:00] VITALS: BP 142/52; PULSE 72; RESP 18; TEMP 36.6; O2SAT 98
[2024-11-16] MEDS: LEFLUNOMIDE 10 MG TABLET BY MOUTH ×2 (09:04→16:35)
[2024-11-16] MEDS: TORSEMIDE 20 MG TABLET PO (09:04)
[2024-11-16] MEDS: SPIRONOLACTONE 25 MG TABLET 50 MG PO (09:05)
[2024-11-16] MEDS: GABAPENTIN 300 MG CAPSULE PO ×2 (09:06→16:35)
[2024-11-16] MEDS: CYANOCOBALAMIN 1,000 MCG TABLET 1000 MCG PO (09:06)
[2024-11-16] MEDS: FOLIC ACID 1 MG TABLET PO (09:06)
[2024-11-16] MEDS: FERROUS SULFATE 325 MG TABLET DR BY MOUTH ×2 (09:06→16:35)
[2024-11-16 09:07] VITALS: PULSE 80
[2024-11-16] MEDS: IRBESARTAN 150 MG TABLET 300 MG PO (09:07)
[2024-11-16] MEDS: METOPROLOL SUCCINATE EXT REL 50 MG TABCR PO (09:07)
[2024-11-16] MEDS: FLUTICASONE PROPIONATE 0.05% NA SPR 16 GM BTL (*BKC) 2 SPRAY NASAL (09:08)
[2024-11-16] MEDS: CHOLECALCIFEROL (VITAMIN D3) 125 MCG (5,000 UNITS) TABLET PO (09:08)
[2024-11-16] MEDS: BUDESONIDE/FORMOTEROL 80/4.5 MCG 6.9 GM INHALER (*SP) 2 PUFF INHALATION ×2 (09:09→20:15)
[2024-11-16] MEDS: TOLNAFTATE 1% POWDER 45 GM BTL 1 APPLIC TOPICAL ×2 (09:09→20:15)
--- NOTE | 2024-11-16 09:54 | P.PNIM_ITS ---
Progress Note: A&P Assessment and Plan (1) Acute UTI: Code(s): N39.0 - Urinary tract infection, site not specified Status: Acute Assessment and Plan: patient initially treated on oral Bactrim outpatient from her primary care physician presented with worsening weakness * patient started on IV Rocephin got Original cultures and sensitivities from outpatient PCP office in her enterobacter clocace per sensitivities will transition patient to PO Levofloxacin 11/16/24: * continue Levaquin at this time. Last dose on 11/21/2024 * preliminary blood cultures negative (2) Chronic respiratory failure with hypoxia: Code(s): J96.11 - Chronic respiratory failure with hypoxia Status: Acute Assessment and Plan: patient has chronic respiratory failure with hypoxia on 4 L supplemental oxygen home follows with pulmonology outpatient * supplemental oxygen at 4 L * follow-up with her elevators inspector outpatient (3) Chronic pericardial effusion: Code(s): I31.39 - Other pericardial effusion (noninflammatory) Status: Acute Assessment and Plan: patient with history chronic large pericardial effusion follows with cardiology outpatient. last echocardiogram 01/12/2024 showed normal ventricular systolic function with an LVEF of 50-55%. this is likely related to patient's new diagnosis of RA * continued patient's oral Lasix * added spironolactone * on continuous cardiac monitoring * recommend outpatient diagnostic tap or potential window * Needs follow-up Echo plan to be performed today need to also r/o pericarditis (Fever, elevated CRP, and ESR) 11/16/24: * echocardiogram performed yesterday showing normal left ventricular systolic function with EF of 55-60%, grade 1 diastolic dysfunction. No evidence of acute pericarditis or vegetation. * Agree needs follow-up with primary care provider and formula mixer as outpatient. (4) Morbid obesity: Code(s): E66.01 - Morbid (severe) obesity due to excess calories Status: Acute Assessment and Plan: * he would benefit from consult to dietitian * recommend heart healthy diet * encourage activity and weight loss (5) Fever: Code(s): R50.9 - Fever, unspecified Status: Acute Assessment and Plan: Patient was afebrile overnight peak temp of 101.2. Could be secondary to patient's UTI blood cultures are pending however there is still some concern for hardware infection with her pacemaker * blood cultures pending * Needs follow-up Echo plan to be performed today need to also r/o pericarditis (Fever, elevated CRP, and ESR) * antipyretics * currently on IV Rocephin 11/16/24: * Lower suspicion of pericarditis given unremarkable echo. Suspect elevated CRP and sed rate and fever was due to urinary tract infection with Enterobacter. * Blood cultures negative to date for growth * antibiotics were switched from IV Rocephin to oral Levaquin yesterday. Will continue this in the current setting of no additional complications. * Patient has not been febrile for 2 days but will continue antipyretics as needed. (6) Pacemaker: Code(s): Z95.0 - Presence of cardiac pacemaker Status: Acute Assessment and Plan: Of Note (7) Weakness: Code(s): R53.1 - Weakness Status: Acute Assessment and Plan: could be multifocal due to chronic comorbidities as well as current UTI infection vs Leflunomide had just started taking this for 1 day could be contributing to her symptom vs RA flare * PT/OT for evaluation 11/16/24: * Likely multifaceted from 1 -UTI, 2- initiation of leflunomide within the past week for her RA flares and, 3- acute anemia with hemoglobin of 6.5. (8) Anemia: Qualifiers: Anemia type: iron deficiency Iron deficiency anemia type: unspecified iron deficiency Qualified Code(s): D50.9 - Iron deficiency anemia, unspecified Code(s): D64.9 - Anemia, unspecified Status: Acute Assessment and Plan: patient with chronic microcytic anemia reports her PCP was planning to switch her to iron infusions outpatient, HGB 7.8 POA likely secondary to patient's rheumatoid arthritis no evidence of active bleed, occult stool was negative * Hgb 7.0 today * give iron infusion * resumed oral iron supplements * Transfuse PRBC if Hgb <7.0 11/16/24: * Patient's hemoglobin today is 6.5. * She received another Venofer infusion as she is a [employer] and will not accept PRBCs. * Monitor and trend * no active bleeding and occult blood negative (9) Sleep apnea: Qualifiers: Sleep apnea type: unspecified type Qualified Code(s): G47.30 - Sleep apnea, unspecified Code(s): G47.30 - Sleep apnea, unspecified Status: Acute Assessment and Plan: patient is supposed to wear CPAP at home however reports she does not wear currently due to her mass in a fitting correctly * will need follow-up with her elevators inspector outpatient (10) Rheumatoid arthritis: Code(s): M06.9 - Rheumatoid arthritis, unspecified Status: Acute Assessment and Plan: * Continued patient Leflunomide had just started taking this for 1 day could be contributing to her symptoms * ESR and CRP elevated * added 10mg prednisone daily (11) Acute kidney injury superimposed on CKD: Code(s): N17.9 - Acute kidney failure, unspecified; N18.9 - Chronic kidney disease, unspecified Status: Acute Assessment and Plan: patient with acute on chronic kidney injury creatinine 1.78 on admission, Baseline 1.4 CKD stage 3 * bumped today to 2.12 * Gentle IV hydration in ED discontinued * Avoid nephrotoxic drugs. * Monitor antihypertensive drug therapy. * Avoid NSAIDs. * Routine CMP monitoring GFR. * Monitor electrolytes especially potassium. 11/16/24: * improvement in renal function with creatinine of 1.83 and BUN of 32 today. * Potassium today is 5.2. Lokelma 5 mg ordered. * Continue to monitor and trend labs. (12) Lymphedema: Code(s): I89.0 - Lymphedema, not elsewhere classified Status: Chronic Assessment and Plan: * chronic in nature. Patient reports she typically wears lymphedema pumps at home has been without them for the past several days. * Nursing order placed to elevate legs when she is not in bed. Plan Code status: Full code per patient DVT prophylaxis: Eliquis Stress ulcer prophylaxis: Protonix 40 daily PT/OT notes: PT/OT evaluation Disposition: patient admitted to the medical unit continues admission will t reat for generalized weakness and urinary tract infection plan for echocardiogram need to rule out any pericarditis appears new medication for her RA may be contributing to some of her weakness as well as anemia ESR and CRP elevated. PT/OT has been ordered for evaluation for discharge planning needs. Pt has multiple disparities that may contribute to her degree of weakness. Suggest that she may be a potential for SWB depending upon PT and OT evaluations, or at least home health at discharge. Time Spent With Patient Time with patient: 25 - 35 minutes Subjective Date/time seen: 11/16/24 09:54 Interval history: This patient was examined at the bedside today in interval assessment since being admitted to the hospital with weakness most likely due to urinary tract infection as well as anemia and new addition of leflunomide. Patient has a very depressed affect and attitude. She is sitting at the bedside today with spouse present and does not understand why to feel weak in nature. Her hemoglobin is noted to have decreased to 6.5 today. She is [employer] and will not accept transfusion but did receive a dose of Venofer this morning. Discussed with patient that this will not increase her hemoglobin drastically that it is a slow process. She has negative occult blood from stool. Other factors that could be contributing to her overall weakness is her urinary tract infection of which Enterobacter grew out sensitive to Levaquin that she has been started on orally as well as the addition of her leflunomide for RA treatment as she has not been on this medication even a week. She denies any new symptoms such as overt blood loss, chest pain, dyspnea. She reports she did work with physical therapy as much as her stamina would allow yesterday. Of note patient does have a chronic pericardial effusion. This is not a new finding. Echocardiogram was performed yesterday that showed a grade 1 diastolic dysfunction, normal left ventricular systolic function with EF of 55-60%. It is recommended that she follow up with Cardiology as outpatient upon discharge from hospital. Review of Systems Review of Systems: All systems reviewed & are unremarkable except as noted in HPI and below Exam Const: General: no acute distress and uncomfortable Other: Patient generally appears as though she is in a state of being uncomfortable. She appears she does not feel well. she is obese. HENMT: Face/Nose/Sinus: Normal nares present Mouth: Yes moist mucous membranes Eyes: General: appearance normal, both eyes and all related structures Sclera: sclerae normal Neck: Neck: supple and no JVD Lymphatic: lymphadenopathy not noted Resp: Effort & Inspection: normal respiratory effort Auscultation: crackles ( Crackles throughout all lobes.) Cardio: Rate: regular rate Rhythm: regular rhythm Heart sounds: no gallops, Murmur heart sound present systolic ( Grade 2 holosystolic) and no rubs GI: Inspection: non-distended GI Palp: Yes Soft to palpation and No Tenderness to palpation present (GI) Auscultation: normal bowel sounds Skin: General skin exam: normal color, no rashes or lesions noted and no erythema Lesions: no lesions noted Wounds: no wounds Neuro: Speech: normal speech Motor exam (neuro): Normal motor muscle tone present throughout and Abnormal motor strength present ( generalized, nonfocal weakness) Sensory Exam: normal sensation Extrem: General: edema bilateral ( lower extremities bilaterally, tight, nonpitting) Psych: Mental Status: mental status grossly normal Affect: Sad affect present ( depressed affect) Objective Data Vital Signs Vital Signs: Vital Signs - 24 hr 11/15/24 10:35 11/15/24 12:00 11/15/24 16:00 Temperature 97.8 F Pulse Rate 76 71 70 Respiratory Rate 17 Blood Pressure 111/51 L Pulse Oximetry 92 Oxygen Delivery Nasal Cannula Oxygen Flow Rate 4 11/15/24 16:00 11/15/24 20:00 11/16/24 00:00 Temperature 97.1 F L Pulse Rate 69 69 73 Respiratory Rate 18 Blood Pressure 124/43 L Pulse Oximetry 96 Oxygen Delivery Nasal Cannula Oxygen Flow Rate 4 11/16/24 09:07 Temperature Pulse Rate 80 Respiratory Rate Blood Pressure Pulse Oximetry Oxygen Delivery Oxygen Flow Rate Intake/Output Intake/Output: Intake & Output 11/13/24 11/14/24 11/15/24 11/16/24 23:59 23:59 23:59 23:59 Intake Total 1510 1720 1380 150 Output Total 100 900 300 600 Balance 2293 810 0171 -450 Meds/Results Medications: Active Medications Generic Name Dose Route Start Last Admin Trade Name Freq PRN Reason Stop Dose Admin Acetaminophen 650 mg 11/13/24 13:10 11/14/24 20:12 Acetaminophen 325 Mg Tablet PO 650 mg Q4H PRN Administration Mild Pain (1-3) or Fever Hydrocodone Bitart/Acetaminophen 1 tab 11/13/24 13:06 11/15/24 08:11 Hydrocodone/Acetaminophen (*Crx) 5-325 Mg Tablet PO 1 tab Q6H PRN Administration pain (scale score 4-6) Apixaban 5 mg 11/13/24 21:00 11/14/24 09:11 Apixaban 2.5 Mg Tablet BY MOUTH 5 mg Q12HR ESTHER Administration Budesonide/Formoterol Fumarate 2 puff 11/13/24 21:00 11/16/24 09:09 Budesonide/Formoterol 80/4.5 Mcg 6.9 Gm Inhaler (*Sp) INHALATION 2 puff Q12HR ESTHER Administration Cyanocobalamin 1,000 mcg 11/14/24 09:00 11/16/24 09:06 Cyanocobalamin 1,000 Mcg Tablet PO 1,000 mcg DAILY ESTHER Administration Ferrous Sulfate 325 mg 11/13/24 17:00 11/16/24 09:06 Ferrous Sulfate [address] BY MOUTH 325 mg BID ESTHER Administration Fluticasone Propionate 2 spray 11/14/24 09:00 11/16/24 09:08 Fluticasone Propionate 0.05% Na Spr 16 Gm Btl (*Bkc) NASAL 2 spray DAILY ESTHER Administration Folic Acid 1 mg 11/16/24 09:00 11/16/24 09:06 Folic Acid 1 Mg Tablet PO 1 mg DAILY ESTHER Administration Gabapentin 300 mg 11/13/24 17:00 11/16/24 09:06 Gabapentin 300 Mg Capsule PO 300 mg BID ESTHER Administration Irbesartan 300 mg 11/14/24 09:00 11/16/24 09:07 Irbesartan 150 Mg Tablet PO 300 mg DAILY ESTHER Administration Leflunomide 10 mg 11/14/24 17:00 11/16/24 09:04 Leflunomide 10 Mg Tablet BY MOUTH 10 mg BID ESTHER Administration Levofloxacin 500 mg/ 750 mg 11/15/24 10:00 11/15/24 10:38 Levofloxacin 250 mg PO 11/21/24 09:01 750 mg Q48HR ESTHER Administration Metoprolol Succinate 50 mg 11/14/24 09:00 11/16/24 09:07 Metoprolol Succinate Ext Rel 50 Mg Tabcr PO 50 mg DAILY ESTHER Administration Ondansetron HCl 4 mg 11/13/24 13:10 11/15/24 14:34 Ondansetron Inj 4 Mg/2 Ml Vial IV PUSH 4 mg Q6H PRN Administration Nausea And Vomiting Prednisone 10 mg 11/16/24 09:00 11/16/24 09:06 Prednisone 10 Mg Tablet PO 10 mg DAILY@0800 ESTHER Administration Spironolactone 50 mg 11/13/24 13:10 11/16/24 09:05 Spironolactone 25 Mg Tablet PO 50 mg QAM ESTHER Administration Tolnaftate 1 applic 11/13/24 21:00 11/16/24 09:09 Tolnaftate 1% Powder 45 Gm Btl TOPICAL 1 applic Q12HR ESTHER Administration Torsemide 20 mg 11/14/24 09:00 11/16/24 09:04 Torsemide 20 Mg Tablet PO 20 mg DAILY ESTHER Administration Vitamin D 125 mcg 11/14/24 09:00 11/16/24 09:08 Cholecalciferol (Vitamin D3) 125 Mcg (5,000 Units) Tablet PO 125 mcg DAILY ESTHER Administration Radiology Results: ITS Impressions Head CT 11/13/24 10:20 Impression: No acute intracranial hemorrhage or suspicious mass effect. Chest X-Ray 11/13/24 10:29 IMPRESSION: Left-sided pleural effusion with adjacent compressive atelectasis. Chest CT 11/14/24 11:24 IMPRESSION: Cardiomegaly with a large pericardial effusion compressing the left lower lobe bronchi leading to left basilar atelectasis/consolidation. Patchy groundglass nodular opacification detected within the remainder of the visualized lung beth with varicose bronchiectasis. Only trace left-sided pleural effusion is noted. Labs Labs: Laboratory Results - last 24 hr 11/16/24 05:19 WBC 5.6 RBC 2.55 L Hgb 6.5 L* Hct 23.8 L MCV 93.3 MCH 25.5 L MCHC 27.3 L RDW 16.6 H Plt Count 178 MPV 9.0 L Immature Gran % (Auto) 1.8 H Neut % (Auto) 70.3 H Lymph % (Auto) 8.6 L Ray % (Auto) 9.7 Eos % (Auto) 9.2 H Baso % (Auto) 0.4 Lymph # (Auto) 0.48 L Ray # (Auto) 0.54 Eos # (Auto) 0.51 H Baso # (Auto) 0.02 Abs Immat Gran (auto) 0.10 H Absolute Neuts (auto) 3.92 Absolute Nucleated RBC 0.00 Nucleated RBC % 0.0 Sodium 137 Potassium 5.2 H Chloride 102 Carbon Dioxide 33 H Anion Gap 2 L BUN 32 H Creatinine 1.83 H Estim Creat Clear Calc 29 Estimated GFR 27 L Glucose 86 Calculated Osmolality 289 Calcium 8.4 Magnesium 2.2 Total Bilirubin 0.3 AST 20 ALT 10 Alkaline Phosphatase 83 Total Protein 6.3 Albumin 3.1 L
[2024-11-16] MEDS: SODIUM ZIRCONIUM CYCLOSILICATE 5 GM POWD.PACK PO (11:25)
[2024-11-16 16:00] VITALS: BP 122/51; PULSE 73; RESP 18; TEMP 36.7; O2SAT 93
[2024-11-16 20:00] VITALS: PULSE 73; PULSE 74; RESP 18; O2SAT 94
[2024-11-17] VITALS: BP 130/53; PULSE 72; PULSE 74; RESP 16; TEMP 37; O2SAT 94
[2024-11-17 04:00] VITALS: PULSE 69
[2024-11-17 08:00] VITALS: BP 135/54; PULSE 80; RESP 18; RESP 20; TEMP 36.6; O2SAT 94; O2SAT 95
[2024-11-17 08:17] LABS: Hematocrit 24.9 % (35.0-42.0); Immature Granulocyte Percent A 2.9 % (0.0-0.0); Lymphocytes Absolute Auto 0.62 K/mm3 (1.10-4.50); Mean Corpuscular HGB Conc 27.3 g/dL (32-36); Mean Corpuscular Hemoglobin 25.5 pg (27.0-31.0); Mean Corpuscular Volume 93.3 fL (78.0-102.0); Nucleated Red Blood Cells Absolute Auto 0.00 K/mm3 (0.00-0.00); Nucleated Red Blood Cells Perc 0.0 % (0-0.0); Platelet Count Result 220 K/mm3 (150-420); Red Blood Count 2.67 M/mm3 (4.20-5.40); White Blood Count 5.2 K/mm3 (4.8-10.8)
--- NOTE | 2024-11-17 08:19 | PC.NURSE ---
Lab calls informing [facility] 6.8 today. On 11/16/24 [facility] 6.5. HBG up 0.3 points from yesterday. will make COLLECTION ADVISOR aware.
[2024-11-17 08:20] LABS: Hemoglobin 6.8 g/dL (11.7-13.8)
[2024-11-17 08:32] LABS: Alanine Aminotransferase 11 U/L (6-35); Albumin Level 3.3 g/dL (3.5-5.1); Alkaline Phosphatase 87 U/L (38-126); Anion Gap 1 mmol/L (4-12); Aspartate Amino Transferase 19 U/L (14-36); Bilirubin,Total 0.3 mg/dL (0.2-1.3); Blood Urea Nitrogen 28 mg/dL (7-17); Calcium 8.9 mg/dL (8.4-10.2); Carbon Dioxide 37 mmol/L (22-30); Chloride 101 mmol/L (98-107); Estimated CRCL calculation 33 ml/min; Estimated Glomerular Filt Rate 32; Glucose 85 mg/dL (65-110); Magnesium 2.1 mg/dL (1.6-2.3); Osmolality Calculated 292 mOsm/kg (285-295); Potassium 4.2 mmol/L (3.4-5.0); Sodium 139 mmol/L (137-145); Total Protein 6.4 g/dL (6.3-8.2)
[2024-11-17 08:51] VITALS: PULSE 100
[2024-11-17] MEDS: LEFLUNOMIDE 10 MG TABLET BY MOUTH (08:51)
[2024-11-17] MEDS: IRBESARTAN 150 MG TABLET 300 MG PO (08:51)
[2024-11-17] MEDS: FERROUS SULFATE 325 MG TABLET DR BY MOUTH (08:51)
[2024-11-17] MEDS: GABAPENTIN 300 MG CAPSULE PO (08:51)
[2024-11-17] MEDS: METOPROLOL SUCCINATE EXT REL 50 MG TABCR PO (08:51)
[2024-11-17] MEDS: TORSEMIDE 20 MG TABLET PO (08:51)
[2024-11-17] MEDS: FOLIC ACID 1 MG TABLET PO (08:51)
[2024-11-17] MEDS: levoFLOXacin TAB 500 MG, levoFLOXacin TAB 250 MG 750 MG PO (08:52)
[2024-11-17] MEDS: CHOLECALCIFEROL (VITAMIN D3) 125 MCG (5,000 UNITS) TABLET PO (08:52)
[2024-11-17] MEDS: SPIRONOLACTONE 25 MG TABLET 50 MG PO (08:52)
[2024-11-17] MEDS: CYANOCOBALAMIN 1,000 MCG TABLET 1000 MCG PO (08:52)
[2024-11-17] MEDS: FLUTICASONE PROPIONATE 0.05% NA SPR 16 GM BTL (*BKC) 2 SPRAY NASAL (08:52)
[2024-11-17] MEDS: BUDESONIDE/FORMOTEROL 80/4.5 MCG 6.9 GM INHALER (*SP) 2 PUFF INHALATION (08:53)
[2024-11-17] MEDS: TOLNAFTATE 1% POWDER 45 GM BTL 1 APPLIC TOPICAL (08:54)
--- NOTE | 2024-11-17 11:00 | P.DS_ITS ---
DS: Admitting Diagnosis Discharge Date 11/17/2024 Admitting Diagnosis Weakness/UTI/Anemia/WANDY DS: Discharge Diagnosis Discharge Diagnosis (1) Acute UTI: Code(s): N39.0 - Urinary tract infection, site not specified Status: Acute Assessment and Plan: patient initially treated on oral Bactrim outpatient from her primary care physician presented with worsening weakness * patient started on IV Rocephin got Original cultures and sensitivities from outpatient PCP office in her enterobacter clocace per sensitivities will transition patient to PO Levofloxacin 11/16/24: * continue Levaquin at this time. Last dose on 11/21/2024 * preliminary blood cultures negative (2) Chronic respiratory failure with hypoxia: Code(s): J96.11 - Chronic respiratory failure with hypoxia Status: Acute Assessment and Plan: patient has chronic respiratory failure with hypoxia on 4 L supplemental oxygen home follows with pulmonology outpatient * supplemental oxygen at 4 L * follow-up with her livestock trucker outpatient (3) Chronic pericardial effusion: Code(s): I31.39 - Other pericardial effusion (noninflammatory) Status: Acute Assessment and Plan: patient with history chronic large pericardial effusion follows with cardiology outpatient. last echocardiogram 01/12/2024 showed normal ventricular systolic function with an LVEF of 50-55%. this is likely related to patient's new diagnosis of RA * continued patient's oral Lasix * added spironolactone * on continuous cardiac monitoring * recommend outpatient diagnostic tap or potential window * Needs follow-up Echo plan to be performed today need to also r/o pericarditis (Fever, elevated CRP, and ESR) 11/16/24: * echocardiogram performed yesterday showing normal left ventricular systolic function with EF of 55-60%, grade 1 diastolic dysfunction. No evidence of acute pericarditis or vegetation. * Agree needs follow-up with primary care provider and body corporate manager as outpatient. (4) Morbid obesity: Code(s): E66.01 - Morbid (severe) obesity due to excess calories Status: Acute Assessment and Plan: * he would benefit from consult to dietitian * recommend heart healthy diet * encourage activity and weight loss (5) Fever: Code(s): R50.9 - Fever, unspecified Status: Acute Assessment and Plan: Patient was afebrile overnight peak temp of 101.2. Could be secondary to patient's UTI blood cultures are pending however there is still some concern for hardware infection with her pacemaker * blood cultures pending * Needs follow-up Echo plan to be performed today need to also r/o pericarditis (Fever, elevated CRP, and ESR) * antipyretics * currently on IV Rocephin 11/16/24: * Lower suspicion of pericarditis given unremarkable echo. Suspect elevated CRP and sed rate and fever was due to urinary tract infection with Enterobacter. * Blood cultures negative to date for growth * antibiotics were switched from IV Rocephin to oral Levaquin yesterday. Will continue this in the current setting of no additional complications. * Patient has not been febrile for 2 days but will continue antipyretics as needed. (6) Pacemaker: Code(s): Z95.0 - Presence of cardiac pacemaker Status: Acute Assessment and Plan: Of Note (7) Weakness: Code(s): R53.1 - Weakness Status: Acute Assessment and Plan: could be multifocal due to chronic comorbidities as well as current UTI infection vs Leflunomide had just started taking this for 1 day could be contributing to her symptom vs RA flare * PT/OT for evaluation 11/16/24: * Likely multifaceted from 1 -UTI, 2- initiation of leflunomide within the past week for her RA flares and, 3- acute anemia with hemoglobin of 6.5. (8) Anemia: Qualifiers: Anemia type: iron deficiency Iron deficiency anemia type: unspecified iron deficiency Qualified Code(s): D50.9 - Iron deficiency anemia, unspecified Code(s): D64.9 - Anemia, unspecified Status: Acute Assessment and Plan: patient with chronic microcytic anemia reports her PCP was planning to switch her to iron infusions outpatient, HGB 7.8 POA likely secondary to patient's rheumatoid arthritis no evidence of active bleed, occult stool was negative * Hgb 7.0 today * give iron infusion * resumed oral iron supplements * Transfuse PRBC if Hgb <7.0 11/16/24: * Patient's hemoglobin today is 6.5. * She received another Venofer infusion as she is a Confucianism and will not accept PRBCs. * Monitor and trend * no active bleeding and occult blood negative (9) Sleep apnea: Qualifiers: Sleep apnea type: unspecified type Qualified Code(s): G47.30 - Sleep apnea, unspecified Code(s): G47.30 - Sleep apnea, unspecified Status: Acute Assessment and Plan: patient is supposed to wear CPAP at home however reports she does not wear currently due to her mass in a fitting correctly * will need follow-up with her livestock trucker outpatient (10) Rheumatoid arthritis: Code(s): M06.9 - Rheumatoid arthritis, unspecified Status: Acute Assessment and Plan: * Continued patient Leflunomide had just started taking this for 1 day could be contributing to her symptoms * ESR and CRP elevated * added 10mg prednisone daily (11) Acute kidney injury superimposed on CKD: Code(s): N17.9 - Acute kidney failure, unspecified; N18.9 - Chronic kidney disease, unspecified Status: Acute Assessment and Plan: patient with acute on chronic kidney injury creatinine 1.78 on admission, Baseline 1.4 CKD stage 3 * bumped today to 2.12 * Gentle IV hydration in ED discontinued * Avoid nephrotoxic drugs. * Monitor antihypertensive drug therapy. * Avoid NSAIDs. * Routine CMP monitoring GFR. * Monitor electrolytes especially potassium. 11/16/24: * improvement in renal function with creatinine of 1.83 and BUN of 32 today. * Potassium today is 5.2. Lokelma 5 mg ordered. * Continue to monitor and trend labs. (12) Lymphedema: Code(s): I89.0 - Lymphedema, not elsewhere classified Status: Chronic Assessment and Plan: * chronic in nature. Patient reports she typically wears lymphedema pumps at home has been without them for the past several days. * Nursing order placed to elevate legs when she is not in bed. DS: Summary Hospital Course Reason for hospitalization: UTI/Weakness/Anemia/WANDY/fever Hospital Course: Admission Patient is a 74-year-old female who presented to the emergency department with complaints of generalized weakness and worsening dyspnea with ambulation for the last 2 days. patient reports she was previously seen at her primary care physician's office and was diagnosed with a urinary tract infection and was started on oral Bactrim for since her generalized weakness continued to worsen with increased shortness a breath she came to the emergency department for evaluation. Patient has history of chronic respiratory failure on 4 L supplemental oxygen at home. patient also reported past medical history of chronic large pericardial effusion, atrial and ventricle pacemaker placed 2021, sleep apnea, new anemia, new diagnosis of RA and seen a technical clerk, CKD, and hypertension. In the ED: patient with no leukocytosis hemoglobin of 7.7, with acute on chronic kidney injury creatinine 1.78 BUN 22, mildly elevated BNP, and UA suspicious for urinary tract infection. CXR showing left pleural effusion with adjacent comprehensive atelectasis, EKG showing a rate of 83 with electronic atrial pacemaker electronic ventricle pacemaker. Hospital Course: Patient was then admitted to the medical unit for further evaluation and treatment of generalized weakness, acute kidney injury, and urinary tract infection. patient was seen following day did note she was febrile overnight with a peak temp of 101.2? Patient main complaint during her hospitalization was weakness most likely due to urinary tract infection, as well as anemia and new addition of leflunomide. Her hemoglobin is noted to have decreased to 6.5 today. She is Confucianism and will not accept transfusion but did receive a dose of Venofer this morning. Discussed with patient that this will not increase her hemoglobin drastically that it is a slow process. She has negative occult blood from stool an no evidence of active bleed however did place her Eliquis on hold. Patient did report she was sitting up outpatient iron transfusions with her primary care physician prior to admission. Other factors that could be contributing to her overall weakness is her urinary tract infection of which Enterobacter grew out sensitive to Levaquin that she has been started on orally as well as the addition of her leflunomide for RA treatment as she has not been on this medication even a week which likely also cause patient fever. I did order an ESR and CRP which were both elevated from previous could be RA flare which time I added 10 mg of prednisone p.o. daily. She denies any new symptoms such as overt blood loss, chest pain, dyspnea. She reports she did work with physical therapy as much as her stamina would allow. Of note patient does have a chronic pericardial effusion. This is not a new finding. Echocardiogram was performed yesterday that showed a grade 1 diastolic dysfunction, normal left ventricular systolic function with EF of 55-60% with no evidence of pericarditis or vegetation. It is recommended that she follow up with Cardiology as outpatient upon discharge from hospital. Discussed with patient about possible rehab at which time she would prefer to go home with her spouse refused referral. patient's hemoglobin was up to 6.8 at time of discharge did give 1 more transfusion iron and provided her with a follow-up order for a CBC in a few days understands this will be a long process and she will need continued outpatient iron transfusions as well as continued monitoring and follo w-up with her technical clerk. patient was instructed to seek immediate medical attention if any symptoms worsen or she experiences any acute dyspnea or chest pain with palpitations. of note patient acute on chronic kidney injury which resolved and was back to baseline at time of discharge. once again patient is a Jehov[employer] Witness and will not accept any blood transfusions need to discuss further alternatives outpatient primary and technical clerk recommended referral to Hematology as well. patient was discharged home with for follow-up on Wednesday or Wednesday with primary care physician and follow-up CBC. Status at Discharge Overall status at discharge: patient is progressing back to baseline Time Spent with Patient Time attestation: Total time spent providing and/or coordinating discharge services: Time spent: Greater than 30 minutes Exam Const: General: comfortable, no acute distress and uncomfortable Other: Patient generally appears as though she is in a state of being uncomfortable. She appears she does not feel well. she is obese. HENMT: Ears: TM's normal bilaterally Face/Nose/Sinus: Normal nares present Mouth: Yes moist mucous membranes Eyes: General: appearance normal, both eyes and all related structures Sclera: sclerae normal Pupils: Equal, round and reactive pupils present Neck: Neck: supple and no JVD Lymphatic: lymphadenopathy not noted Resp: Effort & Inspection: normal respiratory effort Auscultation: crackles ( Crackles throughout all lobes.) and diminished lung sounds on the left Other: 4L NC supplemental oxygen chronic Cardio: Rate: regular rate Rhythm: regular rhythm Heart sounds: no gallops, Murmur heart sound present systolic ( Grade 2 holosystolic) and no rubs Other: Atrial/ventricle pacemaker GI: Inspection: non-distended Auscultation: normal bowel sounds Other: Obese Skin: General skin exam: normal color, no rashes or lesions noted, no erythema and No lesion Lesions: no lesions noted Wounds: no wounds Neuro: Cranial nerves: Yes Equal, round and reactive pupils present Speech: normal speech Motor exam (neuro): Normal motor muscle tone present throughout and Abnormal motor strength present ( generalized, nonfocal weakness) Sensory Exam: normal sensation Other: Strength equal bilateral Extrem: General: edema bilateral ( lower extremities bilaterally, tight, nonpitting) Psych: Mental Status: mental status grossly normal Affect: normal affect and Sad affect present ( depressed affect) DS: Data Data Completed and Pending Labs on day of discharge: Labs from last 24 hours 11/17/24 08:05 WBC 5.2 RBC 2.67 L Hgb 6.8 L* Hct 24.9 L MCV 93.3 MCH 25.5 L MCHC 27.3 L RDW 16.4 H Plt Count 220 MPV 8.9 L Immature Gran % (Auto) 2.9 H Neut % (Auto) 69.1 Lymph % (Auto) 11.8 L [place] % (Auto) 10.1 Eos % (Auto) 5.5 Baso % (Auto) 0.6 Lymph # (Auto) 0.62 L [place] # (Auto) 0.53 Eos # (Auto) 0.29 Baso # (Auto) 0.03 Abs Immat Gran (auto) 0.15 H Absolute Neuts (auto) 3.62 Absolute Nucleated RBC 0.00 Nucleated RBC % 0.0 Sodium 139 Potassium 4.2 Chloride 101 Carbon Dioxide 37 H Anion Gap 1 L BUN 28 H Creatinine 1.60 H Estim Creat Clear Calc 33 Estimated GFR 32 L Glucose 85 Calculated Osmolality 292 Calcium 8.9 Magnesium 2.1 Total Bilirubin 0.3 AST 19 ALT 11 Alkaline Phosphatase 87 Total Protein 6.4 Albumin 3.3 L Preliminary micro results at discharge 11/13/24 09:44 Blood Culture - Preliminary Blood 11/13/24 09:44 Blood Culture - Preliminary Blood Discharge Plan Discharge Attending physician on discharge: Ronnie Baker Consulting providers: Allie Pardo Discharging Clinician: Allie Pardo Anticipated Discharge Date/Time: 11/17/24 10:31 Patient Disposition: Home Activity: may shower and as tolerated Diet: heart healthy Discharge Instructions: 1). UTI * I have prescribed Oral Levaquin last dose 11/21/2024 please complete as indicated even if feeling better 2). chronic respiratory failure with hypoxia * continue with your 3-5 L 3 at rest 5 with activity of supplemental oxygen 3). chronic pericardial effusion * continue with 20 mg torsemide as well as I prescribed 50 of spironolactone * will need to follow up with your body corporate manager for close monitoring they my want to do a diagnostic tap or pericardial window. * seek medical attention immediately if you experience acute onset of chest pain or palpitations * echocardiogram performed yesterday showing normal left ventricular systolic function with EF of 55-60%, grade 1 diastolic dysfunction. No evidence of acute pericarditis or vegetation. 4). Chronic Anemia secondary to RA * your blood counts slowly have been trending down at did do iron infusions while inpatient will need to follow-up with your primary care physician, technical clerk and would also recommend maybe a molding line assistant referral for outpatient infusion treatments * You last hemoglobin was 6.8 which had improved during your hospitalization no active bleed noted during the admission * I provided an order for follow-up CBC next week request you follow-up with your primary care physician as well to have immediate iron transfusions on an outpatient basis 5). rheumatoid arthritis * please make follow-up with your technical clerk as soon as possible * may continue to take Leflunomide * during your hospitalization your inflammatory markers including your ESR and CRP were elevated so I did initiate you on a 10 mg daily of prednisone would continue at this time until follow-up with your technical clerk How can you care for yourself at home? ? Keep track of any new symptoms or changes in your symptoms. ? Rest until you feel better. ? Be safe with medicines. Take your medicines exactly as prescribed. Call your doctor if you think you are having a problem with your medicine. ? Do not drive after taking a prescription pain medicine. ? Ensure to follow-up with primary care physician as indicated and provide up dated medication list provided to you at discharge. When should you call for help? Call 911 anytime you think you may need emergency care. For example, call if: ? You passed out (lost consciousness). Call your doctor now or seek immediate medical care if: ? You have new symptoms like fever, difficulty breathing, Chest pain, vomiting, or rash. ? You have new or different pain. ? You are confused and are having trouble thinking clearly. ? Your symptoms are getting worse. Watch closely for changes in your health, and be sure to contact your doctor if: ? You do not get better as expected. Patient Instructions: Antibiotic Form Patient Language: Maltese Stand Alone Forms: General Discharge Information Follow-up/Referrals: Gigi Ornelas MD [Primary Care Provider] - 1 week (Follow-up CBC and Iron transfusions will need referral to molding line assistant and follow-up with technical clerk) Discharge Medications: New prednisone 10 mg Tablet 10 mg PO DAILY@0800 Qty: 60 0RF levofloxacin 250 mg Tablet 750 mg PO Q48HR Qty: 2 0RF spironolactone 25 mg Tablet 50 mg PO QAM Qty: 30 0RF folic acid 1 mg Tablet 1 mg PO DAILY Qty: 30 0RF ferrous sulfate 325 mg (65 mg iron) Tablet,Delayed Release (Dr/Ec) 325 mg BYMOUTH BID Qty: 60 0RF Continued irbesartan 300 mg tablet 300 mg PO DAILY fluticasone propionate [Flonase Allergy Relief] 50 mcg/actuation spray,suspension 2 spray intranasal DAILY Qty: 16 0RF Rx Instructions: administer into each nostril metoprolol succinate 50 mg tablet extended release 24 hr 50 mg PO DAILY torsemide 20 mg tablet 20 mg PO DAILY leflunomide 10 mg tablet 10 mg PO BID hydrocodone-acetaminophen 5-325 mg tablet 1 tablet PO Q6H PRN (Reason: pain (scale score 4-6)) Prevalite 4 gram powder in packet 4 g PO BID Rx Instructions: Administer w/meal; avoid other meds within 1 hour before or 4-6 hours after dose PreserVision AREDS-2 [id number] cl-jcew-is-mg capsule 1 tablet PO BID Rx Instructions: administer with meals cyanocobalamin (vitamin B-12) 1,000 mcg capsule 1,000 mcg PO DAILY cholecalciferol (vitamin D3) 125 mcg (5,000 unit) capsule 5,000 unit PO DAILY gabapentin 300 mg capsule 300 mg PO BID Qty: 90 1RF triamcinolone acetonide 0.1 % cream 1 applic TOPICAL BID Qty: 30 1RF budesonide-formoterol [Symbicort] 80-4.5 mcg/actuation HFA aerosol inhaler 2 puff inhalation Q12H Qty: 30.6 1RF Rx Instructions: rinse and spit Held Eliquis 5 mg tablet 5 mg PO BID Hold Instructions: Resume on 11/24/24. Hold until follow-up CBC and with primary before resuming Discontinued potassium chloride 10 mEq capsule, extended release 10 meq PO DAILY ferrous sulfate 325 mg (65 mg iron) tablet 325 mg PO DAILY Prevalite 4 gram powder in packet 4 gm PO BID Rx Instructions: administer w/meal; avoid other meds within 1hr before or 4-6hr after dose potassium chloride [Klor-Con 10] 10 mEq tablet extended release 10 meq PO DAILY Qty: 90 1RF Other Ambulatory Orders: Complete Blood Count no Diff (Routine) Timeframe: 1 Week Location: Determined by Patient Ordered By: Allie Pardo Date of admission: 11/13/24 11:41 Primary Care Provider: Gigi Ornelas Admitting Provider: Luis Marrero Attending physician on admission: Luis Marrero Condition: Stable Quality VTE Prophylaxis VTE prophylaxis: pharmacologic ordered -Patient's previous records reviewed on admission -ER notes reviewed in detail on admission -discussed all findings and current treatment plan with patient/Family/POA -Consultations reviewed for recommendations -Patient's disposition for safe discharge discussed with case work aide Dictation performed by [employer] direct speech recognition software, therefore oil change technician variants and typographical errors may occur. Hospitalist MIPS Heart Failure (Exclusion) Patient has history of Heart Transplant or Left Ventricular Assistive Device?: No IF YES, STOP HERE Heart Failure (Qualifier) Patient has current or prior documentation of LVEF less than or equal to 40%, or mod/servere depressed LVSF?: No IF NO, STOP HERE
[2024-11-17] MEDS: IRON SUCROSE COMPLEX 200 MG in SODIUM CHLORIDE 0.9% IV 100 ML 220 MG IVPB (11:20)
[2024-11-17 12:26] VITALS: BP 130/50; PULSE 80; RESP 20; TEMP 36.6; O2SAT 95
--- NOTE | 2024-11-17 12:27 | PC.NURSE ---
Pt being d/c home, IV dc'd, pt given all d/c instruction in length and paperwork signed. Pt dressed by spouse and assisted to BSC before d/c via w/c home. Pt taken via w/c to car for d/c home w/ spouse.
[2024-11-17 13:08] VITALS: O2SAT 94
--- NOTE | 2024-11-20 16:18 | PC.NURSE ---
Addendum entered by Mary Pastor RN 11/20/24 16:37: Kina explains she had the same med from her PCP and she was taking it instead. This Tank Filler agees. Kina informs that she has an appointment with her doctor tomorrow and will ask about is she need the blood test that was order and if another iron infusion is needed. This parts data writer apologized for her not understanding the discharge instructions and if there is a next time at any healthcare facility that she doesnt understand something she should call for clarification. Kina states, OK Original Note: Discharge call back made and spoke with Cata. She explains that she did not understand the paperwork she was given at discharge or instruction given by the nurse. She informs even her daughter tried to understand it and get her meds together and wasnt sure what was what. This parts data writer went over RX given at discharge and what/how she should be taking it. Derick explains she did not get the Iron from the pharmacy and couldnt understand why. Tank Filler informs this med is a supplement and can be purchaced OTC. Kina explains she had the same med from her
== END 2024-11-17 12:35 | disposition home or self-care (01) | DRG 690 ==
LOC: CHSED 11:47 → CHS2ND 13:02
PROVIDERS: Admitting Provider Internal Medicine; Emergency Provider Emergency Medicine; PCP Family Medicine; Visit Provider Nurse Practitioner Family
DX: R53.1 Weakness (principal); N39.0 Urinary tract infection, site not specified; D50.9 Iron deficiency anemia, unspecified; G47.30 Sleep apnea, unspecified; I12.9 Hypertensive chronic kidney disease with stage 1 through stage 4 chronic kidney disease, or unspecified chronic kidney disease; Z79.01 Long term (current) use of anticoagulants; E66.9 Obesity, unspecified; J44.9 Chronic obstructive pulmonary disease, unspecified; M19.90 Unspecified osteoarthritis, unspecified site; N18.9 Chronic kidney disease, unspecified; Z20.822 Contact with and (suspected) exposure to COVID-19; Z99.89 Dependence on other enabling machines and devices; Z87.891 Personal history of nicotine dependence; N17.9 Acute kidney failure, unspecified; I31.39 Other pericardial effusion (noninflammatory); J96.11 Chronic respiratory failure with hypoxia; E66.01 Morbid (severe) obesity due to excess calories; I89.0 Lymphedema, not elsewhere classified; M06.9 Rheumatoid arthritis, unspecified; N18.30 Chronic kidney disease, stage 3 unspecified; R50.9 Fever, unspecified; Z99.81 Dependence on supplemental oxygen; Z95.0 Presence of cardiac pacemaker
CPT/HCPCS: 36415; 70450; 71045; 71250; 80053; 81001; 82272; 82550; 83605; 83735; 83880; 84484; 85025; 85610; 85652; 85730; 86140; 87040; 87086; 87637; 93005; 96361; 96365; 97110; 97161; 97166; 97530; 97535; 99285; A9270; C8929; J0696; J1756; J1885; J1956; J2405; J7030; J7512; Q9957

== ENCOUNTER 2024-11-22 09:45 | Outpatient (CLI) | payer MEDICARE, SELFPAY ==
--- OUTSIDE RECORDS SUMMARY | 2024-11-22 09:52 | XMS_ITS | Clinical Summary ---
[facility] Address [address] [place] [address] Care Team Providers Care Cement Handler Name Role Phone Gigi Ornelas MD Primary Care Provider [phone] Jordi Gould PA-C Unavailable [phone] Kajal Javed MD Unavailable [phone] Cindy Elias [facility]- Unavailable [phone] Precious Phillips MD Unavailable Jean Paul Smith MD Unavailable [phone] Allergies Active Allergy Reactions Criticality Noted Date [...] Diagnosed Date Acute on chronic respiratory failure ([facility]) 09/22/2024 CHF (congestive heart failure) ([facility]) 09/22/2024 Morbid (severe) obesity due to excess calories 0 08/28/2024 Body mass index (BMI) 45.0-49.9, adult 5 Anticoagulant long-term use 12/29/2023 Chronic combined systolic an d diastolic heart failure ([facility]) 07/02/2022 Left ventricular systolic dysfunction (LVSD) Biventricular cardiac pacemaker in situ 03/19/20 22 Complete heart block ([facility]) Symptomatic bradycardia 03/18/2022 Chronic venous insufficiency 02/25/2021 Sleep apnea 05/10/2008 Other hyperlipidemia 05/10/2008 Hypertension 05/10/1989 Lymphedema Pericardial effusion ([facility]) SOBOE (shortness of breath on exertion) Encounters Date Type Department Care Team Description 11/21/2024 Telephone [facility] [address] [place] [address] Cindy Elias [facility] Appointment Request 10/30/2024 11:10 AM CDT - 10/30/2024 11:59 PM CDT Hospital Encounter [facility] [address] [place] [address] Non-Staff, Provider Jean Paul Smith MD Discharge Disposition: Home or Self Care (Routine Discharge) 10/30/2024 2:05 AM CDT Allied Health/Nurse Visit [facility] [address] [place] [address] Kajal Javed MD 10/30/2024 Orders Only [facility] [address] [place] [address] Jean Paul Smith MD 10/30/2024 Travel 10/03/2024 1:18 PM CDT - 10/03/2024 11:59 PM CDT Hospital Encounter [facility] [address] [place] [address] Chencho Monroy MD Discharge Disposition: Home or Self Care (Routine Discharge) 10/03/2024 Travel 09/28/2024 Hospital Follow-up Call [facility] [address] [place] [address] Kathy Cason RN 09/25/2024 Telephone [facility] [address] [place] [address] Opal Patrick NP Appointment Request (Needs follow up appt with Cindy Elias in [place]) 09/22/2024 4:35 PM CDT - 09/26/2024 1:05 PM CDT Hospital Encounter [facility] [address] [place] [address] Earl Ambriz MD Kim, Kwang Jun, MD Markapuram, Srikanth, MD Discharge Disposition: Home with Home Health Care 09/22/2024 Travel 09/05/2024 Telephone [facility] [address] [place] [address] Cindy Elias, ANP-BC Refill Request 08/28/2024 1:00 PM CDT Office Visit [facility] [address] [place] [address] Cindy Elias, ANP-BC Follow Up (Pericardial effusion, shortness of breath) 08/28/2024 12:43 PM CDT - 08/28/2024 11:59 PM CDT Hospital Encounter [facility] [address] [place] [address] Precious Phillips MD Discharge Disposition: Home or Self Care (Routine Discharge) 08/28/2024 Travel from Last 3 Months Family History [...] doctor or pharmacy Never 07/07/2024 [facility] Utilities Answer Date Recorded In the past 12 months has e [employer], gas, oil, or water [facility] threatened to shut off services in your [...] any time in the past 12 m the rehabilitation institute, were you homeless or living in a care home (including now)? No 09/22/2024 Comments Unknown Sex and Gender Information Value Date Recorded Sex Assigned at Female 05/24/2024 2:24 PM INTEGRITY DIRECTOR Legal Sex Female 10:24 PM CDT Gender [...] Care Team (Late st Contact Info) Description 12/13/2024 8:45 AM CDT Office Visit [facility] [place] [phone] Cindy Elias, [facility]- [address] [place] [address] 01/16/2025 2:00 PM CDT Office Visit [facility] [address] [place] [address] [phone] Jordi Gould PA-C [address] [place] [address] [phone] 01/16/2025 2:00 PM CDT Allied Health/[facility]urse [facility] [address] [place] [address] [phone] Jordi Gould PA-C [address] [place] [address] 04/20/2025 1:30 AM INTEGRITY DIRECTOR Allied Health/Nurse [facility] [address] [place] [phone] Kajal Javed MD [address] [place] [address] [address] Health Maintenance Due Date Last Done Comments [...] this topic Medical Devices Implanted Type Area Moving Worker Device Identifier Shelf Expiration Date Model / Serial / Lot Medtronic Rv-03/18/2022 Implanted:Qty: 1 on 03/18/2022 by Holden Lombardo MD Lead Implant [employer] 02/04/2024 4076-52 / [id number] / Medtronic Ra-03/18/2022 Implanted:Qty: 1 on 03/18/2022 by Holden Lombardo MD Lead Implant [employer] 12/27/2023 4076-45 / [id number] / Medtronic Cs-08/24/2022 Implanted:08/08 by Holden Lombardo MD (Quantity not on file) Lead Implant [employer] 06/18/2024 [id number] / [id number] / Medtronic Percepta Quad Biv-08/24/2022 Implanted:08/08 by Holden Lombardo MD (Quantity not on file) Pacemaker [employer] 01/05/2024 [id number] / [id number] / Description:DX: CHB Explanted Type Area Moving Worker Device Identifier Shelf Expiration Date Model / Serial / Lot Medtronic Griselda Mri Dr-03/18/2022 Implanted:Qty: 1 on 03/18/2022 by Holden Lombardo MD Explanted:08/24 by Holden Lombardo MD (Quantity not on file) Pacemaker [employer] 08/22/2023 [id number] / [id number] / Procedures Procedure Name Priority Date/Time Associated Diagnosis Comments CBC W/DIFF AUTOMATED Routine 10/30/2024 11:25 AM CDT 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) SED RATE, ERYTHROCYTE (ESR) Routine 10/30/2024 11:25 AM CDT 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 ([facility] HHS/[facility]) COMPREHENSIVE METABOLIC PANEL Routine 10/30/2024 11:25 AM CDT 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 ([facility]) C-REACTIVE PROTEIN Routine 10/30/2024 11 :25 AM CDT 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 ([facility]/HCC [facility]) CBC W/DIFF AUTOMATED Routine 10/03/2024 1:31 PM [...] RATE, ERYTHROCYTE (ESR) (10/30/2024 11:25 AM CDT) ESR 61(H) 0 - 20 MM/HR 10/30/2024 12:04 PM CDT [facility] 10/30/2024 11:2 5 AM CDT us Jean Paul Smith MD LABORATORY Final Resul t [facility] [address] [place] [address], * (ABNORMAL) COMPREHENSIVE METABOLIC PANEL (10/30/2024 11:25 AM CDT) Only the most recent of4 resultswithin the time period is included. SODIUM S/P/B 144 136 - 145 MMOL/L 10/30/2024 11:56 AM CDT [facility] POTASSIUM S/P/B 3.8 3.5 - 5.1 MMOL/L 10/30/2024 11:56 AM CDT [facility] CHLORIDE S/P/B 104 98 - 107 MMOL/L 10/30/2024 11:56 AM T [facility] CO2 34.8(H) 21.0 - 32.0 MMOL/L 10/30/2024 11:56 AM [facility] GLUCOSE 96 70 - 99 MG/DL 10/30/2024 11:56 AM [facility] Comment: FASTING GLUCOSE 100 TO 125 MG/DL IS CONSISTENT WITH IMPAIRED FASTING GLUCOSE. FASTING GLUCOSE >125 MG/DL IS CONSISTENT WITH DIABETES. RANDOM GLUCOSE >200 MG/DL WITH HYPERGLYCEMIC SYMPTOMS IS CONSISTENT WITH DIABETES. PER ADA GUIDELINES BUN 12 6 - 24 MG/DL 10/30/2024 11:56 AM T [facility] CREATININE S/P/B 1.25(H) 0.55 - 1.02 MG/DL 10/30/2024 11:56 AM [facility] CALCIUM S/P/B 8.9 8.4 - 10.5 MG/DL 10/30/2024 11:56 AM [facility] BILIRUBIN TOTAL S/P/B 0.3 0.2 - 1.0 MG/DL 10/30/2024 11:56 AM [facility] Comment: THIS ASSAY IS NOT RECOMMENDED FOR PATIENTS UNDERGOING TREATMENT WITH ELTROMBOPAG DUE TO THE POTENTIAL FOR FALSELY ELEVATED RESULTS. ALKALINE PHOSPHATASE S/P/B 98 55 - 142 U/L 10/30/2024 11:56 AM [facility] AST 15 15 - 37 U/L 10/30/2024 11:56 AM [facility] ALT 13(L) 14 - 59 U/L 10/30/2024 11:56 AM [facility] TOTAL PROTEIN S/P/B 6.6 6.4 - 8.2 G/DL 10/30/2024 11:56 AM [facility] ALBUMIN S/P/B 2.6(L) 3.4 - 5.0 G/DL 10/30/2024 11:56 AM [facility] ANION GAP 5.2 5.0 - 15.0 MMOL/L 10/30/2024 11:56 AM CDT [facility] OSMOLALITY (CALC) 298 MOSM/KG 025 11:56 AM CDT [facility] Comment:REFERENCE RANGE NOT ESTABLISHED GFR ESTIMATE 46(L) >89 ML/MIN/1. 73 M2 10/30/2024 11:56 AM CDT [facility] GFR NOTES GFR REFERENCE S: 10/30/2024 11:56 AM CDT [facility] Comment: THE ESTIMATED GFR IS [...] Paul Smith MD LABORATORY Final Resul t Performing Organization Address City/[facility]/ZIP Co de Phone Number [facility] [address] [place] [address], * (ABNORMAL) C-REACTIVE PROTEIN (10/30/2024 11:25 AM CDT) C-REACTIVE PROTEIN 2.68(H) <0.30 mg/dL 10/30/2024 11:56 AM CDT [facility] 10/30/2024 11:2 5 AM CDT us Jean Paul Smith MD LABORATORY Final Resul t Performing Organization Address City/[facility]/ZIP Co de Phone Number [facility] [address] [place] [address], * (ABNORMAL) CBC W/DIFF AUTOMATED (10/30/2024 11:25 AM CDT) Only the most recent of7 resultswithin the time period is included. WBC 7.43 4.00 - 10.80 x10'3/uL 10/30/2024 11:57 AM CDT [facility] RBC 2.93(L) 4.10 - 5.40 x10'6/uL 10/30/2024 11:57 AM CDT [facility] HGB 7.7(L) 12.0 - 16.0 G/DL 10/30/2024 11:57 AM CDT [facility] HCT 27.0(L) 36.0 - 47.0 % 10/30/2024 11:57 AM CDT [facility] MCV 92.2 78.0 - 100.0 FL 10/30/2024 11:57 AM CDT [facility] MCH 26.3(L) 27.0 - 31.0 PG 10/30/2024 11:57 AM CDT [facility] MCHC 28.5(L) 33.0 - 36.0 G/DL 10/30/2024 11:57 AM CDT [facility] RDW 16.5(H) 11.5 - 14.5 % 10/30/2024 11:57 AM CDT [facility] PLT 226 150 - 350 x10'3/uL 10/30/2024 11:57 AM CDT [facility] MPV 9.3 7.4 - 10.4 FL 10/30/2024 11:57 AM CDT [facility] CBC COMMENT NORMAL REFERENCE RANGE NOT ESTABLISHED FOR THE PROPORTIONAL LEUKOCYTE DIFFERENTIAL. 10/30/2024 11:57 AM CDT [facility] NEUTROPHILS % 74.8 % 10/30/2024 12:23 PM CDT [facility] LYMPHOCYTES % 9.2 % 10/30/2024 12:23 PM CDT [facility] MONOCYTES % 8.5 % 10/30/2024 12:23 PM CDT [facility] EOSINOPHILS % 3.8 % 10/30/2024 12:23 PM CDT [facility] BASOPHILS % 0.5 % 10/30/2024 12:23 PM CDT [facility] IMMATURE GRANS % 3.2 % 10/31/19 12:23 PM CDT [facility] NRBC % 0.0 % 10/30/2024 12:23 PM CDT [facility] ABS. NEUTROPHILS 5.56 1.60 - 8.30 x10'3/uL 10/30/2024 12:23 PM CDT [facility] ABS. LYMPHOCYTES 0.68(L) 0.80 - 4.70 x10'3/uL 10/30/2024 12:23 PM CDT [facility] ABS. MONOCYTES 0.63 0.00 - 1.50 x10'3/uL 10/30/2024 12:23 PM CDT [facility] ABS. EOSINOPHILS 0.28 0.00 - 0.40 x10'3/uL 10/30/2024 12:23 PM CDT [facility] ABS. BASOPHILS 0.04 0.00 - 0.20 x10'3/uL 10/30/2024 12:23 PM CDT [facility] ABS. IMMATURE GRANULOCYTES 0.24(H) 0.00 - 0.03 x10'3/uL 10/30/2024 12:23 PM CDT [facility] ABS. NUCLEATED RBC'S 0.00 0.00 - 0.01 x10'3/uL 10/30/2024 12:23 PM CDT [facility] PLT MORPH. NORMAL 10/30/2024 12:23 PM CDT [facility] RBC MORPHOLOGY 1+ 10/30/2024 12:23 PM CDT [facility] Comment: HYPOCHROMASIA 1+ ANISOCYTOSIS 1+ MACROCYTES 10/30/2024 11:2 5 AM CDT us Jean Paul Smith MD LABORATORY Final Resul t [facility] [address] [place], [place] [address] [id number], * (ABNORMAL) BASIC METABOLIC PANEL (09/26/2024 5:45 AM CDT) Only the most recent of3 resultswithin the time period is included. SODIUM S/P/B 140 136 - 145 MMOL/L 09/26/2024 6:30 AM CDT [facility] POTASSIUM S/P/B 3.9 3.5 - 5.1 MMOL/L 09/26/2024 6:30 AM CDT [facility] CHLORIDE S/P/B 106 97 - 115 MMOL/L 09/26/2024 6:30 AM CDT [facility] CO2 30.1 21.0 - 32.0 MMOL/L 09/26/2024 6:30 AM CDT [facility] GLUCOSE 130(H) 74 - 106 MG/DL 09/26/2024 6:30 AM CDT [facility] BUN 48(H) 7 - 18 MG/DL 09/26/2024 6:30 AM CDT [facility] CREATININE S/P/B 1.42(H) 0.55 - 1.02 MG/DL 09/26/2024 6:30 AM CDT [facility] CALCIUM S/P/B 9.2 8.5 - 10.1 MG/DL 09/26/2024 6:30 AM CDT [facility] ANION GAP 3.9 2.0 - 10.0 MMOL/L 09/26/2024 6:30 AM CDT [facility] OSMOLALITY (CALC) 304 MOSM/KG 025 6:30 AM T [facility] Comment:REFERENCE RANGE NOT ESTABLISHED GFR ESTIMATE 39(L) >90 ML/MIN/1. 73 M2 09/26/2024 6:30 AM T [facility] GFR NOTES GFR REFERENCE S: 09/26/2024 6:30 AM CDT [facility] Comment: THE ESTIMATED GFR IS [...] Chencho Monroy MD LABORATORY Final Res ult [facility] [address] [place] [address], [id number] * USE ECHOCARDIOGRAM W CON (09/23/2024 8:54 AM CDT) Anatomical Region Laterality Modality NA Echocardiogram 09/23/2024 8:07 AM CDT Narrative 09/23/2024 6:46 PM CDT Echocardiography Report Pat.Name: CATA YI Pat.ID: [id number] .Date: 09/23/2024 Korey.: [id number] KATHI Dillard EWDPROV EWDPROV Exam Time: 8:07:00 AM Study Type:ECHO W/CONTRAST COMPLETE Height: 59.8 in Weight: 236 lb BSA: 2 m2 Age: 10 1950,74Y Sex: F BP: 152/88 HR: 98 bpm Sonogrphr: Holden Herrera [facility] Pat. Stat.:Inpatient Room: [facility] CPT - 4: C8929 Reason for Study:CHF, [...] Mass 2D Value 197 g LV Mass [id number] Value 98.5 g/m2 Right Ventricle Right Ventricle [...] 09/23/2024 Echocardiography Report Pat.Name: CATA YI Pat.ID: [id number] .Date: 09/23/2024 Refer.: [id number] [facility] ASPEN Gilma EWDPROV EWDPROV Exam Time: 8:07:00 AM Study Type:ECHO W/CONTRAST COMPLETE Height: 59.8 in Weight: 236 lb BSA: 2 m2 Age: 10 1950,74Y Sex: F BP: 152/88 HR: 98 bpm Sonogrphr: Holden Herrera [facility] Pat. Stat.:Inpatient Room: [facility] CPT - 4: C8929 Reason for Study:CHF, [...] Mass 2D Value 197 g LV Mass [id number] Value 98.5 g/m2 Right Ventricle Right Ventricle [...] M.D. us Eunice Sparks PA-C ECHO Itzel brii Result * (ABNORMAL) ARTERIAL BLOOD GAS (09/23/2024 3:30 AM CDT) PH ARTERIAL 7.36 7.35 - 7.45 09/23/2024 3:33 AM CDT [facility] PCO2 57.8(H) 35.0 - 45.0 MMHG 09/23/2024 3:33 AM CDT [facility] PO2 68.1(L) 83.0 - 108.0 MMHG 09/23/2024 3:33 AM CDT [facility] BICARB ARTERIAL 31.9(H) 22 - 26 MMOL/L 09/23/2024 3:33 AM CDT [facility] TOTAL CO2 ARTERIAL 33.6(H) 23 - 27 MMOL/L 09/23/2024 3:33 AM CDT [facility] BE/BASE EXCESS 6.0(H) 0 - 2 MMOL/L 09/23/2024 3:33 AM CDT [facility] O2 Saturation 93(L) 95 - 98 % 09/23/2024 3:33 AM CDT [facility] SAUD TEST NEGATIVE 09/23/2024 3:30 AM CDT [facility] OXYGEN STATUS 6 09/23/2024 3:30 AM CDT [facility] DRAW SITE ARTERIAL RT RADIAL 09/23/2024 3:30 AM CDT [facility] 09/23/2024 3:30 AM CDT Yadiel Lemos MD LABORATORY Final Result Performing Organization Address [facility] Co de Phone Number [facility] [address] [place] [address], [place] [phone] [id number] * (ABNORMAL) LEXUS IFA SCRN, WI REFLEX TO TITER (09/22/2024 5:52 PM CDT) LEXUS POSITIVE( A) Negative 10/06/2024 1:57 PM CDT [facility] JEFFERYTISHA SANTO Comment: LEXUS IFA is a first line screen for detecting the presence of up to approximately 150 autoantibodies in various autoimmune diseases. A positive LEXUS IFA result is suggestive of autoimmune disease and reflexes to titer and pattern. Further laboratory testing may be considered if clinically indicated. For additional information, please refer to [email or web address] (This link is being provided for informational/ educational purposes only.) Test Performed by [facility] [employer] [facility], [address] [place] [address] Noel Baldwin M.D., Ph.D., Director of Laboratories , [place] [id number] 09/22/2024 5:52 PM CDT us Ariel Cole MD LABORATORY Final Result Performing Organization Address City/[facility]/ZIP Co de Phone Number [facility] [address] [place] [address], [place] [phone] * ANTINUCLEAR ANTIBODY WI RFX (09/22/2024 5:52 PM CDT) LEXUS 23 09/25/2024 1:38 PM CDT [facility] Comment: POSITIVE: >1.0 RATIO SEE SEPARATE PROFILE RESULTS AND IFA TITER THE LEXUS SCREEN TESTS FOR THE FOLLOWING ANTIBODIES BY EIA: SSA1 (RO), SSB1 (LA), TORRES, SCL70, JO1, CENTROMERE, MARGARINE CHURN OPERATOR HISTONE MUST BE ORDERED SEPARATELY DNA (DS) ANTIBODY 23 IU/ML 025 1:38 PM CDT [facility] Comment: NEGATIVE: <10 IU/mL EQUIVOCAL: 10 to 15 IU/mL POSITIVE: >15 IU/mL THIS QUANTITATIVE ASSAY IS CALIBRATED TO THE [employer]'S WO/80 STANDARD. THE LEVEL OF dsDNA AUTOANTIBODY GERERALLY CORRELATES WITH THE LEVEL OF DISEASE ACTIVITY IN SYSTEMIC LUPUS ERYTHMATOSUS 09/22/2024 5:52 PM CDT us Ariel Cole MD LABORATORY Final Result [facility] [address] [place] [address], [place] [phone] * (ABNORMAL) PRO-BRAIN NATRIURETIC PEPTIDE (09/22/2024 5:52 PM CDT) PRO-B TYPE NATRIURETIC PEPTIDE 1,302(H) <125 PG/ML 09/22/2024 6:35 PM CDT [facility] Comment: AGE INDEPENDENT: <300 PG/ML [...] FOR ACUTE CHF. 09/22/2024 5:52 PM CDT us Ariel Cole MD LABORATORY Final Result [facility] [address] [place] [address], [place] [phone] * (ABNORMAL) LEXUS PROFILE (09/22/2024 5:52 PM CDT) SSA ANTIBODY >240(H) 0.0 - 6.9 U/mL 09/27/2024 3:19 PM CDT [facility] Comment: NEGATIVE: <7 U/mL EQUIVOCAL: 7 to 10 u/mL POSITIVE: >10 U/mL SSA AND/OR SSB AUTOANTIBODIES ARE DETECTED IN 60% TO 90% OF PATIENTS WITH SJOGREN'S SYNDROME AND IN 20% TO 40% OF PATIENTS WITH SYSTEMIC LUPUS ERYTHEMATOSUS. SSB ANTIBODY <0.4 0.0 - 6.9 U/mL 09/27/2024 3:19 PM CDT [facility] Comment: NEGATIVE: <7 U/mL EQUIVOCAL: 7 to 10 u/mL POSITIVE: >10 U/mL SSA AND/OR SSB AUTOANTIBODIES ARE DETECTED IN 60% TO 90% OF PATIENTS WITH SJOGREN'S SYNDROME AND IN 20% TO 40% OF PATIENTS WITH SYSTEMIC LUPUS ERYTHEMATOSUS. SM ANTIBODY <0.7 U/mL 09/27/2024 3:19 PM CDT [facility] Comment: NEGATIVE: <7 U/mL EQUIVOCAL: 7 to 10 u/mL POSITIVE: >10 U/mL Autoantibodies to Torres (Sm) antigen are found in 30% of patients with systemic lupus erythematosus and are highly specific for this disease. SCL 70 S/P/B 1.1 0.0 - 6.9 U/mL 09/27/2024 3:19 PM CDT [facility] Comment: NEGATIVE: <7 U/mL EQUIVOCAL: 7 to 10 u/mL POSITIVE: >10 U/mL AUTOANTIBODIES TO Scl-70 ARE FOUND IN UP TO 60% OF PATIENTS WITH SCLERODERMA (SYSTEMIC SCLEROSIS) AND ARE CONSIDERED TO BE SPECIFIC FOR THIS DISEASE. DAVE-1 ANTIBODY <0.3 U/mL 09/27/2024 3:19 PM CDT [facility] Comment: NEGATIVE: <7 U/mL EQUIVOCAL: 7 to 10 u/mL POSITIVE: >10 U/mL AUTOANTIBODIES TO Jo1 ARE FOUND IN 10% TO 50% OF PATIENTS WITH DERMATOMYOSITIS OR POLYMYOSITIS AND IN 20% OF PATIENTS WITH SCLERODERMA SYNDROME. Jo1 AUTOANTIBODIES ARE GENERALLY NOT SEEN OUTSIDE OF THESE DISEASE STATES. CENTROMERE B AB S/P/B <0.4 U/mL 09/27/2024 3:19 PM CDT [facility] Comment: NEGATIVE: <7 U/mL EQUIVOCAL: 7 to 10 u/mL POSITIVE: >10 U/mL AUTOANTIBODY TO CENTROMERE B IS SEEN IN 70% TO 85% OF PATIENTS WITH CREST (CALCINOSIS, RYNAUD'S PHENOMENON, ESOPHAGEAL HYPOMOTILITY, SCLERODACTYLY AND TELANGIECTASEA) SYNDROME VARIANT OF SYSTEMIC SCLEROSIS AND IN 10% TO 15% OF PATIENTS WITH PRIMARY BILIARY CIRRHOSIS. MARGARINE CHURN OPERATOR (U1) AB S/P/B 1.1 0.0 - 4.9 U/mL 09/27/2024 3:19 PM CDT [facility] Comment: NEGATIVE: <5 U/mL EQUIVOCAL: 5 to 10 U/mL POSITIVE: >10 U/mL AUTOANTIBODIES TO MARGARINE CHURN OPERATOR ARE FOUND IN GREATER THAN 95% OF PATIENTS WITH MIXED CONNECTIVE TISSUE DISEASE (MCTD), BUT ARE ALSO SEEN IN SYSTEMIC LUPUS ERYTHEMATOUS (40%), RHEUMATOID ARTHRITIS (10%), SCLERODERMA SYNDROME (10%), AND RARELY IN DRUG INDUCED LUPUS AND SJOGREN'S SYNDROME. ABSENCE OF MARGARINE CHURN OPERATOR ANTIBODIES USUALLY RULES OUT MCTD. 09/22/2024 5:52 PM CDT us Ariel Cole MD LABORATORY Final Result [facility] [address] [place] [address], [id number] * (ABNORMAL) TROPONIN, QUANT (09/22/2024 5:52 PM CDT) TROPONIN I HIGH SENSITIVITY 96(H) 0 - 53 ng/L 09/22/2024 6:35 PM CDT [facility] 09/22/2024 5:52 PM CDT Ariel Cole MD LABORATORY Final Result Performing Organization Address [facility]/ZIP Co de Phone Number [facility] [address] [place] [address], [place] [phone] * (ABNORMAL) ANTINUCLEAR ANTIBODIES TITER (09/22/2024 5:52 PM CDT) [facility] LEXUS TITER >=1:1280(A ) Negative 10/06/2024 2:26 PM CDT [facility] Comment: Reference Range: <1:40 Negative 1:40-1:80 Low Antibody Level >1:80 Elevated Antibody Level Test Performed by [employer] [place], [employer] [facility], [address] [place] [address] Noel Baldwin M.D., Ph.D., Director of Laboratories , [facility] [id number] LEXUS PATTERN REPORT 10/06/2024 2:26 PM CDT [facility] Comment: Nuclear, Speckled Speckled pattern is associated with mixed connective tissue disease (MCTD), systemic lupus erythematosus (SLE), Sjogren's syndrome, dermatomyositis, and systemic sclerosis/polymyositis overlap. AC-2, 4, 5, 29: Speckled International Consensus on LEXUS Patterns https://doi.org/10.1515/ebem-1182-1398 LEXUS TITER THREE END OF REPORT 10/06/2024 2:26 PM CDT [facility] 09/22/2024 5:52 PM CDT Ariel Cole MD LABORATORY Final Result Performing Organization Address [facility]/ZIP Co de Phone Number [email or web address] , * XR CHEST PORTABLE (09/22/2024 5:35 PM CDT) Anatomical Region Laterality Modality Chest Radiographic Susan ging 09/22/2024 6:12 PM CDT Impressions 09/22/2024 6:14 PM CDT IMPRESSION: Cardiomegaly and mild vascular congestion. Referred By: ASPEN ARMENTA Interpreted By: Tre River MD, 09/22/2024 6:12 PM Narrative 09/22/2024 6:14 PM [address]T [address] [address] Examination: Chest x-ray 1 view Exam Date/Time: [...] Procedure Note Tre River MD - 09/22/[address] [address] Examination: Chest x-ray 1 view Exam Date/Time: [...] By: Tre River MD, 09/22/2024 6:12 PM us Ariel Cole MD GENERAL IMAGING Final Result * ECG 12 lead (09/22/2024 5:20 PM CDT) Only the most recent of2 resultswithin the time period is included. 09/22/2024 5:20 PM CDT Narrative [facility] - 09/22/2024 6:11 [place] [address] Test Date: 2024-09-22 Pat Name: CATA YI Department: 1 Room: 550AA Gender: Female Agricultural Lender: Dawood : 1950 Requested By: ARIEL COLE Order Number: [id number] Ruth MD: Francisco Javier Vuong Measurements Intervals [place] Rate: 82 P: 78 [place]: 164 QRS: 220 QRSD: 140 T: 48 QT: 372 QTc: 437 Interpretive Statements ELECTRONIC ATRIAL PACEMAKER ELECTRONIC VENTRICULAR PACEMAKER ABNORMAL RHYTHM ECG Procedure Note Francisco Javier Vuong MD - 09/22/2024 [place] [address] Test Date: 2024-09-22 Pat Name: CATA YI Department: 1 Room: 550AA Gender: Female Agricultural Lender: Dawood : 1950 Requested By: ARIEL COLE Order Number: [id number] Ruth PONCE: Francisco Javier Vuong Measurements Intervals [place] Rate: 82 P: 78 [place]: 164 QRS: 220 QRSD: 140 T: 48 QT: 372 QTc: 437 Interpretive Statements ELECTRONIC ATRIAL PACEMAKER ELECTRONIC VENTRICULAR PACEMAKER ABNORMAL RHYTHM ECG us Ariel Cole MD ECG ORDERABLES Final Result [facility] from Last 3 Months Insurance MEDICARE AETNA Advance Directives Documents on File Type Date Recorded 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 Advance Directives and Living Will 03/20/2022 11:47 AM POA HEALTHCARE Advance Directives and Living Will 02/20/2021 9:06 AM Refer to POA jarod bell regarding Advanced Directives - NO BLOOD Power of Insulation Cupola Charger 02/20/2021 9:06 AM Lucie Yi, HCA-spouse; Aram [...] Relationship Healthcare Agent Relationship Communication Omar Yi (POAH) Spouse Health Care Agent [phone] (Mobile ) Aram Yi Other First Al[employer] huyen Health Care Agent 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 Relationship Specialty Start Date End Date Gigi Ornelas MD [address] [place] [address] PCP - General FAMILY PRACTICE 02/05/21 Jordi Gould PA-C [address] [place] [phone] PHYSICIAN HEALTH CARE SANITARY TECHNICIAN 07/30/22 Kajal Javed MD [address] [place] [address] [address] Consulting Physician Electrophysiology 02/04/23 Cindy Elias, [facility] [address] [place] [address] Nurse Practitioner NURSE PRACTITIONER ADULT HEALTH 08/23/23 Precious Phillips MD [address] [place] [address] Consulting Physician CARDIOVASCULAR DISEASE 09/24/24 Jean Paul Smith MD [address] [place] [address] Physician RHEUMATOLOGY 09/24/24
--- OUTSIDE RECORDS SUMMARY | 2024-11-22 09:52 | XMS_ITS | Encounter Summary ---
Author Organization [facility] Address [address] [place] [address] Care Team Providers Care Mimeograph Operator Name Role Phone Gigi Ornelas MD Primary Care Provider [phone] Jordi Gould PA-C Unavailable [phone] Kajal Javed MD Unavailable [phone] Cindy Elias ANP-BC Unavailable [phone] Precious Phillips MD Unavailable Jean Paul Smith MD Unavailable [phone] Reason for Visit * Reason Onset Date Comments Appointment Request 11/21/2024 Encounter Details Date Type Department Care Team (Late st Contact Info) Description 11/21/2024 Telephone [facility] ield [address] [place] [address] Cindy Elias, ANP-BC [address] [place] [address] Appointment Request Social History Tobacco Use Types Packs/Day Years [...] materials from doctor or pharmacy Never 07/07/2024 [facility] Utilities Answer Date Recorded In the past 12 months has e [employer], gas, oil, or water [employer] threatened to shut off services in your [...] any time in the past [address] [facility], were you homeless or living in a [facility] (including now)? No 09/22/2024 Comments Unknown Sex and Gender Information Value Date Recorded Sex Assigned at Female 05/24/2024 2:24 PM SUPERVISOR AIR CONDITIONING INSTALLER Legal Sex Female 10:24 PM CDT Gender Identity Not on file Sexual Orientation Not on file documented as of this encounter Functional Status * Are you deaf or do you have serious difficulty hearing Answer Date of Assessment Author Status No 09/26/2024 11:57 AM Adilene Lino RN Active * Are you blind or [...] Lion RN Active documented in this encounter Progress Notes * Darby Gomez - 11/22/2024 9:25 AM CDT Records received. Sent to abstracting/scanning. * Donna Torres - 11/21/2024 11:[address] Ornelas's office called wanting to make a [facility] f/u appt Pt is now scheduled 12/13/[address] Ornelas office is faxing the paperwork. Once received will have it scanned it. documented in this encounter Plan of Treatment Upcoming Encounters Date Type Department Care Team (Late st Contact Info) Description 12/13/2024 8:45 AM CDT Office Visit [facility] [place] [address] Cindy Elias, [facility]-[address] [address] 01/16/2025 2:00 PM CDT [facility] [address] [place] [address] Jordi Gould PA-C [address] [place] [address] 01/16/2025 2:00 PM CDT Allied Health/[facility]urse [facility] [address] [place] [address] Jordi Gould PA-C [address] [place] [address] 04/20/2025 1:30 AM SUPERVISOR AIR CONDITIONING INSTALLER Allied Health/Nurse [facility] [address] [place] [address] Kajal Javed MD [address] [address] documented as of this encounter Visit Diagnoses Not on filedocumented in this encounter Care Teams Mimeograph Operator Relationship Specialty Start Date End Date Gigi Ornelas MD [address] [place] [address] PCP - General FAMILY PRACTICE 02/05/21 Jordi Gould PA-C [address] [place] [phone] PHYSICIAN COGENERATION TECHNICIAN 07/30/22 Kajal Javed MD [address] [place] [address] Consulting Physician Electrophysiology 02/04/23 Cindy Elias, [facility] [address] [place] [address] Nurse Practitioner NURSE PRACTITIONER ADULT HEALTH 08/23/23 Precious Phillips MD [address] [place] [address] Consulting Physician CARDIOVASCULAR DISEASE 09/24/24 Jean Paul Smith MD [address] [place] [address] Physician RHEUMATOLOGY 09/24/24 documented as of this encounter
--- OUTSIDE RECORDS SUMMARY | 2024-11-22 09:52 | XMS_ITS | Encounter Summary ---
Author Organization [facility] Address [address] [place] [address] Care Team Providers Care Bending Shed Worker Name Role Phone Gigi Ornelas MD Primary Care Provider [phone] Vickey Rider MD Unavailable [phone] Dominic Arrington MD Unavailable Holden Lombardo MD Unavailable Unavailable Jordi Gould PA-C Unavailable [phone] Kajal Javed MD Unavailable [phone] Isael Diaz MD Unavailable [phone] Cindy Elias ANP-BC Unavailable [phone] Precious Phillips MD Unavailable Jean Paul Smith MD Unavailable [phone] Encounter Details Date Type Department Care Team (Late st Contact Info) Description 08/19/2022 Hospital Orders Only [facility] Member Pre/Post [address] [place] [address] Holden Lombardo MD Social History Tobacco Use Types Packs/Day Years Used Date Smoking Tobacco: Former Cigarettes Q uit: 2005 Smokeless Tobacco: Never Alcohol Use Standard Drinks/Week Comments Never 0 (1 standard drink = 0.6 oz pur e alcohol) Comments Unknown Sex and Gender Information Value Date Recorded Sex Assigned at Female 05/24/2024 2:24 PM GLUING MACHINE OPERATOR ELECTRONIC Legal Sex Female 10:24 PM CDT Gender [...] Assessment Author Status No 03/18/2022 10:00 PM GLUING MACHINE OPERATOR ELECTRONIC 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 Answer Date of Assessment Author Status No 03/18/2022 10:00 PM GLUING MACHINE OPERATOR ELECTRONIC Acti ve * Do you have serious [...] Description 12/13/2024 8:45 AM CDT Office Visit [facility]-[address] [place] [address] Cindy Elias, [facility]-[address] [address] 01/16/2025 2:00 PM CDT [facility] [address] [place] [phone] Jordi Gould PA-C [address] [place] [address] 01/16/2025 2:00 PM CDT [facility] [address] [place] [address] Jordi Gould PA-C [address] [place] [phone] 04/20/2025 1:30 AM GLUING MACHINE OPERATOR ELECTRONIC Allied Health/N[facility] [address] [place] [phone] Kajal Javed MD [address] [place] [address] [place] [phone] documented as of this encounter Visit Diagnoses Not on filedocumented in this encounter Care Teams Bending Shed Worker Relationship Specialty Start Date End Date Gigi Ornelas MD [address] [place] [address] PCP - General FAMILY PRACTICE 02/05/21 Vickey Rider MD [address] [place] [phone] [place] [employer] Assembly Supervisor CARDIOVASCULAR DISEASE 02/05/21 08/22/23 Dominic Arrington MD [address] [place] [phone] Vascular/Cardiologis t INTERNAL MEDICINE 02/24/21 07/14/24 Holden Lombardo MD [address] [place] [phone] Consulting Physician CLINICAL CARDIAC ELECTROPHYSIOLOGY 07/30/22 02/03/23 Jordi Gould PA-C [address] [place] [phone] PHYSICIAN CHROME WORKER 07/30/22 Kajal Javed MD [address] [place] [address] Consulting Physician Electrophysiology 02/04/23 Isael Diaz MD [address] [place] [phone] INTERVENTIONAL CARDIOLOGY 08/23/2307/14 Cindy Elias, [facility] [address] [place] [address] Nurse Practitioner NURSE PRACTITIONER ADULT HEALTH 08/23/23 Precious Phillips MD [address] [place] [address] Consulting Physician CARDIOVASCULAR DISEASE 09/24/24 Jean Paul Smith MD [address] [place] [address] Physician RHEUMATOLOGY 09/24/24 documented as of this encounter
--- OUTSIDE RECORDS SUMMARY | 2024-11-22 09:52 | XMS_ITS | Encounter Summary ---
Author Organization [facility] Address [address] [place] [address] Care Team Providers Care Patternmaker Wood Name Role Phone Gigi Ornelas MD Primary Care Provider [phone] Jordi Gould PA-C Unavailable [phone] Kajal Javed MD Unavailable [phone] Cindy Elias ANP-BC Unavailable [phone] Precious Phillips MD Unavailable Jean Paul Smith MD Unavailable [phone] Encounter Details Date Type Department Care Team (Late st Contact Info) Description 09/28/2024 Hospital Follow-up Call [facility] [address] [place] [address] Kathy Cason, RN Social History [...] materials from doctor or pharmacy Never 07/07/2024 [facility] Utilities Answer Date Recorded In the past 12 months has th e [employer], oil, or water [employer] threatened to shut off services in your [...] any time in the past 12 m [facility], were you homeless or living in a jail (including now)? No 09/22/2024 Comments Unknown Sex and Gender Information Value Date Recorded Sex Assigned at Female 05/24/2024 2:24 PM SPECIALIST FIELD ENGINEER Legal Sex Female 10:24 PM CDT Gender [...] Description 12/13/2024 8:45 AM CDT Office Visit [facility]-[address] [place] [address] Cidny Elias, [facility]-[address] [address] 01/16/2025 2:00 PM CDT [facility] [address] [place] [phone] Jordi Gould PA-C [address] [place] [address] 01/16/2025 2:00 PM CDT Allied Health/Nurse [facility] [address] [place] [address] Jordi Gould PA-C [address] [place] [address] 04/20/2025 1:30 AM SPECIALIST FIELD ENGINEER Allied Health/Nurse [facility] [address] [place] [phone] Kajal Javed MD [address] [place] [address] documented as of this encounter Visit Diagnoses Not on filedocumented in this encounter Care Teams Patternmaker Wood Relationship Specialty Start Date End Date Gigi Ornelas MD [address] [place] [address] PCP - General FAMILY PRACTICE 02/05/21 Jordi Gould PA-C [address] [place] [phone] PHYSICIAN TERMITE CONTROL SERVICE REPRESENTATIVE 07/30/22 Kajal Javed MD [address] [place] [address] Consulting Physician Electrophysiology 02/04/23 Cindy Elias, [facility] [address] [place] [address] Nurse Practitioner NURSE PRACTITIONER ADULT HEALTH 08/23/23 Precious Phillips MD [address] [place] [address] Consulting Physician CARDIOVASCULAR DISEASE 09/24/24 Jean Paul Smith MD [address] [place] [address] Physician RHEUMATOLOGY 09/24/24 documented as of this encounter
--- OUTSIDE RECORDS SUMMARY | 2024-11-22 09:52 | XMS_ITS | Data Portability ---
Author Organization [facility], [address] [place] [address] [place]rology ([place]) Address [address] [address] Care Team Providers Care Senior Sous Chef Name Role Phone PIYUSH MEDELLIN Primary Care [...] on this date of service including both sdxz-vy-bgpb and jxm-wvoe-hk-face time excluding any separately reportable services. ela [...] Not available Not available Lab CBC 2023 [facility] Only - [facility], [address] [place] [address], [id number], 03/22/2024 18:04:30 CMP, serum or plasma 2023 [facility] - [facility], [address] [place] [address], [id number], 03/22/2024 18:29:04 C-reactiv e protein, quantitat kristin, serum or plasma 2023 [facility] - [facility], [address] [place] [address], [id number], 03/22/2024 18:29:02 arthritis panel 2023 [facility] - [facility], [address] [place] [address], [id number], 03/22/2024 18:29:05 DNA double strand Ab, QL, serum 2023 [facility] - [facility], [address] [place] [address], 17406, 03/23/2024 16:52:04 complemen t, total, CH50, serum or plasma 2023 [facility] - [facility], [address] [place] [address], [id number], 03/23/2024 16:13:54 C3 (compleme nt), serum or plasma 2023 [facility] - [facility], [address] [place] [address], [id number], 03/23/2024 08:20:12 C4 (compleme nt), serum or plasma 2023 [facility] - [facility], [address] [place] [address], [id number], 03/23/2024 08:20:10 Hepatitis B virus core Ab, qual immunoass ay, serum or plasma 2023 [facility] Only - [facility], [address] [place] [address], [id number], 03/23/2024 07:41:15 HBsAg (hepatiti s B surface Ag), serum 2023 024 [facility] Only - [facility], [address] [place] [address], [id number], 03/22/2024 18:40:56 hepatitis C Ab, serum 2023 [facility] Only - [facility], [address] [place] [address], [id number], 03/22/2024 19:01:49 TPMT gene product metabolic activity interpret ation, blood or tissue (OBS) 2023 [facility] Only - [facility], [address] [place] [address], [id number], 03/28/2024 03:38:56 BNP (B-type natriuret ic peptide), serum or plasma [facility]23 [facility], [address] [place] [address], [id number], 04/11/2024 11:26:04 Referral None recorded. Procedures None recorded. Surgeries None recorded. Imaging None recorded. Medication Orders None recorded. Patient TargetsNo targets recorded. Patient InstructionsNo instructions recorded. Reason for Referral None Reported. Results Created Date Observation Date Name Description Value Unit Range Abnormal Flag Note LastModifiedBy Organization Detail LastModifiedTime 03/22/2003/22/2024 CBC CBC Not Available [facility] Only - [facility] [address] [place] [address], [id number], 03/22/2024 18:04:30 03/22/2003/22/2024 CBC WBC 4.9 K/uL 3.8-11 .2 Not Available [facility] Only - [facility] [address] [place] [address], [id number], 03/22/2024 18:04:30 03/22/20 24 03/22/2024 CBC RBC 3.34 M/uL 3.92-5 .10 low Not Available [facility] Only - [facility] [address] [place] [address], 51855, 03/22/2024 18:04:30 03/22/20 24 03/22/2024 CBC HGB 9.5 g/dL 11.8-1 5.3 low Not Available [facility] Only - [facility] [address] [place] [address], 96731, 03/22/2024 18:04:30 03/22/20 24 03/22/2024 CBC HCT 31.5 % 36.5-4 4.8 low Not Available [facility] Only - [facility] [address] [place] [address], [id number], 03/22/2024 18:04:30 03/22/20 24 03/22/2024 CBC MCV 94.3 fL 80.0-9 9.0 Not Available [facility] Only - [facility] [address] [place] [address], [id number], 03/22/2024 18:04:30 03/22/20 24 03/22/2024 CBC MCH 28.4 pg 25.5-3 3.6 Not Available [facility] Only - [facility] [address] [place] [address], [id number], 03/22/2024 18:04:30 03/22/20 24 03/22/2024 CBC MCHC 30.2 g/dL 32.0-3 6.0 low Not Available [facility] Only - [facility] [address] [place] [address], 58727, 03/22/2024 18:04:30 03/22/20 24 03/22/2024 CBC RDW-SD 52.2 fL 35.1 - 46.3 high Not Available [facility] Only - [facility] [address] [place] [address], [id number], 03/22/2024 18:04:30 03/22/20 24 03/22/2024 CBC plt 196 K/uL 130-40 0 Not Available [facility] Only - [facility] [address] [place] [address], [id number], 03/22/2024 18:04:30 03/22/20 24 03/22/2024 CBC MPV 9.3 fL 9.3-12 .8 Not Available [facility] Only - [facility] [address] [place] [address], [id number], 03/22/2024 18:04:30 03/22/20 24 03/22/2024 C-nelida ctive prote in, quant itati ve, serum or plasm a CRP high Not Available [facility] Only - [facility] [address] [place] [address], [id number], 03/22/2024 18:29:02 03/22/20 24 03/22/2024 C-nelida ctive prote in, quant itati ve, serum or plasm a CRP 2.9 mg/dL <0.4-0 .5 high Not Available [facility] Only - [facility] [address] [place] [address], [id number], 03/22/2024 18:29:02 03/22/20 24 03/22/2024 CMP, serum or plasm a comp. met. panel Not Available [facility] - [facility] [address] [place] [address], [id number], 03/22/2024 18:29:04 03/22/20 24 03/22/2024 CMP, serum or plasm a sodium 142 mmol/ L 136-14 6 Not Available [facility] Only - [facility] [address] [place] [address], 62733, 03/22/2024 18:29:04 03/22/20 24 03/22/2024 CMP, serum or plasm a potassium 3.9 mmol/ L 3.5-5. 1 Not Available [facility] Only - [facility] [address] [place] [address], 98904, 03/22/2024 18:29:04 03/22/20 24 03/22/2024 CMP, serum or plasm a chloride 106 mmol/ L 98-110 Not Available [facility] Only - [facility] [address] [place] [address], [id number], 03/22/2024 18:29:04 03/22/20 24 03/22/2024 CMP, serum or plasm a CO2 31 mEq/L 20-32 Not Available [facility] Only - [facility] [address] [place] [address], 95940, 03/22/2024 18:29:04 03/22/20 24 03/22/2024 CMP, serum or plasm a anion gap 9 mmol/ L 10-22 low Not Available [facility] Only - [facility] [address] [place] [address], [id number], 03/22/2024 18:29:04 03/22/20 24 03/22/2024 CMP, serum or plasm a glucose 92 mg/dL 70-100 Not Available [facility] Only - [facility] [address] [place] [address], 10795, 03/22/2024 18:29:04 03/22/20 24 03/22/2024 CMP, serum or plasm a calcium 9.5 mg/dL 8.4-10 .4 Not Available [facility] Only - [facility] [address] [place] [address], [id number], 03/22/2024 18:29:04 03/22/20 24 03/22/2024 CMP, serum or plasm a total protein 7.2 g/dL 6.4-8. 3 Not Available [facility] Only - [facility] [address] [place] [address], 71855, 03/22/2024 18:29:04 03/22/20 24 03/22/2024 CMP, serum or plasm a albumin 3.8 g/dL 3.5-5. 3 Not Available [facility] Only - [facility] [address] [place] [address], 53775, 03/22/2024 18:29:04 03/22/20 24 03/22/2024 CMP, serum or plasm a ALP 113 U/L 44 - 127 Not Available [facility] Only - [facility] [address] [place] [address], [id number], 03/22/2024 18:29:04 03/22/20 24 03/22/2024 CMP, serum or plasm a AST (SGOT) 14 U/L 10-40 Not Available [facility] Only - [facility] [address] [place] [address], [id number], 03/22/2024 18:29:04 03/22/2003/22/2024 CMP, serum or plasm a total bilirubin 0.3 mg/dL 0.2-1. 0 Not Available [facility] Only - [facility] [address] [place] [address], 84220, 03/22/2024 18:29:04 03/22/20 24 03/22/2024 CMP, serum or plasm a ALT (SGPT) 9 U/L 8-35 Not Available [facility] Only - [facility] [address] [place] [address], 12491, 03/22/2024 18:29:04 03/22/20 24 03/22/2024 CMP, serum or plasm a BUN 19 mg/dL 7-21 Not Available [facility] - [facility] [address] [place] [address], 57035, 03/22/2024 18:29:04 03/22/20 24 03/22/2024 CMP, serum or plasm a creatinine 1.3 mg/dL 0.7-1. 3 Not Available [facility] Only - [facility] [address] [place] [address], [id number], 03/22/2024 18:29:04 03/22/20 24 03/22/2024 CMP, serum or plasm a GFR(non-afri can jordanian) 43 Not Available [facility] - [facility] [address] [place] [address], [id number], 03/22/2024 18:29:04 03/22/20 24 03/22/2024 CMP, serum or plasm a GFR() 52 (HOUSE DESIGNER CHUCKY KIDNE Y DISEA SE HAS A GFR LESS THAN 60 ML/GA N/1.7 3 MM FOR A PERIO D OF THREE MONTH S OR MORE. ) Not Available [facility] Only - [facility] [address] [place] [address], [id number], 03/22/2024 18:29:04 03/22/20 24 03/22/2024 HBsAg (hepa titis B surfa ce Ag), serum hepatitis B surface Ag NONREA CTIVE nonrea ctive Not Available [facility] Only - [facility] [address] [place] [address], 73298, 03/22/2024 18:40:56 03/22/20 24 03/22/2024 hepat itis C Ab, serum hepatitis C Ab NONREA CTIVE nonrea ctive Not Available [facility] Only - [facility] [address] [place] [address], [id number], 03/22/2024 19:01:49 03/22/20 24 03/23/2024 Hepat itis B virus core Ab, qual immun oassa y, serum or plasm a hepatitis B core Ab NEGATI VE negati ve Not Available [facility] Only - [facility] [address] [place] [address], [id number], 03/23/2024 07:41:15 03/22/20 24 03/23/2024 C4 (comp lemen t), serum or plasm a complement C4 12 mg/dL 12-38 Not Available [facility] [address] [place] [address], 20695, 03/23/2024 08:20:10 03/22/20 24 03/23/2024 C3 (comp lemen t), serum or plasm a complement C3 181 mg/dL 82-167 high Not Available [facility] [address] [place] [address], 13460, 03/23/2024 08:20:12 03/22/20 24 03/22/2024 arthr itis panel uric acid 7.4 mg/dL 2.3-6. 6 high Not Available [facility] Only - [facility] [address] [place] [address], 77163, 03/23/2024 12:40:52 03/22/20 24 03/22/2024 arthr itis panel sed rate 45 mm/HR 0 - 30 high Not Available [facility] Only - [facility] [address] [place] [address], 57281, 03/23/2024 12:40:52 03/22/2003/22/2024 arthr itis panel rf 72 IU/mL <3.5-1 4 high Not Available [facility] Only - [facility] [address] [place] [address], 73899, 03/23/2024 12:40:52 03/22/20 24 03/22/2024 arthr itis panel ccp antibody, IgG <0.54 U/mL <=4.9 Not Available [facility] [address] [place] [address], 75897, 03/23/2024 12:40:52 03/22/20 24 03/23/2024 arthr itis panel arthritis panel Not Available [facility] - [facility] [address] [place] [address], 62185, 03/23/2024 12:40:52 03/22/20 24 03/23/2024 arthr itis panel LEXUS screen POSITI VE negati ve abnormal Titer to follo w Perfo rmed by Bio-R ad enzym e immun oassa y Not Available [facility] Only - [facility] [address] [place] [address], [id number], 03/23/2024 12:40:52 03/22/20 24 03/23/2024 compl ement [...] Not Available [facility] Only - [facility] [address] [place] [address], 50714, 03/23/2024 16:13:54 03/22/20 24 03/23/2024 DNA doubl e stran d Ab, QL, serum DNA Ab; double stranded NEGATI VE negati ve Not Available [facility] Only - [facility] [address] [place] [address], [id number], 03/23/2024 16:52:04 03/22/20 24 03/23/2024 LEXUS (anti [...] Available Al Only - [facility] [address], [address], 03/23/2024 16:52:06 03/22/20 24 03/28/[address] gene produ ct metab olic activ ity inter preta tion, blood or tissu e (OBS) thiopurine methyltransf er Not Available [facility] - [facility] [address] [place] [address], 79525, 03/28/2024 03:38:56 03/22/20 24 03/28/[address]MT gene produ ct metab olic activ ity inter preta tion, blood or tissu e (OBS) tpmt activity 24.2 Refer ence Range : Christine l: 15.1 - 26.4 Heter ozygo us for low TPMT varia nt: 6.3 - 15.0 Homoz ygous for low TPMT varia nt: <6.3 Not Available [facility] Only - [facility] [address] [place] [address], 65213, 03/28/2024 03:38:56 03/22/20 24 03/28/2024 TPMT gene [...] e corry cteri stics deter mined by Flukle rp. It has not been clear ed or appro shannan by the Food and Drug Admin istra tion. This case has been revie wed, appro shannan, inter prete d and elect jessika siddiqi afye d by Francois walls, PhD, [facility] . Not Available [facility] Only - [facility] [address] [place] [address], [id number], 03/28/2024 03:38:56 03/22/20 24 03/28/[address] TPMT gene produ ct metab olic activ ity inter preta tion, blood or tissu e (OBS) tpmt method ENZYMA TIC ENDPOI NT/LIQ UID CHROMA TOGRAP HY - TANDEM MASS SPECTR OMETRY (LC-MS /MS) Not Available [facility] Only - S c Laboratory [address] [place] [address], 57752, 03/28/2024 03:38:56 03/22/2003/22/2024 arthr itis panel arthritis panel Not Available [facility] - [facility] [address] [place] [address], 08903, 03/22/2024 19:14:05 03/22/2003/22/2024 arthr itis panel uric acid 7.4 mg/dL 2.3-6. 6 high Not Available [facility] Only - [facility] [address] [place] [address], 70705, 03/22/2024 19:14:05 03/22/2003/22/2024 arthr itis panel sed rate 45 mm/HR 0 - 30 high Not Available [facility] Only - [facility] [address] [place] [address], 76767, 03/22/2024 19:14:05 03/22/20 24 03/22/2024 arthr itis panel LEXUS screen PENDIN G Not Available [facility] Only - [facility] [address] [place] [address], 84293, 03/22/2024 19:14:05 03/22/2003/22/2024 arthr itis panel rf 72 IU/mL <3.5-1 4 high Not Available [facility] Only - [facility] [address] [place] [address], 28898, 03/22/2024 19:14:05 03/22/2003/22/2024 arthr itis panel ccp antibody, IgG <0.54 U/mL <=4.9 Not Available [facility] [address] [place] [address], 22114, 03/22/2024 19:14:05 03/22/2003/22/2024 arthr itis panel arthritis panel Not Available [facility] [address] [place] [address], 32570, 03/22/2024 18:29:05 03/22/20 24 03/22/2024 arthr itis panel uric acid 7.4 mg/dL 2.3-6. 6 high Not Available [facility] Only - [facility] [address] [place] [address], 72911, 03/22/2024 18:29:05 03/22/20 24 03/22/2024 arthr itis panel sed rate 45 mm/HR 0 - 30 high Not Available [facility] Only - [facility] [address] [place] [address], 31796, 03/22/2024 18:29:05 03/22/20 24 03/22/2024 arthr itis panel LEXUS screen PENDIN G Not Available Sc Only - S [facility] [address] [place] [address], 18657, 03/22/2024 18:29:05 03/22/20 24 03/22/2024 arthr itis panel rf 72 IU/mL <3.5-1 4 high Not Available [facility] Only - [facility] [address] [place] [address], 52684, 03/22/2024 18:29:05 03/22/20 24 03/22/2024 arthr itis panel ccp antibody, IgG PENDIN G Not Available [facility] Only - [facility] [address] [place] [address], 92617, 03/22/2024 18:29:05 03/06/20 24 05/24/2023 imagi ng/di [...] Organization Details Recorded Time Systemic lupus erythematos 04445787 Active 2023 Sid Hutchison dana, [facility] 4 11:30:46 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 Jean Paul Smith MD [address] [place] [address], [address], [facility] 4 15:12:00 Generalized osteoarthri tis 946618493 Active 2023 Jean Paul Smith MD [address] [place] [address], 58195[address], [facility] 4 15:12:08 Dependent lymphedema 108685078 Active 2023 Jean Paul Smith MD [address] [place] [address], 48509-838 3, [facility] 4 15:12:21 Stasis dermatitis 06359601 Active 2023 Jean Paul Smith MD [address] [place] [address], 48108-223 3, [facility] 4 15:12:34 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 Jean Paul Smith MD [facility] [place] [address], 94930[address]265 3, [facility] 5 16:33:46 Fibromyalgi a 143385152 Active 2024 Jean Paul Smith MD [address] [place] [address], 110[address] 3, [facility] 5 16:33:56 Moderate chronic obstructive pulmonary disease 679879479 Active 2024 Jean Paul Smith MD [address] [place] [address], 95825[address]922 3, [facility] 5 16:34:25 Chronic combined systolic and diastolic heart failure 7265271581387 00 Active 2024 Jean Paul Smith MD [address] [place] [address], 20834-557 3, [facility] 5 16:34:42 Problem Notes None recorded. Medical Equipment None Reported. Allergies Allergen ID Allergen Name Allergen Category Reaction Reaction Severity Criticality Documentation Date Start Date Code Code System Note Provider Name and Address Organization Details Recorded Time 8091001 Augmentin medicatio n nausea Not available Not available 03/22/2024 47121 2 RxNorm Betsy yman [facility] 4 13:01:50 8125870 clindamyc in Not available hives Not available Not available 03/22/2024 2582 RxNorm Betsy yman [facility] 4 13:02:11 5330002 silicones environme nt,medica tion rash Not available Not available 03/22/2024 9778 RxNorm Betsy ymanalilia [facility] 4 13:02:26 0908143 adhesive tape environme nt,medica tion Not available Not available Not available 03/22/2024 99906 UNK Betsy ymanalilia [facility] 4 13:02:55 7666917 peanut allergeni c extract food,medi cation diarrhea Not available Not available 03/22/2024 84598 8 RxNorm Betsy yman [facility] 4 14:44:16 Medications Name Sig [...] Not Available Not Available Not Available azithromy troy 250 mg tablet TAKE [...] t Available leflunomi de 10 mg tablet TAKE 1 TABLET BY MOUTH [...] completed Not Available Not Available Not Available sulfameth oxazole 800 mg-trimet hoprim 160 mg tablet TAKE 1 TABLET BY MOUTH EVERY 12 HOURS active Not Available Not Available No t [...] Relief 50 mcg/actua tion nasal spray,hailee pension Jasper 2 sprays every day by intranas al route. active Not Available Not Available No t Available Vitals Date Recorded Heart rate Oxygen saturation Oxygen saturation in Arterial blood by Pulse oximetry Provider Name and Address Organization Details Last Updated DateTime 09/28/2024 72 /min 93 % 93 % Amyi Frankie [facility] 09/28/2024 15:40:40 Date Recorded Heart rate Oxygen saturation Oxygen saturation in Arterial blood by Pulse oximetry Systolic And Diastolic Provider Name and Address Organization Details Last Updated DateTime 03/22/2024 64 /min 95 % 95 % 116/68 mm[Hg] Betsy Gardiner [facility] 14:31:19 Social History Question Answer Notes LastModified by Organizat ion Details LastModified Time Tobacco Smoking Status Former Smoker Betsy Gardiner [facility] 03/22/2024 14:43:28 How Many Packs [...] high-dose, quadrivalent, PF 02/16/2022 completed Zoi Dunse [facility] 09/28/2024 15:40:49 Influenza, high-dose, quadrivalent, PF 03/15/2020 completed Zoi Dunse [facility] 09/28/2024 15:40:49 Influenza, adjuvanted, quadrivalent, PF 03/04/2023 completed Zoi Dunse [facility] 09/28/2024 15:40:49 COVID-19, mRNA, LNP-S, PF, 30 mcg/0.3 mL dose 07/16/2020 completed Zoi Dunse [facility] 09/28/2024 15:40:49 COVID-19, mRNA, LNP-S, PF, 30 mcg/0.3 mL dose 08/28/2020 completed Zoi Dunse [facility] 09/28/2024 15:40:49 COVID-19, mRNA, LNP-S, PF, 30 mcg/0.3 mL dose 02/28/2021 completed Zoi Dunse [facility] 09/28/2024 15:40:49 COVID-19, mRNA, LNP-S, PF, 30 mcg/0.3 mL dose, jaylen-sucrose 09/28/2021 [facility] 15:40:49 COVID-19, mRNA, LNP-S, bivalent, PF, 30 mcg/0.3 mL dose 02/16/2022 completed [facility] 09/28/2024 15:40:49 RSV, recombinant, protein subunit RSVpreF, adjuvant reconstituted, 0.5 mL, PF 05/17/2023 completed [facility] 09/28/2024 15:40:49 COVID-19, mRNA, LNP-S, PF, jaylen-sucrose, 30 mcg/0.3 mL 03/04/2023 completed [facility] 09/28/2024 15:40:49 Tdap 08/05/2020 [facility]/28/2024 15:40:49 Influenza, split virus, quadrivalent, PF 01/16/2021 completed Zoi Dunse [facility] 09/28/2024 15:40:49 Past Encounters Encounter ID Performer Location Encounter Start Date Encounter Closed Date Diagnosis/Indication Diagnosis SNOMED-CT Code Diagnosis ICD10 Code Diagnosis Note [id number] Jean Paul Smith MD [address] [place] [address] [place] ([place]) [address] [place] [address] 03/22/2024 13:34:10 03/22/2024 18:17:52 Systemic lupus erythematosus 77574684 M32.12 Secondary Sj gren's syndrome 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 M35.00 Generalize d osteoarthritis 246756965 M15.9 Dependent lymphedema 445 221273 I89.0 Stasis dermatitis 820089 05 I87.2 [id number] Jean Paul Smith MD [facility] [address] [facility] [address] 09/28/2024 15:28:48 10/04/2024 08:27:30 Primary Sj gren's syndrome 898103988 M35.00 Fibromyalgia 958108410 M 79.7 Generalize d osteoarthritis 710880390 M15.9 Health Concerns Section Related Observation LastModified by Organization Detai ls LastModified Time None Recorded Concern Status LastModified by Organization Details LastModified Time None Recorded Advance Directives Directive None Recorded Payers Insurance Date Sequence Insurance Name Policy Number Policy Martin Covered Member ID Martin Member ID Guarantor Name 09/23/2024 1 [place] Cata Aj [id number] Cata Aj 11/03/2024 [employer] (MEDICARE SUPPLEMENT) Cata Aj [id number] Cata Aj 11/03/2024 2 [employer] (MEDICARE SUPPLEMENT) Cata Aj [id number] Cata Aj Notes Date Note Type Note [...] at the request of Dr. Diaz, her dirt shoveler from [facility], regarding rheumatologic evaluation of chronic pericarditis and pericardial effusion in the setting of an elevated LEXUS titer, rule out underlying systemic lupus. The patient states that she has noticed over the past 2 years issues with chronic shortness of breath on exertion and occasional bouts of chest pain. She has been following previously with Dr. Rider of [facility] regarding a chronic pericardial effusion [...] patient reports she has been seeing a hadoop administrator, Dr. Delgado Horn, in [place], [place]. Unfortunately, I do not have access to neither the [facility] notes in any detail nor Dr. Horn s notes at all. I was able to fish out some scattered details from reviews of [facility] records I could pull through out [place] [facility] record system from her [facility] visit and labs from January 31, [...] antibody, SCL70, anticentromere antibody, anti-Terri-1 antibody and SWEEP PRESS OPERATOR screens, all of which were normal or [...] the patient s past medical history and [employer] intake form.ela Smith MD [address] [place] [address], [phone], [facility] 03/23/2024 22:21:25 09/28/2024 text/html The patient is [...] 4 days in mid September 2024 at [facility] for a COPD exacerbation, community acquired pneumonia [...] 100 mg daily. The patient currently reports hurting all over. She encounters some swelling in [...] no gross hematuria.ela Smith MD [address] [place] [address], [phone], [facility] 10/03/2024 09:04:58 OBGyn Episode No OBEpisode recorded.
--- OUTSIDE RECORDS SUMMARY | 2024-11-22 09:52 | XMS_ITS | Encounter Summary ---
Author Organization [facility] Address [address] [place] [address] Care Team Providers Care Turf Sales Person Name Role Phone Gigi Ornelas MD Primary Care Provider [phone] Vickey Rider MD Unavailable [phone] Dominic Arrington MD Unavailable Holden Lombardo MD Unavailable Unavailable Jordi Gould-C Unavailable [phone] Kajal Javed MD Unavailable [phone] Isael Diaz MD Unavailable [phone] Cindy Elias ANP-BC Unavailable [phone] Precious Phillips MD Unavailable Jean Paul Smith MD Unavailable [phone] Encounter Details Date Type Department Care Team (Late st Contact Info) Description 01/30/2021 Abstract [facility] [address] [place] [address] Helen Vargas, SANITATION ASSOCIATE, COREMAKER MACHINE-C [address] [address] Social History Tobacco Use Types Packs/Day Years Used Date Smoking Tobacco: Former Cigarettes Q uit: 2005 Comments Unknown Sex and Gender Information Value Date Recorded Sex Assigned at Female 05/24/2024 2:24 PM PANEL MAKER Legal Sex Female 10:24 PM CDT Gender Identity Not on file Sexual Orientation Not on file documented as of this encounter Plan of Treatment Upcoming Encounters Date Type Department Care Team (Late st Contact Info) Description 12/13/2024 8:45 AM CDT Office Visit [facility]-[address] [place] [address] Cindy Elias, [facility]- [address] [place] [address] 01/16/2025 2:00 PM CDT Office [facility] [address] [place] [address] Jordi Gould PA-C [address] [place] [address] 01/16/2025 2:00 PM CDT Allied Health/Nurse Visit [facility] [address] [place] [address] Jordi Gould PA-C [address] [place] [address] 04/20/2025 1:30 AM PANEL MAKER Allied Health/Nurse Visit [facility] [address] [place] [address] Kajal Javed MD [address] [address] documented as of this encounter Visit Diagnoses Not on filedocumented in this encounter Care Teams Turf Sales Person Relationship Specialty Start Date End Date Gigi Ornelas MD [address] [place] [address] PCP - General FAMILY PRACTICE 02/05/21 Vickey Rider MD [address] [place] [phone] [place] Purchaser CARDIOVASCULAR DISEASE 02/05/21 08/22/23 Dominic Arrington MD [address] [place] [phone] Vascular/Cardiologis t INTERNAL MEDICINE 02/24/21 07/14/24 Holden Lombardo MD [address] [place] [phone] Consulting Physician CLINICAL CARDIAC ELECTROPHYSIOLOGY 07/30/22 02/03/23 Jordi Gould PA-C [address] [place] [phone] PHYSICIAN TELEPHONE ANSWERING SERVICE OPERATOR 07/30/22 Kajal Javed MD [address] [place] [address] Consulting Physician Electrophysiology 02/04/23 Isael Diaz MD [address] [place] [address] INTERVENTIONAL CARDIOLOGY 08/23/2307/14 Cindy Elias, [facility]- [address] [place] [address] Nurse Practitioner NURSE PRACTITIONER ADULT HEALTH 08/23/23 Precious Phillips MD [address] [place] [address] Consulting Physician CARDIOVASCULAR DISEASE 09/24/24 Jean Paul Smith MD [address] [place] [address] Physician RHEUMATOLOGY 09/24/24 documented as of this encounter
[2024-11-22 10:15] VITALS: BP 147/59; PULSE 64; RESP 20; TEMP 37; O2SAT 95
[2024-11-22] MEDS: IRON SUCROSE COMPLEX IVPB (10:29)
[2024-11-22] MEDS: SODIUM CHLORIDE 0.9% IVPB (10:29)
[2024-11-22 10:31] VITALS: BMI 48.7
--- NOTE | 2024-11-22 11:32 | PC.NURSE ---
Pt tolerated infusion well, with no s/sx of adverse reaction. Was excorted by out of room 227 via WC to family vehicle.
== END 2024-11-22 09:46 | disposition home or self-care (01) ==
PROVIDERS: PCP Family Medicine; Visit Provider Family Medicine
DX: D50.9 Iron deficiency anemia, unspecified (principal)
CPT/HCPCS: 96365; J1756

== ENCOUNTER 2024-11-24 09:11 | Outpatient (CLI) | payer MEDICARE, SELFPAY ==
--- OUTSIDE RECORDS SUMMARY | 2024-11-24 09:15 | XMS_ITS | Encounter Summary ---
Author Organization [facility] Address [address] [place] [address] Care Team Providers Care Auxiliary Engineer Name Role Phone Gigi Ornelas MD Primary Care Provider [phone] Jordi Gould PA-C Unavailable [phone] Kajal Javed MD Unavailable [phone] Cindy Elias ANP-BC Unavailable [phone] Precious Phillips MD Unavailable Jean Paul Smith MD Unavailable [phone] Encounter Details Date Type Department Care Team (Late st Contact Info) Description 11/23/2024 Abstract [facility] [address] [place] [phone] Abstract, Doc Pccl Social History Tobacco Use Types Packs/Day Years [...] materials from doctor or pharmacy Never 07/07/2024 [facility] Utilities Answer Date Recorded In the past 12 months has th e [employer], gas, oil, or water [employer] threatened to shut off services in your [...] any time in the past 12 m [facility], were you homeless or living in a fdc (including now)? No 09/22/2024 Comments Unknown Sex and Gender Information Value Date Recorded Sex Assigned at Female 05/24/2024 2:24 PM PHYSICAL TESTING SUPERVISOR Legal Sex Female 10:24 PM CDT [...] Description 12/13/2024 8:45 AM CDT Office Visit [facility] [address] [place] [address] Cindy Elias, [facility]- [address] [place] [address] 01/16/2025 2:00 PM CDT Office Visit [facility] [address] [place] [phone] Jordi Gould PA-C [address] [place] [phone] 01/16/2025 2:00 PM CDT Allied Health/Nurse Visit [facility] [address] [place] [phone] Jordi Gould PA-C [address] [place] [phone] 04/20/2025 1:30 AM PHYSICAL TESTING SUPERVISOR Allied Health/Nurse Visit [facility] [address] [place] [phone] Kajal Javed MD [address] [address] documented as of this encounter Procedures Procedure Name Priority Date/Time Associated Diagnosis Comments COMPREHENSIVE METABOLIC PANEL Routine 11/17/2024 CBC, MANUAL DIFF Routine 11/17/2024 MAGNESIUM Routine 11/17/2024 COMPREHENSIVE METABOLIC PANEL Routine 11/16/2024 CBC, MANUAL DIFF Routine 11/16/2024 MAGNESIUM Routine 11/16/2024 COMPREHENSIVE METABOLIC PANEL Routine 11/14/2024 CBC, MANUAL DIFF Routine 11/14/2024 documented in this encounter Results * (ABNORMAL) COMPREHENSIVE METABOLIC PANEL (11/17/2024) SODIUM S/P/B 139 GLUCOSE 85 mg/dL AST 19 BUN 28 CREATININE S/P/B 1.60(A) 0.5 - 1.0 CALCIUM S/P/B 8.9 POTASSIUM S/P/B 4.2 CHLORIDE S/P/B 101 ALT 11 GFR ESTIMATE 32 Narrative Resulting Agency Comment [facility] Allie Pardo BULLET SWAGING MACHINE OPERATOR LABORATORY Final Result * CBC, MANUAL DIFF (11/17/2024) WBC 5.2 HGB 6.8 HCT 24.9 PLT 220 Narrative Resulting Agency Comment [facility] Allie Pardo BULLET SWAGING MACHINE OPERATOR LABORATORY Final Result * MAGNESIUM (11/17/2024) MAGNESIUM 2.1 Narrative Resulting Agency Comment [facility] Allie Pardo BULLET SWAGING MACHINE OPERATOR LABORATORY Final Result * (ABNORMAL) COMPREHENSIVE METABOLIC PANEL (11/16/2024) SODIUM S/P/B 137 GLUCOSE 86 mg/dL AST 20 BUN 32 CREATININE S/P/B 1.83(A) 0.5 - 1.0 CALCIUM S/P/B 8.4 POTASSIUM S/P/B 5.2 CHLORIDE S/P/B 102 ALT 10 GFR ESTIMATE 27 Narrative Resulting Agency Comment [facility] Allie Pardo BULLET SWAGING MACHINE OPERATOR LABORATORY Final Result * CBC, MANUAL DIFF (11/16/2024) WBC 5.6 HGB 6.5 HCT 23.8 PLT 178 Narrative Resulting Agency Comment [facility] Allie Pardo BULLET SWAGING MACHINE OPERATOR LABORATORY Final Result * MAGNESIUM (11/16/2024) MAGNESIUM 2.2 Narrative Resulting Agency Comment [facility] Allie Pardo BULLET SWAGING MACHINE OPERATOR LABORATORY Final Result * (ABNORMAL) COMPREHENSIVE METABOLIC PANEL (11/14/2024) SODIUM S/P/B 139 GLUCOSE 98 mg/dL AST 20 BUN 27 CREATININE S/P/B 2.12(A) 0.5 - 1.0 CALCIUM S/P/B 8.2 POTASSIUM S/P/B 4.5 CHLORIDE S/P/B 103 ALT 9 Narrative Resulting Agency Comment [facility] us Default History Genericprovider LABORATORY Final Result * CBC, MANUAL DIFF (11/14/2024) WBC 5.9 HGB 7.0 HCT 26.0 PLT 151 Narrative Resulting Agency Comment [facility] us Default History Genericprovider LABORATORY Final Result documented in this encounter Visit Diagnoses Not on filedocumented in this encounter Care Teams Auxiliary Engineer Relationship Specialty Start Date End Date Gigi Ornelas MD [address] [place] [address] PCP - General FAMILY PRACTICE 02/05/21 Jordi Gould PA-C [address] [place] [phone] PHYSICIAN SUPERVISOR PRINTING SHOP 07/30/22 Kajal Javed MD [address] [facility] [address] [phone] Consulting Physician Electrophysiology 02/04/23 Cindy Elias, ANP- [address] [place] [address] Nurse Practitioner NURSE PRACTITIONER ADULT HEALTH 08/23/23 Precious Phillips MD [address] [place] [address] Consulting Physician CARDIOVASCULAR DISEASE 09/24/24 Jean Paul Smith MD [address] [address] Physician RHEUMATOLOGY 09/24/24 documented as of this encounter
--- OUTSIDE RECORDS SUMMARY | 2024-11-24 09:15 | XMS_ITS | Encounter Summary ---
Author Organization [facility] Address [address] [place] [address] Care Team Providers Care Supervisor Front Name Role Phone Gigi Ornelas MD Primary Care Provider [phone] Jordi Gould PA-C Unavailable [phone] Kajal Javed MD Unavailable [phone] Cindy Elias [facility]- Unavailable [phone] Precious Phillips MD Unavailable Jean Paul Smith MD Unavailable [phone] Reason for Visit * Reason Comments Image (SCAN) Encounter Details Date Type Department Care Team (Late st Contact Info) Description 11/13/2024 Scan [facility] [address] [place] [address] Scanned, Doc Pccl Image (SCAN) Social History Tobacco Use Types Packs/Day Years [...] materials from doctor or pharmacy Never 07/07/2024 [facility] Utilities Answer Date Recorded In the past 12 months has th e [employer], oil, or water [employer] threatened to shut off services in your [...] any time in the past 12 m [facility], were you homeless or living in a fpc (including now)? No 09/22/2024 Comments Unknown Sex and Gender Information Value Date Recorded Sex Assigned at Female 05/24/2024 2:24 PM SEO EXPERT Legal Sex Female 10:24 PM CDT Gender [...] Description 12/13/2024 8:45 AM CDT Office Visit [facility] [place] [address] Cindy Elias, [facility]-[address] [phone] 01/16/2025 2:00 PM CDT Office Visit [facility] [address] [place] [phone] Jordi Gould PA-C [address] [place] [phone] 01/16/2025 2:00 PM CDT Allied Health/Nurse Visit [facility] [address] [place] [phone] Jordi Gould PA-C [address] [place] [phone] 04/20/2025 1:30 AM SEO EXPERT Allied Health/Nurse Visit [facility] [address] [place] [phone] Kajal Javed MD [address] [place] [phone] Scheduled Orders Name Type Priority Associated Diagnoses Orde r Schedule IMAGE STUDY Imaging Routine Ordered: 11/07 documented as of this encounter Visit Diagnoses Not on filedocumented in this encounter Care Teams Supervisor Front Relationship Specialty Start Date End Date Gigi Ornelas MD [address] [place] [address] PCP - General FAMILY PRACTICE 02/05/21 Jordi Gould PA-C [address] [place] [phone] PHYSICIAN TEMPORARY DATA ENTRY CLERK 07/30/22 Kajal Javed MD [address] [facility] [address] [place] [address] Consulting Physician Electrophysiology 02/04/23 Cindy Elias [facility] [address] [place] [address] Nurse Practitioner NURSE PRACTITIONER ADULT HEALTH 08/23/23 Precious Phillips MD [address] [place] [address] Consulting Physician CARDIOVASCULAR DISEASE 09/24/24 Jean Paul Smith MD [address] [place] [address] Physician RHEUMATOLOGY 09/24/24 documented as of this encounter
--- OUTSIDE RECORDS SUMMARY | 2024-11-24 09:16 | XMS_ITS | Clinical Summary ---
Author Organization [facility] Address [address] [place] [address] Care Team Providers Care Edge Drummer Name Role Phone Gigi Ornelas MD Primary Care Provider [phone] Jordi Gould PA-C Unavailable [phone] Kajal Javed MD Unavailable [phone] Cindy Elias [facility]- Unavailable [phone] Precious Phillips MD Unavailable Jean Paul Smith MD Unavailable [phone] Allergies Active Allergy Reactions Criticality Noted Date [...] Diagnosed Date Acute on chronic respiratory failure ([facility]) 09/22/2024 CHF (congestive heart failure) ([facility]) 09/22/2024 Morbid (severe) obesity due to excess calories 0 08/28/2024 Body mass index (BMI) 45.0-49.9, adult 5 Anticoagulant long-term use 12/29/2023 Chronic combined systolic an d diastolic heart failure ([facility]) 07/02/2022 Left ventricular systolic dysfunction (LVSD) Biventricular cardiac pacemaker in situ 03/19/20 22 Complete heart block ([facility]) Symptomatic bradycardia 03/18/2022 Chronic venous insufficiency 02/25/2021 Sleep apnea 05/10/2008 Other hyperlipidemia 05/10/2008 Hypertension 05/10/1989 Lymphedema Pericardial effusion ([facility]) SOBOE (shortness of breath on exertion) Encounters Date Type Department Care Team Description 11/23/2024 Abstract [facility] [address] [place] [address] Abstract, Doc Pccl 11/21/2024 Telephone [facility] [address] [place] [address] Cindy Elias ANP- Appointment Request 11/13/2024 Scan [facility] [address] [place] [address] Scanned, Doc Pccl Image (SCAN) 10/30/2024 11:10 AM CDT - 10/30/2024 11:59 PM CDT Hospital Encounter [facility] [address] [place] [address] Non-Staff, Provider Jean Paul Smith MD Discharge Disposition: Home or Self Care (Routine Discharge) 10/30/2024 2:05 AM CDT Allied Health/Nurse Visit [facility] [address] [place] [address] Kajal Javed MD 10/30/2024 Orders Only [address] [place] [address] Jean Paul Smith MD 10/30/2024 Travel 10/03/2024 1:18 PM CDT - 10/03/2024 11:59 PM CDT Hospital Encounter [address] [place] [address] Chencho Monroy MD Discharge Disposition: Home or Self Care (Routine Discharge) 10/03/2024 Travel 09/28/2024 Hospital Follow-up Call [facility] [address] [place] [address] Kathy Cason RN 09/25/2024 Telephone [facility] [address] [place] [address] Opal Patrick NP Appointment Request (Needs follow up appt with Cindy Elias in [place]) 09/22/2024 4:35 PM CDT - 09/26/2024 1:05 PM CDT Hospital Encounter [facility] [address] [place] [address] Earl Ambriz MD Kim, Kwang Jun, MD Markapuram, Srikanth, MD Discharge Disposition: Home with Home Health Care 09/22/2024 Travel 09/05/2024 Telephone [facility] [address] [place] [address] Cindy Elias, ANP-BC Refill Request 08/28/2024 1:00 PM CDT [facility] [address] [place] [address] Cindy Elias, ANP-BC Follow Up (Pericardial effusion, shortness of breath) 08/28/2024 12:43 PM CDT - 08/28/2024 11:59 PM CDT Hospital Encounter [facility] [place] [address] Precious Phillips MD Discharge Disposition: Home or [...] materials from doctor or pharmacy Never 07/07/2024 [facility] Utilities Answer Date Recorded In the past 12 months has e [employer], gas, oil, or water [employer] threatened to shut off services in your [...] any time in the past [facility], were you homeless or living in a usp (including now)? 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 TEACHER Legal Sex Female 10:24 PM CDT Gender [...] Description 12/13/2024 8:45 AM CDT Office Visit [facility] [address] Cindy Elias, [facility] [address] [place] [address] 01/16/2025 2:00 PM CDT Office Visit [facility] [address] [place] [address] Jordi Gould PA-C [address] [place] [phone] 01/16/2025 2:00 PM CDT Allied Health/Nurse Visit [facility] [address] [place] [phone] Jordi Gould PA-C [address] [place] [address] 04/20/2025 1:30 AM NURSERY TEACHER Allied Health/Nurse Visit [facility] [address] [place] [address] Kajal Javed MD [address] [id number] Health Maintenance Due Date Last Done Comments [...] this topic Medical Devices Implanted Type Area Slasher Operator Device Identifier Shelf Expiration Date Model / Serial / Lot Medtronic Rv-03/18/2022 Implanted:Qty: 1 on 03/18/2022 by Holden Lombardo MD Lead Implant [employer] 02/04/2024 4076-52 / [id number] / Medtronic Ra-03/18/2022 Implanted:Qty: 1 on 03/18/2022 by Holden Lombardo MD Lead Implant [employer] 12/27/2023 4076-45 / [id number] / Medtronic Cs-08/24/2022 Implanted:08/08 by Holden Lombardo MD (Quantity not on file) Lead Implant [employer] 06/18/2024 [id number] / [id number] / Medtronic Percepta Quad Biv-08/24/2022 Implanted:08/08 by Holden Lombardo MD (Quantity not on file) Pacemaker [employer] 01/05/2024 [id number] / [id number] / Description:DX: CHB Explanted Type Area Slasher Operator Device Identifier Shelf Expiration Date Model / Serial / Lot Medtronic [place] Mri Dr-03/18/2022 Implanted:Qty: 1 on 03/18/2022 by Holden Lombardo MD Explanted:08/24 by Holden Lombardo MD (Quantity not on file) Pacemaker [employer] 08/22/2023 [id number] / [id number] / Procedures Procedure Name Priority Date/Time Associated Diagnosis Comments COMPREHENSIVE METABOLIC PANEL Routine 11/17/2024 CBC, MANUAL DIFF Routine 11/17/2024 MAGNESIUM Routine 11/17/2024 COMPREHENSIVE METABOLIC PANEL Routine 11/16/2024 CBC, MANUAL DIFF Routine 11/16/2024 MAGNESIUM Routine 11/16/2024 COMPREHENSIVE METABOLIC PANEL Routine 11/14/2024 CBC, MANUAL DIFF Routine 11/14/2024 CBC W/DIFF AUTOMATED Routine 10/30/2024 11:25 AM CDT 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 ([facility]) SED RATE, ERYTHROCYTE (ESR) Routine 10/30/2024 11:25 AM CDT 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 ([facility]) COMPREHENSIVE METABOLIC PANEL Routine 10/30/2024 11:25 AM CDT 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 ([facility]) C-REACTIVE PROTEIN Routine 10/30/2024 11 :25 AM CDT 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 ([facility]) CBC W/DIFF AUTOMATED Routine 10/03/2024 1:31 PM [...] from Last 3 Months Results * (ABNORMAL) COMPREHENSIVE METABOLIC PANEL (11/17/2024) Only the most recent of7 resultswithin the time period is included. Pathologist [facility] SODIUM S/P/B 139 GLUCOSE 85 mg/dL AST 19 BUN 28 CREATININE S/P/B 1.60(A) 0.5 - 1.0 CALCIUM S/P/B 8.9 POTASSIUM S/P/B 4.2 CHLORIDE S/P/B 101 ALT 11 GFR ESTIMATE 32 Narrative Resulting Agency Comment [facility] SOCIAL MEDIA CONTENT SPECIALIST LABORATORY Final Result * CBC, MANUAL DIFF (11/17/2024) Only the most recent of3 resultswithin the time period is included. Pathologist [facility] WBC 5.2 HGB 6.8 HCT 24.9 PLT 220 Narrative Resulting Agency Comment [facility] SOCIAL MEDIA CONTENT SPECIALIST LABORATORY Final Result * MAGNESIUM (11/17/2024) Only the most recent of2 resultswithin the time period is included. Pathologist [facility] MAGNESIUM 2.1 Narrative Resulting Agency Comment [facility] Pardo NP LABORATORY Final Result * (ABNORMAL) SED RATE, ERYTHROCYTE (ESR) (10/30/2024 11:25 AM CDT) [facility] ESR 61(H) 0 - 20 MM/HR 10/30/2024 12:04 PM CDT [facility] 10/30/2024 11:2 5 AM CDT Jean Paul Smith MD LABORATORY Final Resul t [facility] [address] [place] [address], * (ABNORMAL) C-REACTIVE PROTEIN (10/30/2024 11:25 AM CDT) Pathologist [facility] C-REACTIVE PROTEIN 2.68(H) <0.30 mg/dL 10/30/2024 11:56 AM CDT [facility] 10/30/2024 11:2 5 AM CDT us Jean Paul Smith MD LABORATORY Final Resul t [facility] [address] [place] [address], * (ABNORMAL) CBC W/DIFF AUTOMATED (10/30/2024 11:25 AM CDT) Only the most recent of7 resultswithin the time period is included. WBC 7.43 4.00 - 10.80 x10'3/uL 10/30/2024 11:57 AM CDT [facility] RBC 2.93(L) 4.10 - 5.40 x10'6/uL 10/30/2024 11:57 AM CDT [facility] HGB 7.7(L) 12.0 - 16.0 G/DL 10/30/2024 11:57 AM CDT [facility] HCT 27.0(L) 36.0 - 47.0 % 10/30/2024 11:57 AM CDT [facility] MCV 92.2 78.0 - 100.0 FL 10/30/2024 11:57 AM CDT [facility] MCH 26.3(L) 27.0 - 31.0 PG 10/30/2024 11:57 AM CDT [facility] MCHC 28.5(L) 33.0 - 36.0 G/DL 10/30/2024 11:57 AM CDT [facility] RDW 16.5(H) 11.5 - 14.5 % 10/30/2024 11:57 AM CDT [facility] PLT 226 150 - 350 x10'3/uL 10/30/2024 11:57 AM CDT [facility] MPV 9.3 7.4 - 10.4 FL 10/30/2024 11:57 AM CDT [facility] CBC COMMENT NORMAL REFERENCE RANGE NOT ESTABLISHED FOR THE PROPORTIONAL LEUKOCYTE DIFFERENTIAL. 10/30/2024 11:57 AM CDT [facility] NEUTROPHILS % 74.8 % 10/30/2024 12:23 PM CDT [facility] LYMPHOCYTES % 9.2 % 10/30/2024 12:23 PM CDT [facility] MONOCYTES % 8.5 % 10/30/2024 12:23 PM CDT [facility] EOSINOPHILS % 3.8 % 10/30/2024 12:23 PM CDT [facility] BASOPHILS % 0.5 % 10/30/2024 12:23 PM CDT [facility] IMMATURE GRANS % 3.2 % 10/31/19 12:23 PM CDT [facility] NRBC % 0.0 % 10/30/2024 12:23 PM CDT [facility] ABS. NEUTROPHILS 5.56 1.60 - 8.30 x10'3/uL 10/30/2024 12:23 PM CDT [facility] ABS. LYMPHOCYTES 0.68(L) 0.80 - 4.70 x10'3/uL 10/30/2024 12:23 PM CDT [facility] ABS. MONOCYTES 0.63 0.00 - 1.50 x10'3/uL 10/30/2024 12:23 PM CDT [facility] ABS. EOSINOPHILS 0.28 0.00 - 0.40 x10'3/uL 10/30/2024 12:23 PM CDT [facility] ABS. BASOPHILS 0.04 0.00 - 0.20 x10'3/uL 10/30/2024 12:23 PM CDT [facility] ABS. IMMATURE GRANULOCYTES 0.24(H) 0.00 - 0.03 x10'3/uL 10/30/2024 12:23 PM CDT [facility] ABS. NUCLEATED RBC'S 0.00 0.00 - 0.01 x10'3/uL 10/30/2024 12:23 PM CDT [facility] PLT MORPH. NORMAL 10/30/2024 12:23 PM CDT [facility] RBC MORPHOLOGY 1+ 10/30/2024 12:23 PM CDT [facility] Comment: HYPOCHROMASIA 1+ ANISOCYTOSIS 1+ MACROCYTES 10/30/2024 11:2 5 AM CDT us Jean Paul Smith MD LABORATORY Final Resul t [facility] [address] [place] [address], * (ABNORMAL) BASIC METABOLIC PANEL (09/26/2024 5:45 AM CDT) Only the most recent of3 resultswithin the time period is included. SODIUM S/P/B 140 136 - 145 MMOL/L 09/26/2024 6:30 AM CDT [facility] POTASSIUM S/P/B 3.9 3.5 - 5.1 MMOL/L 09/26/2024 6:30 AM CDT [facility] CHLORIDE S/P/B 106 97 - 115 MMOL/L 09/26/2024 6:30 AM CDT [facility] CO2 30.1 21.0 - 32.0 MMOL/L 09/26/2024 6:30 AM CDT [facility] GLUCOSE 130(H) 74 - 106 MG/DL 09/26/2024 6:30 AM CDT [facility] BUN 48(H) 7 - 18 MG/DL 09/26/2024 6:30 AM CDT [facility] CREATININE S/P/B 1.42(H) 0.55 - 1.02 MG/DL 09/26/2024 6:30 AM CDT [facility] CALCIUM S/P/B 9.2 8.5 - 10.1 MG/DL 09/26/2024 6:30 AM CDT [facility] ANION GAP 3.9 2.0 - 10.0 MMOL/L 09/26/2024 6:30 AM CDT [facility] OSMOLALITY (CALC) 304 MOSM/KG 05/20/2 025 6:30 AM CDT [facility] Comment:REFERENCE RANGE NOT ESTABLISHED GFR ESTIMATE 39(L) >90 ML/MIN/1. 73 M2 09/26/2024 6:30 AM CDT [facility] GFR NOTES GFR REFERENCE S: 09/26/2024 6:30 AM CDT [facility] Comment: THE ESTIMATED GFR [...] <15 ml/min/1.73 m2 09/26/2024 5:45 AM CDT us Chencho Monroy MD LABORATORY Final Res ult [facility] [address] [place] [address], [phone] * USE ECHOCARDIOGRAM W CON (09/23/2024 8:54 AM CDT) Anatomical Region Laterality Modality NA Echocardiogram 09/23/2024 8:07 AM CDT Narrative 09/23/2024 6:46 PM CDT Echocardiography Report Pat.Name: CATA YI Madhu Pat.ID: [id number] .Date: 09/23/2024 Refer.: [id number] KATHI Dillard EWDPROV EWDPROV Exam Time: 8:07:00 AM Study Type:ECHO W/CONTRAST COMPLETE Height: 59.8 in Weight: 236 lb BSA: 2 m2 Age: 10 1950,74Y Sex: F BP: 152/88 HR: 98 bpm Sonogrphr: Holden Herrera [facility] Pat. Stat.:Inpatient Room: [facility] CPT - 4: C8929 Reason for Study:CHF, [...] Mass 2D Value 197 g LV Mass [id number] Value 98.5 g/m2 Right Ventricle Right Ventricle [...] MD - 09/23/2024 Echocardiography Report Pat.Name: CATA IY Pat.ID: [id number] St.Date: 09/23/2024 Refer.: [id number] KATHI Dillard EWDPROV EWDPROV Exam Time: 8:07:00 AM Study Type:ECHO W/CONTRAST COMPLETE Height: 59.8 in Weight: 236 lb BSA: 2 m2 Age: 10 1950,74Y Sex: F BP: 152/88 HR: 98 bpm Sonogrphr: Holden Herrera [facility] Pat. Stat.:Inpatient Room: [facility] CPT - 4: C8929 Reason for Study:CHF, [...] Mass 2D Value 197 g LV Mass [id number] Value 98.5 g/m2 Right Ventricle Right Ventricle [...] Signature> 09/23/2024 06:46 PM Precious Phillips M.D. Eunice Sparks PA-C ECHO Itzel l Result * (ABNORMAL) ARTERIAL BLOOD GAS (09/23/2024 3:30 AM CDT) PH ARTERIAL 7.36 7.35 - 7.45 09/23/2024 3:33 AM CDT [facility] PCO2 57.8(H) 35.0 - 45.0 MMHG 09/23/2024 3:33 AM CDT [facility] PO2 68.1(L) 83.0 - 108.0 MMHG 09/23/2024 3:33 AM CDT [facility] BICARB ARTERIAL 31.9(H) 22 - 26 MMOL/L 09/23/2024 3:33 AM CDT [facility] TOTAL CO2 ARTERIAL 33.6(H) 23 - 27 MMOL/L 09/23/2024 3:33 AM CDT [facility] BE/BASE EXCESS 6.0(H) 0 - 2 MMOL/L 09/23/2024 3:33 AM CDT [facility] O2 Saturation 93(L) 95 - 98 % 09/23/2024 3:33 AM CDT [facility] SAUD TEST NEGATIVE 09/23/2024 3:30 AM CDT [facility] OXYGEN STATUS 6 09/23/2024 3:30 AM CDT [facility] DRAW SITE ARTERIAL RT RADIAL 09/23/2024 3:30 AM CDT [facility] 09/23/2024 3:30 AM CDT Yadiel Lemos MD LABORATORY Final Result [facility] [address] [place] [address], [id number] * (ABNORMAL) LEXUS IFA [facility] [place] REFLEX TO TITER (09/22/2024 5:52 PM CDT) LEXUS POSITIVE( A) Negative 10/06/2024 1:57 PM CDT [employer] JEFFERYTISHA SANTO Comment: LEXUS IFA is a first line screen for detecting the presence of up to approximately 150 autoantibodies in various autoimmune diseases. A positive LEXUS IFA result is suggestive of autoimmune disease and reflexes to titer and pattern. Further laboratory testing may be considered if clinically indicated. For additional information, please refer to http://education.Wireless Toyz/faq/SBG779 (This link is being provided for informational/ educational purposes only.) Test Performed by [employer], [employer] [facility], [address] [place] [address] Noel Baldwin M.D., Ph.D., Director of Laboratories , [facility] [id number] 09/22/2024 5:52 PM CDT Ariel Cole MD LABORATORY Final Result [employer] [address] , [place] [phone] * ANTINUCLEAR ANTIBODY [place] RFX (09/22/2024 5:52 PM CDT) LEXUS 23 09/25/2024 1:38 PM CDT [facility] Comment: POSITIVE: >1.0 RATIO SEE SEPARATE PROFILE RESULTS AND IFA TITER THE LEXUS SCREEN TESTS FOR THE FOLLOWING ANTIBODIES BY EIA: SSA1 (RO), SSB1 (LA), TORRES, SCL70, JO1, CENTROMERE, WATER TREATMENT PLANT MECHANIC HISTONE MUST BE ORDERED SEPARATELY DNA (DS) ANTIBODY 23 IU/ML 025 1:38 PM CDT [facility] Comment: NEGATIVE: <10 IU/mL EQUIVOCAL: 10 to 15 IU/mL POSITIVE: >15 IU/mL THIS QUANTITATIVE ASSAY IS CALIBRATED TO THE [employer]'S WO/80 STANDARD. THE LEVEL OF dsDNA AUTOANTIBODY GERERALLY CORRELATES WITH THE LEVEL OF DISEASE ACTIVITY IN SYSTEMIC LUPUS ERYTHMATOSUS 09/22/2024 5:52 PM CDT Ariel Cole MD LABORATORY Final Result [facility] [address] [place] [address], [place] [phone] * (ABNORMAL) PRO-BRAIN NATRIURETIC PEPTIDE (09/22/2024 5:52 PM CDT) PRO-B TYPE NATRIURETIC PEPTIDE 1,302(H) <125 PG/ML 09/22/2024 6:35 PM CDT [facility] Comment: AGE INDEPENDENT: <300 [...] us Ariel Cole MD LABORATORY Final Result [facility] [address] [place] [address], [id number] * (ABNORMAL) LEXUS PROFILE (09/22/2024 5:52 PM CDT) SSA ANTIBODY >240(H) 0.0 - 6.9 U/mL 09/27/2024 3:19 PM CDT [facility] Comment: NEGATIVE: <7 U/mL EQUIVOCAL: 7 to 10 u/mL POSITIVE: >10 U/mL SSA AND/OR SSB AUTOANTIBODIES ARE DETECTED IN 60% TO 90% OF PATIENTS WITH SJOGREN'S SYNDROME AND IN 20% TO 40% OF PATIENTS WITH SYSTEMIC LUPUS ERYTHEMATOSUS. SSB ANTIBODY <0.4 0.0 - 6.9 U/mL 09/27/2024 3:19 PM CDT [facility] Comment: NEGATIVE: <7 U/mL EQUIVOCAL: 7 to 10 u/mL POSITIVE: >10 U/mL SSA AND/OR SSB AUTOANTIBODIES ARE DETECTED IN 60% TO 90% OF PATIENTS WITH SJOGREN'S SYNDROME AND IN 20% TO 40% OF PATIENTS WITH SYSTEMIC LUPUS ERYTHEMATOSUS. SM ANTIBODY <0.7 U/mL 09/27/2024 3:19 PM CDT [facility] Comment: NEGATIVE: <7 U/mL EQUIVOCAL: 7 to 10 u/mL POSITIVE: >10 U/mL Autoantibodies to Torres (Sm) antigen are found in 30% of patients with systemic lupus erythematosus and are highly specific for this disease. SCL 70 S/P/B 1.1 0.0 - 6.9 U/mL 09/27/2024 3:19 PM CDT [facility] Comment: NEGATIVE: <7 U/mL EQUIVOCAL: 7 to 10 u/mL POSITIVE: >10 U/mL AUTOANTIBODIES TO Scl-70 ARE FOUND IN UP TO 60% OF PATIENTS WITH SCLERODERMA (SYSTEMIC SCLEROSIS) AND ARE CONSIDERED TO BE SPECIFIC FOR THIS DISEASE. DAVE-1 ANTIBODY <0.3 U/mL 09/27/2024 3:19 PM CDT [facility] Comment: NEGATIVE: <7 U/mL EQUIVOCAL: 7 to 10 u/mL POSITIVE: >10 U/mL AUTOANTIBODIES TO Jo1 ARE FOUND IN 10% TO 50% OF PATIENTS WITH DERMATOMYOSITIS OR POLYMYOSITIS AND IN 20% OF PATIENTS WITH SCLERODERMA SYNDROME. Jo1 AUTOANTIBODIES ARE GENERALLY NOT SEEN OUTSIDE OF THESE DISEASE STATES. CENTROMERE B AB S/P/B <0.4 U/mL 09/27/2024 3:19 PM CDT [facility] Comment: NEGATIVE: <7 U/mL EQUIVOCAL: 7 to 10 u/mL POSITIVE: >10 U/mL AUTOANTIBODY TO CENTROMERE B IS SEEN IN 70% TO 85% OF PATIENTS WITH CREST (CALCINOSIS, RYNAUD'S PHENOMENON, ESOPHAGEAL HYPOMOTILITY, SCLERODACTYLY AND TELANGIECTASEA) SYNDROME VARIANT OF SYSTEMIC SCLEROSIS AND IN 10% TO 15% OF PATIENTS WITH PRIMARY BILIARY CIRRHOSIS. WATER TREATMENT PLANT MECHANIC (U1) AB S/P/B 1.1 0.0 - 4.9 U/mL 09/27/2024 3:19 PM CDT [facility] Comment: NEGATIVE: <5 U/mL EQUIVOCAL: 5 to 10 U/mL POSITIVE: >10 U/mL AUTOANTIBODIES TO WATER TREATMENT PLANT MECHANIC ARE FOUND IN GREATER THAN 95% OF PATIENTS WITH MIXED CONNECTIVE TISSUE DISEASE (MCTD), BUT ARE ALSO SEEN IN SYSTEMIC LUPUS ERYTHEMATOUS (40%), RHEUMATOID ARTHRITIS (10%), SCLERODERMA SYNDROME (10%), AND RARELY IN DRUG INDUCED LUPUS AND SJOGREN'S SYNDROME. ABSENCE OF WATER TREATMENT PLANT MECHANIC ANTIBODIES USUALLY RULES OUT MCTD. 09/22/2024 5:52 PM CDT us Ariel Cole MD LABORATORY Final Result [facility] [address] [place] [address], [id number] * (ABNORMAL) TROPONIN, QUANT (09/22/2024 5:52 PM CDT) Pathologist [facility] TROPONIN I HIGH SENSITIVITY 96(H) 0 - 53 ng/L 09/22/2024 6:35 PM CDT [facility] 09/22/2024 5:52 PM CDT us Ariel Cole MD LABORATORY Final Result Performing Organization Address [facility] Co de Phone Number [facility] [address] [place] [address], [phone] * (ABNORMAL) ANTINUCLEAR ANTIBODIES TITER (09/22/2024 5:52 PM CDT) [facility] LEXUS TITER >=1:1280(A ) Negative 10/06/2024 2:26 PM CDT [employer] PABLO SANTO Comment: Reference Range: <1:40 Negative 1:40-1:80 Low Antibody Level >1:80 Elevated Antibody Level Test Performed by [employer], [employer] [facility], [address] [place] [address] Noel Baldwin M.D., Ph.D., Director of Laboratories , [facility] [id number] LEXUS PATTERN REPORT 10/06/2024 2:26 PM CDT [employer] PABLO SANTO Comment: Nuclear, Speckled Speckled pattern is associated with mixed connective tissue disease (MCTD), systemic lupus erythematosus (SLE), Sjogren's syndrome, dermatomyositis, and systemic sclerosis/polymyositis overlap. AC-2, 4, 5, 29: Speckled International Consensus on LEXUS Patterns https://doi.org/10.1515/wjui-2285-4463 LEXUS TITER THREE END OF REPORT 10/06/2024 2:26 PM CDT [employer] SANT[facility] 09/22/2024 5:52 PM CDT us Ariel Cole MD LABORATORY Final Result [facility] [address] [place] [address], [place] [phone] * XR CHEST PORTABLE (09/22/2024 5:35 PM CDT) Anatomical Region Laterality Modality Chest Radiographic Susan ging 09/22/2024 6:12 PM CDT Impressions 09/22/2024 6:14 PM CDT IMPRESSION: Cardiomegaly and mild vascular congestion. Referred By: ASPEN ARMENTA Interpreted By: Tre River MD, 09/22/2024 6:12 PM Narrative 09/22/2024 6:[address] [address] Examination: Chest x-ray 1 view Exam Date/Time: [...] Procedure Note Tre River MD - 09/22/[address] [address] Examination: Chest x-ray 1 view Exam Date/Time: [...] is included. 09/22/2024 5:[address] [facility] - 09/22/2024 6:11 PM CDT [address] [place] [address] Test Date: 2024-09-22 Pat Name: CATA YI Department: 1 Room: 550AA Gender: Female Toolroom Attendant: Dawood : 1950 Requested By: ARIEL COLE Order Number: [id number] Reading MD: Francisco Javier Vuong Measurements Intervals Napoleon Rate: 82 P: 78 VT: 164 QRS: 220 QRSD: 140 T: 48 QT: 372 QTc: 437 Interpretive Statements ELECTRONIC ATRIAL PACEMAKER ELECTRONIC VENTRICULAR PACEMAKER ABNORMAL RHYTHM ECG Procedure Note Francisco Javier Vuong MD - 09/22/2024 [address] [place] [address] Test Date: 2024-09-22 Pat Name: CATA YI Department: 1 Room: 550AA Gender: Female Toolroom Attendant: Dawood : 1950 Requested By: ARIEL COLE Order Number: [id number] Reading : Francisco Javier Vuong Measurements Intervals Napoleon Rate: 82 P: 78 VT: 164 QRS: 220 QRSD: 140 T: 48 QT: 372 QTc: 437 Interpretive Statements ELECTRONIC ATRIAL PACEMAKER ELECTRONIC VENTRICULAR PACEMAKER ABNORMAL RHYTHM ECG us Ariel Cole MD ECG ORDERABLES Final Result [facility] from Last 3 Months Insurance MEDICARE AET[employer] Advance Directives Documents on File Type Date Recorded Patient Bookstore Clerk Expl 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 Advance Directives and Living Will 03/20/2022 11:47 AM [employer] Advance Directives and Living Will 02/20/2021 9:06 AM Refer to THOMAS bell regarding Advanced Directives - NO BLOOD Power of Business Services Specialist Sales 02/20/2021 9:06 AM Lucie Yi, H[facility]-spouse; Aram [...] File Name Relationship Healthcare Agent Relationship Communication Omarkalen Gaxiola Jean Marie ([facility]) Spouse Health Care Agent [phone] (Mobile ) Aram Marshall Yi Other [employer] huyen Health Care Agent Care Teams Edge Drummer Relationship Specialty Start Date End Date Gigi Ornelas MD [address] [place] [address] PCP - General FAMILY PRACTICE 02/05/21 Jordi Gould PA-C [id number] [place] [address] PHYSICIAN AUTOMOTIVE TIRE WORKER 07/30/22 Kajal Javed MD [address] [id number] Consulting Physician Electrophysiology 02/04/23 Cindy Elias, ANP- [address] [place] [address] Nurse Practitioner NURSE PRACTITIONER ADULT HEALTH 08/23/23 Precious Phillips MD [address] [place] [address] Consulting Physician CARDIOVASCULAR DISEASE 09/24/24 Jean Paul Smith MD [address] [place], [place] [id number] Physician RHEUMATOLOGY 09/24/24
--- OUTSIDE RECORDS SUMMARY | 2024-11-24 09:16 | XMS_ITS | Data Portability ---
Author Organization [facility], [address] [place] [address] [place]rology ([place]) Address [address] [address] Care Team Providers Care Contract Technician Name Role Phone PIYUSH MEDELLIN Primary Care Provider [phone] Assessment Encounter Date Assessment Date Assessment LastModified [...] on this date of service including both mzda-nu-pszq and sud-zibj-ir-face time excluding any separately reportable services. ela [...] Not available Not available Lab CBC 2023 [facility] Only - Dc Laboratory, [address] [place] [address], [id number], 03/22/2024 18:04:30 CMP, serum or plasma 2023 [facility] - Dc Laboratory, [address] [place] [address], [id number], 03/22/2024 18:29:04 C-reactiv e protein, quantitat kristin, serum or plasma 2023 [facility] - Dc Laboratory, [address] [place] [address], 7[address], 03/22/2024 18:29:02 arthritis panel 2023 [facility] - Dc Laboratory, [address] [place] [address], 106[address], 03/22/2024 18:29:05 DNA double strand Ab, QL, serum 2023 [facility] - Dc Laboratory, [address] [place] [address], 854[address], 03/23/2024 16:52:04 complemen t, total, CH50, serum or plasma 2023 [facility] - Dc Laboratory, [address] [place] [address], 96949, 03/23/2024 16:13:54 C3 (compleme nt), serum or plasma 2023 [facility] - Dc Laboratory, [address] [place] [address], 66535, 03/23/2024 08:20:12 C4 (compleme nt), serum or plasma 2023 [facility] - Dc Laboratory, [address] [place] [address], [id number], 03/23/2024 08:20:10 Hepatitis B virus core Ab, qual immunoass ay, serum or plasma 2023 [facility] Only - Dc Laboratory, [address] [place] [address], 27[address], 03/23/2024 07:41:15 HBsAg (hepatiti s B surface Ag), serum 2023 024 [facility] Only - Sc Laboratory, [address] [place] [address], 57372, 03/22/2024 18:40:56 hepatitis C Ab, serum 2023 [facility] Only - Sc Laboratory, [address] [place] [address], [id number], 03/22/2024 19:01:49 TPMT gene product metabolic activity interpret ation, blood or tissue (OBS) 2023 [facility] Only - Sc Laboratory, [address] [place] [address], 959[address], 03/28/2024 03:38:56 BNP (B-type natriuret ic peptide), serum or plasma 2023 [email or web address], [address] [place] [address], [id number], 04/11/2024 11:26:04 Referral None recorded. Procedures None recorded. Surgeries None recorded. Imaging None recorded. Medication Orders None recorded. Patient TargetsNo targets recorded. Patient InstructionsNo instructions recorded. Reason for Referral None Reported. Results Created Date Observation Date Name Description Value Unit Range Abnormal Flag Note LastModifiedBy Organization Detail LastModifiedTime 03/22/2003/22/2024 CBC CBC Not Available [facility] Only - Dc Laboratory [address] [place] [address], [id number], 03/22/2024 18:04:30 03/22/2003/22/2024 CBC WBC 4.9 K/uL 3.8-11 .2 Not Available [facility] Only - Dc Laboratory [address] [place] [address], 47428, 03/22/2024 18:04:30 03/22/20 24 03/22/2024 CBC RBC 3.34 M/uL 3.92-5 .10 low Not Available [facility] Only - Sc Laboratory [address] [place] [address], 44846, 03/22/2024 18:04:30 03/22/20 24 03/22/2024 CBC HGB 9.5 g/dL 11.8-1 5.3 low Not Available [facility] Only - Sc Laboratory [address] [place] [address], 94[address], 03/22/2024 18:04:30 03/22/20 24 03/22/2024 CBC HCT 31.5 % 36.5-4 4.8 low Not Available Sc Only - Sc Laboratory [address] [place] [address], 43934, 03/22/2024 18:04:30 03/22/20 24 03/22/2024 CBC MCV 94.3 fL 80.0-9 9.0 Not Available Sc Only - Sc Laboratory [address] [place] [address], 09888, 03/22/2024 18:04:30 03/22/20 24 03/22/2024 CBC MCH 28.4 pg 25.5-3 3.6 Not Available Sc Only - Sc Laboratory [address] [place] [address], 04205, 03/22/2024 18:04:30 03/22/20 24 03/22/2024 CBC MCHC 30.2 g/dL 32.0-3 6.0 low Not Available Sc Only - Sc Laboratory [address] [place] [address], 08252, 03/22/2024 18:04:30 03/22/20 24 03/22/2024 CBC RDW-SD 52.2 fL 35.1 - 46.3 high Not Available Sc Only - Sc Laboratory [address] [place] [address], 93239, 03/22/2024 18:04:30 03/22/20 24 03/22/2024 CBC plt 196 K/uL 130-40 0 Not Available Dc Only - Dc Laboratory [address] [place] [address], 26458, 03/22/2024 18:04:30 03/22/20 24 03/22/2024 CBC MPV 9.3 fL 9.3-12 .8 Not Available [facility] Only - Dc Laboratory [address] [place] [address], 50687, 03/22/2024 18:04:30 03/22/20 24 03/22/2024 C-nelida ctive prote in, quant itati ve, serum or plasm a CRP high Not Available [facility] Only - Dc Laboratory [address] [place] [address], [id number], 03/22/2024 18:29:02 03/22/20 24 03/22/2024 C-nelida ctive prote in, quant itati ve, serum or plasm a CRP 2.9 mg/dL <0.4-0 .5 high Not Available [facility] Only - Dc Laboratory [address] [place] [address], 95353, 03/22/2024 18:29:02 03/22/20 24 03/22/2024 CMP, serum or plasm a comp. met. panel Not Available [facility]c Onl y - Dc Laboratory [address] [place] [address], [id number], 03/22/2024 18:29:04 03/22/20 24 03/22/2024 CMP, serum or plasm a sodium 142 mmol/ L 136-14 6 Not Available [facility] Only - Dc Laboratory [address] [place] [address], 46321, 03/22/2024 18:29:04 03/22/20 24 03/22/2024 CMP, serum or plasm a potassium 3.9 mmol/ L 3.5-5. 1 Not Available [facility] Only - Dc Laboratory [address] [place] [address], 62270, 03/22/2024 18:29:04 03/22/20 24 03/22/2024 CMP, serum or plasm a chloride 106 mmol/ L 98-110 Not Available [facility] Only - Dc Laboratory [address] [place] [address], [id number], 03/22/2024 18:29:04 03/22/20 24 03/22/2024 CMP, serum or plasm a CO2 31 mEq/L 20-32 Not Available [facility] Only - Dc Laboratory [address] [place] [address], 46306, 03/22/2024 18:29:04 03/22/20 24 03/22/2024 CMP, serum or plasm a anion gap 9 mmol/ L 10-22 low Not Available [facility] Only - Dc Laboratory [address] [place] [address], 62798, 03/22/2024 18:29:04 03/22/20 24 03/22/2024 CMP, serum or plasm a glucose 92 mg/dL 70-100 Not Available [facility] Only - Dc Laboratory [address] [place] [address], 78805, 03/22/2024 18:29:04 03/22/20 24 03/22/2024 CMP, serum or plasm a calcium 9.5 mg/dL 8.4-10 .4 Not Available [facility] Only - Dc Laboratory [address] [place] [address], 74041, 03/22/2024 18:29:04 03/22/20 24 03/22/2024 CMP, serum or plasm a total protein 7.2 g/dL 6.4-8. 3 Not Available [facility] Only - Dc Laboratory [address] [place] [address], 45423, 03/22/2024 18:29:04 03/22/20 24 03/22/2024 CMP, serum or plasm a albumin 3.8 g/dL 3.5-5. 3 Not Available [facility] Only - Dc Laboratory [address] [place] [address], 56471, 03/22/2024 18:29:04 03/22/20 24 03/22/2024 CMP, serum or plasm a ALP 113 U/L 44 - 127 Not Available [facility] Only - Dc Laboratory [address] [place] [address], 93476, 03/22/2024 18:29:04 03/22/20 24 03/22/2024 CMP, serum or plasm a AST (SGOT) 14 U/L 10-40 Not Available [facility] Only - Dc Laboratory [address] [place] [address], 67031, 03/22/2024 18:29:04 03/22/2003/22/2024 CMP, serum or plasm a total bilirubin 0.3 mg/dL 0.2-1. 0 Not Available [facility] Only - Dc Laboratory [address] [place] [address], 69743, 03/22/2024 18:29:04 03/22/20 24 03/22/2024 CMP, serum or plasm a ALT (SGPT) 9 U/L 8-35 Not Available [facility] Only - Dc Laboratory [address] [place] [address], 78034, 03/22/2024 18:29:04 03/22/20 24 03/22/2024 CMP, serum or plasm a BUN 19 mg/dL 7-21 Not Available [facility] [address] [place] [address], 92486, 03/22/2024 18:29:04 03/22/20 24 03/22/2024 CMP, serum or plasm a creatinine 1.3 mg/dL 0.7-1. 3 Not Available [facility] Only - Dc Laboratory [address] [place] [address], 51622, 03/22/2024 18:29:04 03/22/20 24 03/22/2024 CMP, serum or plasm a GFR(non-afri can namibian) 43 Not Available Dc Onl y - Dc Laboratory [address] [place] [address], 12466, 03/22/2024 18:29:04 03/22/20 24 03/22/2024 CMP, serum or plasm a GFR() 52 (MANUFACTURING QUALITY TECHNICIAN CHUCKY KIDNE Y DISEA SE HAS A GFR LESS THAN 60 ML/NH N/1.7 3 MM FOR A PERIO D OF THREE MONTH S OR MORE. ) Not Available [facility] Only - Dc Laboratory [address] [place] [address], 95520, 03/22/2024 18:29:04 03/22/20 24 03/22/2024 HBsAg (hepa titis B surfa ce Ag), serum hepatitis B surface Ag NONREA CTIVE nonrea ctive Not Available [facility] Only - Dc Laboratory [address] [place] [address], 73453, 03/22/2024 18:40:56 03/22/20 24 03/22/2024 hepat itis C Ab, serum hepatitis C Ab NONREA CTIVE nonrea ctive Not Available [facility] Only - Dc Laboratory [address] [place] [address], 29989, 03/22/2024 19:01:49 03/22/20 24 03/23/2024 Hepat itis B virus core Ab, qual immun oassa y, serum or plasm a hepatitis B core Ab NEGATI VE negati ve Not Available [facility] Only - Dc Laboratory [address] [place] [address], 97224, 03/23/2024 07:41:15 03/22/20 24 03/23/2024 C4 (comp lemen t), serum or plasm a complement C4 12 mg/dL 12-38 Not Available [facility] Onl y - Dc Laboratory [address] [place] [address], 37858, 03/23/2024 08:20:10 03/22/20 24 03/23/2024 C3 (comp lemen t), serum or plasm a complement C3 181 mg/dL 82-167 high Not Available [facility] Onl [facility] - Dc Laboratory [address] [place] [address], 42122, 03/23/2024 08:20:12 03/22/20 24 03/22/2024 arthr itis panel uric acid 7.4 mg/dL 2.3-6. 6 high Not Available [facility] Only - Dc Laboratory [address] [place] [address], 96977, 03/23/2024 12:40:52 03/22/20 24 03/22/2024 arthr itis panel sed rate 45 mm/HR 0 - 30 high Not Available [facility] Only - Dc Laboratory [address] [place] [address], 31298, 03/23/2024 12:40:52 03/22/2003/22/2024 arthr itis panel rf 72 IU/mL <3.5-1 4 high Not Available [facility] Only - Dc Laboratory [address] [place] [address], 54063, 03/23/2024 12:40:52 03/22/20 24 03/22/2024 arthr itis panel ccp antibody, IgG <0.54 U/mL <=4.9 Not Available [facility] Onl [facility] - Dc Laboratory [address] [place] [address], 03847, 03/23/2024 12:40:52 03/22/20 24 03/23/2024 arthr itis panel arthritis panel Not Available Dc On y - Dc Laboratory [address] [place] [address], 00939, 03/23/2024 12:40:52 03/22/20 24 03/23/2024 arthr itis panel LEXUS screen POSITI VE negati ve abnormal Titer to follo w Perfo rmed by Bio-R ad enzym e immun oassa y Not Available [facility] Only - Dc Laboratory [address] [place] [address], 71931, 03/23/2024 12:40:52 03/22/20 24 03/23/2024 compl ement [...] out of range value s. Not Available Dc Only - Dc Laboratory [facility] [address] [place] [address], 51036, 03/23/2024 16:13:54 03/22/20 24 03/23/2024 DNA doubl e stran d Ab, QL, serum DNA Ab; double stranded NEGATI VE negati ve Not Available Dc Only - Dc Laboratory [address] [place] [address], 90915, 03/23/2024 16:52:04 03/22/20 24 03/23/2024 LEXUS (anti [...] fausto using HEp-2 cell line Not Available Dc Only - Dc Laboratory [address], [address], 03/23/2024 16:52:06 03/22/20 24 03/28/[address] produ ct metab olic activ ity inter preta tion, blood or tissu e (OBS) thiopurine methyltransf er Not Available D[facility] Onl y - Dc Laboratory [address] [place] [address], 55929, 03/28/2024 03:38:56 03/22/20 24 03/28/[address] gene produ ct metab olic activ ity inter preta tion, blood or tissu e (OBS) tpmt activity 24.2 Refer ence Range : Christine l: 15.1 - 26.4 Heter ozygo us for low TPMT varia nt: 6.3 - 15.0 Homoz ygous for low TPMT varia nt: <6.3 Not Available [facility] Only - Dc Laboratory [address] [place] [address], 19998, 03/28/2024 03:38:56 03/22/20 24 03/28/2024 TPMT gene [...] e corry cteri stics deter mined by [employer] rp. It has not been clear ed or appro shannan by the Food and Drug Admin istra tion. This case has been revie wed, appro shannan, inter prete d and elect jessika siddiqi faye d by Francois walls, PhD, [facility] . Not Available [facility] Only - Dc Laboratory [address] [place] [address], 64363, 03/28/2024 03:38:56 03/22/20 24 03/28/[address] gene produ ct metab olic activ ity inter preta tion, blood or tissu e (OBS) tpmt method ENZYMA TIC ENDPOI NT/LIQ UID CHROMA TOGRAP HY - TANDEM MASS SPECTR OMETRY (LC-MS /MS) Not Available Dc Only - S c Laboratory [address] [place] [address], 30307, 03/28/2024 03:38:56 03/22/2003/22/2024 arthr itis panel arthritis panel Not Available [facility] Onl [facility] - Sc Laboratory [address] [place] [address], 59674, 03/22/2024 19:14:05 03/22/2003/22/2024 arthr itis panel uric acid 7.4 mg/dL 2.3-6. 6 high Not Available [facility] Only - Dc Laboratory [address] [place] [address], 03229, 03/22/2024 19:14:05 03/22/2003/22/2024 arthr itis panel sed rate 45 mm/HR 0 - 30 high Not Available [facility] Only - Dc Laboratory [address] [place] [address], 35124, 03/22/2024 19:14:05 03/22/20 24 03/22/2024 arthr itis panel LEXUS screen PENDIN G Not Available [facility] Only - S c Laboratory [address] [place] [address], 38807, 03/22/2024 19:14:05 03/22/2003/22/2024 arthr itis panel rf 72 IU/mL <3.5-1 4 high Not Available [facility] Only - Sc Laboratory [address] [place] [address], 74188, 03/22/2024 19:14:05 03/22/2003/22/2024 arthr itis panel ccp antibody, IgG <0.54 U/mL <=4.9 Not Available [facility] Onl y - Sc Laboratory [address] [place] [address], 58648, 03/22/2024 19:14:05 03/22/2003/22/2024 arthr itis panel arthritis panel Not Available [facility] Onl [facility] - Sc Laboratory [address] [place] [address], 55151, 03/22/2024 18:29:05 03/22/20 24 03/22/2024 arthr itis panel uric acid 7.4 mg/dL 2.3-6. 6 high Not Available Sc Only - Sc Laboratory [address] [place] [address], 79529, 03/22/2024 18:29:05 03/22/20 24 03/22/2024 arthr itis panel sed rate 45 mm/HR 0 - 30 high Not Available Sc Only - Sc Laboratory [address] [place] [address], 75817, 03/22/2024 18:29:05 03/22/20 24 03/22/2024 arthr itis panel LEXUS screen PENDIN G Not Available Sc Only - S c Laboratory [address] [place] [address], 24845, 03/22/2024 18:29:05 03/22/20 24 03/22/2024 arthr itis panel rf 72 IU/mL <3.5-1 4 high Not Available Sc Only - Sc Laboratory [address] [place] [address], 05752, 03/22/2024 18:29:05 03/22/20 24 03/22/2024 arthr itis panel ccp antibody, IgG PENDIN G Not Available Dc Only - S c Laboratory [address] [place] [address], 88150, 03/22/2024 18:29:05 03/06/20 24 05/24/2023 imagi ng/di [...] Organization Details Recorded Time Systemic lupus erythematos 63538263 Active 2023 Sid Hutchison dana, [facility] 4 11:30:46 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 Jean Paul Smith MD [address] [place] [address], 42[address], [facility] 4 15:12:00 Generalized osteoarthri tis 192430211 Active 2023 Jean Paul Smith MD [address] [place] [address], 18279-227 3, [facility] 4 15:12:08 Dependent lymphedema 936460428 Active 2023 Jean Paul Smith MD [address] [place] [address], 99893-[address] 3, [facility] 4 15:12:21 Stasis dermatitis 81192690 Active 2023 Jean Paul Smith MD [address] [place] [address], 78166-755 3, [facility] 4 15:12:34 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 Jean Paul Smith MD [facility] [place] [address], 12888-163 3, [facility] 5 16:33:46 Fibromyalgi a 887314114 Active 2024 Jean Paul Smith MD [address] [place] [address], 81363-789 3, [facility] 5 16:33:56 Moderate chronic obstructive pulmonary disease 216711307 Active 2024 Jean Paul Smith MD [address] [place] [address], 39848-352 3, [facility] 5 16:34:25 Chronic combined systolic and diastolic heart failure 4533120202794 00 Active 2024 Jean Paul Smith MD [address] [place] [address], 27411-510 3, [facility] 5 16:34:42 Problem Notes None recorded. Medical Equipment None Reported. Allergies Allergen ID Allergen Name Allergen Category Reaction Reaction Severity Criticality Documentation Date Start Date Code Code System Note Provider Name and Address Organization Details Recorded Time 3926734 Augmentin medicatio n nausea Not available Not available 03/22/2024 02564 2 RxNorm Betsy yman [facility] 4 13:01:50 5067591 clindamyc in Not available hives Not available Not available 03/22/2024 2582 RxNorm [facility] 4 13:02:11 9946395 silicones environme nt,medica tion rash Not available Not available 03/22/2024 9778 RxNorm [facility] ymanal[facility] 4 13:02:26 9530350 adhesive tape environme nt,medica tion Not available Not available Not available 03/22/2024 95790 UNK [facility]etsy ymanalilia [facility] 4 13:02:55 4520133 peanut allergeni c extract food,medi cation diarrhea Not available Not available 03/22/2024 55255 8 RxNorm [facility] 4 14:44:16 Medications Name Sig Start Date [...] Relief 50 mcg/actua tion nasal spray,hailee pension [place] 2 sprays every day by intranas al route. active Not Available Not Available No t Available Vitals Date Recorded Heart rate Oxygen saturation Oxygen saturation in Arterial blood by Pulse oximetry Provider Name and Address Organization Details Last Updated DateTime 09/28/2024 72 /min 93 % 93 % Amyi Frankie [facility] 09/28/2024 15:40:40 Date Recorded Heart rate Oxygen saturation Oxygen saturation in Arterial blood by Pulse oximetry Systolic And Diastolic Provider Name and Address Organization Details Last Updated DateTime 03/22/2024 64 /min 95 % 95 % 116/68 mm[Hg] Betsy Gardiner [facility] 14:31:19 Social History Question Answer Notes LastModified by Organizat ion Details LastModified Time Tobacco Smoking Status Former Smoker Betsy Gardiner [facility] 03/22/2024 14:43:28 How Many Packs Per Day [...] high-dose, quadrivalent, PF 02/16/2022 completed Zoi Dunse [facility] 09/28/2024 15:40:49 Influenza, high-dose, quadrivalent, PF 03/15/2020 completed Zoi Dunse [facility] 09/28/2024 15:40:49 Influenza, adjuvanted, quadrivalent, PF 03/04/2023 completed Zoi Dunse [facility] 09/28/2024 15:40:49 COVID-19, mRNA, LNP-S, PF, 30 mcg/0.3 mL dose 07/16/2020 completed Zoi Dunse [facility] 09/28/2024 15:40:49 COVID-19, mRNA, LNP-S, PF, 30 mcg/0.3 mL dose 08/28/2020 completed Zoi Dunse [facility] 09/28/2024 15:40:49 COVID-19, mRNA, LNP-S, PF, 30 mcg/0.3 mL dose 02/28/2021 completed Zoi Dunse [facility] 09/28/2024 15:40:49 COVID-19, mRNA, LNP-S, PF, 30 mcg/0.3 mL dose, jaylen-sucrose 09/28/2021 [facility] 15:40:49 COVID-19, mRNA, LNP-S, bivalent, PF, 30 mcg/0.3 mL dose 02/16/2022 [facility] 15:40:49 RSV, recombinant, protein subunit RSVpreF, adjuvant reconstituted, 0.5 mL, PF 05/17/2023 [facility] 15:40:49 COVID-19, mRNA, LNP-S, PF, jaylen-sucrose, 30 mcg/0.3 mL 03/04/2023 [facility]24 15:40:49 Tdap 08/05/2020 [facility]24 15:40:49 Influenza, split virus, quadrivalent, PF 01/16/2021 completed Zoi Dunse [facility] 09/28/2024 15:40:49 Past Encounters Encounter ID Performer Location Encounter Start Date Encounter Closed Date Diagnosis/Indication Diagnosis SNOMED-CT Code Diagnosis ICD10 Code Diagnosis Note [id number] Jean Paul Smith MD [address] [place] [address] Rheumat[place]gy ([place]) [address] [place] [address] 03/22/2024 13:34:10 03/22/2024 18:17:52 Systemic lupus erythematosus 39792835 M32.12 Secondary Sj gren's syndrome 250413270 M35.00 Generalize d osteoarthritis 414264519 M15.9 Dependent lymphedema 445 854975 I89.0 Stasis dermatitis 893058 05 I87.2 [id number] Jean Paul Smith MD [facility]gy ([place] [address] [facility] [address] 09/28/2024 15:28:48 10/04/2024 08:27:30 Primary Sj gren's syndrome 748405276 M35.00 Fibromyalgia 459198828 M 79.7 Generalize d osteoarthritis 174066989 M15.9 Health Concerns Section Related Observation LastModified by Organization Detai ls LastModified Time None Recorded Concern Status LastModified by Organization Details LastModified Time None Recorded Advance Directives Directive None Recorded Payers Insurance Date Sequence Insurance Name Policy Number Policy Martin Covered Member ID Martin Member ID Guarantor Name 09/23/2024 1 [place] Cata Aj [id number] Cata Aj 11/03/2024 [employer] (MEDICARE SUPPLEMENT) Cata Aj [id number] Cata Aj 11/03/2024 2 [employer] (MEDICARE SUPPLEMENT) Cata Aj [id number] Cata Aj Notes Date Note Type Note [...] at the request of Dr. 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 The patient states that she has noticed over the past 2 years issues with chronic shortness of breath on exertion and occasional bouts of chest pain. She has been following previously with Dr. 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 Delgado Horn, in [place], [place]. Unfortunately, I do not have access to neither the [facility] notes in any detail nor Dr. Horn s notes at all. I was able to fish out some scattered details from reviews of [facility] records I could pull through out [place] [facility] record system from her [facility] visit and labs from January 31, [...] antibody, SCL70, anticentromere antibody, anti-Terri-1 antibody and [employer] screens, all of which were normal or [...] the patient s past medical history and [employer] intake form.ela Smith MD [address] [place] [address], [phone], [facility] 03/23/2024 22:21:25 09/28/2024 text/html The patient [...] 4 days in mid September 2024 at [facility] for a COPD exacerbation, community acquired pneumonia [...] no gross hematuria.ela Smith MD [address] [place] [address], [phone], [facility] 10/03/2024 09:04:58 OBGyn Episode No OBEpisode recorded.
--- OUTSIDE RECORDS SUMMARY | 2024-11-24 09:16 | XMS_ITS | Encounter Summary ---
Author Organization [facility] Address [address] [place] [address] Care Team Providers Care Group Supervisor Yard Name Role Phone Gigi Ornelas MD Primary Care Provider [phone] Vickey Rider MD Unavailable [phone] Dominic Arrington MD Unavailable Holden Lombardo MD Unavailable Unavailable Jordi Gould PA-C Unavailable +[phone] Kajal Javed MD Unavailable + [phone] Isael Diaz MD Unavailable [phone] Cindy Elias ANP-BC Unavailable [phone] Precious Phillips MD Unavailable Jean Paul Smith MD Unavailable [phone] Encounter Details Date Type Department Care Team (Late st Contact Info) Description 08/19/2022 Hospital Orders Only [facility] [address] [place] [address] Holden Lombardo MD Social History Tobacco Use Types Packs/Day Years Used Date Smoking Tobacco: Former Cigarettes Q uit: 2005 Smokeless Tobacco: Never Alcohol Use Standard Drinks/Week Comments Never 0 (1 standard drink = 0.6 oz pur e alcohol) Comments Unknown Sex and Gender Information Value Date Recorded Sex Assigned at Female 05/24/2024 2:24 PM GUARDIAN FAMILY MEMBER Legal Sex Female 10:24 PM CDT Gender [...] Assessment Author Status No 03/18/2022 10:00 PM GUARDIAN FAMILY MEMBER 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 Answer Date of Assessment Author Status No 03/18/2022 10:00 PM GUARDIAN FAMILY MEMBER Acti ve * Do you have serious [...] Description 12/13/2024 8:45 AM CDT Office Visit [facility]-[address] [place] [address] Cindy Elias, [facility]-[address] [address] 01/16/2025 2:00 PM CDT Office Visit [facility] [facility] [address] [place] [phone] Jordi Gould PA-C [address] [place] [address] 01/16/2025 2:00 PM CDT Allied Health/[facility]urse [facility] [address] [place] [address] Jordi Gould PA-C [address] [place] [phone] 04/20/2025 1:30 AM GUARDIAN FAMILY MEMBER Allied Health/Nurse [facility] [address] [place] [phone] Kajal Javed MD [address] [place] [address] [place] [phone] documented as of this encounter Visit Diagnoses Not on filedocumented in this encounter Care Teams Group Supervisor Yard Relationship Specialty Start Date End Date Gigi Ornelas MD [address] [place] [address] PCP - General FAMILY PRACTICE 02/05/21 Vickey Rider MD [address] [place] [phone] [place] Matrix Supervisor CARDIOVASCULAR DISEASE 02/05/21 08/22/23 Dominic Arrington MD [address] [place] [phone] Vascular/Cardiologis t INTERNAL MEDICINE 02/24/21 07/14/24 Holden Lombardo MD [address] [place] [phone] Consulting Physician CLINICAL CARDIAC ELECTROPHYSIOLOGY 07/30/22 02/03/23 Jordi Gould PA-C [address] [place] [phone] PHYSICIAN PIT CREW SUPPORT WORKER 07/30/22 Kajal Javed MD [address] [place] [address] Consulting Physician Electrophysiology 02/04/23 Isael Diaz MD [address] [place] [address] [phone] INTERVENTIONAL CARDIOLOGY 08/23/2307/14 Cindy Elias, [facility] [address] [place] [address] Nurse Practitioner NURSE PRACTITIONER ADULT HEALTH 08/23/23 Precious Phillips MD [address] [place] [address] Consulting Physician CARDIOVASCULAR DISEASE 09/24/24 Jean Paul Smith MD [address] [place] [address] Physician RHEUMATOLOGY 09/24/24 documented as of this encounter
--- OUTSIDE RECORDS SUMMARY | 2024-11-24 09:16 | XMS_ITS | Encounter Summary ---
Author Organization [facility] Address [address] [place] [address] Care Team Providers Care Master In Chancery Name Role Phone Gigi Ornelas MD Primary Care Provider [phone] Vickey Rider MD Unavailable [phone] Dominic Arrington MD Unavailable Holden Lombardo MD Unavailable Unavailable Jordi Gould-C Unavailable [phone] Kajal Javed MD Unavailable + [phone] Isael Diaz MD Unavailable [phone] Cindy Elias ANP-BC Unavailable [phone] Precious Phillips MD Unavailable Jean Paul Smith MD Unavailable [phone] Encounter Details Date Type Department Care Team (Late st Contact Info) Description 01/30/2021 Abstract [facility] [address] [place] [address] Helen Vargas, MANAGER STUDENT SERVICES, LEATHER FLESHER-C [address] [address] Social History Tobacco Use Types Packs/Day Years Used Date Smoking Tobacco: Former Cigarettes Q uit: 2005 Comments Unknown Sex and Gender Information Value Date Recorded Sex Assigned at Female 05/24/2024 2:24 PM VOCATIONAL COORDINATOR Legal Sex Female 10:24 PM CDT Gender Identity Not on file Sexual Orientation Not on file documented as of this encounter Plan of Treatment Upcoming Encounters Date Type Department Care Team (Late st Contact Info) Description 12/13/2024 8:45 AM CDT Office Visit [facility] [place] [address] Cindy Elias, [facility]- [address] [place] [address] 01/16/2025 2:00 PM CDT Office Visit [facility] [address] [place] [address] Jordi Gould PA-C [address] [place] [address] 01/16/2025 2:00 PM CDT Allied Health/[facility] [address] [place] [address] Jordi Gould PA-C [address] [place] [address] 04/20/2025 1:30 AM VOCATIONAL COORDINATOR Allied Health/Nurse Visit [facility] [address] [place] [address] Kajal Javed MD [address] [address] documented as of this encounter Visit Diagnoses Not on filedocumented in this encounter Care Teams Master In Chancery Relationship Specialty Start Date End Date Gigi Ornelas MD [address] [place] [address] PCP - General FAMILY PRACTICE 02/05/21 Vickey Rider MD [address] [place] [phone] [place] Title Search Manager CARDIOVASCULAR DISEASE 02/05/21 08/22/23 Dominic Arrington MD [address] [place] [phone] Vascular/Cardiologis t INTERNAL MEDICINE 02/24/21 07/14/24 Holden Lombardo MD [address] [place] [phone] Consulting Physician CLINICAL CARDIAC ELECTROPHYSIOLOGY 07/30/22 02/03/23 Jordi Gould PA-C [address] [place] [phone] PHYSICIAN LUNCH COOK 07/30/22 Kajal Javed MD [address] [place] [address] Consulting Physician Electrophysiology 02/04/23 Isael Diaz MD [address] [place] [address] INTERVENTIONAL CARDIOLOGY 08/23/2307/14 Cindy Elias, [facility]- [address] [place] [address] Nurse Practitioner NURSE PRACTITIONER ADULT HEALTH 08/23/23 Precious Phillips MD [address] [place] [address] Consulting Physician CARDIOVASCULAR DISEASE 09/24/24 Jean Paul Smith MD [address] [place] [address] Physician RHEUMATOLOGY 09/24/24 documented as of this encounter
--- OUTSIDE RECORDS SUMMARY | 2024-11-24 09:16 | XMS_ITS | Encounter Summary ---
Author Organization [facility] Address [address] [place] [address] Care Team Providers Care Career Development Manager Name Role Phone Gigi Ornelas MD Primary Care Provider [phone] Jordi Gould PA-C Unavailable [phone] Kajal Javed MD Unavailable + [phone] Cindy Elias ANP-BC Unavailable [phone] Precious Phillips MD Unavailable Jean Paul Smith MD Unavailable [phone] Encounter Details Date Type Department Care Team (Late st Contact Info) Description 09/28/2024 Hospital Follow-up Call [facility] [address] [place] [address] Kathy Cason, RN Social History [...] materials from doctor or pharmacy Never 07/07/2024 [facility] Utilities Answer Date Recorded In the past 12 months has th e [employer], oil, or water [employer] threatened to shut off services in your [...] time in the past [address] [facility], were you homeless or living in a skilled nursing (including now)? No 09/22/2024 Comments Unknown Sex and Gender Information Value Date Recorded Sex Assigned at Female 05/24/2024 2:24 PM ENVIRONMENTAL RESEARCH SCIENTIST Legal Sex Female 10:24 PM CDT Gender [...] Description 12/13/2024 8:45 AM CDT Office Visit [facility]-[address] [place] [address] Cindy Elias, [facility]-[address] [address] 01/16/2025 2:00 PM CDT Office Visit [facility] [address] [place] [phone] Jordi Gould PA-C [address] [place] [address] 01/16/2025 2:00 PM CDT Allied Health/Nurse Visit [facility] [address] [place] [address] Jordi Gould PA-C [address] [place] [address] 04/20/2025 1:30 AM ENVIRONMENTAL RESEARCH SCIENTIST Allied Health/Nurse Visit [facility] [address] [place] [phone] Kajal Javed MD [address] [place] [address] documented as of this encounter Visit Diagnoses Not on filedocumented in this encounter Care Teams Career Development Manager Relationship Specialty Start Date End Date Gigi Ornelas MD [address] [place] [address] PCP - General FAMILY PRACTICE 02/05/21 Jordi Gould PA-C [address] [place] [phone] PHYSICIAN SWEEPER BRUSH MAKER MACHINE 07/30/22 Kajal Javed MD [address] [place] [address] Consulting Physician Electrophysiology 02/04/23 Cindy Elias, [facility] [address] [place] [address] Nurse Practitioner NURSE PRACTITIONER ADULT HEALTH 08/23/23 Precious Phillips MD [address] [place] [address] Consulting Physician CARDIOVASCULAR DISEASE 09/24/24 Jean Paul Smith MD [address] [place] [address] Physician RHEUMATOLOGY 09/24/24 documented as of this encounter
[2024-11-24 09:50] LABS: Hematocrit 32.2 % (35.0-42.0); Hemoglobin 8.9 g/dL (11.7-13.8); Immature Granulocyte Percent A 2.3 % (0.0-0.0); Lymphocytes Absolute Auto 0.64 K/mm3 (1.10-4.50); Mean Corpuscular HGB Conc 27.6 g/dL (32-36); Mean Corpuscular Hemoglobin 26.1 pg (27.0-31.0); Mean Corpuscular Volume 94.4 fL (78.0-102.0); Nucleated Red Blood Cells Absolute Auto 0.00 K/mm3 (0.00-0.00); Nucleated Red Blood Cells Perc 0.0 % (0-0.0); Platelet Count Result 232 K/mm3 (150-420); Red Blood Count 3.41 M/mm3 (4.20-5.40); White Blood Count 7.1 K/mm3 (4.8-10.8)
[2024-11-24 10:10] LABS: Alanine Aminotransferase 18 U/L (6-35); Albumin Level 3.7 g/dL (3.5-5.1); Alkaline Phosphatase 90 U/L (38-126); Anion Gap 3 mmol/L (4-12); Aspartate Amino Transferase 25 U/L (14-36); Bilirubin,Total 0.4 mg/dL (0.2-1.3); Blood Urea Nitrogen 19 mg/dL (7-17); CRP 1.2 mg/dL (<1.0); Calcium 8.6 mg/dL (8.4-10.2); Carbon Dioxide 33 mmol/L (22-30); Chloride 103 mmol/L (98-107); Estimated Glomerular Filt Rate 46; Glucose 87 mg/dL (65-110); Osmolality Calculated 289 mOsm/kg (285-295); Potassium 3.2 mmol/L (3.4-5.0); Sodium 139 mmol/L (137-145); Total Protein 7.1 g/dL (6.3-8.2)
== END 2024-11-24 09:12 | disposition home or self-care (01) ==
PROVIDERS: PCP Family Medicine; Visit Provider Nurse Practitioner Family
DX: M06.9 Rheumatoid arthritis, unspecified (principal); D64.9 Anemia, unspecified; M32.12 Pericarditis in systemic lupus erythematosus
CPT/HCPCS: 36415; 80053; 85025; 85652; 86140

== ENCOUNTER 2024-12-08 10:42 | Outpatient (CLI) | payer MEDICARE, SELFPAY ==
--- OUTSIDE RECORDS SUMMARY | 2024-12-08 10:46 | XMS_ITS | Encounter Summary ---
Author Organization [facility] Address [address] [place] [address] Care Team Providers Care College Athlete Name Role Phone Gigi Ornelas MD Primary Care Provider [phone] Vickey Rider MD Unavailable [phone] Dominic Arrington MD Unavailable Holden Lombardo MD Unavailable Unavailable Jordi Gould-C Unavailable [phone] Kajal Javed MD Unavailable + [phone] Isael Diaz MD Unavailable [phone] Cindy Elias ANP-BC Unavailable [phone] Precious Phillips MD Unavailable Jean Paul Smith MD Unavailable [phone] Encounter Details Date Type Department Care Team (Late st Contact Info) Description 01/30/2021 Abstract [facility] [address] [place] [address] Helen Vargas, THERAPIST'S ASSISTANT, SUPERVISOR [employer]-C [address] [address] Social History Tobacco Use Types Packs/Day Years Used Date Smoking Tobacco: Former Cigarettes Q uit: 2005 Comments Unknown Sex and Gender Information Value Date Recorded Sex Assigned at Female 05/24/2024 2:24 PM BLOOD BANK ASSISTANT Legal Sex Female 10:24 PM CDT Gender Identity Not on file Sexual Orientation Not on file documented as of this encounter Plan of Treatment Upcoming Encounters Date Type Department Care Team (Late st Contact Info) Description 12/13/2024 8:45 AM CDT Office Visit [facility]-[address] [place] [address] Cindy Elias, [facility]- [address] [place] [address] 01/16/2025 2:00 PM CDT [facility] [address] [place] [address] Jordi Gould PA-C [address] [place] [address] 01/16/2025 2:00 PM CDT Allied Health/Nurse Visit [facility] [address] [place] [address] Jordi Gould PA-C [address] [place] [address] 04/20/2025 1:30 AM BLOOD BANK ASSISTANT Allied Health/Nurse Visit [facility] [address] [place] [address] Kajal Javed MD [address] [address] documented as of this encounter Visit Diagnoses Not on filedocumented in this encounter Care Teams College Athlete Relationship Specialty Start Date End Date Gigi Ornelas MD [address] [place] [address] PCP - General FAMILY PRACTICE 02/05/21 Vickey Rider MD [address] [place] [phone] [place] Eight Arm Operator CARDIOVASCULAR DISEASE 02/05/21 08/22/23 Dominic Arrington MD [address] [place] [phone] Vascular/Cardiologis t INTERNAL MEDICINE 02/24/21 07/14/24 Holden Lombardo MD [address] [place] [phone] Consulting Physician CLINICAL CARDIAC ELECTROPHYSIOLOGY 07/30/22 02/03/23 Jordi Gould PA-C [address] [place] [phone] PHYSICIAN DIRECTOR INSTITUTION 07/30/22 Kajal Javed MD [address] [place] [address] Consulting Physician Electrophysiology 02/04/23 Isael Diaz MD [address] [place] [address] INTERVENTIONAL CARDIOLOGY 08/23/2307/14 Cindy Elias, [facility]- [address] [place] [address] Nurse Practitioner NURSE PRACTITIONER ADULT HEALTH 08/23/23 Precious Phillips MD [address] [place] [address] Consulting Physician CARDIOVASCULAR DISEASE 09/24/24 Jean Paul Smith MD [address] [place] [address] Physician RHEUMATOLOGY 09/24/24 documented as of this encounter
--- OUTSIDE RECORDS SUMMARY | 2024-12-08 10:46 | XMS_ITS | Encounter Summary ---
Author Organization [facility] Address [address] [place] [address] Care Team Providers Care Mushroom Spawn Maker Name Role Phone Gigi Ornelas MD Primary Care Provider [phone] Jordi Gould PA-C Unavailable [phone] Kajal Javed MD Unavailable + [phone] Cindy Elias ANP-BC Unavailable [phone] Precious Phillips MD Unavailable Jean Paul Smith MD Unavailable [phone] Encounter Details Date Type Department Care Team (Late st Contact Info) Description 09/28/2024 Hospital Follow-up Call [facility] Unit [address] [place] [address] Kathy Cason, RN Social History [...] materials from doctor or pharmacy Never 07/07/2024 [facility] Utilities Answer Date Recorded In the past 12 months has th e [employer], oil, or water [employer] threatened to shut off services in your [...] any time in the past 12 m [facility], were you homeless or living in a [place] health care facility (including now)? No 09/22/2024 Comments Unknown Sex and Gender Information Value Date Recorded Sex Assigned at Female 05/24/2024 2:24 PM EVENT MGR Legal Sex Female 10:24 PM CDT Gender [...] Description 12/13/2024 8:45 AM CDT Office Visit [facility]-[address] [place] [address] Cindy Elias, [facility]-[address] [address] 01/16/2025 2:00 PM CDT [facility] [address] [place] [phone] Jordi Gould PA-C [address] [place] [address] 01/16/2025 2:00 PM CDT Allied Health/Nurse Visit [facility] [address] [place] [address] Jordi Gould PA-C [address] [place] [address] 04/20/2025 1:30 AM EVENT MGR Allied Health/Nurse Visit [facility] [address] [place] [phone] Kajal Javed MD [address] [place] [address] documented as of this encounter Visit Diagnoses Not on filedocumented in this encounter Care Teams Mushroom Spawn Maker Relationship Specialty Start Date End Date Gigi Ornelas MD [address] [place] [address] PCP - General FAMILY PRACTICE 02/05/21 Jordi Gould PA-C [address] [place] [phone] PHYSICIAN SHOULDER BONER 07/30/22 Kajal Javed MD [address] [place] [address] Consulting Physician Electrophysiology 02/04/23 Cindy Elias, [facility] [address] [place] [address] Nurse Practitioner NURSE PRACTITIONER ADULT HEALTH 08/23/23 Precious Phillips MD [address] [place] [address] Consulting Physician CARDIOVASCULAR DISEASE 09/24/24 Jean Paul Smith MD [address] [place] [address] Physician RHEUMATOLOGY 09/24/24 documented as of this encounter
--- OUTSIDE RECORDS SUMMARY | 2024-12-08 10:46 | XMS_ITS | Clinical Summary ---
Author Organization [facility] Address [address] [place] [address] Care Team Providers Care Produce Runner Name Role Phone Gigi Orenlas MD Primary Care Provider [phone] Jordi Gould PA-C Unavailable [phone] Kajal Javed MD Unavailable [phone] Cindy Elias [facility]- Unavailable [phone] Precious Phillips MD Unavailable Jean Paul Smith MD Unavailable [phone] Allergies Active Allergy Reactions Criticality Noted Date [...] Diagnosed Date Acute on chronic respiratory failure ([facility]) 09/22/2024 CHF (congestive heart failure) ([facility]) 09/22/2024 Morbid (severe) obesity due to excess calories 0 08/28/2024 Body mass index (BMI) 45.0-49.9, adult 5 Anticoagulant long-term use 12/29/2023 Chronic combined systolic an d diastolic heart failure ([facility]) 07/02/2022 Left ventricular systolic dysfunction (LVSD) Biventricular cardiac pacemaker in situ 03/19/20 22 Complete heart block ([facility]) 2 Symptomatic bradycardia 03/18/2022 Chronic venous insufficiency 02/25/2021 Sleep apnea 05/10/2008 Other hyperlipidemia 05/10/2008 Hypertension 05/10/1989 Lymphedema Pericardial effusion ([facility]) SOBOE (shortness of breath on exertion) Encounters Date Type Department Care Team Description 12/05/2024 Orders Only [facility] [address] [place] [address] Precious Phillips MD 11/29/2024 Abstract [facility] [address] [place] [address] Abstract, Doc Pccl 11/23/2024 Abstract [facility] [address] [place] [address] Abstract, Doc Pccl 11/21/2024 Scan [facility] [address] [place] [address] Scanned, Doc Pcc 11/21/2024 Telephone [facility] [address] [place] [address] Cindy Elias ANP- Appointment Request 11/17/2024 Scan [facility] [address] [place] [address] Scanned, Doc Pccl 11/16/2024 Scan [facility] [address] [place] [address] Scanned, Doc Pccl 11/15/2024 Scan [facility] [address] [place] [address] Scanned, Doc Pccl Echo (SCAN) 11/14/2024 Scan [facility] [address] [place] [address] Scanned, Doc Pccl CT (SCAN) 11/13/2024 Scan [facility] [address] [place] [address] Scanned, Doc Pccl CT (SCAN) 11/13/2024 Scan [facility] ie [address] [place] [address] Scanned, Doc Pccl Image (SCAN); ECG (SCAN); Lab (SCAN) 10/30/2024 11:10 AM CDT - 10/30/2024 11:59 PM CDT Hospital Encounter [facility] [address] [place] [address] Non-Staff, Provider Jean Paul Smith MD Discharge Disposition: Home or Self Care (Routine Discharge) 10/30/2024 2:05 AM CDT Allied Health/Nurse Visit [facility] ie [address] [place] [address] Kajal Javed MD 10/30/2024 Orders Only [facility] [address] [place] [address] Jean Paul Smith MD 10/30/2024 Travel 10/03/2024 1:18 PM CDT - 10/03/2024 11:59 PM CDT Hospital Encounter [facility] [address] [place] [address] Chencho Monroy MD Discharge Disposition: Home or Self Care (Routine Discharge) 10/03/2024 Travel 09/28/2024 Hospital Follow-up Call [facility] [address] [place] [address] Kathy Cason RN 09/25/2024 Telephone [facility] [address] [place] [address] Opal Patrick NP Appointment Request (Needs follow up appt with Cindy Elias in [place]) 09/22/2024 4:35 PM CDT - 09/26/2024 1:05 PM CDT Hospital Encounter [facility] [address] [place] [address] Earl Ambriz MD Kim, MD Eliana Servin Srikanth, MD Discharge Disposition: Home with Home Health Care 09/22/2024 Travel from Last 3 Months Family History [...] from doctor or pharmacy Never 07/07/2024 [facility] Utilities Answer Date Recorded In the past 12 months has th e electric, gas, oil, or water company threatened to shut off services in your [...] any time in the past 12 m [facility], were you homeless or living in a custodial (including now)? No 09/22/2024 Comments Unknown Sex and Gender Information Value Date Recorded Sex Assigned at Female 05/24/2024 2:24 PM GENERAL SALES MANAGER Legal Sex Female 10:24 PM CDT [...] Description 12/13/2024 8:45 AM CDT Office Visit [facility] [address] Cindy Elias, [facility]- [address] [place] [address] 01/16/2025 2:00 PM CDT Office Visit [facility] ld [address] [place] [address] Jordi Gould PA-C [address] [place] [address] 01/16/2025 2:00 PM CDT Allied Health/Nurse Visit [facility] [address] [place] [address] Jordi Gould PA-C [address] [place] [address] 04/20/2025 1:30 AM GENERAL SALES MANAGER Allied Health/Nurse Visit [facility] ld [address] [place] [address] Kajal Javed MD [address] [place] [address] Health Maintenance Due Date Last Done Comments [...] this topic Medical Devices Implanted Type Area Public Information Relations Manager Device Identifier Shelf Expiration Date Model / Serial / Lot Medtronic Rv-03/18/2022 Implanted:Qty: 1 on 03/18/2022 by Holden Lombardo MD Lead Implant [employer] 02/04/2024 4076-52 / [id number] / Medtronic Ra-03/18/2022 Implanted:Qty: 1 on 03/18/2022 by Holden Lombardo MD Lead Implant [employer] 12/27/2023 4076-45 / [id number] / Medtronic Cs-08/24/2022 Implanted:08/08 by Holden Lombardo MD (Quantity not on file) Lead Implant [employer] 06/18/2024 [id number] / [id number] / Medtronic Percepta Quad Biv-08/24/2022 Implanted:08/08 by Holden Lombardo MD (Quantity not on file) Pacemaker [employer] 01/05/2024 [id number] / [id number] / Description:DX: CHB Explanted Type Area Public Information Relations Manager Device Identifier Shelf Expiration Date Model / Serial / Lot Medtronic Griselda Mri Dr-03/18/2022 Implanted:Qty: 1 on 03/18/2022 by Holden Lombardo MD Explanted:08/24 by Holden Lombardo MD (Quantity not on file) Pacemaker [employer] 08/22/2023 [id number] / [id number] / Procedures Procedure Name Priority Date/Time Associated Diagnosis Comments COMPREHENSIVE METABOLIC PANEL Routine 11/24/2024 CBC, MANUAL DIFF Routine 11/24/2024 COMPREHENSIVE METABOLIC PANEL Routine 11/17/2024 CBC, MANUAL DIFF Routine 11/17/2024 MAGNESIUM Routine 11/17/2024 COMPREHENSIVE METABOLIC PANEL Routine 11/16/2024 CBC, MANUAL DIFF Routine 11/16/2024 MAGNESIUM Routine 11/16/2024 ECHO GENERIC (SCAN ORDER) Routine 11/15/2024 12:[address] GENERIC Routine 11/14/2024 12:00 AM CDT COMPREHENSIVE METABOLIC PANEL Routine 11/14/2024 CBC, MANUAL DIFF Routine 11/14/2024 CT GENERIC Routine 11/13/2024 12:00 AM CDT ECG GENERIC (SCAN ORDER) Routine 11/13/2024 12:00 AM CDT OUTSIDE LAB (SCAN ORDER) Routine 11/13/2024 IMAGE GENERIC Routine 11/13/2024 12:00 AM CDT CBC W/DIFF AUTOMATED Routine 10/30/2024 11:25 AM CDT 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 ([facility] HHS/HCC) SED RATE, ERYTHROCYTE (ESR) Routine 10/30/2024 11:25 AM CDT 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 ([facility]) COMPREHENSIVE METABOLIC PANEL Routine 10/30/2024 11:25 AM CDT 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 ([facility]HS/[facility]) C-REACTIVE PROTEIN Routine 10/30/2024 11 :25 AM CDT 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 ([facility] HHS/[facility]) CBC W/DIFF AUTOMATED Routine 10/03/2024 [...] ECG 12-LEAD STAT 09/22/2024 5:20 PM CDT from Last 3 Months Results * (ABNORMAL) COMPREHENSIVE METABOLIC PANEL (11/24/2024) Only the most recent of8 resultswithin the time period is included. Pathologist [facility] SODIUM S/P/B 139 GLUCOSE 87 mg/dL AST 25 BUN 19 CREATININE S/P/B 1.15(A) 0.5 - 1.0 CALCIUM S/P/B 8.6 POTASSIUM S/P/B 3.2 CHLORIDE S/P/B 103 ALT 18 GFR ESTIMATE 46 Narrative Resulting Agency Comment [facility] us Allie Pardo [facility] Final Result * CBC, MANUAL DIFF (11/24/2024) Only the most recent of4 resultswithin the time period is included. Pathologist [facility] WBC 7.1 HGB 8.9 HCT 32.2 PLT 232 Narrative Resulting Agency Comment [facility] us Allie Pardo [facility] Final Result * MAGNESIUM (11/17/2024) Only the most recent of2 resultswithin the time period is included. MAGNESIUM 2.1 Narrative Resulting Agency Comment [facility] us Allie Pardo [facility] Final Result * ECHO (11/15/2024 12:00 AM CDT) Anatomical Region Laterality Modality Other 11/15/2024 us Doc Pccl Scanned SCANNING Final Result * CT (11/14/2024 12:00 AM CDT) Only the most recent of2 resultswithin the time period is included. Anatomical Region Laterality Modality Other 11/14/2024 us Doc Pccl Scanned SCANNING Final Result * ECG (11/13/2024 12:00 AM CDT) 11/13/2024 us Doc Pccl Scanned SCANNING Final Result [facility] * OUTSIDE LAB (11/13/2024) 11/13/2024 us Doc Pccl Scanned SCANNING Final Result [facility] * IMAGE STUDY (11/13/2024 12:00 AM CDT) Anatomical Region Laterality Modality Other 11/13/2024 us Doc Pccl Scanned SCANNING Final Result * (ABNORMAL) SED RATE, ERYTHROCYTE (ESR) (10/30/2024 11:25 AM CDT) ESR 61(H) 0 - 20 MM/HR 10/30/2024 12:04 PM CDT [facility] 10/30/2024 11:2 5 AM CDT us Jean Paul Smith MD LABORATORY Final Resul t [facility] [address] [place] [id number], * (ABNORMAL) C-REACTIVE PROTEIN (10/30/2024 11:25 AM CDT) C-REACTIVE PROTEIN 2.68(H) <0.30 mg/dL 10/30/2024 11:56 AM CDT [facility] 10/30/2024 11:2 5 AM CDT Jean Paul Smith MD LABORATORY Final Resul t Performing Organization Address [facility] Co de Phone Number [facility] [address] [place] [address], * (ABNORMAL) CBC W/DIFF AUTOMATED (10/30/2024 11:25 AM CDT) Only the most recent of7 resultswithin the time period is included. WBC 7.43 4.00 - 10.80 x10'3/uL 10/30/2024 11:57 AM CDT [facility] RBC 2.93(L) 4.10 - 5.40 x10'6/uL 10/30/2024 11:57 AM CDT [facility] HGB 7.7(L) 12.0 - 16.0 G/DL 10/30/2024 11:57 AM CDT [facility] HCT 27.0(L) 36.0 - 47.0 % 10/30/2024 11:57 AM CDT [facility] MCV 92.2 78.0 - 100.0 FL 10/30/2024 11:57 AM CDT [facility] MCH 26.3(L) 27.0 - 31.0 PG 10/30/2024 11:57 AM CDT [facility] MCHC 28.5(L) 33.0 - 36.0 G/DL 10/30/2024 11:57 AM CDT [facility] RDW 16.5(H) 11.5 - 14.5 % 10/30/2024 11:57 AM CDT [facility] PLT 226 150 - 350 x10'3/uL 10/30/2024 11:57 AM CDT [facility] MPV 9.3 7.4 - 10.4 FL 10/30/2024 11:57 AM CDT [facility] CBC COMMENT NORMAL REFERENCE RANGE NOT ESTABLISHED FOR THE PROPORTIONAL LEUKOCYTE DIFFERENTIAL. 10/30/2024 11:57 AM CDT [facility] NEUTROPHILS % 74.8 % 10/30/2024 12:23 PM CDT [facility] LYMPHOCYTES % 9.2 % 10/30/2024 12:23 PM CDT [facility] MONOCYTES % 8.5 % 10/30/2024 12:23 PM CDT [facility] EOSINOPHILS % 3.8 % 10/30/2024 12:23 PM CDT [facility] BASOPHILS % 0.5 % 10/30/2024 12:23 PM CDT [facility] IMMATURE GRANS % 3.2 % 10/31/19 12:23 PM CDT [facility] NRBC % 0.0 % 10/30/2024 12:23 PM CDT [facility] ABS. NEUTROPHILS 5.56 1.60 - 8.30 x10'3/uL 10/30/2024 12:23 PM CDT [facility] ABS. LYMPHOCYTES 0.68(L) 0.80 - 4.70 x10'3/uL 10/30/2024 12:23 PM CDT [facility] ABS. MONOCYTES 0.63 0.00 - 1.50 x10'3/uL 10/30/2024 12:23 PM CDT [facility] ABS. EOSINOPHILS 0.28 0.00 - 0.40 x10'3/uL 10/30/2024 12:23 PM CDT [facility] ABS. BASOPHILS 0.04 0.00 - 0.20 x10'3/uL 10/30/2024 12:23 PM CDT [facility] ABS. IMMATURE GRANULOCYTES 0.24(H) 0.00 - 0.03 x10'3/uL 10/30/2024 12:23 PM CDT [facility] ABS. NUCLEATED RBC'S 0.00 0.00 - 0.01 x10'3/uL 10/30/2024 12:23 PM CDT [facility] PLT MORPH. NORMAL 10/30/2024 12:23 PM CDT [facility] RBC MORPHOLOGY 1+ 10/30/2024 12:23 PM CDT [facility] Comment: HYPOCHROMASIA 1+ ANISOCYTOSIS 1+ MACROCYTES 10/30/2024 11:2 5 AM CDT us Jean Paul Smith MD LABORATORY Final Resul t [facility] [address] [place] [phone], * (ABNORMAL) BASIC METABOLIC PANEL (09/26/2024 5:45 AM CDT) Only the most recent of3 resultswithin the time period is included. SODIUM S/P/B 140 136 - 145 MMOL/L 09/26/2024 6:30 AM CDT [facility] POTASSIUM S/P/B 3.9 3.5 - 5.1 MMOL/L 09/26/2024 6:30 AM CDT [facility] CHLORIDE S/P/B 106 97 - 115 MMOL/L 09/26/2024 6:30 AM CDT [facility] CO2 30.1 21.0 - 32.0 MMOL/L 09/26/2024 6:30 AM CDT [facility] GLUCOSE 130(H) 74 - 106 MG/DL 09/26/2024 6:30 AM CDT [facility] BUN 48(H) 7 - 18 MG/DL 09/26/2024 6:30 AM CDT [facility] CREATININE S/P/B 1.42(H) 0.55 - 1.02 MG/DL 09/26/2024 6:30 AM CDT [facility] CALCIUM S/P/B 9.2 8.5 - 10.1 MG/DL 09/26/2024 6:30 AM CDT [facility] ANION GAP 3.9 2.0 - 10.0 MMOL/L 09/26/2024 6:30 AM CDT [facility] OSMOLALITY (CALC) 304 MOSM/KG 025 6:30 AM CDT [facility] Comment:REFERENCE RANGE NOT ESTABLISHED GFR ESTIMATE 39(L) >90 ML/MIN/1. 73 M2 09/26/2024 6:30 AM CDT [facility] GFR NOTES GFR REFERENCE S: 09/26/2024 6:30 AM CDT [facility] Comment: THE ESTIMATED GFR IS [...] Chencho Monroy MD LABORATORY Final Res ult [facility] [address] [place] [address], [phone] * USE ECHOCARDIOGRAM W CON (09/23/2024 8:54 AM CDT) Anatomical Region Laterality Modality NA Echocardiogram 09/23/2024 8:07 AM CDT Narrative 09/23/2024 6:46 PM CDT Echocardiography Report Pat.Name: CATA YI Pat.ID: [id number] .Date: 09/23/2024 Refer.MD: [id number] KATHI Dillard EWDPROV EWDPROV Exam Time: 8:07:00 AM Study Type:ECHO W/CONTRAST COMPLETE Height: 59.8 in Weight: 236 lb BSA: 2 m2 Age: 10 1950,74Y Sex: F BP: 152/88 HR: 98 bpm Sonogrphr: Holden Herrera [facility] Pat. Stat.:Inpatient Room: [facility] CPT - 4: C8929 Reason for [...] Mass 2D Value 197 g LV Mass [id number] Value 98.5 g/m2 Right Ventricle Right Ventricle [...] - 09/23/2024 Echocardiography Report Pat.Name: CATA YI Madhu Pat.ID: [id number] .Date: 09/23/2024 Refer.: [id number] KATHI Dillard EWDPROV EWDPROV Exam Time: 8:07:00 AM Study Type:ECHO W/CONTRAST COMPLETE Height: 59.8 in Weight: 236 lb BSA: 2 m2 Age: 10 1950,74Y Sex: F BP: 152/88 HR: 98 bpm Sonogrphr: Holden Herrera [facility] Pat. Stat.:Inpatient Room: [facility] CPT - 4: C8929 Reason for [...] Mass 2D Value 197 g LV Mass [id number] Value 98.5 g/m2 Right Ventricle Right Ventricle [...] M.D. us Eunice Sparks PA-C ECHO Itzel l Result * (ABNORMAL) ARTERIAL BLOOD GAS (09/23/2024 3:30 AM CDT) Pathologist [facility] PH ARTERIAL 7.36 7.35 - 7.45 09/23/2024 3:33 AM CDT [facility] PCO2 57.8(H) 35.0 - 45.0 MMHG 09/23/2024 3:33 AM CDT [facility] PO2 68.1(L) 83.0 - 108.0 MMHG 09/23/2024 3:33 AM CDT [facility] BICARB ARTERIAL 31.9(H) 22 - 26 MMOL/L 09/23/2024 3:33 AM CDT [facility] TOTAL CO2 ARTERIAL 33.6(H) 23 - 27 MMOL/L 09/23/2024 3:33 AM CDT [facility] BE/BASE EXCESS 6.0(H) 0 - 2 MMOL/L 09/23/2024 3:33 AM CDT [facility] O2 Saturation 93(L) 95 - 98 % 09/23/2024 3:33 AM CDT [facility] SAUD TEST NEGATIVE 09/23/2024 3:30 AM CDT [facility] OXYGEN STATUS 6 09/23/2024 3:30 AM CDT [facility] DRAW SITE ARTERIAL RT RADIAL 09/23/2024 3:30 AM CDT [facility] 09/23/2024 3:30 AM CDT us Yadiel Lemos MD LABORATORY Final Result [facility] [address] [place] [address], [phone] * (ABNORMAL) LEXUS IFA SCRN, WI REFLEX TO TITER (09/22/2024 5:52 PM CDT) Pathologist [facility] LEXUS POSITIVE( A) Negative 10/06/2024 1:57 PM CDT [facility] Comment: LEXUS IFA is a first line screen for detecting the presence of up to approximately 150 autoantibodies in various autoimmune diseases. A positive LEXUS IFA result is suggestive of autoimmune disease and reflexes to titer and pattern. Further laboratory testing may be considered if clinically indicated. For additional information, please refer to http://education.[employer]/faq/MKN174 (This link is being provided for informational/ educational purposes only.) Test Performed by [facility] [place], [facility], [address] [place] [address] Noel Baldwin M.D., Ph.D., Director of Laboratories , [place] [id number] 09/22/2024 5:52 PM CDT Ariel Cole MD LABORATORY Final Result [facility] [address] , * ANTINUCLEAR ANTIBODY WI RFX (09/22/2024 5:52 PM CDT) Pathologist [facility] LEXUS 23 09/25/2024 1:38 PM CDT [facility] Comment: POSITIVE: >1.0 RATIO SEE SEPARATE PROFILE RESULTS AND IFA TITER THE LEXUS SCREEN TESTS FOR THE FOLLOWING ANTIBODIES BY EIA: SSA1 (RO), SSB1 (LA), TORRES, SCL70, JO1, CENTROMERE, CAMP MANAGER HISTONE MUST BE ORDERED SEPARATELY DNA (DS) ANTIBODY 23 IU/ML 025 1:38 PM CDT [facility] Comment: NEGATIVE: <10 IU/mL EQUIVOCAL: 10 to 15 IU/mL POSITIVE: >15 IU/mL THIS QUANTITATIVE ASSAY IS CALIBRATED TO THE [employer]'S WO/80 STANDARD. THE LEVEL OF dsDNA AUTOANTIBODY GERERALLY CORRELATES WITH THE LEVEL OF DISEASE ACTIVITY IN SYSTEMIC LUPUS ERYTHMATOSUS 09/22/2024 5:52 PM CDT Ariel Cole MD LABORATORY Final Result Performing Organization Address [facility]/ZIP Co de Phone Number [facility] [address] [place] [address], [phone] * (ABNORMAL) PRO-BRAIN NATRIURETIC PEPTIDE (09/22/2024 5:52 PM CDT) PRO-B TYPE NATRIURETIC PEPTIDE 1,302(H) <125 PG/ML 09/22/2024 6:35 PM CDT [facility] Comment: AGE INDEPENDENT: <300 PG/ML [...] MD LABORATORY Final Result Performing Organization Address [facility] de Phone Number [facility] [address] [place] [address], [place] [phone] * (ABNORMAL) LEXUS PROFILE (09/22/2024 5:52 PM CDT) SSA ANTIBODY >240(H) 0.0 - 6.9 U/mL 09/27/2024 3:19 PM CDT [facility] Comment: NEGATIVE: <7 U/mL EQUIVOCAL: 7 to 10 u/mL POSITIVE: >10 U/mL SSA AND/OR SSB AUTOANTIBODIES ARE DETECTED IN 60% TO 90% OF PATIENTS WITH SJOGREN'S SYNDROME AND IN 20% TO 40% OF PATIENTS WITH SYSTEMIC LUPUS ERYTHEMATOSUS. SSB ANTIBODY <0.4 0.0 - 6.9 U/mL 09/27/2024 3:19 PM CDT [facility] Comment: NEGATIVE: <7 U/mL EQUIVOCAL: 7 to 10 u/mL POSITIVE: >10 U/mL SSA AND/OR SSB AUTOANTIBODIES ARE DETECTED IN 60% TO 90% OF PATIENTS WITH SJOGREN'S SYNDROME AND IN 20% TO 40% OF PATIENTS WITH SYSTEMIC LUPUS ERYTHEMATOSUS. SM ANTIBODY <0.7 U/mL 09/27/2024 3:19 PM CDT [facility] Comment: NEGATIVE: <7 U/mL EQUIVOCAL: 7 to 10 u/mL POSITIVE: >10 U/mL Autoantibodies to Torres (Sm) antigen are found in 30% of patients with systemic lupus erythematosus and are highly specific for this disease. SCL 70 S/P/B 1.1 0.0 - 6.9 U/mL 09/27/2024 3:19 PM CDT [facility] Comment: NEGATIVE: <7 U/mL EQUIVOCAL: 7 to 10 u/mL POSITIVE: >10 U/mL AUTOANTIBODIES TO Scl-70 ARE FOUND IN UP TO 60% OF PATIENTS WITH SCLERODERMA (SYSTEMIC SCLEROSIS) AND ARE CONSIDERED TO BE SPECIFIC FOR THIS DISEASE. DAVE-1 ANTIBODY <0.3 U/mL 09/27/2024 3:19 PM CDT [facility] Comment: NEGATIVE: <7 U/mL EQUIVOCAL: 7 to 10 u/mL POSITIVE: >10 U/mL AUTOANTIBODIES TO Jo1 ARE FOUND IN 10% TO 50% OF PATIENTS WITH DERMATOMYOSITIS OR POLYMYOSITIS AND IN 20% OF PATIENTS WITH SCLERODERMA SYNDROME. Jo1 AUTOANTIBODIES ARE GENERALLY NOT SEEN OUTSIDE OF THESE DISEASE STATES. CENTROMERE B AB S/P/B <0.4 U/mL 09/27/2024 3:19 PM CDT [facility] Comment: NEGATIVE: <7 U/mL EQUIVOCAL: 7 to 10 u/mL POSITIVE: >10 U/mL AUTOANTIBODY TO CENTROMERE B IS SEEN IN 70% TO 85% OF PATIENTS WITH CREST (CALCINOSIS, RYNAUD'S PHENOMENON, ESOPHAGEAL HYPOMOTILITY, SCLERODACTYLY AND TELANGIECTASEA) SYNDROME VARIANT OF SYSTEMIC SCLEROSIS AND IN 10% TO 15% OF PATIENTS WITH PRIMARY BILIARY CIRRHOSIS. CAMP MANAGER (U1) AB S/P/B 1.1 0.0 - 4.9 U/mL 09/27/2024 3:19 PM CDT [facility] Comment: NEGATIVE: <5 U/mL EQUIVOCAL: 5 to 10 U/mL POSITIVE: >10 U/mL AUTOANTIBODIES TO CAMP MANAGER ARE FOUND IN GREATER THAN 95% OF PATIENTS WITH MIXED CONNECTIVE TISSUE DISEASE (MCTD), BUT ARE ALSO SEEN IN SYSTEMIC LUPUS ERYTHEMATOUS (40%), RHEUMATOID ARTHRITIS (10%), SCLERODERMA SYNDROME (10%), AND RARELY IN DRUG INDUCED LUPUS AND SJOGREN'S SYNDROME. ABSENCE OF CAMP MANAGER ANTIBODIES USUALLY RULES OUT MCTD. 09/22/2024 5:52 PM CDT Ariel Cole MD LABORATORY Final Result Performing Organization Address [facility]/ZIP Co de Phone Number [facility] [address] [place] [address], [phone] * (ABNORMAL) TROPONIN, QUANT (09/22/2024 5:52 PM CDT) TROPONIN I HIGH SENSITIVITY 96(H) 0 - 53 ng/L 09/22/2024 6:35 PM CDT [facility] 09/22/2024 5:52 PM CDT Ariel Cole MD LABORATORY Final Result Performing Organization Address [facility] Co de Phone Number [facility] [address] [place] [id number], [phone] * (ABNORMAL) ANTINUCLEAR ANTIBODIES TITER (09/22/2024 5:52 PM CDT) LEXUS TITER >=1:1280(A ) Negative 10/06/2024 2:26 PM CDT [facility] Comment: Reference Range: <1:40 Negative 1:40-1:80 Low Antibody Level >1:80 Elevated Antibody Level Test Performed by Gerald Sharma, [employer] [facility], [address] [place] [id number] Noel Baldwin M.D., Ph.D., Director of Laboratories , [facility] [id number] LEXUS PATTERN REPORT 10/06/2024 2:26 PM CDT [facility] GILDanaTISHA SANTO Comment: Nuclear, Speckled Speckled pattern is associated with mixed connective tissue disease (MCTD), systemic lupus erythematosus (SLE), Sjogren's syndrome, dermatomyositis, and systemic sclerosis/polymyositis overlap. AC-2, 4, 5, 29: Speckled International Consensus on LEXUS Patterns https://doi.org/10.1515/namt-9393-8696 LEXUS TITER THREE END OF REPORT 10/06/2024 2:26 PM CDT [facility]ANT[facility] 09/22/2024 5:52 PM CDT us Ariel Cole MD LABORATORY Final Result [facility] [id number] [place] [id number], * XR CHEST PORTABLE (09/22/2024 5:35 PM CDT) Anatomical Region Laterality Modality Chest Radiographic Susan ging 09/22/2024 6:12 PM CDT Impressions 09/22/2024 6:14 PM CDT IMPRESSION: Cardiomegaly and mild vascular congestion. Referred By: ASPEN ARMENTA Interpreted By: Tre River MD, 09/22/2024 6:12 PM Narrative 09/22/2024 6:14 PM CDT [address] [address] Examination: Chest x-ray 1 view Exam Date/Time: [...] Procedure Note Tre River MD - 09/22/2024 [facility] [address] [place], [place] [address] Examination: Chest x-ray 1 view Exam Date/Time: [...] ECG 12 lead (09/22/2024 5:20 PM CDT) 09/22/2024 5:20 PM CDT Narrative [facility] - 09/22/2024 6:11 PM CDT [address] [address] Test Date: 2024-09-22 Pat Name: CATA YI Department: 1 Room: 550AA Gender: Female [employer] Umpire: Dawood : 1950 Requested By: ARIEL COLE Order Number: [id number] Ruth MD: Francisco Javier Vuong Measurements Intervals [place] Rate: 82 P: 78 CT: 164 QRS: 220 QRSD: 140 T: 48 QT: 372 QTc: 437 Interpretive Statements ELECTRONIC ATRIAL PACEMAKER ELECTRONIC VENTRICULAR PACEMAKER ABNORMAL RHYTHM ECG Procedure Note Francisco Javier Vuong MD - 09/22/2024 [facility] [address] [place] [address] Test Date: 2024-09-22 Pat Name: CATA YI Department: 1 Room: [facility] Gender: Female [employer] Umpire: Dawood : 1950 Requested By: ARIEL COLE Order Number: [id number] Reading MD: Francisco Javier Vuong Measurements Intervals [place] Rate: 82 P: 78 CT: 164 QRS: 220 QRSD: 140 T: 48 QT: 372 QTc: 437 Interpretive Statements ELECTRONIC ATRIAL PACEMAKER ELECTRONIC VENTRICULAR PACEMAKER ABNORMAL RHYTHM ECG us Ariel Cole MD ECG ORDERABLES Final Result [facility] RAD from Last 3 Months Insurance MEDICARE AET[employer] Advance Directives Documents on File Type Date Recorded Patient Customer Engagement Analyst Expl anation Advance Directives and Living Will 03/20/2022 11:47 AM POA HE[employer] Advance Directives and Living Will 02/20/2021 9:06 AM Refer to POA jarod t regarding Advanced Directives - NO BLOOD Power of Blueprint Cutter 02/20/2021 9:06 AM Lucie Yi, HCA-spouse; Aram [...] Omar Yi (POAH) Spouse Health Care Agent [phone] (Mobile ) Aram Yi Other First Alter huyen Health Care Agent Care Teams 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 Relationship Specialty Start Date End Date Gigi Ornelas MD [address] [place] [address] PCP - General FAMILY PRACTICE 02/05/21 Jordi Gould PA-C [address] [place] [phone] PHYSICIAN TWISTHAND 07/30/22 Kajal Javed MD [address] [place] [address] [phone] Consulting Physician Electrophysiology 02/04/23 Cindy Elias, [facility]- [address] [place] [address] Nurse Practitioner NURSE PRACTITIONER ADULT HEALTH 08/23/23 Precious Phillips MD [address] [place] [address] Consulting Physician CARDIOVASCULAR DISEASE 09/24/24 Jean Paul Smith MD [address] [place] [address] Physician RHEUMATOLOGY 09/24/24
--- OUTSIDE RECORDS SUMMARY | 2024-12-08 10:46 | XMS_ITS | Encounter Summary ---
Author Organization [facility] Address [address] [place] [address] Care Team Providers Care Enamel Drier Name Role Phone Gigi Ornelas MD Primary Care Provider [phone] Vickey Rider MD Unavailable [phone] Dominic Arrington MD Unavailable Holden Lombardo MD Unavailable Unavailable Jordi Gould PA-C Unavailable [phone] Kajal Javed MD Unavailable + [phone] Isael Diaz MD Unavailable [phone] Cindy Elias ANP-BC Unavailable [phone] Precious Phillips MD Unavailable Jean Paul Smith MD Unavailable [phone] Encounter Details Date Type Department Care Team (Late st Contact Info) Description 08/19/2022 Hospital Orders Only [place]'s Strategic Communications Specialist Pre/Post [address] [place] [address] Holden Lombardo MD Social History Tobacco Use Types Packs/Day Years Used Date Smoking Tobacco: Former Cigarettes Q uit: 2005 Smokeless Tobacco: Never Alcohol Use Standard Drinks/Week Comments Never 0 (1 standard drink = 0.6 oz pur e alcohol) Comments Unknown Sex and Gender Information Value Date Recorded Sex Assigned at Female 05/24/2024 2:24 PM DUTY MANAGER Legal Sex Female 10:24 PM CDT [...] Assessment Author Status No 03/18/2022 10:00 PM DUTY MANAGER 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 Answer Date of Assessment Author Status No 03/18/2022 10:00 PM DUTY MANAGER Acti ve * Do you have [...] Description 12/13/2024 8:45 AM CDT Office Visit [facility] [place] [address] Cindy Elias, [facility]-[address] [address] 01/16/2025 2:00 PM CDT Office Visit [facility] [facility] [address] [place] [phone] Jordi Gould PA-C [address] [place] [address] 01/16/2025 2:00 PM CDT Allied Health[facility] [address] [place] [address] Jordi Gould PA-C [address] [place] [phone] 04/20/2025 1:30 AM DUTY MANAGER Allied Health/Nurse [facility] [address] [place] [phone] Kajal Javed MD [address] [place] [address] [place] [address]111 documented as of this encounter Visit Diagnoses Not on filedocumented in this encounter Care Teams Enamel Drier Relationship Specialty Start Date End Date Gigi Ornelas MD [address] [place] [address] PCP - General FAMILY PRACTICE 02/05/21 Vickey Rider MD [address] [place] [phone] [place] Wash Operator CARDIOVASCULAR DISEASE 02/05/21 08/22/23 Dominic Arrington MD [address] [place] [phone] Vascular/Cardiologis t INTERNAL MEDICINE 02/24/21 07/14/24 Holden Lombardo MD [address] [place] [phone] Consulting Physician CLINICAL CARDIAC ELECTROPHYSIOLOGY 07/30/22 02/03/23 Jordi Gould PA-C [address] [place] [phone] PHYSICIAN DRY CLEANING MACHINE OPERATOR 07/30/22 Kajal Javed MD [address] [place] [address] Consulting Physician Electrophysiology 02/04/23 Isael Diaz MD [address] [place] [address] 149331 INTERVENTIONAL CARDIOLOGY 08/23/2307/14 Cindy Elias, [facility] [address] [place] [address] Nurse Practitioner NURSE PRACTITIONER ADULT HEALTH 08/23/23 Precious Phillips MD [address] [place] [address] Consulting Physician CARDIOVASCULAR DISEASE 09/24/24 Jean Paul Smith MD [address] [place] [address] Physician RHEUMATOLOGY 09/24/24 documented as of this encounter
[2024-12-08 11:05] LABS: Hematocrit 37.1 % (35.0-42.0); Hemoglobin 10.6 g/dL (11.7-13.8); Immature Granulocyte Percent A 1.6 % (0.0-0.0); Lymphocytes Absolute Auto 0.79 K/mm3 (1.10-4.50); Mean Corpuscular HGB Conc 28.6 g/dL (32-36); Mean Corpuscular Hemoglobin 26.8 pg (27.0-31.0); Mean Corpuscular Volume 93.9 fL (78.0-102.0); Nucleated Red Blood Cells Absolute Auto 0.00 K/mm3 (0.00-0.00); Nucleated Red Blood Cells Perc 0.0 % (0-0.0); Platelet Count Result 155 K/mm3 (150-420); Red Blood Count 3.95 M/mm3 (4.20-5.40); White Blood Count 8.6 K/mm3 (4.8-10.8)
[2024-12-08 11:31] LABS: Anion Gap 5 mmol/L (4-12); Blood Urea Nitrogen 37 mg/dL (7-17); Calcium 9.0 mg/dL (8.4-10.2); Carbon Dioxide 31 mmol/L (22-30); Chloride 103 mmol/L (98-107); Estimated Glomerular Filt Rate 39; Glucose 95 mg/dL (65-110); Osmolality Calculated 296 mOsm/kg (285-295); Potassium 4.3 mmol/L (3.4-5.0); Sodium 139 mmol/L (137-145)
== END 2024-12-08 10:43 | disposition home or self-care (01) ==
LOC: CHSLAB 10:44
PROVIDERS: PCP Family Medicine; Visit Provider Family Medicine
DX: I10 Essential (primary) hypertension (principal); D50.9 Iron deficiency anemia, unspecified
CPT/HCPCS: 36415; 80048; 85025

== ENCOUNTER 2024-12-28 09:20 | Outpatient (CLI) | payer MEDICARE, SELFPAY ==
--- NOTE | ~2024-12-28 | CT_ITS ---
Non-contrast CT scan of the Abdomen and Pelvis Clinical indication: Anemia, weight loss Technique: 2.5 mm axial scans were obtained through the abdomen and pelvis without intravenous or oral contrast. Dose reduction technique was used on this scan by utilizing automated exposure control and iterative reconstruction technique. The dose-length product (DLP) was 1236.72 mGy-cm. Findings: Images through the lung bases reveal mild left basilar atelectatic change. Moderate pericardial effusion present. The liver, spleen, pancreas, kidneys, and adrenals appear normal. Cholecystectomy clips are present. There are atherosclerotic calcifications of the aorta. . There is no evidence of bowel obstruction. There are 2 adjacent, but separate, small ventral hernias, which contains a focal loop of small bowel (axial images 107, 115). Images through the pelvis were performed. There is no evidence of ascites or lymphadenopathy. Urinary bladder unremarkable. Status post hysterectomy. No pelvic mass seen. Impression: 2 small, separate ventral hernias, each of which contain a focal loop of small bowel, as detailed above. No bowel obstruction or bowel wall thickening. Moderate pericardial effusion. Reviewed, dictated and finalized at [facility]. Impression: 2 small, separate ventral hernias, each of which contain a focal loop of small bowel, as detailed above. No bowel obstruction or bowel wall thickening. Moderate pericardial effusion.
--- OUTSIDE RECORDS SUMMARY | 2024-12-28 09:47 | XMS_ITS | Encounter Summary ---
Author Organization [facility] Address [address] [place] [address] Care Team Providers Care In Tube Conversion Technician Name Role Phone Gigi Ornelas MD Primary Care Provider [phone] Vickey Rider MD Unavailable [phone] Dominic Arrington MD Unavailable Holden Lombardo MD Unavailable Unavailable Jordi Gould PA-C Unavailable [phone] Kajal Javed MD Unavailable + [phone] Isael Diaz MD Unavailable [phone] Cindy Elias ANP-BC Unavailable [phone] Precious Phillips MD Unavailable Jean Paul Smith MD Unavailable [phone] Encounter Details Date Type Department Care Team (Late st Contact Info) Description 08/19/2022 Hospital Orders Only [place]'s Manager Licensing Pre/Post [address] [place] [address] Holden Lombardo MD Social History Tobacco Use Types Packs/Day Years Used Date Smoking Tobacco: Former Cigarettes Q uit: 2005 Smokeless Tobacco: Never Alcohol Use Standard Drinks/Week Comments Never 0 (1 standard drink = 0.6 oz pur e alcohol) Comments Unknown Sex and Gender Information Value Date Recorded Sex Assigned at Female 05/24/2024 2:24 PM MOSAIC TILER Legal Sex Female 10:24 PM CDT Gender [...] Assessment Author Status No 03/18/2022 10:00 PM MOSAIC TILER 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 Answer Date of Assessment Author Status No 03/18/2022 10:00 PM MOSAIC TILER Acti ve * Do you have serious [...] 01/16/2025 2:00 PM CDT [facility] Visit [facility] [address] [place] [address] Jordi Gould PA-C [address] [place] [phone] 01/16/2025 2:00 PM CDT Allied Health/Nurse Visit [facility] [address] [place] [phone] Jordi Gould PA-C [address] [place] [phone] 04/20/2025 1:30 AM MOSAIC TILER Allied Health/Nurse Visit [facility] [address] [place] [phone] Kajal Javed MD [address] 500881 06/13/2025 8:45 AM MOSAIC TILER Office [facility] [place] [address] Precious Phillips MD [address] [place], [place] [phone] documented as of this encounter Visit Diagnoses Not on filedocumented in this encounter Care Teams In Tube Conversion Technician Relationship Specialty Start Date End Date Gigi Ornelas MD [address] [place] [address] PCP - General FAMILY PRACTICE 02/05/21 Vickey Rider MD [address] [place] [phone] [place] [employer] Runner CARDIOVASCULAR DISEASE 02/05/21 08/22/23 Dominic Arrington MD [address] [place] [phone] Vascular/Cardiologis t INTERNAL MEDICINE 02/24/21 07/14/24 Holden Lombardo MD [address] [place] [phone] Consulting Physician CLINICAL CARDIAC ELECTROPHYSIOLOGY 07/30/22 02/03/23 Jordi Gould PA-C [address] [place] [phone] PHYSICIAN FIELD ASSEMBLY SUPERVISOR 07/30/22 Kajal Javed MD [address] [place] [address] Consulting Physician Electrophysiology 02/04/23 Isael Diaz MD [address] [place] [address] INTERVENTIONAL CARDIOLOGY 08/23/2307/14 Cindy Elias, [facility] [address] [place] [address] Nurse Practitioner NURSE PRACTITIONER ADULT HEALTH 08/23/23 Precious Phillips MD [address] [place] [address] Consulting Physician CARDIOVASCULAR DISEASE 09/24/24 Jean Paul Smith MD [address] [place] [address] Physician RHEUMATOLOGY 09/24/24 documented as of this encounter
--- OUTSIDE RECORDS SUMMARY | 2024-12-28 09:47 | XMS_ITS | Encounter Summary ---
Author Organization [facility] Address [address] [place] [address] Care Team Providers Care Hepatology Physician Name Role Phone Gigi Ornelas MD Primary Care Provider [phone] Jordi Gould PA-C Unavailable [phone] Kajal Javed MD Unavailable + [phone] Cindy Elias ANP-BC Unavailable [phone] Precious Phillips MD Unavailable Jean Paul Smith MD Unavailable [phone] Encounter Details Date Type Department Care Team (Late st Contact Info) Description 09/28/2024 Hospital Follow-up Call [facility] Unit [address] [place] [address] Kathy Cason, RN Social History [...] materials from doctor or pharmacy Never 07/07/2024 [facility] Utilities Answer Date Recorded In the past 12 months has th e [employer], oil, or water [employer] threatened to shut off services in your [...] any time in the past 12 m [facility], were you homeless or living in a senior living (including now)? No 09/22/2024 Comments Unknown Sex and Gender Information Value Date Recorded Sex Assigned at Female 05/24/2024 2:24 PM TIME CLOCK INSPECTOR Legal Sex Female 10:24 PM CDT Gender [...] 01/16/2025 2:00 PM CDT Office Visit [facility] [address] [place] [address] Jordi Gould PA-C [address] [place] [address] 01/16/2025 2:00 PM CDT Allied Health/Nurse Visit [facility] ld [address] [place] [address] Jordi Gould PA-C [address] [place] [address] 04/20/2025 1:30 AM TIME CLOCK INSPECTOR Allied Health/Nurse Visit [facility] [address] [place] [address] Kajal Javed MD [address] 752201 06/13/2025 8:45 AM TIME CLOCK INSPECTOR [facility] [place] [address] Precious Phillips MD [address] [place], [place] 347859 documented as of this encounter Visit Diagnoses Not on filedocumented in this encounter Care Teams Hepatology Physician Relationship Specialty Start Date End Date Gigi Ornelas MD [address] [place] [address] PCP - General FAMILY PRACTICE 02/05/21 Jordi Gould PA-C [address] [place] [phone] PHYSICIAN CRAFT SUPERINTENDENT 07/30/22 Kajal Javed MD [address] [address] Consulting Physician Electrophysiology 02/04/23 Cindy Elias, [facility]- [address] [place] [address] Nurse Practitioner NURSE PRACTITIONER ADULT HEALTH 08/23/23 Precious Phillips MD [address] [place] [address] Consulting Physician CARDIOVASCULAR DISEASE 09/24/24 Jean Paul Smith MD [address] [place] [address] Physician RHEUMATOLOGY 09/24/24 documented as of this encounter
--- OUTSIDE RECORDS SUMMARY | 2024-12-28 09:47 | XMS_ITS | Encounter Summary ---
Author Organization [facility] Address [address] [place] [address] Care Team Providers Care Police Inspector Name Role Phone Gigi Ornelas MD Primary Care Provider [phone] Vickey Rider MD Unavailable [phone] Dominic Arrington MD Unavailable Holden Lombardo MD Unavailable Unavailable Jordi Gould-C Unavailable [phone] Kajal Javed MD Unavailable [phone] Isael Diaz MD Unavailable [phone] Cindy Elias ANP-BC Unavailable [phone] Precious Phillips MD Unavailable Jean Paul Smith MD Unavailable [phone] Encounter Details Date Type Department Care Team (Late st Contact Info) Description 01/30/2021 Abstract [facility] [address] [place] [address] Helen Vargas, MINE SURVEYOR, TAKER OFF HEMP FIBER-C [address] [facility] [address] [place] [address] Social History Tobacco Use Types Packs/Day Years Used Date Smoking Tobacco: Former Cigarettes Q uit: 2005 Comments Unknown Sex and Gender Information Value Date Recorded Sex Assigned at Female 05/24/2024 2:24 PM COTA Legal Sex Female 10:24 PM CDT Gender Identity Not on file Sexual Orientation Not on file documented as of this encounter Plan of Treatment Upcoming Encounters Date Type Department Care Team (Late st Contact Info) Description 01/16/2025 2:00 PM CDT Office Visit [facility] ld [address] [place] [address] Jordi Gould PA-C [address] [place] [address] 01/16/2025 2:00 PM CDT Allied Health/Nurse Visit [facility] ld [address] [place] [address] Jordi Gould PA-C [address] [place] [address] 04/20/2025 1:30 AM COTA Allied Health/Nurse Visit [facility] ld [address] [place] [address] Kajal Javed MD [address] [facility] [address] [address] 06/13/2025 8:45 AM COTA Office Visit [facility] [place] [address] Precious Phillips MD [address] [place] [address] documented as of this encounter Visit Diagnoses Not on filedocumented in this encounter Care Teams Police Inspector Relationship Specialty Start Date End Date Gigi Ornelas MD [address] [place] [address] PCP - General FAMILY PRACTICE 02/05/21 Vickey Rider MD [address] [place] [phone] [place] [employer] Evidence Technician CARDIOVASCULAR DISEASE 02/05/21 08/22/23 Dominic Arrington MD [address] [place] [phone] Vascular/Cardiologis t INTERNAL MEDICINE 02/24/21 07/14/24 Holden Lombardo MD [address] [place] [phone] Consulting Physician CLINICAL CARDIAC ELECTROPHYSIOLOGY 07/30/22 02/03/23 Jordi Gould PA-C [address] [place] [phone] PHYSICIAN MOLD MAKING PLASTICS SHEETS SUPERVISOR 07/30/22 Kajal Javed MD [address] [place] [address] Consulting Physician Electrophysiology 02/04/23 Isael Diaz MD [address] [place] [address] INTERVENTIONAL CARDIOLOGY 08/23/2307/14 Cindy Elias, [facility]- [address] [place] [address] Nurse Practitioner NURSE PRACTITIONER ADULT HEALTH 08/23/23 Precious Phillips MD [address] [place] [address] Consulting Physician CARDIOVASCULAR DISEASE 09/24/24 Jean Paul Smith MD [address] [place] [address] Physician RHEUMATOLOGY 09/24/24 documented as of this encounter
--- OUTSIDE RECORDS SUMMARY | 2024-12-28 09:47 | XMS_ITS | Clinical Summary ---
Author Organization [facility] Address [address] [place] [address] Care Team Providers Care Systems Software Manager Name Role Phone Gigi Ornelas MD Primary Care Provider [phone] Jordi Gould PA-C Unavailable [phone] Kajal Javed MD Unavailable [phone] Cindy Elias [facility]- Unavailable [phone] Precious Phillips MD Unavailable Jean Paul Smith MD Unavailable [phone] Allergies Active Allergy Reactions Criticality Noted Date Comments Amoxicillin-Pot Clavulanate Nausea Only 021 Clindamycin Hives 01/30/2021 Latex Rash Medium 09/22/2024 Silicone Rash Low 02/07/2021 Tape Unknown 01/30/2021 Medications triamcinolone 0.1 % creamIndicatio ns:rash APPLY CREAM EXTERNALLY TO AFFECTED AREA TWICE DAILY Active PREVALITE 4 g packetIndicati ons:Diarrhea MIX AND TAKE THE CONTENTS OF 1 PACKET BY MOUTH DAILY. 1 Active gabapentin 300 MG capsuleIndicat ions:Neuropath y Take 2 capsules (600 mg total) by mouth 2 (two) times daily. Indications: Nerve Disease Patient takes 2 capsules BID and one capsule mid afternoon 1 Active irbesartan 300 MG tabletIndicati ons:Hypertensi on Take 1 tablet (300 mg total) by mouth daily. Indications: High Blood Pressure 1 Active Multiple Vitamins-Barber Stylist als (PRESERVISION AREDS) capsuleIndicat ions:Supplemen t Take 1 capsule by mouth daily. Indications: Supplement Active cholecalcifero l (VITAMIN D3) 125 MCG (5000 UT) TabIndications :Supplement Take 1 tablet (125 mcg total) by mouth daily. Indications: Supplement Active Cyanocobalamin (VITAMIN B-12) 5000 MCG TABLET DISPERSIBLEInd ications:Suppl ement Take 5,000 mcg by mouth daily. Indications: Supplement Active metoprolol succinate ER 50 MG 24 hr tabletIndicati ons:Hypertensi on Take 1.5 tablets (75 mg total) by mouth daily. Indications: High Blood Pressure 1 Active VENTOLIN HFA 108 (90 Base) MCG/ACT inhalerIndicat ions:COPD 2 puffs as needed. Indications: COPD 2 Active SV IRON 325 (65 Fe) MG tabletIndicati ons:supplement Take 1 tablet (325 mg total) by mouth daily with breakfast. Indications: supplement 4 Active vitamin C (ASCORBIC ACID) 250 MG tabletIndicati ons:Supplement Take 2 tablets (500 mg total) by [...] Indications: CHF 60 tablet 2 5 Active leflunomide (ARAVA) 10 MG Tab Take 1 tablet (10 mg total) by mouth daily. Active predniSONE (DELTASONE) 10 mg tablet Take 1 tablet (10 mg total) by mouth daily. Active spironolactone (ALDACTONE) 50 MG tablet Take 1 tablet (50 mg total) by mouth daily. 5 Active folic acid (FOLVITE) 1 MG tablet Take 1 tablet (1 mg total) by mouth daily. Active albuterol (2.5 MG/3ML) 0.083% nebulizer solutionIndica tions:COPD as needed. Indications: COPD 2 12/14/19 25 Discontinu ed(Discont inued by another clinician) Active Problems Problem Noted Date Diagnosed Date Acute on chronic respiratory failure ([facility]) 09/22/2024 CHF (congestive heart failure) ([facility]) 09/22/2024 Morbid (severe) obesity due to excess calories 0 08/28/2024 Body mass index (BMI) 45.0-49.9, adult 5 Anticoagulant long-term use 12/29/2023 Chronic combined systolic an d diastolic heart failure ([facility]) 07/02/2022 Left ventricular systolic dysfunction (LVSD) Biventricular cardiac pacemaker in situ 03/19/20 22 Complete heart block ([facility]) 2 Symptomatic bradycardia 03/18/2022 Chronic venous insufficiency 02/25/2021 Sleep apnea 05/10/2008 Other hyperlipidemia 05/10/2008 Hypertension 05/10/1989 Lymphedema Pericardial effusion ([facility]) SOBOE (shortness of breath on exertion) Encounters Date Type Department Care Team Description 12/13/2024 8:45 AM CDT Office Visit [facility] [place] [address] Cindy Elias ANP-BC Follow Up; Hospital Follow Up (Chronic pericardial effusion) 12/13/2024 [facility] [address] [place] [address] Cindy Elias ANP-BC Appointment Request 12/13/2024 Travel 12/11/2024 Orders Only [facility]-[address] [place] [address] Cindy Elias, ANP- 12/05/2024 Orders Only [facility] [address] [place] [address] Precious Phillips MD 11/29/2024 Abstract [facility] [address] [place] [address] Abstract, Doc Pccl 11/23/2024 Abstract [facility] [address] [place] [address] Abstract, Doc Pccl 11/21/2024 Scan [facility] [address] [place] [address] Scanned, Doc Pccl 11/21/2024 Telephone [facility] [address] [place] [address] Cindy Elias, ANP- Appointment Request 11/17/2024 Scan [facility] [address] [place] [address] Scanned, Doc Pccl 11/16/2024 Scan [facility] [address] [place] [address] Scanned, Doc Pccl 11/15/2024 Scan [facility] [address] [place] [address] Scanned, Doc Pccl Echo (SCAN) 11/14/2024 Scan [facility] [address] [place] [address] Scanned, Doc Pccl CT (SCAN) 11/13/2024 Scan [facility] [address] [place] [address] Scanned, Doc Pccl CT (SCAN) 11/13/2024 Scan [facility] [address] [place] [address] Scanned, Doc Pccl Image (SCAN); ECG (SCAN); Lab (SCAN) 10/30/2024 11:10 AM CDT - 10/30/2024 11:59 PM CDT Hospital Encounter [facility] [address] [place] [address] Non-Staff, Provider Jean Paul Smith MD Discharge Disposition: Home or Self Care (Routine Discharge) 10/30/2024 2:05 AM CDT Allied Health/Nurse Visit [facility] [address] [place] [address] Kajal Javed MD 10/30/2024 Orders Only [facility] [address] [place] [address] Jean Paul Smith MD 10/30/2024 Travel 10/03/2024 1:18 PM CDT - 10/03/2024 11:59 PM CDT Hospital Encounter [facility] [address] [place] [address] Chencho Monroy MD Discharge Disposition: Home or Self Care (Routine Discharge) 10/03/2024 Travel 09/28/2024 Hospital Follow-up Call [facility] [address] [place] [address] Kathy Cason RN from Last 3 Months Family History Medical [...] materials from doctor or pharmacy Never 07/07/2024 [facility] Utilities Answer Date Recorded In the past 12 months has th e [employer], [employer], oil, or water [employer] threatened to shut off services in your [...] any time in the past 12 m [facility], were you homeless or living in a detention (including now)? No 09/22/2024 Comments Unknown Sex and Gender Information Value Date Recorded Sex Assigned at Female 05/24/2024 2:24 PM ACCOUNTS PAYABLE BOOKKEEPER Legal Sex Female 10:24 PM CDT Gender Identity Not on file Sexual Orientation Not on file Last Filed Vital Signs Vital Sign Reading Time Taken Comments Blood Pressure 126/44 12/13/2024 9:32 AM CDT Pulse 71 12/13/2024 9:32 AM CDT Temperature 36.4 C (97.5 F) 09/26/2024 8:15 AM CDT Respiratory Rate 22 12/13/2024 9:32 AM CDT Oxygen Saturation 94% 12/13/2024 9:3 2 AM CDT Inhaled Oxygen Concentration - - Weight 106.1 kg (234 lb) 12/13/2024 9:3 2 AM CDT stated, refused wt Height 152.4 cm (5') 12/13/2024 9:32 AM CDT Body Mass Index 45.7 12/13/2024 9:32 AM CDT Plan of Treatment Upcoming Encounters Date Type Department Care Team (Late st Contact Info) Description 01/16/2025 2:00 PM CDT [facility] [address] [place] [address] Jordi Gould PA-C [address] [place] [address] 01/16/2025 2:00 PM CDT Allied Health[facility] [address] [place] [address] Jordi Gould PA-C [address] [place] [address] 04/20/2025 1:30 AM ACCOUNTS PAYABLE BOOKKEEPER Allied [facility] [address] [place] [address] Kajal Javed MD [address] [facility] [address] [place] [address] 06/13/2025 8:45 AM ACCOUNTS PAYABLE BOOKKEEPER Office Visit [facility] [place] [address] Precious Phillips MD [address] [place], [place] [address] Health Maintenance Due Date Last Done Comments [...] this topic Medical Devices Implanted Type Area Event Host Device Identifier Shelf Expiration Date Model / Serial / Lot Medtronic Rv-03/18/2022 Implanted:Qty: 1 on 03/18/2022 by Holden Lombardo MD Lead Implant [employer] 02/04/2024 4076-52 / [id number] / Medtronic Ra-03/18/2022 Implanted:Qty: 1 on 03/18/2022 by Holden Lombardo MD Lead Implant [employer] 12/27/2023 4076-45 / [id number] / Medtronic Cs-08/24/2022 Implanted:08/08 by Holden Lombardo MD (Quantity not on file) Lead Implant [employer] 06/18/2024 [id number] / [id number] / Medtronic Percepta Quad Biv-08/24/2022 Implanted:08/08 by Holden Lombardo MD (Quantity not on file) Pacemaker [employer] 01/05/2024 [id number] / [id number] / Description:DX: CHB Explanted Type Area Event Host Device Identifier Shelf Expiration Date Model / Serial / Lot Medtronic Griselda Mri Dr-03/18/2022 Implanted:Qty: 1 on 03/18/2022 by Holden Lombardo MD Explanted:08/24 by Holden Lombardo MD (Quantity not on file) Pacemaker [employer] 08/22/2023 [id number] / [id number] / Procedures Procedure Name Priority Date/Time Associated [...] AM CDT 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 ([facility]) SED RATE, ERYTHROCYTE (ESR) Routine 10/30/2024 11:25 AM CDT 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 ([facility]) COMPREHENSIVE METABOLIC PANEL Routine 10/30/2024 11:25 AM CDT 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 ([facility]) C-REACTIVE PROTEIN Routine 10/30/2024 11 :25 AM CDT 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 ([facility]) CBC W/DIFF AUTOMATED Routine 10/03/2024 1:31 PM CDT Dyspnea COMPREHENSIVE METABOLIC PANEL Routine 10/03/2024 1:31 PM CDT Dyspnea from Last 3 Months Results * (ABNORMAL) COMPREHENSIVE METABOLIC PANEL (11/24/2024) Only the most recent of6 resultswithin the time period is included. SODIUM S/P/B 139 GLUCOSE 87 mg/dL AST 25 BUN 19 CREATININE S/P/B 1.15(A) 0.5 - 1.0 CALCIUM S/P/B 8.6 POTASSIUM S/P/B 3.2 CHLORIDE S/P/B 103 ALT 18 GFR ESTIMATE 46 Narrative Resulting Agency Comment [facility] Allie Pardo NP LABORATORY Final Result * CBC, MANUAL DIFF (11/24/2024) Only the most recent of4 resultswithin the time period is included. WBC 7.1 HGB 8.9 HCT 32.2 PLT 232 Narrative Resulting Agency Comment [facility] us Allie Pardo GEOLOGIST LABORATORY Final Result * MAGNESIUM (11/17/2024) Only the most recent of2 resultswithin the time period is included. MAGNESIUM 2.1 Narrative Resulting Agency Comment [facility] us Allie Pardo GEOLOGIST LABORATORY Final Result * ECHO (11/15/2024 12:00 [...] us Doc Pccl Scanned SCANNING Final Result Performing Organization Address City/[facility]/ZIP Co de Phone Number HS ONBASE * OUTSIDE LAB (11/13/2024) 11/13/2024 us Doc Pccl Scanned SCANNING Final Result HS ONBASE * IMAGE STUDY (11/13/2024 12:00 AM CDT) Anatomical Region Laterality Modality Other 11/13/2024 us Doc Pccl Scanned SCANNING Final Result * (ABNORMAL) SED RATE, ERYTHROCYTE (ESR) (10/30/2024 11:25 AM CDT) ESR 61(H) 0 - 20 MM/HR 10/30/2024 12:04 PM CDT [facility] 10/30/2024 11:2 5 AM CDT Jean Paul Smith MD LABORATORY Final Resul t Performing Organization Address City/[facility]/ZIP Co de Phone Number [facility] [address] [place] [address], * (ABNORMAL) C-REACTIVE PROTEIN (10/30/2024 11:25 AM CDT) C-REACTIVE PROTEIN 2.68(H) <0.30 mg/dL 10/30/2024 11:56 AM CDT [facility] 10/30/2024 11:2 5 AM CDT Jean Paul Smith MD LABORATORY Final Resul t Performing Organization Address City/[facility]/ZIP Co de Phone Number [facility] [address] [place] [address], * (ABNORMAL) CBC W/DIFF AUTOMATED (10/30/2024 11:25 AM CDT) Only the most recent of2 resultswithin the time period is included. WBC 7.43 4.00 - 10.80 x10'3/uL 10/30/2024 11:57 AM CDT [facility] RBC 2.93(L) 4.10 - 5.40 x10'6/uL 10/30/2024 11:57 AM CDT [facility] HGB 7.7(L) 12.0 - 16.0 G/DL 10/30/2024 11:57 AM CDT [facility] HCT 27.0(L) 36.0 - 47.0 % 10/30/2024 11:57 AM CDT [facility] MCV 92.2 78.0 - 100.0 FL 10/30/2024 11:57 AM CDT [facility] MCH 26.3(L) 27.0 - 31.0 PG 10/30/2024 11:57 AM CDT [facility] MCHC 28.5(L) 33.0 - 36.0 G/DL 10/30/2024 11:57 AM CDT [facility] RDW 16.5(H) 11.5 - 14.5 % 10/30/2024 11:57 AM CDT [facility] PLT 226 150 - 350 x10'3/uL 10/30/2024 11:57 AM CDT [facility] MPV 9.3 7.4 - 10.4 FL 10/30/2024 11:57 AM CDT [facility] CBC COMMENT NORMAL REFERENCE RANGE NOT ESTABLISHED FOR THE PROPORTIONAL LEUKOCYTE DIFFERENTIAL. 10/30/2024 11:57 AM CDT [facility] NEUTROPHILS % 74.8 % 10/30/2024 12:23 PM CDT [facility] LYMPHOCYTES % 9.2 % 10/30/2024 12:23 PM CDT [facility] MONOCYTES % 8.5 % 10/30/2024 12:23 PM CDT [facility] EOSINOPHILS % 3.8 % 10/30/2024 12:23 PM CDT [facility] BASOPHILS % 0.5 % 10/30/2024 12:23 PM CDT [facility] IMMATURE GRANS % 3.2 % 10/31/19 12:23 PM CDT [facility] NRBC % 0.0 % 10/30/2024 12:23 PM CDT [facility] ABS. NEUTROPHILS 5.56 1.60 - 8.30 x10'3/uL 10/30/2024 12:23 PM CDT [facility] ABS. LYMPHOCYTES 0.68(L) 0.80 - 4.70 x10'3/uL 10/30/2024 12:23 PM CDT [facility] ABS. MONOCYTES 0.63 0.00 - 1.50 x10'3/uL 10/30/2024 12:23 PM CDT [facility] ABS. EOSINOPHILS 0.28 0.00 - 0.40 x10'3/uL 10/30/2024 12:23 PM CDT [facility] ABS. BASOPHILS 0.04 0.00 - 0.20 x10'3/uL 10/30/2024 12:23 PM CDT [facility] ABS. IMMATURE GRANULOCYTES 0.24(H) 0.00 - 0.03 x10'3/uL 10/30/2024 12:23 PM CDT [facility] ABS. NUCLEATED RBC'S 0.00 0.00 - 0.01 x10'3/uL 10/30/2024 12:23 PM CDT [facility] PLT MORPH. NORMAL 10/30/2024 12:23 PM CDT [facility] RBC MORPHOLOGY 1+ 10/30/2024 12:23 PM CDT [facility] Comment: HYPOCHROMASIA 1+ ANISOCYTOSIS 1+ MACROCYTES 10/30/2024 11:2 5 AM CDT us Jean Paul Smith MD LABORATORY Final Resul t [facility] [address] [place] [address], from Last 3 Months Insurance MEDICARE [employer] Advance Directives Documents on File Type Date Recorded Patient Assembly Hand Expl anation Advance Directives and Living Will 03/20/2022 11:47 AM POA HEALTHCARE Advance Directives and Living Will 02/20/2021 9:06 AM Refer to POA documen t regarding Advanced Directives - NO BLOOD Power of Newspaper Inserter 02/20/2021 9:06 AM Lucie Aj, HCA-spouse; Aram Aj, 1st alternate HCA-other; * Full Code (Latest [...] Name Relationship Healthcare Agent Relationship Communication Omar Aj (POAH) Spouse Health Care Agent [phone] (Mobile ) Aram Aj Other [employer] huyen Health Care Agent Care Teams Systems Software Manager Relationship Specialty Start Date End Date Gigi Ornelas MD [address] [place] [address] PCP - General FAMILY PRACTICE 02/05/21 Jordi Gould PA-C [address] [place] [address] PHYSICIAN MINE SURVEYOR 07/30/22 Kajal Javed MD 6[address] [facility] [address] [place] [address] Consulting Physician Electrophysiology 02/04/23 Cindy Elias, [facility] [address] [place] [address] Nurse Practitioner NURSE PRACTITIONER ADULT HEALTH 08/23/23 Precious Phillips MD [address] [place] [address] Consulting Physician CARDIOVASCULAR DISEASE 09/24/24 Jean Paul Smith MD [address] [place] [address] Physician RHEUMATOLOGY 09/24/24
[2024-12-28 09:53] LABS: Estimated Glomerular Filt Rate 23
== END 2024-12-28 09:21 | disposition home or self-care (01) ==
LOC: CHSIMG 09:21
PROVIDERS: PCP Family Medicine; Visit Provider Internal Medicine Hematology
DX: D64.9 Anemia, unspecified (principal); R63.4 Abnormal weight loss; K43.9 Ventral hernia without obstruction or gangrene; I31.39 Other pericardial effusion (noninflammatory)
CPT/HCPCS: 74176

== ENCOUNTER 2025-01-02 13:56 | Outpatient (CLI) | payer MEDICARE, SELFPAY ==
--- OUTSIDE RECORDS SUMMARY | 2025-01-02 14:02 | XMS_ITS | Encounter Summary ---
Author Organization [facility] Address [address] [place] [address] Care Team Providers Care Geriatric Psychiatrist Name Role Phone Gigi Ornelas MD Primary Care Provider [phone] Jordi Gould PA-C Unavailable [phone] Kajal Javed MD Unavailable [phone] Cindy Elias ANP-BC Unavailable [phone] Precious Phillips MD Unavailable Jean Paul Smith MD Unavailable [phone] Encounter Details Date Type Department Care Team (Late st Contact Info) Description 09/28/2024 Hospital Follow-up Call [facility] Cardi[facility] Care Unit [address] [place] [address] Kathy Cason, RN Social History [...] materials from doctor or pharmacy Never 07/07/2024 [facility] Utilities Answer Date Recorded In the past 12 months has th e [employer], oil, or water [email or web address] threatened to shut off services in your [...] any time in the past 12 m [facility], were you homeless or living in a senior living (including now)? No 09/22/2024 Comments Unknown Sex and Gender Information Value Date Recorded Sex Assigned at Female 05/24/2024 2:24 PM EMERGENCY MEDICAL SERVICES COORDINATOR Legal Sex Female 10:24 PM CDT [...] 01/16/2025 2:00 PM CDT Office Visit [facility] [address] [place] [address] Jordi Gould PA-C [address] [place] [address] 01/16/2025 2:00 PM CDT Allied Health/Nurse Visit [facility] [address] [place] [address] Jordi Gould PA-C [address] [place] [address] 04/20/2025 1:30 AM EMERGENCY MEDICAL SERVICES COORDINATOR Allied Health/Nurse Visit [facility] [address] [place] [address] Kajal Javed MD [address] [phone] 06/13/2025 8:45 AM EMERGENCY MEDICAL SERVICES COORDINATOR Office Visit [facility] [place] [address] Precious Phillips MD [address] [place], [place] [address] documented as of this encounter Visit Diagnoses Not on filedocumented in this encounter Care Teams Geriatric Psychiatrist Relationship Specialty Start Date End Date Gigi Ornelas MD [address] [place] [address] PCP - General FAMILY PRACTICE 02/05/21 Jordi Gould PA-C [address] [place] [phone] PHYSICIAN CONSTRUCTION COORDINATOR 07/30/22 Kajal Javed MD [address] [address] Consulting Physician Electrophysiology 02/04/23 Cindy Elias, [facility]- [address] [place] [address] Nurse Practitioner NURSE PRACTITIONER ADULT HEALTH 08/23/23 Precious Phillips MD [address] [place] [address] Consulting Physician CARDIOVASCULAR DISEASE 09/24/24 Jean Paul Smith MD [address] [place] [address] Physician RHEUMATOLOGY 09/24/24 documented as of this encounter
--- OUTSIDE RECORDS SUMMARY | 2025-01-02 14:02 | XMS_ITS | Encounter Summary ---
Author Organization [facility] Address [address] [place] [address] Care Team Providers Care Layout Designer Name Role Phone Gigi Ornelas MD Primary Care Provider [phone] Vickey Rider MD Unavailable [phone] Dominic Arrington MD Unavailable Hloden Lombardo MD Unavailable Unavailable Jordi Gould-C Unavailable [phone] Kajal Javed MD Unavailable [phone] Isael Diaz MD Unavailable [phone] Cindy Elias ANP-BC Unavailable [phone] Precious Phillips MD Unavailable Jean Paul Smith MD Unavailable [phone] Encounter Details Date Type Department Care Team (Late st Contact Info) Description 01/30/2021 Abstract [facility] [address] [place] [address] Helen Vargas, UTILITY LOCATOR, RECORD SYSTEMS ANALYST-C [address] [facility] [address] [place] [address] Social History Tobacco Use Types Packs/Day Years Used Date Smoking Tobacco: Former Cigarettes Q uit: 2005 Comments Unknown Sex and Gender Information Value Date Recorded Sex Assigned at Female 05/24/2024 2:24 PM COLLECTION CLERK Legal Sex Female 10:24 PM CDT Gender Identity Not on file Sexual Orientation Not on file documented as of this encounter Plan of Treatment Upcoming Encounters Date Type Department Care Team (Late st Contact Info) Description 01/16/2025 2:00 PM CDT [facility] ld [address] [place] [address] Jordi Gould PA-C [address] [place] [address] 01/16/2025 2:00 PM CDT Allied Health/Nurse Visit [facility] [address] [place] [address] Jordi Gould PA-C [address] [place] [address] 04/20/2025 1:30 AM COLLECTION CLERK Allied Health/Nurse [facility] [address] [place] [address] Kajal Javed MD [address] [facility] [address] [address] 06/13/2025 8:45 AM COLLECTION CLERK Office Visit [facility] [place] [address] Precious Phillips MD [address] [place] [address] documented as of this encounter Visit Diagnoses Not on filedocumented in this encounter Care Teams Layout Designer Relationship Specialty Start Date End Date Gigi Ornelas MD [address] [place] [address] PCP - General FAMILY PRACTICE 02/05/21 Vickey Rider MD [address] [place] [phone] Sparks Laminate Floor Installer CARDIOVASCULAR DISEASE 02/05/21 08/22/23 Dominic Arrington MD [address] [place] [phone] Vascular/Cardiologis t INTERNAL MEDICINE 02/24/21 07/14/24 Holden Lombardo MD [address] [place] [phone] Consulting Physician CLINICAL CARDIAC ELECTROPHYSIOLOGY 07/30/22 02/03/23 Jordi Gould PA-C [address] [place] [phone] PHYSICIAN MANAGER TELEMARKETING 07/30/22 Kajal Javed MD [address] [place] [address] Consulting Physician Electrophysiology 02/04/23 Isael Diaz MD [address] [place] [address] INTERVENTIONAL CARDIOLOGY 08/23/2307/14 Cindy Elias, [facility] [address] [place] [address] Nurse Practitioner NURSE PRACTITIONER ADULT HEALTH 08/23/23 Precious Phillips MD [address] [place] [address] Consulting Physician CARDIOVASCULAR DISEASE 09/24/24 Jean Paul Smith MD [address] [place] [address] Physician RHEUMATOLOGY 09/24/24 documented as of this encounter
--- OUTSIDE RECORDS SUMMARY | 2025-01-02 14:02 | XMS_ITS | Encounter Summary ---
Author Organization [facility] Address [address] [place] [address] Care Team Providers Care Third Hand Name Role Phone Gigi Ornelas MD Primary Care Provider [phone] Vickey Rider MD Unavailable [phone] Dominic Arrington MD Unavailable Holden Lombardo MD Unavailable Unavailable Jordi Gould PA-C Unavailable [phone] Kajal Javed MD Unavailable [phone] Isael Diaz MD Unavailable [phone] Cindy Elias ANP-BC Unavailable [phone] Precious Phillips MD Unavailable Jean Paul Smith MD Unavailable [phone] Encounter Details Date Type Department Care Team (Late st Contact Info) Description 08/19/[address] [facility]ickener Operator Pre/Post [address] [place] [address] Holden Lombardo MD Social History Tobacco Use Types Packs/Day Years Used Date Smoking Tobacco: Former Cigarettes Q uit: 2005 Smokeless Tobacco: Never Alcohol Use Standard Drinks/Week Comments Never 0 (1 standard drink = 0.6 oz pur e alcohol) Comments Unknown Sex and Gender Information Value Date Recorded Sex Assigned at Female 05/24/2024 2:24 PM COATING MIXER SUPERVISOR Legal Sex Female 10:24 PM CDT [...] Assessment Author Status No 03/18/2022 10:00 PM COATING MIXER SUPERVISOR 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 Answer Date of Assessment Author Status No 03/18/2022 10:00 PM COATING MIXER SUPERVISOR Acti ve * Do you have serious [...] Office Visit [facility] [address] [place] [address] Jordi Gould PA-C [address] [place] [phone] 01/16/2025 2:00 PM CDT Allied Health/Nurse Visit [facility] [address] [place] [phone] Jordi Gould PA-C [address] [place] [phone] 04/20/2025 1:30 AM COATING MIXER SUPERVISOR Allied Health/Nurse Visit [facility] [address] [place] [phone] Kajal Javed MD [address] [phone] 06/13/2025 8:45 AM COATING MIXER SUPERVISOR Office Visit [facility] [place] [address] Precious Phillips MD [address] [place], [place] [phone] documented as of this encounter Visit Diagnoses Not on filedocumented in this encounter Care Teams Third Hand Relationship Specialty Start Date End Date Gigi Ornelas MD [address] [place] [address] PCP - General FAMILY PRACTICE 02/05/21 Vickey Rider MD [address] [place] [phone] [facility] [place] Jointer Machine CARDIOVASCULAR DISEASE 02/05/21 08/22/23 Dominic Arrington MD [address] [place] [phone] Vascular/Cardiologis t INTERNAL MEDICINE 02/24/21 07/14/24 Holden Lombardo MD [address] [place] [phone] Consulting Physician CLINICAL CARDIAC ELECTROPHYSIOLOGY 07/30/22 02/03/23 Jordi Gould PA-C [address] [place] [phone] PHYSICIAN ADJUNCT PSYCHOLOGY FACULTY MEMBER 07/30/22 Kajal Javed MD [address] [place] [address] Consulting Physician Electrophysiology 02/04/23 Isael Diaz MD [address] [place] [address] INTERVENTIONAL CARDIOLOGY 08/23/2307/14 Cindy Elias, [facility] [address] [place] [address] Nurse Practitioner NURSE PRACTITIONER ADULT HEALTH 08/23/23 Precious Phillips MD [address] [place] [address] Consulting Physician CARDIOVASCULAR DISEASE 09/24/24 Jean Paul Smith MD [address] [place] [address] Physician RHEUMATOLOGY 09/24/24 documented as of this encounter
--- OUTSIDE RECORDS SUMMARY | 2025-01-02 14:03 | XMS_ITS | Clinical Summary ---
Author Organization [facility] Address [address] [place] [address] Care Team Providers Care Clinical Laboratory Manager Name Role Phone Gigi Ornelas MD Primary Care Provider [phone] Jordi Gould PA-C Unavailable [phone] Kajal Javed MD Unavailable [phone] Cindy Elias [employer] [facility] [employer]- Unavailable [phone] Precious Phillips MD Unavailable Jean Paul Smith MD Unavailable [phone] Allergies Active Allergy Reactions Criticality Noted Date [...] Indications: High Blood Pressure 1 Active Multiple Vitamins-Mosaic Technician als (PRESERVISION AREDS) capsuleIndicat ions:Supplemen t Take [...] Diagnosed Date Acute on chronic respiratory failure ([facility]) 09/22/2024 CHF (congestive heart failure) ([facility]) 09/22/2024 Morbid (severe) obesity due to excess calories 0 08/28/2024 Body mass index (BMI) 45.0-49.9, adult 5 Anticoagulant long-term use 12/29/2023 Chronic combined systolic an d diastolic heart failure ([facility]) 07/02/2022 Left ventricular systolic dysfunction (LVSD) Biventricular cardiac pacemaker in situ 03/19/20 22 Complete heart block ([facility]) 2 Symptomatic bradycardia 03/18/2022 Chronic venous insufficiency 02/25/2021 Sleep apnea 05/10/2008 Other hyperlipidemia 05/10/2008 Hypertension 05/10/1989 Lymphedema Pericardial effusion ([facility]) SOBOE (shortness of breath on exertion) Encounters Date Type Department Care Team Description 12/13/2024 8:45 AM CDT Office Visit [facility] [place] [address] Cinyd Elias ANP-BC Follow Up; Hospital Follow Up (Chronic pericardial effusion) 12/13/2024 [facility] [address] [place] [address] Cindy Elias ANP-BC Appointment Request 12/13/2024 Travel 12/11/2024 Orders Only [facility]-[address] [place] [address] Cindy Elias, ANP- 12/05/2024 Orders Only [facility] [address] [place] [address] Precious Phillips MD 11/29/2024 Abstract [facility] [address] [place] [address] Abstract, Doc Pccl 11/23/2024 Abstract [facility] [address] [place] [address] Abstract, Doc Pccl 11/21/2024 Scan [facility] [address] [place] [address] Scanned, Doc Pccl 11/21/2024 Telephone [facility] [address] [place] [address] Cindy Elias, ANP- Appointment Request 11/17/2024 Scan [facility] [address] [place] [address] Scanned, Doc Pccl 11/16/2024 Scan [facility] [address] [place] [address] Scanned, Doc Pccl 11/15/2024 Scan [facility] [address] [place] [address] Scanned, Doc Pccl Echo (SCAN) 11/14/2024 Scan [facility] [address] [place] [address] Scanned, Doc Pccl CT (SCAN) 11/13/2024 Scan [facility] [address] [place] [address] Scanned, Doc Pccl CT (SCAN) 11/13/2024 Scan [facility] [address] [place] [address] Scanned, Doc Pccl Image (SCAN); ECG (SCAN); Lab (SCAN) 10/30/2024 11:10 AM CDT - 10/30/2024 11:59 PM CDT Hospital Encounter [facility] [address] [place] [address] Non-Staff, Provider Jean Paul Smiht MD Discharge Disposition: Home or Self Care (Routine Discharge) 10/30/2024 2:05 AM CDT Allied Health/Nurse Visit [facility] [address] [place] [address] Kajal Javed MD 10/30/2024 Orders Only [facility] [address] [place] [address] Jean Paul Smith MD 10/30/2024 Travel 10/03/2024 1:18 PM CDT - 10/03/2024 11:59 PM CDT Hospital Encounter [facility] [address] [place] [address] Chencho Monroy MD Discharge Disposition: Home or Self Care (Routine Discharge) 10/03/2024 Travel from Last 3 Months Family History [...] materials from doctor or pharmacy Never 07/07/2024 [facility] Utilities Answer Date Recorded In the past 12 months has th e [employer], gas, oil, or water company threatened to [...] any time in the past 12 m [facility], were you homeless or living in a fpc (including now)? No 09/22/2024 Comments Unknown Sex and Gender Information Value Date Recorded Sex Assigned at Female 05/24/2024 2:24 PM SOLE MOLDER Legal Sex Female 10:24 PM CDT Gender [...] Description 01/16/2025 2:00 PM CDT [facility] [address] [place] [address] Jordi Gould PA-C [address] [place] [address] 01/16/2025 2:00 PM CDT Allied Health/Nurse Visit [facility] [address] [place] [address] Jordi Gould PA-C [address] [place] [address] 04/20/2025 1:30 AM SOLE MOLDER Allied Health/Nurse Visit [facility] [address] [place] [address] Kajal Javed MD [address] [facility] [address] [place] [address] 06/13/2025 8:45 AM SOLE MOLDER Office Visit [facility] [place] [address] Precious Phillips MD [address] [place] [phone] Health Maintenance Due Date Last Done Comments [...] this topic Medical Devices Implanted Type Area Euclid Operator Device Identifier Shelf Expiration Date Model / Serial / Lot Medtronic Rv-03/18/2022 Implanted:Qty: 1 on 03/18/2022 by Holden Lombardo MD Lead Implant [employer] 02/04/2024 4076-52 / [id number] / Medtronic Ra-03/18/2022 Implanted:Qty: 1 on 03/18/2022 by Holden Lombardo MD Lead Implant [employer] 12/27/2023 [id number] / [id number] / Medtronic Cs-08/24/2022 Implanted:08/08 by Holden Lombardo MD (Quantity not on file) Lead Implant [employer] 06/18/2024 [id number] / [id number] / Medtronic Percepta Quad Biv-08/24/2022 Implanted:08/08 by Holden Lombardo MD (Quantity not on file) Pacemaker [employer] 01/05/2024 [id number] / [id number] / Description:DX: CHB Explanted Type Area Euclid Operator Device Identifier Shelf Expiration Date Model / Serial / Lot Medtronic [place] [address] Dr-03/18/2022 Implanted:Qty: 1 on 03/18/2022 by Holden Lombardo MD Explanted:08/24 by Holden Lombardo MD (Quantity not on file) Pacemaker [employer] 08/22/2023 [id number] / [id number] / Procedures Procedure Name Priority Date/Time Associated [...] AM CDT 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 ([facility]) SED RATE, ERYTHROCYTE (ESR) Routine 10/30/2024 11:25 AM CDT 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 ([facility]) COMPREHENSIVE METABOLIC PANEL Routine 10/30/2024 11:25 AM CDT 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 ([facility]) C-REACTIVE PROTEIN Routine 10/30/2024 11 :25 AM CDT 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 ([facility]) CBC W/DIFF AUTOMATED Routine 10/03/2024 1:31 PM [...] GFR ESTIMATE 46 Narrative Resulting Agency Comment Formerly [facility] Allie Pardo TUTORIAL LABORATORY SUPERVISOR LABORATORY Final Result * CBC, MANUAL DIFF (11/24/2024) Only the most recent of4 resultswithin the time period is included. WBC 7.1 HGB 8.9 HCT 32.2 PLT 232 Narrative Resulting Agency Comment Formerly [facility], [facility] Allie Pardo TUTORIAL LABORATORY SUPERVISOR LABORATORY Final Result * MAGNESIUM (11/17/2024) Only the most recent of2 resultswithin the time period is included. MAGNESIUM 2.1 Narrative Resulting Agency Comment Formerly [facility], [facility] us Allie Pardo TUTORIAL LABORATORY SUPERVISOR LABORATORY Final Result * ECHO (11/15/2024 12:00 [...] us Doc Pccl Scanned SCANNING Final Result [facility] ON[facility] * OUTSIDE LAB (11/13/2024) 11/13/2024 us Doc Pccl Scanned SCANNING Final Result [facility] * IMAGE STUDY (11/13/2024 12:00 AM CDT) Anatomical Region Laterality Modality Other 11/13/2024 us Doc Pccl Scanned SCANNING Final Result * (ABNORMAL) SED RATE, ERYTHROCYTE (ESR) (10/30/2024 11:25 AM CDT) ESR 61(H) 0 - 20 MM/HR 10/30/2024 12:04 PM CDT [facility] 10/30/2024 11:2 5 AM CDT us Jean Paul Smith MD LABORATORY Final Resul t [facility] [place] [address], [place] [phone] * (ABNORMAL) C-REACTIVE PROTEIN (10/30/2024 11:25 AM CDT) C-REACTIVE PROTEIN 2.68(H) <0.30 mg/dL 10/30/2024 11:56 AM CDT [facility] 10/30/2024 11:2 5 AM CDT us Jean Paul Smith MD LABORATORY Final Resul t Performing Organization Address [facility]/ZIP Co de Phone Number [facility] [address] [place] [address], [place] [phone] * (ABNORMAL) CBC W/DIFF AUTOMATED (10/30/2024 11:25 AM CDT) Only the most recent of2 resultswithin the time period is included. Pathologist [facility] WBC 7.43 4.00 - 10.80 x10'3/uL 10/30/2024 11:57 AM CDT [facility] RBC 2.93(L) 4.10 - 5.40 x10'6/uL 10/30/2024 11:57 AM CDT [facility] HGB 7.7(L) 12.0 - 16.0 G/DL 10/30/2024 11:57 AM CDT [facility] HCT 27.0(L) 36.0 - 47.0 % 10/30/2024 11:57 AM CDT [facility] MCV 92.2 78.0 - 100.0 FL 10/30/2024 11:57 AM CDT [facility] MCH 26.3(L) 27.0 - 31.0 PG 10/30/2024 11:57 AM CDT [facility] MCHC 28.5(L) 33.0 - 36.0 G/DL 10/30/2024 11:57 AM CDT [facility] RDW 16.5(H) 11.5 - 14.5 % 10/30/2024 11:57 AM CDT [facility] PLT 226 150 - 350 x10'3/uL 10/30/2024 11:57 AM CDT [facility] MPV 9.3 7.4 - 10.4 FL 10/30/2024 11:57 AM CDT [facility] CBC COMMENT NORMAL REFERENCE RANGE NOT ESTABLISHED FOR THE PROPORTIONAL LEUKOCYTE DIFFERENTIAL. 10/30/2024 11:57 AM CDT [facility] NEUTROPHILS % 74.8 % 10/30/2024 12:23 PM CDT [facility] LYMPHOCYTES % 9.2 % 10/30/2024 12:23 PM CDT [facility] MONOCYTES % 8.5 % 10/30/2024 12:23 PM CDT [facility] EOSINOPHILS % 3.8 % 10/30/2024 12:23 PM CDT [facility] BASOPHILS % 0.5 % 10/30/2024 12:23 PM CDT [facility] IMMATURE GRANS % 3.2 % 10/31/19 12:23 PM CDT [facility] NRBC % 0.0 % 10/30/2024 12:23 PM CDT [facility] ABS. NEUTROPHILS 5.56 1.60 - 8.30 x10'3/uL 10/30/2024 12:23 PM CDT [facility] ABS. LYMPHOCYTES 0.68(L) 0.80 - 4.70 x10'3/uL 10/30/2024 12:23 PM CDT [facility] ABS. MONOCYTES 0.63 0.00 - 1.50 x10'3/uL 10/30/2024 12:23 PM CDT [facility] ABS. EOSINOPHILS 0.28 0.00 - 0.40 x10'3/uL 10/30/2024 12:23 PM CDT [facility] ABS. BASOPHILS 0.04 0.00 - 0.20 x10'3/uL 10/30/2024 12:23 PM CDT [facility] ABS. IMMATURE GRANULOCYTES 0.24(H) 0.00 - 0.03 x10'3/uL 10/30/2024 12:23 PM CDT [facility] ABS. NUCLEATED RBC'S 0.00 0.00 - 0.01 x10'3/uL 10/30/2024 12:23 PM CDT [facility] PLT MORPH. 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 Advance Directives and Living Will 03/20/2022 11:47 AM POA HEALTHCARE Advance Directives and Living Will 02/20/2021 9:06 AM Refer to POA jarod t regarding Advanced Directives - NO BLOOD Power of Farm Products Shipper 02/20/2021 9:06 AM Lucie Aj, [facility]-spouse; Aram [...] Relationship Healthcare Agent Relationship Communication Omar Aj ([facility]) Spouse Health Care Agent [phone] (Mobile ) Aram Aj Other First Alter huyen Health Care Agent Care Teams Clinical Laboratory Manager Relationship Specialty Start Date End Date Gigi Ornelas MD [address] [place] [address] PCP - General FAMILY PRACTICE 02/05/21 Jordi Gould PA-C [address] [place] [phone] PHYSICIAN SPRAY BLENDER 07/30/22 Kajal Javed MD [address] [facility] [address] [place] [address] Consulting Physician Electrophysiology 02/04/23 Cindy Elias, [facility] [address] [place] [address] Nurse Practitioner NURSE PRACTITIONER ADULT HEALTH 08/23/23 Precious Phillips MD [address] [place] [address] Consulting Physician CARDIOVASCULAR DISEASE 09/24/24 Jean Paul Smith MD [address] [place] [address] Physician RHEUMATOLOGY 09/24/24
== END 2025-01-02 13:57 | disposition home or self-care (01) ==
LOC: CHSLAB 13:59
PROVIDERS: PCP Family Medicine; Visit Provider Internal Medicine Hematology
DX: D64.9 Anemia, unspecified (principal)
CPT/HCPCS: 82272; 87338

== ENCOUNTER 2025-02-21 11:12 | Outpatient (CLI) | payer MEDICARE, SELFPAY ==
--- NOTE | ~2025-02-21 | XR_ITS ---
EXAMINATION: XR chest 2V, 02/21/2025 11:30 CDT HISTORY: PLEURAL EFFUSION ELSEWHERE CLASSIFIED COMPARISON: No comparisons available. Technique: 2 views obtained. Findings: Small left lingular pleural effusion. Mild pulmonary venous congestion. No pneumothorax. Mild cardiomegaly. Mediastinal and hilar contours are within normal limits. Bony thorax no acute abnormality. Left pacemaker. Impression: Mild CHF Reviewed, dictated and finalized at location P. Impression: Mild CHF
[2025-02-21 11:35] LABS: Hematocrit 33.2 % (35.0-42.0); Hemoglobin 10.1 g/dL (11.7-13.8); Immature Granulocyte Percent A 3.0 % (0.0-0.0); Lymphocytes Absolute Auto 0.91 K/mm3 (1.10-4.50); Mean Corpuscular HGB Conc 30.4 g/dL (32-36); Mean Corpuscular Hemoglobin 28.1 pg (27.0-31.0); Mean Corpuscular Volume 92.5 fL (78.0-102.0); Nucleated Red Blood Cells Absolute Auto 0.00 K/mm3 (0.00-0.00); Nucleated Red Blood Cells Perc 0.0 % (0-0.0); Platelet Count Result 203 K/mm3 (150-420); Red Blood Count 3.59 M/mm3 (4.20-5.40); White Blood Count 10.5 K/mm3 (4.8-10.8)
[2025-02-21 12:12] LABS: Alanine Aminotransferase 12 U/L (6-35); Albumin Level 3.9 g/dL (3.5-5.1); Alkaline Phosphatase 114 U/L (38-126); Anion Gap 6 mmol/L (4-12); Aspartate Amino Transferase 18 U/L (14-36); Bilirubin,Total 0.3 mg/dL (0.2-1.3); Blood Urea Nitrogen 44 mg/dL (7-17); Calcium 9.6 mg/dL (8.4-10.2); Carbon Dioxide 24 mmol/L (22-30); Chloride 111 mmol/L (98-107); Estimated Glomerular Filt Rate 27; Glucose 99 mg/dL (65-110); Osmolality Calculated 303 mOsm/kg (285-295); Potassium 5.4 mmol/L (3.4-5.0); Sodium 141 mmol/L (137-145); Total Protein 7.4 g/dL (6.3-8.2)
[2025-02-21 13:39] LABS: Add Urine Microscopic? NO; Appearance Urine Clear (Clear); Glucose Urine UA Negative (Negative); Leukocyte Esterase Ur Negative (Negative); Nitrate Urine Negative (Negative); Specific Grav Ur 1.010 (1.010-1.020)
[2025-02-21 15:59] LABS: NT Pro B Type Natriuretic Pept 391 pg/mL (19.9-100)
== END 2025-02-21 11:13 | disposition home or self-care (01) ==
PROVIDERS: PCP Family Medicine; Visit Provider Family Medicine
DX: R30.0 Dysuria (principal); I50.9 Heart failure, unspecified; I11.0 Hypertensive heart disease with heart failure
CPT/HCPCS: 36415; 71046; 80053; 81003; 83880; 85025; 87086

== ENCOUNTER 2025-02-28 14:12 | Outpatient (CLI) | payer MEDICARE, SELFPAY ==
--- OUTSIDE RECORDS SUMMARY | 2025-01-18 06:00 | XMS_ITS ---
Author Organization [facility] Address [address] [place], [place] [address] Care Team Providers Care Government Affairs Fellow Name Role Phone SOBEIDA STEARNS Unavailable [phone] Gigi Ornelas Unavailable Unavailable Allergies No Known Allergies REASON FOR VISIT dystrophic nails, Left foot pain Medications Medication SIG (Take, Route, Frequency, Duration) Notes Start Date End Date Status Spironolactone Activ e Triamcinolone & BUPivacaine Active Torsemide Active Vitamin C Active Vitamin B12 Active Vitamin D3 Active Eliquis Active Clotrimazole 1 % 1 application Externally Once a day; Duration: 30 days 01/18/2025 01/13/2026 Active Ferrous Sulfate Acti ve Folic Acid Active Leflunomide Active Irbesartan Active Potassium Active Metoprolol Succinate ER Active Gabapentin Active Prevalite Active PreserVision AREDS A ctive Social History Tobacco Use: Social History Observation Description Date Details (start date - stop date) Former Smoker NA - NA Tobacco use other than smoking: Question Answer Notes Are you an other tobacco user? No Tobacco Control (Standard) Question Answer Notes Tobacco use: Former smoker Vital Signs Weight 60 lbs 01/18/2025 Weight-kg 27.22 kg 01/18/2025 Encounters Encounter Location Date Provider Diagnosis [address] [id number] 01/18/2025 SOBEIDA STEARNS Atherosclerosis of [place] arteries of extremities with intermittent claudication, bilateral legs I70.213 ; Tinea unguium B35.1 ; Pain in right foot M79.671 and Pain in left foot M79.672 Assessments Encounter Date Diagnosis (ICD Code) Assessment Notes Treatment Notes Treatment Clinical Notes Section Notes 01/18/2025 Atherosclerosis of [place] arteries of extremities with intermittent claudication, bilateral [...] Date Stop Date Notes Clotrimazole 1 % 1 application Parking Lot Attendant And Cashier ally Once a day; Duration: 30 days 01/18/2025 01/13/2026 Treatment Notes Assessment Notes Atherosclerosis of [place] ar teries of extremities with intermittent claudication, [...] Appt Details Follow Up: 9 weeks Mima ROBBINS n: Provider Name:SOBEIDA COSTA, 03/22/2025 10:20:00 AM, [address] [place] [address], [id number], Progress Notes * Deb AJsDOB:[birth year] (75 yo F)Acc No.[id number]:01/18/2025 Progress Notes Patient: Cata MARQUES Provider: Lori STEARNS :1950 A ge:74 Y S ex:Female Date:01/18/2025 Address:[address] [place], [place] [id number] Subjective: * Chief Complaints: * 1 . dystrophic nails, Left foot pain. * HPI: H PI: New Complaint P [...] Patient denies p aralysis. * Medical History: N europathy, Sleep apnea, Arthritis, Heart Disease. * Surgical History: D enies Past Surgical History. * Hospitalization/Major Diagno stic Procedure: D enies Past Hospitalization. * Family History: F ather: , heart disease. M other: . * Social History: T obacco Use: T obacco use other than smoking A re you an other tobacco user? N o. T obacco Control (Standard) T obacco use: F ormer smoker. * Medications: T aking Vitamin D3 , Taking Vitamin C , Taking Vitamin B12 , Taking Triamcinolone & BUPivacaine , Taking Torsemide , Taking Spironolactone , Taking Prevalite , Taking PreserVision AREDS , Taking Potassium , Taking Metoprolol Succinate ER , Taking Leflunomide , Taking Irbesartan , Taking Gabapentin , Taking Folic Acid , Taking Ferrous Sulfate , Taking Eliquis , Medication List reviewed and reconciled with the patient * Allergies: N .K.D.A. Objective: * Vitals: W t:60lbs, Wt-k.22 kg. [...] V ascular: Dorsalis pedis pulse: b ilateral, 1/4. Posterior tibial pulse: b ilaterally, 1/4. Assessment: * Assessment: 1. A therosclerosis of [place] arteries of extremities with intermittent claudication, bilateral [...] prescription treatments. * Follow Up: 9 weeks GC * Billing Information: * Visit Code: 87365 Office Visit, New Pt., Level 3. * Procedure Codes: * Electronic signature of JUAN STEARNS DPM on 02/28/2025 at 06:19 PM CDT Sign off status: Pending * Provider: Lori STEARNS Date: 0 01/18/2025 Generated for Awa cordova/Cynthia/Janay on: 06:19 PM CDT History and Physical Notes * HPI (History [...]
[2025-02-28 15:05] LABS: Iron 76 ug/dL (37-170)
[2025-02-28 15:06] LABS: Anion Gap 7 mmol/L (4-12); Blood Urea Nitrogen 30 mg/dL (7-17); Calcium 9.4 mg/dL (8.4-10.2); Carbon Dioxide 23 mmol/L (22-30); Chloride 110 mmol/L (98-107); Estimated Glomerular Filt Rate 37; Glucose 86 mg/dL (65-110); Osmolality Calculated 295 mOsm/kg (285-295); Potassium 5.7 mmol/L (3.4-5.0); Sodium 140 mmol/L (137-145)
[2025-02-28 15:14] LABS: Percent Iron Saturation 26 % (20-50)
[2025-02-28 15:42] LABS: Ferritin 77.10 ng/mL (11.1-264)
--- OUTSIDE RECORDS SUMMARY | 2025-02-28 18:19 | XMS_ITS | Encounter Summary ---
Author Organization [facility] Address Formerly [facility], [id number] [place] [address] Care Team Providers Care Screen Handler Name Role Phone Gigi Ornelas MD Primary Care Provider [phone] Vickey Rider MD Unavailable [phone] Dominic Arrington MD Unavailable Holden Lombardo MD Unavailable Unavailable Jordi Gould PA-C Unavailable [phone] Kajal Javed MD Unavailable [phone] Isael Diaz MD Unavailable [phone] Cidny Elias ANP-BC Unavailable [phone] Precious Phillips MD Unavailable Jean Paul Smith MD Unavailable [phone] Encounter Details Date Type Department Care Team (Late st Contact Info) Description 08/19/2022 Hospital Orders Only [employer] Manager Digital Ad Operations Pre/Post [address] [place] [address] Holden Isidro MD Social History Tobacco Use Types Packs/Day Years Used Date Smoking Tobacco: Former Cigarettes Q uit: 2005 Smokeless Tobacco: Never Alcohol Use Standard Drinks/Week Comments Never 0 (1 standard drink = 0.6 oz pur e alcohol) Comments Unknown Sex and Gender Information Value Date Recorded Sex Assigned at Female 05/24/2024 2:24 PM CLINICAL LABORATORY DIRECTOR Legal Sex Female 10:24 PM CDT Gender Identity Not on file Sexual Orientation Not on file COVID-19 Exposure Response Date Recorded In the last 10 days, have bhavin u been in contact with someone who was confirmed or suspected to have Coronavirus/COVID-19? No / Unsure 08/21/2022 11:03 AM CDT documented as of this encounter Functional Status * RETIRED Are you deaf or do you have serious difficulty hearing Answer Date of Assessment Author Status No 03/18/2022 10:00 PM CLINICAL LABORATORY DIRECTOR 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 Answer Date of Assessment Author Status No 03/18/2022 10:00 PM CLINICAL LABORATORY DIRECTOR Acti ve * Do you have serious [...] Care Team (Late st Contact Info) Description 04/20/2025 1:30 AM CLINICAL LABORATORY DIRECTOR Allied Health[facility] [address] [place] [address] Kajal Javed MD [address] [phone] 06/13/2025 8:45 AM CLINICAL LABORATORY DIRECTOR Office Visit [facility] [place] [address] Precious Phillips MD [address] [place] [address] documented as of this encounter Visit Diagnoses Not on filedocumented in this encounter Care Teams Screen Handler Relationship Specialty Start Date End Date Gigi Ornelas MD [address] [place] [address] PCP - General FAMILY PRACTICE 02/05/21 Vickey Rider MD [address] [place] [phone] [place] [employer] Shifter CARDIOVASCULAR DISEASE 02/05/21 08/22/23 Dominic Arrington MD [address] [place] [phone] Vascular/Cardiologis t INTERNAL MEDICINE 02/24/21 07/14/24 Holden Lombardo MD [address] [place] [phone] Consulting Physician CLINICAL CARDIAC ELECTROPHYSIOLOGY 07/30/22 02/03/23 Jordi Gould PA-C [address] [place] [phone] PHYSICIAN AUTOMATIC DRILL OPERATOR 07/30/22 Kajal Javed MD [address] [place] [phone] Consulting Physician Electrophysiology 02/04/23 Isael Diaz MD [facility] [address] [place], [place] [address] INTERVENTIONAL CARDIOLOGY 08/23/2307/14 Cindy Elias, [facility] [address] [place] [phone] Nurse Practitioner NURSE PRACTITIONER ADULT HEALTH 08/23/23 Precious Phillips MD [address] [place] [phone] Consulting Physician CARDIOVASCULAR DISEASE 09/24/24 Jean Paul Smith MD [address] [place] [phone] Physician RHEUMATOLOGY 09/24/24 documented as of this encounter
--- OUTSIDE RECORDS SUMMARY | 2025-02-28 18:19 | XMS_ITS | Patient Health Record ---
Author Organization [facility] Address [address] [place], [place] [address] Care Team Providers Care Finish Filer Name Role Phone SOBEIDA STEARNS Unavailable [phone] Gigi Ornelas Unavailable Unavailable Allergies No Known Allergies Reason For Referral No Information Medications Medication SIG (Take, Route, Frequency, Duration) Notes Start Date End Date Status Leflunomide Active Vitamin D3 Active Irbesartan Active Potassium Active Metoprolol Succinate ER Active Prevalite Active PreserVision AREDS A ctive Eliquis Active Clotrimazole 1 % 1 application Externally Once a day; Duration: 30 days 01/18/2025 01/13/2026 Active Spironolactone Activ e Triamcinolone & BUPivacaine Active Ferrous Sulfate Acti ve Torsemide Active Vitamin C Active Gabapentin Active Vitamin B12 Active Folic Acid Active Social History Tobacco Use: Social History Observation Description Date Details (start date - stop date) Former Smoker NA - NA Tobacco use other than smoking: Question Answer Notes Are you an other tobacco user? No Tobacco Control (Standard) Question Answer Notes Tobacco use: Former smoker Vital Signs Weight-kg 27.22 kg 01/18/2025 Weight 60 lbs 01/18/2025 Encounters Encounter Location Date Provider Diagnosis [address] [id number] 01/18/2025 SOBEIDA STEARNS Atherosclerosis of [place] arteries of extremities with intermittent claudication, bilateral legs I70.213 ; Tinea unguium B35.1 ; Pain in right foot M79.671 and Pain in left foot M79.672 Assessments Encounter Date Diagnosis (ICD Code) Assessment Notes Treatment Notes Treatment Clinical Notes Section Notes 01/18/2025 Tinea unguium (ICD-10 - B35.1) Aseptic [...] regarding both OTC and prescription treatments. 01/18/2025 Atherosclerosis [place] arteries of extremities with intermittent claudication, bilateral legs (ICD-10 - I70.213) Patient educated on risks and aggravating factors of PVD, including conservative treatment options such as a diet and exercise regimen to aid in slowing progression of vascular disease. Check and protect LE bilateral daily. Call if any changes or concerns. 01/18/2025 Pain in right foot (ICD-10 - M79.671) 01/18/2025 Pain in left foot (ICD-10 - M79.672) Plan Of Treatment Next Appt Details Provider Name:SOBEIDA Cyrus COSTA, 03/22/2025 10:20:00 AM, [address] [place] [address], [id number], Insurance Providers Payer Name Payer Address Payer Phone Subscriber Number Group Number Insured Name Patient Relationship to Insured Coverage Start Date Coverage End Date Medicare Part B [place] [address] [place] [phone] [id number] Cata Aj Self - patient is the insured 7 [employer] [address] [address] [place] [address] [id number] Cata Aj Self - patient is the insured Medical (General) History Medical History History ICD Code neuropathy Sleep apnea Arthritis Heart Disease
--- OUTSIDE RECORDS SUMMARY | 2025-02-28 18:19 | XMS_ITS | Encounter Summary ---
Author Organization [facility] Address [address] [place] [address] Care Team Providers Care Racing Mechanic Name Role Phone Gigi Ornelas MD Primary Care Provider [phone] Jordi Gould PA-C Unavailable [phone] Kajal Javed MD Unavailable [phone] Cindy Elias ANP-BC Unavailable [phone] Precious Phillips MD Unavailable Jean Paul Smith MD Unavailable [phone] Encounter Details Date Type Department Care Team (Late st Contact Info) Description 09/28/2024 Hospital Follow-up Call [facility] Cardiovascular Care Unit [address] [place] [address] Kathy Cason, RN Social History [...] from doctor or pharmacy Never 07/07/2024 [facility] Utilities Answer Date Recorded In the past 12 months has th e [employer], oil, or water [employer] threatened to shut off services in your [...] Sex Assigned at Female 05/24/2024 2:24 PM [employer]IPPER [employer] Legal Sex Female 10:24 PM CDT Gender [...] st Contact Info) Description 04/20/2025 1:30 AM [employer]IP[employer] Allied Health/Nurse Visit [facility] [address] [place] [phone] Kajal Javed MD [address] [place] [phone] 06/13/2025 8:45 AM [employer]IPPER [employer] Office Visit [facility] [place] [phone] Precious Phillips MD [address] [place] [address] documented as of this encounter Visit Diagnoses Not on filedocumented in this encounter Care Teams Racing Mechanic Relationship Specialty Start Date End Date Gigi Ornelas MD [address] [place] [address] PCP - General FAMILY PRACTICE 02/05/21 Jordi Gould PA-C [address] [place] [phone] PHYSICIAN FIBER OPTIC SPLICER 07/30/22 Kajal Javed MD [address] [place] [address] Consulting Physician Electrophysiology 02/04/23 Cindy Elias, [facility]- [address] [place] [phone] Nurse Practitioner NURSE PRACTITIONER ADULT HEALTH 08/23/23 Precious Phillips MD [address] [place] [address] Consulting Physician CARDIOVASCULAR DISEASE 09/24/24 Jean Paul Smith MD [address] [place] [phone] Physician RHEUMATOLOGY 09/24/24 documented as of this encounter
--- OUTSIDE RECORDS SUMMARY | 2025-02-28 18:19 | XMS_ITS | Encounter Summary ---
Author Organization [facility] Address [address] [place] [address] Care Team Providers Care Employment Coordinator Name Role Phone Gigi Ornelas MD Primary Care Provider [phone] Vickey Rider MD Unavailable [phone] Dominic Arrington MD Unavailable Holden Lombardo MD Unavailable Unavailable Jordi Gould PA-C Unavailable [phone] Kajal Javed MD Unavailable [phone] Isael Diaz MD Unavailable Cindy Elias ANP-BC Unavailable [phone] Precious Phillips MD Unavailable Jean Paul Smith MD Unavailable [phone] Encounter Details Date Type Department Care Team (Late st Contact Info) Description 01/30/2021 [facility] [address] [place] [address] Helen Vargas, FUNCTIONAL CONSULTANT, HAND SPLITTER-C [address] [facility] [address] [phone] Social History Tobacco Use Types Packs/Day Years Used Date Smoking Tobacco: Former Cigarettes Q uit: 2005 Comments Unknown Sex and Gender Information Value Date Recorded Sex Assigned at Female 05/24/2024 2:24 PM SHOT DROPPER Legal Sex Female 10:24 PM CDT Gender Identity Not on file Sexual Orientation Not on file documented as of this encounter Plan of Treatment Upcoming Encounters Date Type Department Care Team (Late st Contact Info) Description 04/20/2025 1:30 AM SHOT DROPPER Allied Health/Nurse Visit [facility] [address] [place] [phone] Kajal Javed MD [address] [phone] 06/13/2025 8:45 AM SHOT DROPPER Office Visit [facility]-[address] [place] [address] Precious Phillips MD [address] [place], [place] [phone] documented as of this encounter Visit Diagnoses Not on filedocumented in this encounter Care Teams Employment Coordinator Relationship Specialty Start Date End Date Gigi Ornelas MD [address] [place] [address] PCP - General FAMILY PRACTICE 02/05/21 Vickey Rider MD [address] [place] [phone] [place] Manager Perioperative CARDIOVASCULAR DISEASE 02/05/21 08/22/23 Dominic Arrington MD [address] [place] [phone] Vascular/Cardiologis t INTERNAL MEDICINE 02/24/21 07/14/24 Holden Lombardo MD [address] [place] [phone] Consulting Physician CLINICAL CARDIAC ELECTROPHYSIOLOGY 07/30/22 02/03/23 Jordi Gould PA-C [address] [place] [phone] PHYSICIAN COMPLETIONS MANAGER 07/30/22 Kajal Javed MD [address] [place] [phone] Consulting Physician Electrophysiology 02/04/23 Isael Diaz MD [address] [place] [phone] INTERVENTIONAL CARDIOLOGY 08/23/2307/14 Cindy Elias, [facility] [address] [place] [address] Nurse Practitioner NURSE PRACTITIONER ADULT HEALTH 08/23/23 Precious Phillips MD [address] [place] [address] Consulting Physician CARDIOVASCULAR DISEASE 09/24/24 Jean Paul Smith MD [address] [place] [address] Physician RHEUMATOLOGY 09/24/24 documented as of this encounter
--- OUTSIDE RECORDS SUMMARY | 2025-02-28 18:20 | XMS_ITS | Clinical Summary ---
Author Organization [facility] Address [facility] [place] [address] Care Team Providers Care Route Deliverer Name Role Phone Gigi Ornelas MD Primary Care Provider [phone] Jordi Gould PA-C Unavailable [phone] Kajal Javed MD Unavailable [phone] Cindy Elias ANP- Unavailable [phone] Precious Phillips MD Unavailable Jean Paul Smith MD Unavailable [phone] Allergies Active Allergy Reactions Criticality Noted Date Comments Amoxicillin-Pot Clavulanate Nausea Only 021 Clindamycin Hives 01/30/2021 Latex Rash Medium 09/22/2024 Silicone Rash Low 02/07/2021 Tape Unknown 01/30/2021 Medications triamcinolone 0.1 % creamIndicatio ns:rash APPLY CREAM EXTERNALLY TO AFFECTED AREA TWICE DAILY 07/18/19 21 Active PREVALITE 4 g packetIndicati ons:Diarrhea MIX AND TAKE THE CONTENTS OF 1 PACKET BY MOUTH DAILY. 12/24/19 21 Active irbesartan 300 MG tabletIndicati ons:Hypertensi on Take 1 tablet (300 mg total) by mouth daily. Indications: High Blood Pressure 12/24/19 21 Active Multiple Vitamins-[place] als (PRESERVISION AREDS) capsuleIndicat ions:Supplemen t Take [...] by mouth daily. Indications: High Blood Pressure 02/27/20 Active VENTOLIN HFA 108 (90 Base) MCG/ACT inhalerIndicat ions:COPD 2 puffs as needed. Indications: COPD 07/04/19 22 Active vitamin C (ASCORBIC ACID) 250 MG tabletIndicati ons:Supplement Take 2 tablets (500 mg total) by mouth daily. Indications: Supplement 05/29/19 25 Active OXYGENIndicati ons:Dyspnea 4 L/min by Nasal route continuous. Indications: Difficulty Breathing 06/23/19 25 Active potassium chloride CR (MICRO-K) 10 MEQ CR capsuleIndicat ions:supplemen t Take 1 capsule (10 mEq total) by mouth daily. Indications: supplement 60 capsule 2 08/29/19 25 Active torsemide (DEMADEX) 20 MG tabletIndicati ons:CHF Take 1 tablet (20 mg total) by mouth daily. Indications: CHF 60 tablet 2 09/06/19 25 Active leflunomide (ARAVA) 10 MG Tab Take 1 tablet (10 mg total) by mouth daily. Active spironolactone (ALDACTONE) 50 MG tablet Take 1 tablet (50 mg total) by mouth daily. 12/05/19 25 Active folic acid (FOLVITE) 1 MG tablet Take 1 tablet (1 mg total) by mouth daily. Active Gabapentin, Once-Daily, 300 MG Tab Take 1 tablet by mouth 2 (two) times a day. Active ferrous sulfate, 65 mg elemental, 325 (65 FE) MG tablet Take 1 tablet (325 mg total) by mouth. Take one tablet on Mon, Wed, Fri Active apixaban (ELIQUIS) 5 MG tablet Take 1 tablet by mouth twice daily 60 tablet 10 02/23/20 25 Active apixaban (ELIQUIS) 5 MG tablet Take 1 tablet by mouth twice daily 60 tablet 5 07/28/19 25 025 Discontinued Active Problems Problem Noted Date Diagnosed Date Acute on chronic respiratory failure 09/22/2024 CHF (congestive heart failure) 09/22/2024 Morbid (severe) obesity due to excess calories 0 08/28/2024 Body mass index (BMI) 45.0-49.9, adult Anticoagulant long-term use 12/29/2023 Chronic combined systolic and diastolic heart fa ilure 07/02/2022 Left ventricular systolic dysfunction (LVSD) Biventricular cardiac pacemaker in situ 03/19/20 Complete heart block 03/18/2022 Symptomatic bradycardia 03/18/2022 Chronic venous insufficiency 02/25/2021 Sleep apnea 05/10/2008 Other hyperlipidemia 05/10/2008 Hypertension 05/10/1989 Lymphedema Pericardial effusion SOBOE (shortness of breath on exertion) Encounters Date Type Department Care Team Description 01/17/2025 10:50 AM CDT - 01/17/2025 11:59 PM CDT [place] [address] Gigi Ornelas MD Discharge Disposition: Home or Self Care (Routine Discharge) 01/17/2025 10:48 AM CDT - 01/17/2025 10:49 AM CDT Hospital [place] [address] Jean Paul Smith MD Discharge Disposition: Home or Self Care (Routine Discharge) 01/17/[address] [place] [address] Jean Paul Smith MD 01/16/2025 2:00 PM CDT Allied Health/Nurse Visit [facility] [address] [place] [address] Jordi Gould PA-C In Clinic Device Check 01/16/2025 2:00 PM CDT Office Visit [facility] [address] [place] [address] Jordi Gould PA-C Pacemaker Check 01/16/2025 Travel 01/16/2025 Orders Only [facility] [address] [place] [address] Kajal Javed MD 01/15/2025 Telephone [facility] [address] [place] [address] Hong Pablo MD Question 01/15/2025 Telephone [facility] [address] [place] [address] Jordi Gould PA-C Appointment Reminder 12/13/2024 8:45 AM CDT Office Visit [facility] [place] [address] [place] [address] Cindy Elias, ANP-BC Follow Up; Hospital Follow Up (Chronic pericardial effusion) 12/13/2024 Telephone [facility] [address] [place] [address] Cindy Elias, ANP-BC Appointment Request 12/13/2024 Travel 12/11/2024 Orders Only [facility] [place] [address] [place] [address] Cindy Elias, ANP-BC 12/05/2024 Orders Only [facility] [address] [place] [address] Precious Phillips MD 11/29/2024 Abstract [facility] [address] [place] [address] Abstract, Doc Pccl from Last 3 Months Family History Medical [...] materials from doctor or pharmacy Never 07/07/2024 [facility] Utilities Answer Date Recorded In the past 12 months has [facility] hospital [employer], [email or web address], or water [employer] threatened to shut off services in your [...] time in the past [address] [facility], were you homeless or living in a intermediate (including now)? No 09/22/2024 Comments Unknown Sex and Gender Information Value Date Recorded Sex Assigned at Female 05/24/2024 2:24 PM PRIMING MACHINE OPERATOR Legal Sex Female 10:24 PM CDT Gender Identity Not on file Sexual Orientation Not on file Last Filed Vital Signs Vital Sign Reading Time Taken Comments Blood Pressure 130/68 01/16/2025 1:54 PM CDT Pulse 74 01/16/2025 1:54 PM CDT Temperature 36.4 C (97.5 F) 09/26/2024 8:15 AM CDT Respiratory Rate 16 01/16/2025 1:54 PM CDT Oxygen Saturation 91% 01/16/2025 1:54 PM CDT Inhaled Oxygen Concentration - - Weight 103.9 kg (229 lb) 01/16/2025 1:54 PM CDT Height 152.4 cm (5') 01/16/2025 1:54 PM CDT Body Mass Index 44.72 01/16/2025 1:54 PM CDT Plan of Treatment Upcoming Encounters Date Type Department Care Team (Late st Contact Info) Description 04/20/2025 1:30 AM PRIMING MACHINE OPERATOR Allied Health/Nurse Visit [facility] [address] [place] [address] Kajal Javed MD [address] [place] [address] [address] 06/13/2025 8:45 AM PRIMING MACHINE OPERATOR Office Visit [facility] [place] [address] Precious Phillips MD [address] [place], [place] [address] Health Maintenance Due Date Last Done Comments Colorectal Cancer Screening Colonoscopy (10 Years) 1950 Hepatitis C 02/16/1970 Pneumococcal Vaccine: 50+ Years (1 of 2 - PCV) 02/16/1971 Mammogram Screening 1992 Zoster Vaccines (1 of 2) 02/16/2002 Annual Medicare Wellness Visit 02/16/2017 Dexa Scan (General) 02/16/2017 COVID-19 Vaccine ( season) 2025 03/04/2023, 02/16/2022, 09/28/2021, Additional history exists Influenza Adult (#1) 2025 03/24/2024, 01/16/2021, 03/15/2020 DTaP, Tdap and Td Vaccines (3 - Td or Tdap) 05/23/2034 05/23/2024, 08/05/2020 RSV Immunization or 60+ Years Completed 05/17/2023 Hepatitis A Vaccines Aged Out No long er eligible based on patient's age to complete this topic Meningococcal B Vaccine Aged Out No l onger eligible based on patient's age to complete this topic Meningococcal Vaccine Aged Out No alyssa mireya eligible based on patient's age to complete this topic RSV Immunizations Under 20 Months Aged Out No longer eligible based on patient's age to complete this topic Medical Devices Implanted Type Area Barnworker Groom Device Identifier Shelf Expiration Date Model / Serial / Lot Medtronic Rv-03/18/2022 Implanted:Qty: 1 on 03/18/2022 by Holden Lombardo MD Lead Implant [employer] 02/04/2024 4076-52 / [id number] / Medtronic Ra-03/18/2022 Implanted:Qty: 1 on 03/18/2022 by Holden Lombardo MD Lead Implant [employer] 12/27/2023 4076-45 / [id number] / Medtronic Cs-08/24/2022 Implanted:08/08 by Holden Lombardo MD (Quantity not on file) Lead Implant [employer] 06/18/2024 [id number] / [id number] / Medtronic Percepta Quad Biv-08/24/2022 Implanted:08/08 by Holden Lombardo MD (Quantity not on file) Pacemaker [employer] 01/05/2024 [id number] / [id number] / Description:DX: CHB Explanted Type Area Barnworker Groom Device Identifier Shelf Expiration Date Model / Serial / Lot Medtronic [place] [address]-03/18/2022 Implanted:Qty: 1 on 03/18/2022 by Holden Lombardo MD Explanted:08/24 by Holden Lombardo MD (Quantity not on file) Pacemaker [employer] 08/22/2023 [id number] / [id number] / Procedures Procedure Name Priority Date/Time Associated Diagnosis Comments C-REACTIVE PROTEIN Routine 01/17/2025 11 :12 AM CDT 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 ([facility]) SED RATE, ERYTHROCYTE (ESR) Routine 01/17/2025 11:12 AM CDT 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 ([facility]) COMPREHENSIVE METABOLIC PANEL Routine 01/17/2025 11:12 AM CDT 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 ([facility]) CBC W/DIFF AUTOMATED Routine 01/17/2025 11:12 AM CDT 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 ([facility]) ELECTROCARDIOGRAM (NON MIDMARK ACQUIRED) Routine 01/16/2025 2:02 PM CDT Complete heart block ([facility]/HCC) Biventricular cardiac pacemaker in situ from Last 3 Months Results * (ABNORMAL) SED RATE, ERYTHROCYTE (ESR) (01/17/2025 11:12 AM CDT) ESR 31(H) 0 - 20 MM/HR 01/17/2025 11:51 AM CDT [facility] 01/17/2025 11:1 2 AM CDT Jean Paul Smith MD LABORATORY Final Resul t [facility] [address] [place] [address], * (ABNORMAL) COMPREHENSIVE METABOLIC PANEL (01/17/2025 11:12 AM CDT) SODIUM S/P/B 140 136 - 145 MMOL/L 01/17/2025 11:45 AM CDT [facility] POTASSIUM S/P/B 4.8 3.5 - 5.1 MMOL/L 01/17/2025 11:45 AM CDT [facility] CHLORIDE S/P/B 104 98 - 107 MMOL/L 01/17/2025 11:45 AM CDT [facility] CO2 28.9 21.0 - 32.0 MMOL/L 01/17/2025 11:45 AM CDT [facility] GLUCOSE 89 70 - 99 MG/DL 01/17/2025 11:45 AM CDT [facility] Comment: FASTING GLUCOSE 100 TO 125 MG/DL IS CONSISTENT WITH IMPAIRED FASTING GLUCOSE. FASTING GLUCOSE >125 MG/DL IS CONSISTENT WITH DIABETES. RANDOM GLUCOSE >200 MG/DL WITH HYPERGLYCEMIC SYMPTOMS IS CONSISTENT WITH DIABETES. PER ADA GUIDELINES BUN 52(H) 6 - 24 MG/DL 01/17/2025 11:45 AM CDT [facility] CREATININE S/P/B 2.06(H) 0.55 - 1.02 MG/DL 01/17/2025 11:45 AM CDT [facility] CALCIUM S/P/B 8.9 8.4 - 10.5 MG/DL 01/17/2025 11:45 AM CDT [facility] BILIRUBIN TOTAL S/P/B 0.2 0.2 - 1.0 MG/DL 01/17/2025 11:45 AM [facility] Comment: THIS ASSAY IS NOT RECOMMENDED FOR PATIENTS UNDERGOING TREATMENT WITH ELTROMBOPAG DUE TO THE POTENTIAL FOR FALSELY ELEVATED RESULTS. ALKALINE PHOSPHATASE S/P/B 93 55 - 142 U/L 01/17/2025 11:45 AM [facility] AST 11(L) 15 - 37 U/L 01/17/2025 11:45 AM [facility] ALT 19 14 - 59 U/L 01/17/2025 11:45 AM [facility] TOTAL PROTEIN S/P/B 6.7 6.4 - 8.2 G/DL 01/17/2025 11:45 AM [facility] ALBUMIN S/P/B 3.0(L) 3.4 - 5.0 G/DL 01/17/2025 11:45 AM [facility] ANION GAP 7.1 5.0 - 15.0 MMOL/L 01/17/2025 11:45 AM [facility] OSMOLALITY (CALC) 304 MOSM/KG 025 11:45 AM [facility] Comment:REFERENCE RANGE NOT ESTABLISHED GFR ESTIMATE 25(L) >89 ML/MIN/1. 73 M2 01/17/2025 11:45 AM [facility] GFR NOTES GFR REFERENCE S: 01/17/2025 11:45 AM [facility] Comment: THE ESTIMATED GFR IS [...] ml/min/1.73 m2 G5,KIDNEY FAILURE: <15 ml/min/1.73 m2 01/17/2025 11:1 2 AM CDT Jean Paul Smith MD LABORATORY Final Resul t [facility] [address] [place] [address], * (ABNORMAL) C-REACTIVE PROTEIN (01/17/2025 11:12 AM CDT) C-REACTIVE PROTEIN 1.53(H) <0.30 mg/dL 01/17/2025 11:45 AM CDT [facility] 01/17/2025 11:1 2 AM CDT Jean Paul Smith MD LABORATORY Final Resul t Performing Organization Address [facility]/ZIP Co de Phone Number [facility] [address] [place] [address], * (ABNORMAL) CBC W/DIFF AUTOMATED (01/17/2025 11:12 AM CDT) WBC 8.53 4.00 - 10.80 x10'3/uL 01/17/2025 11:19 AM CDT [facility] RBC 3.78(L) 4.10 - 5.40 x10'6/uL 01/17/2025 11:19 AM CDT [facility] HGB 10.3(L) 12.0 - 16.0 G/DL 01/17/2025 11:19 AM CDT [facility] HCT 34.3(L) 36.0 - 47.0 % 01/17/2025 11:19 AM CDT [facility] MCV 90.7 78.0 - 100.0 FL 01/17/2025 11:19 AM CDT [facility] MCH 27.2 27.0 - 31.0 PG 01/17/2025 11:19 AM CDT [facility] MCHC 30.0(L) 33.0 - 36.0 G/DL 01/17/2025 11:19 AM CDT [facility] RDW 17.1(H) 11.5 - 14.5 % 01/17/2025 11:19 AM CDT [facility] PLT 162 150 - 350 x10'3/uL 01/17/2025 11:19 AM CDT [facility] MPV 9.3 7.4 - 10.4 FL 01/17/2025 11:19 AM CDT [facility] CBC COMMENT NORMAL REFERENCE RANGE NOT ESTABLISHED FOR THE PROPORTIONAL LEUKOCYTE DIFFERENTIAL. 01/17/2025 11:19 AM CDT [facility] NEUTROPHILS % 75.2 % 01/17/2025 11:19 AM CDT [facility] LYMPHOCYTES % 10.1 % 01/17/2025 11:19 AM CDT [facility] MONOCYTES % 7.0 % 01/17/2025 11:19 AM CDT [facility] EOSINOPHILS % 4.6 % 01/17/2025 11:19 AM CDT [facility] BASOPHILS % 0.5 % 01/17/2025 11:19 AM CDT [facility] IMMATURE GRANS % 2.6 % 01/18/20 11:19 AM CDT [facility] NRBC % 0.0 % 01/17/2025 11:19 AM CDT [facility] ABS. NEUTROPHILS 6.42 1.60 - 8.30 x10'3/uL 01/17/2025 11:19 AM CDT [facility] ABS. LYMPHOCYTES 0.86 0.80 - 4.70 x10'3/uL 01/17/2025 11:19 AM CDT [facility] ABS. MONOCYTES 0.60 0.00 - 1.50 x10'3/uL 01/17/2025 11:19 AM CDT [facility] ABS. EOSINOPHILS 0.39 0.00 - 0.40 x10'3/uL 01/17/2025 11:19 AM CDT [facility] ABS. BASOPHILS 0.04 0.00 - 0.20 x10'3/uL 01/17/2025 11:19 AM CDT [facility] ABS. IMMATURE GRANULOCYTES 0.22(H) 0.00 - 0.03 x10'3/uL 01/17/2025 11:19 AM CDT [facility] ABS. NUCLEATED RBC'S 0.00 0.00 - 0.01 x10'3/uL 01/17/2025 11:19 AM CDT [facility] 01/17/2025 11:1 2 AM CDT us Jean Paul Smith MD LABORATORY Final Resul t [facility] [address] [email or web address] [address], * ELECTROCARDIOGRAM (01/16/2025 2:02 PM CDT) 01/16/2025 2:02 PM CDT Narrative [facility] - 01/21/2025 2:28 PM CDT [facility] [address] [place] [address] Test Date: 2025-01-16 Pat Name: CATA AJ Department: 105 Room: Gender: Female Drafter Marine: : 1950 Requested By: KAJAL JAVED Order Number: [id number] [place] MD: Kajal Javed Measurements Intervals [place] Rate: 77 P: 223 DE: 209 QRS: 223 QRSD: 85 T: -5 QT: 346 QTc: 394 Interpretive Statements ELECTRONIC ATRIAL PACEMAKER ANTEROLATERAL MYOCARDIAL INFARCTION, OF INDETERMINATE AGE (POOR R WAVE PROGRESSION) Procedure Note Kajal Javed MD - 01/21/2025 [facility] [address] [place] [address] Test Date: 2025-01-16 Pat Name: CATA AJ Department: 105 Room: Gender: Female Drafter Marine: : 1950 Requested By: KAJAL JAVED Order Number: [id number] [place] MD: Kajal Javed Measurements Intervals [place] Rate: 77 P: 223 DE: 209 QRS: 223 QRSD: 85 T: -5 QT: 346 QTc: 394 Interpretive Statements ELECTRONIC ATRIAL PACEMAKER ANTEROLATERAL MYOCARDIAL INFARCTION, OF INDETERMINATE AGE (POOR R WAVE PROGRESSION) us Kajal Javed MD PROCEDURES-ORDERABLE NO CHARGE Final Result [facility] from Last 3 Months Insurance MEDICARE [employer] Advance Directives Documents on File Type Date Recorded Patient Adoption Manager Expl anation Advance Directives and Living Will 03/20/2022 11:47 AM POA HEALTHCARE Advance Directives and Living Will 02/20/2021 9:06 AM Refer to POA documen t regarding Advanced Directives - NO BLOOD Power of Dry Cleaner Presser 02/20/2021 9:06 AM Lucie Aj, HCA-spouse; Aram [...] Omar Aj (POAH) Spouse Health Care Agent [phone] (Mobile ) Aram Aj Other First Alter huyen Health Care Agent Care Teams Route Deliverer Relationship Specialty Start Date End Date Gigi Ornelas MD [address] [place] [id number] PCP - General FAMILY PRACTICE 02/05/21 Jordi Gould PA-C [address] [place] [phone] PHYSICIAN WET PRIMER POWDER BLENDER 07/30/22 Kajal Javed MD [address] [place] [address] Consulting Physician Electrophysiology 02/04/23 Cindy Elias, GABRIELA- [address] [place] [address] Nurse Practitioner NURSE PRACTITIONER ADULT HEALTH 08/23/23 Precious Phillips MD [address] [place] [address] Consulting Physician CARDIOVASCULAR DISEASE 09/24/24 Jean Paul Smith MD [address] [place] [address] Physician RHEUMATOLOGY 09/24/24
== END 2025-02-28 14:13 | disposition home or self-care (01) ==
PROVIDERS: PCP Family Medicine; Visit Provider Family Medicine
DX: D50.9 Iron deficiency anemia, unspecified (principal); I50.9 Heart failure, unspecified
CPT/HCPCS: 36415; 80048; 82728; 83540; 83550

== ENCOUNTER 2025-03-07 11:19 | Outpatient (CLI) | payer MEDICARE, SELFPAY ==
--- OUTSIDE RECORDS SUMMARY | 2025-01-18 06:00 | XMS_ITS ---
Author Organization [facility] Address [address] [place], [place] [address] Care Team Providers Care Workforce Consultant Name Role Phone SOBEIDA STEARNS Unavailable [phone] Gigi Ornelas Unavailable Unavailable Allergies No Known [...] 01/18/2025 Encounters Encounter Location Date Provider Diagnosis [address] [id number] 01/18/2025 SOBEIDA STEARNS Atherosclerosis of [place] arteries of extremities with intermittent claudication, bilateral legs I70.213 ; Tinea unguium B35.1 ; Pain in right foot M79.671 and Pain in left foot M79.672 Assessments Encounter Date Diagnosis (ICD Code) Assessment Notes Treatment Notes Treatment Clinical Notes Section Notes 01/18/2025 Atherosclerosis of [place] arteries of extremities with intermittent claudication, bilateral [...] 01/13/2026 Treatment Notes Assessment Notes Atherosclerosis of [place] ar teries of extremities with intermittent claudication, [...] 9 weeks Mima ROBBINS: Provider Name:SOBEIDA COSTA, 03/22/2025 10:20:00 AM, [address] [place] [address], [id number], History and Physical Notes * HPI (History [...] * Deb AJsDOB:[birth year] (75 yo F)Acc No.[id number]:01/18/2025 Progress Notes Patient: Cata Hendrix Provider: Lori STEARNS :1950 A ge:74 Y S ex:Female Date:01/18/2025 Address:[address] [place], [place] [id number] Subjective: * Chief Complaints: * d ystrophic [...] Assessment: * Assessment: 1. A therosclerosis of [place] arteries of extremities with intermittent claudication, bilateral [...] 9 weeks Billing Information: * Visit Code: 16343 Office Visit, New Pt., Level 3. * Electronic signature of JUAN STEARNS DPM on 03/07/2025 at 12:56 PM CDT Sign off status: Pending * Provider: Lori STEARNS Date: 0 01/18/2025 Generated for Awa cordova/Cynthia/Janay on: 12:56 PM CDT
[2025-03-07 11:58] LABS: Anion Gap 7 mmol/L (4-12); Blood Urea Nitrogen 24 mg/dL (7-17); Calcium 9.2 mg/dL (8.4-10.2); Carbon Dioxide 26 mmol/L (22-30); Chloride 109 mmol/L (98-107); Estimated Glomerular Filt Rate 36; Glucose 91 mg/dL (65-110); Osmolality Calculated 298 mOsm/kg (285-295); Potassium 4.9 mmol/L (3.4-5.0); Sodium 142 mmol/L (137-145)
--- OUTSIDE RECORDS SUMMARY | 2025-03-07 12:56 | XMS_ITS | Patient Health Record ---
Author Organization [facility] Address [address] [place], [place] [address] Care Team Providers Care Cloth Calender Name Role Phone SOBEIDA STEARNS Unavailable [phone] Gigi Ornelas Unavailable Unavailable Allergies No Known Allergies Reason For Referral No Information Medications Medication SIG (Take, Route, Frequency, Duration) Notes Start Date End Date Status Leflunomide Active Vitamin D3 Active Irbesartan Active Potassium Active Metoprolol Succinate ER Active Prevalite Active PreserVision AREDS A ctive Eliquis Active Clotrimazole 1 % Cream 1 [...] other tobac co user? No Vital Signs Weight-kg 27.22 kg 01/18/2025 Weight 60 lbs 01/18/2025 Encounters Encounter Location Date Provider Diagnosis [facility] [address] [place], [place] [id number] 01/18/2025 SOBEIDA STEARNS Atherosclerosis of [place] arteries of extremities with intermittent claudication, bilateral [...] OTC and prescription treatments. 01/18/2025 Atherosclerosis of [place] arteries of extremities with intermittent claudication, bilateral [...] Of Treatment Next Appt Details Provider Name:SOBEIDA COSTA, 03/22/2025 10:20:00 AM, [address] [place] [address], [phone], Insurance Providers Payer Name Payer Address Payer Phone Subscriber Number Group Number Insured Name Patient Relationship to Insured Coverage Start Date Coverage End Date Medicare Part B [place] [address] [place] [phone] [id number] Cata Aj Self - patient is the insured 7 [employer] SENIOR SUPPLEMENTAL INS [address] [address] [place] [address] [id number] Cata Aj Self - patient is the insured Medical (General) History Medical History History ICD Code neuropathy Sleep apnea Arthritis Heart Disease
== END 2025-03-07 11:20 | disposition home or self-care (01) ==
LOC: CHSLAB 11:20
PROVIDERS: PCP Family Medicine; Visit Provider Family Medicine
DX: E87.5 Hyperkalemia (principal)
CPT/HCPCS: 36415; 80048

== ENCOUNTER 2025-03-22 12:09 | Outpatient (CLI) | payer MEDICARE, SELFPAY ==
--- OUTSIDE RECORDS SUMMARY | 2025-01-18 05:00 | XMS_ITS ---
Author Organization [facility] Address [address] [place], [place] [id number] Care Team Providers Care Insole Tape Stitcher Uco Name Role Phone SOBEIDA STEARNS Unavailable [phone] Gigi Ornelas Unavailable Unavailable Allergies No Known [...] 01/18/2025 Encounters Encounter Location Date Provider Diagnosis [address] [id number] 01/18/2025 SOBEIDA STEARNS Atherosclerosis of [place] arteries of extremities with intermittent claudication, bilateral legs I70.213 ; Tinea unguium B35.1 ; Pain in right foot M79.671 and Pain in left foot M79.672 Assessments Encounter Date Diagnosis (ICD Code) Assessment Notes Treatment Notes Treatment Clinical Notes Section Notes 01/18/2025 Atherosclerosis of [place] arteries of extremities with intermittent claudication, bilateral [...] 01/13/2026 Treatment Notes Assessment Notes Atherosclerosis of [place] ar teries of extremities with intermittent claudication, [...] ROBBINS: Provider Name:SOBEIDA COSTA, 05/31/2025 10:40:00 AM, [address] [place] [address], [id number], History and Physical Notes * HPI (History [...] * Deb AJsDOB:[birth year] (75 yo F)Acc No.[id number]:01/18/2025 Progress Notes Patient: Cata Hendrix Provider: Lori STEARNS :1950 A ge:74 Y S ex:Female Date:01/18/2025 Address:[address] [place], [place] [id number] Subjective: * Chief Complaints: * d ystrophic [...] Assessment: * Assessment: 1. A therosclerosis of [place] arteries of extremities with intermittent claudication, bilateral [...] 9 weeks Billing Information: * Visit Code: 64023 Office Visit, New Pt., Level 3. * Electronic signature of JUAN STEARNS DPM on 03/22/2025 at 12:57 PM TOURS HOSTESS Sign off status: Pending * Provider: Lori STEARNS Date: 0 01/18/2025 Generated for Awa cordova/Cynthia/Janay on: 05/22/2024 12:57 PM TOURS HOSTESS
--- NOTE | ~2025-03-22 | XR_ITS ---
EXAMINATION: XR chest 2V DATE: 03/22/2025 12:58 INDICATION: Chest pain TECHNIQUE: Frontal and lateral views of the chest were obtained. COMPARISON: 02/21/2025 FINDINGS: Mild to moderately enlarged heart shadow with prominent interstitial and bronchovascular markings and possible mild pulmonary edema in the lung bases. No argelia pulmonary edema or effusion. Left-sided pacemaking device and wires stable. No pneumothorax or subphrenic free air seen. IMPRESSION: 1. Vascular congestion with no argelia pulmonary edema or effusion. Reviewed, dictated and finalized at location A. T MAKER
--- NOTE | 2025-03-22 12:29 | ECG_ITS ---
Test Date: 2025-03-22 12:40:55 Measurements Intervals [place] Rate: 74 P: 246 AK: 196 QRS: 197 QRSD: 98 T: 59 QT: 382 QTc: 424 Interpretive Statements ELECTRONIC ATRIAL PACEMAKER ELECTRONIC VENTRICULAR PACEMAKER ABNORMAL RHYTHM ECG Compared to ECG 11/13/2024 09:44:43 No significant changes Electronically Signed On 03-22-2025 13:57:08 PUPIL PERSONNEL WORKER by Aba Maharaj M.D.
[2025-03-22 12:46] LABS: Hematocrit 29.9 % (35.0-42.0); Hemoglobin 8.8 g/dL (11.7-13.8); Mean Corpuscular HGB Conc 29.4 g/dL (32-36); Mean Corpuscular Hemoglobin 28.4 pg (27.0-31.0); Mean Corpuscular Volume 96.5 fL (78.0-102.0); Platelet Count Result 198 K/mm3 (150-420); Red Blood Count 3.10 M/mm3 (4.20-5.40); White Blood Count 5.9 K/mm3 (4.8-10.8)
[2025-03-22 12:55] LABS: Anion Gap 9 mmol/L (4-12); Blood Urea Nitrogen 24 mg/dL (7-17); Calcium 9.3 mg/dL (8.4-10.2); Carbon Dioxide 30 mmol/L (22-30); Chloride 107 mmol/L (98-107); Creatine Kinase 37 U/L (30-135); Estimated Glomerular Filt Rate 37; Glucose 92 mg/dL (65-110); Osmolality Calculated 306 mOsm/kg (285-295); Potassium 4.0 mmol/L (3.4-5.0); Sodium 146 mmol/L (137-145)
--- OUTSIDE RECORDS SUMMARY | 2025-03-22 12:57 | XMS_ITS | Patient Health Record ---
Author Organization [facility] Address [address] [place], [place] [address] Care Team Providers Care Bottom Crane Operator Name Role Phone SOBEIDA STEARNS Unavailable [phone] Gigi Ornelas Unavailable Unavailable Allergies No Known Allergies Reason For Referral No Information Medications Medication SIG (Take, Route, Frequency, Duration) Notes Start Date End Date Status Clotrimazole 1 % Cream 1 application Externally Once a day; Duration: 30 days 03/22/2025 03/17/2026 Active PreserVision AREDS A ctive Leflunomide Active Vitamin D3 Active Irbesartan Active Potassium Active Metoprolol Succinate ER Active Triamcinolone & BUPivacaine Active Ferrous Sulfate Acti ve Torsemide Active Eliquis Active Vitamin C Active Gabapentin Active Vitamin B12 Active Folic Acid Active Spironolactone Activ e Prevalite Active Social History Tobacco Use: Social History Observation Description Date Details (start date - stop date) Former Smoker NA - NA Social History Tobacco Use: Social Info Question Answer Notes Tobacco Control (Standard) Tobacco use: Former smoker Tobacco use other than smoking: Are you an other tobac co user? No Vital Signs Weight-kg 90.72 kg 03/22/2025 Weight 200 lbs 03/22/2025 Encounters Encounter Location Date Provider Diagnosis [address] [id number] 01/18/2025 SOBEIDA STEARNS Atherosclerosis of [place] arteries of extremities with intermittent claudication, bilateral legs I70.213 ; Tinea unguium B35.1 ; Pain in right foot M79.671 and Pain in left foot M79.[address] [id number] 03/22/2025 SOBEIDA STEARNS Tinea unguium B35.1 ; Atherosclerosis of [place] arteries of extremities with intermittent claudication, bilateral legs I70.213 ; Pain in right foot M79.671 ; Pain in left foot M79.672 and Localized edema R60.0 Assessments Encounter Date [...] OTC and prescription treatments. 01/18/2025 Atherosclerosis of [place] arteries of extremities with intermittent claudication, bilateral legs (ICD-10 - I70.213) Patient educated on risks and aggravating factors of PVD, including conservative treatment options such as a diet and exercise regimen to aid in slowing progression of vascular disease. Check and protect LE bilateral daily. Call if any changes or concerns. 03/22/2025 Tinea unguium (ICD-10 - B35.1) Aseptic [...] regarding both OTC and prescription treatments. 03/22/2025 Atherosclerosis of [place] arteries of extremities with intermittent claudication, bilateral legs (ICD-10 - I70.213) Patient educated on risks and aggravating factors of PVD, including conservative treatment options such as a diet and exercise regimen to aid in slowing progression of vascular disease. Check and protect LE bilateral daily. Call if any changes or concerns. 03/22/2025 Pain in right foot (ICD-10 - M79.671) 01/18/2025 Pain in right foot (ICD-10 - M79.671) 01/18/2025 Pain in left foot (ICD-10 - M79.672) 03/22/2025 Pain in left foot (ICD-10 - M79.672) 03/22/2025 Localized edema (ICD-10 - R60.0) Edema Recommendations: Advised patient on edema treatment recommendations. Recommendation for periodic elevation of feet and lower legs through the day. Recommend support compression hose. Recommend dietary restrictions salt intake. Followup with family physician for potential diuretic management if needed. Plan Of Treatment Next Appt Details Provider Name:SOBEIDA COSTA, 05/31/2025 10:40:00 AM, [address] [place] [address], [id number], Insurance Providers Payer Name Payer Address Payer Phone Subscriber Number Group Number Insured Name Patient Relationship to Insured Coverage Start Date Coverage End Date Medicare Part B [place] [address] [place] [phone] [id number] Cata Aj Self - patient is the insured 7 [employer] [address] [address] [place] [address] [id number] Cata Aj Self - patient is the insured 7 Medical (General) History Medical History History ICD Code neuropathy Sleep apnea Arthritis Heart Disease
[2025-03-22 13:07] LABS: NT Pro B Type Natriuretic Pept 433 pg/mL (19.9-100); Troponin I < 0.012 ng/mL (0.000-0.034)
== END 2025-03-22 12:10 | disposition home or self-care (01) ==
PROVIDERS: PCP Family Medicine; Visit Provider Family Medicine
DX: R07.9 Chest pain, unspecified (principal); Z95.0 Presence of cardiac pacemaker; R94.31 Abnormal electrocardiogram [ECG] [EKG]
CPT/HCPCS: 36415; 71046; 80048; 82550; 82553; 83880; 84484; 85027; 93005

== ENCOUNTER 2025-04-26 10:39 | Outpatient (CLI) | payer MEDICARE, SELFPAY ==
--- OUTSIDE RECORDS SUMMARY | 2025-01-18 05:00 | XMS_ITS ---
Author Organization [facility] Address [address] [place], [place] [address] Care Team Providers Care Theatrical Variety Agent Name Role Phone SOBEIDA STEARNS Unavailable [phone] Gigi Ornelas Unavailable Unavailable Allergies No Known Allergies REASON FOR VISIT dystrophic nails, Left foot pain Medications Medication SIG (Take, Route, Frequency, Duration) Notes Start Date End Date Status Spironolactone Activ e Triamcinolone & BUPivacaine Active Torsemide Active Vitamin C Active Vitamin B12 Active Vitamin D3 Active Eliquis Active Clotrimazole 1 % Cream 1 application Externally Once a day; Duration: 30 days 01/18/2025 01/13/2026 Active Ferrous Sulfate Acti ve Folic Acid Active Leflunomide Active Irbesartan Active Potassium Active Metoprolol Succinate ER Active Gabapentin Active Prevalite Active PreserVision AREDS A ctive Social History Tobacco Use: Social History Observation Description Date Details (start date - stop date) Former Smoker NA - NA Social History Tobacco Use: Social Info Question Answer Notes Tobacco Control (Standard) Tobacco use: Former smoker Tobacco use other than smoking: Are you an other tobac co user? No Vital Signs Weight 60 lbs 01/18/2025 Weight-kg 27.22 kg 01/18/2025 Encounters Encounter Location Date Provider Diagnosis [address] [id number] 01/18/2025 SOBEIDA STEARNS Atherosclerosis of [place] arteries of extremities with intermittent claudication, bilateral legs I70.213 ; Tinea unguium B35.1 ; Pain in right foot M79.671 and Pain in left foot M79.672 Assessments Encounter Date Diagnosis (ICD Code) Assessment Notes Treatment Notes Treatment Clinical Notes Section Notes 01/18/2025 Atherosclerosis of [place] arteries of extremities with intermittent claudication, bilateral legs (ICD-10 - I70.213) Patient educated on risks and aggravating factors of PVD, including conservative treatment options such as a diet and exercise regimen to aid in slowing progression of vascular disease. Check and protect LE bilateral daily. Call if any changes or concerns. 01/18/2025 Tinea unguium (ICD-10 - B35.1) Aseptic debridement of elongated thickened nails x 10 using sterile nippers, nails were debrided in length and thickness by 30% utilizing a nail nipper without incident. The patient was educated regarding all treatment options that include topical and oral antifungal treatments. I discussed the options of taking a sample of the nail to confirm diagnosis. Nail clippings were not sent for pathology analysis. The patient was educated why and how the fungal infection evolved in their feet and the patient was given information regarding how to prevent further infection. The patient was told to keep feet dry and change socks. The patient was told to be careful with old shoes and excessive sweating. The patient was educated regarding both OTC and prescription treatments. 01/18/2025 Pain in right foot (ICD-10 - M79.671) 01/18/2025 Pain in left foot (ICD-10 - M79.672) Plan Of Treatment Medication Medication Name Sig Start Date Stop Date Notes Clotrimazole 1 % Cream 1 application Ext ernally Once a day; Duration: 30 days 01/18/2025 01/13/2026 Treatment Notes Assessment Notes Atherosclerosis of [place] ar teries of extremities with intermittent claudication, bilateral legs Patient educated on risks and aggravatin g factors of PVD, including conservative treatment options such as a diet and exercise regimen to aid in slowing progression of vascular disease. Check and protect LE bilateral daily. Call if any changes or concerns. Tinea unguium Aseptic debridement of elongated thickened nails x 10 using sterile nippers, nails were debrided in length and thickness by 30% utilizing a nail nipper without incident. The patient was educated regarding all treatment options that include topical and oral antifungal treatments. I discussed the options of taking a sample of the nail to confirm diagnosis. Nail clippings were not sent for pathology analysis. The patient was educated why and how the fungal infection evolved in their feet and the patient was given information regarding how to prevent further infection. The patient was told to keep feet dry and change socks. The patient was told to be careful with old shoes and excessive sweating. The patient was educated regarding both OTC and prescription treatments. Next Appt Details Follow Up: 9 weeks Mima ROBBINS: Provider Name:SOBEIDA COSTA, 05/31/2025 10:40:00 AM, [address] [place] [address], [id number], History and Physical Notes * HPI (History of Present Illness) Category Sub-Category Detail Notes Category Not es HPI New Complaint Patient presents for a new patient consultation., Patient complains of an issue to bilateral toe nails. Duration of problem is 2 months. Patient denies any injury., MA: nd Examination Category Sub-Category Detail Notes Category Not es Constitutional Constitutional The patient is a wake, alert, well developed, well groomed and well nourished. Dermatologic Skin findings: bilateral, Skin is thin, atrophic and lacking pedal hair. Nail pathology: Nails 1-5 bilateral are elongated, thick, discolored, and dystrophic with subungual debris. They are painful to palpation Hyperkeratotic Skin Lesion There is evid ence of hyperkeratotic skin lesions present on the, distal aspect of the 1st digit, bilateral Musculoskeletal Muscle Strength Muscle strength is 5/5 in regards to dorsiflexion, plantarflexion, inversion, and eversion in bilateral lower extremities. Neurologic Mulders sign: bilateral, negative Gross sensation Gross sensation is i ntact to light touch. Vascular Dorsalis pedis pulse: bilateral, 1/4 Posterior tibial pulse: bilaterally, 1/4 Progress Notes * Deb AJsDOB:[birth year] (75 yo F)Acc No.[id number]:01/18/2025 Progress Notes Patient: Cata Hendrix Provider: Lori STEARNS :1950 A ge:74 Y S ex:Female Date:01/18/2025 Address:[address] [place], [place] [id number] Subjective: * Chief Complaints: * d ystrophic nails, Left foot pain * HPI: H PI: New Complaint P atient presents for a new patient consultation., Patient complains of an issue to bilateral toe nails. D uration of problem is 2 months.?Patient denies any injury., MA: nd. * ROS: G eneral / Constitutional: Patient denies f atigue, fever, chills. M usculoskeletal: Patient denies g out. P atient complains of j oint stiffness. P eripheral Vascular: Patient complains of c old extremities, painful extremities. S kin: Patient complains of f ungal nails, nail changes, calluses and corns. N eurologic: Patient denies p aralysis. * Medical History: Neuropathy Sleep apnea Arthritis Heart Disease Medical History Verified * Surgical History: Denies Past Surgical History. Surgical History verified. * Hospitalization/Major Diagno stic Procedure: Denies Past Hospitalization. Hospitalization Verified. * Family History: F ather: , heart disease. M other: . F amily History Verified.. * Social History: T obacco Use: T obacco use other than smoking A re you an other tobacco user? N o. T obacco Control (Standard) T obacco use: F ormer smoker. Social History Verified. * Medications: T akingVitamin D3 Vitamin C Vitamin B12 Triamcinolone & BUPivacaine Torsemide Spironolactone Prevalite PreserVision AREDS Potassium Metoprolol Succinate ER Leflunomide Irbesartan Gabapentin Folic Acid Ferrous Sulfate Eliquis Medication List reviewed and reconciled with the patientTaking Vitamin D3 Taking Vitamin C Taking Vitamin B12 Taking Triamcinolone & BUPivacaine Taking Torsemide Taking Spironolactone Taking Prevalite Taking PreserVision AREDS Taking Potassium Taking Metoprolol Succinate ER Taking Leflunomide Taking Irbesartan Taking Gabapentin Taking Folic Acid Taking Ferrous Sulfate Taking Eliquis Medication List reviewed and reconciled with the patient * Allergies: N .K.D.A.yesAllergies Verified. Objective: * Vitals: W t:60lbs, Wt-k.22 kg. * Examination: C onstitutional: Constitutional T he patient is awake, alert, well developed, well groomed and well nourished.. D ermatologic: Skin findings: b ilateral, Skin is thin, atrophic and lacking pedal hair.. Nail pathology: N ails 1-5 bilateral are elongated, thick, discolored, and dystrophic with subungual debris. They are painful to palpation. Hyperkeratotic Skin Lesion T here is evidence of hyperkeratotic skin lesions present on the, distal aspect of the 1st digit, bilateral. M usculoskeletal: Muscle Strength M uscle strength is 5/5 in regards to dorsiflexion, plantarflexion, inversion, and eversion in bilateral lower extremities.. ? N eurologic: Mulders sign: b ilateral, negative. Gross sensation G ross sensation is intact to light touch..? V ascular: Dorsalis pedis pulse: b ilateral, 05/13. Posterior tibial pulse: b ilaterally, 05/13. Assessment: * Assessment: 1. A therosclerosis of [place] arteries of extremities with intermittent claudication, bilateral legs - I70.213 (Primary) 2 . T inea unguium - B35.1 3 . P ain in right foot - M79.671 4 . P ain in left foot - M79.672 Plan: * Treatment: 2. T inea unguium Start Clotrimazole Cream, 1 %, 1 application, Externally, Once a day, 30 days, 1 Unspecified, Refills 11. Notes: Aseptic debridement of elongated thickened nails x 10 using sterile nippers, nails were debrided in length and thickness by 30% utilizing a nail nipper without incident. The patient was educated regarding all treatment options that include topical and oral antifungal treatments. I discussed the options of taking a sample of the nail to confirm diagnosis. Nail clippings were not sent for pathology analysis. The patient was educated why and how the fungal infection evolved in their feet and the patient was given information regarding how to prevent further infection. The patient was told to keep feet dry and change socks. The patient was told to be careful with old shoes and excessive sweating. The patient was educated regarding both OTC and prescription treatments. * Follow Up: 9 weeks Billing Information: * Visit Code: 94648 Office Visit, New Pt., Level 3. * Electronic signature of JUAN STEARNS DPM on 04/26/2025 at 11:41 AM CUSTOMER ACCOUNT EXECUTIVE Sign off status: Pending * Provider: Lori STEARNS Date: 0 01/18/2025 Generated for Awa cordova/Cynthia/Corrieitting on: 1 06/27/2024 11:41 AM CUSTOMER ACCOUNT EXECUTIVE
--- OUTSIDE RECORDS SUMMARY | 2025-03-22 04:20 | XMS_ITS ---
Author Organization [facility] Address [address] [place], [place] [address] Care Team Providers Care Director Speech Language Name Role Phone DARYN SOBEIDA Unavailable [phone] Gigi Ornelas Unavailable Unavailable Allergies No Known Allergies REASON FOR VISIT *General care Medications Medication SIG (Take, Route, Frequency, Duration) Notes Start Date End Date Status Spironolactone Activ e Prevalite Active PreserVision AREDS A ctive Potassium Active Torsemide Active Vitamin D3 Active Triamcinolone & BUPivacaine Active Eliquis Active Vitamin C Active Vitamin B12 Active Clotrimazole 1 % Cream 1 application Externally Once a day; Duration: 30 days 03/22/2025 03/17/2026 Active Irbesartan Active Ferrous Sulfate Acti ve Gabapentin Active Folic Acid Active Leflunomide Active Metoprolol Succinate ER Active Vital Signs Weight 200 lbs 03/22/2025 Weight-kg 90.72 kg 03/22/2025 Encounters Encounter Location Date Provider Diagnosis [address] [id number] 03/22/2025 SOBEIDA STEARNS Tinea unguium B35.1 ; Pain in right foot M79.671 ; Pain in left foot M79.672 ; Atherosclerosis of [place] arteries of extremities with intermittent claudication, bilateral legs I70.213 and Localized edema R60.0 Assessments Encounter Date Diagnosis (ICD Code) Assessment Notes Treatment Notes Treatment Clinical Notes Section Notes 03/22/2025 Tinea unguium (ICD-10 - B35.1) Aseptic debridement [...] educated regarding both OTC and prescription treatments. 03/22/2025 Pain in right foot (ICD-10 - M79.671) 03/22/2025 Pain in left foot (ICD-10 - M79.672) 03/22/2025 Atherosclerosis of [place] arteries of extremities with intermittent claudication, bilateral legs (ICD-10 - I70.213) Patient educated on risks and aggravating factors of PVD, including conservative treatment options such as a diet and exercise regimen to aid in slowing progression of vascular disease. Check and protect LE bilateral daily. Call if any changes or concerns. 03/22/2025 Localized edema (ICD-10 - R60.0) Edema Recommendations: Advised patient on edema treatment recommendations. Recommendation for periodic elevation of feet and lower legs through the day. Recommend support compression hose. Recommend dietary restrictions salt intake. Followup with family physician for potential diuretic management if needed. Plan Of Treatment Medication Medication Name Sig Start Date Stop Date Notes Clotrimazole 1 % Cream 1 application Ext ernally Once a day; Duration: 30 days 03/22/2025 03/17/2026 Treatment Notes Assessment Notes Tinea unguium Aseptic debridement of elongated thickened [...] educated regarding both OTC and prescription treatments. Atherosclerosis [place] ar teries of extremities with intermittent claudication, bilateral legs Patient educated on risks and aggravatin g factors of PVD, including conservative treatment options such as a diet and exercise regimen to aid in slowing progression of vascular disease. Check and protect LE bilateral daily. Call if any changes or concerns. Localized edema Edema Recommendations: Advised patient on edema treatment recommendations. Recommendation for periodic elevation of feet and lower legs through the day. Recommend support compression hose. Recommend dietary restrictions salt intake. Followup with family physician for potential diuretic management if needed. Next Appt Details Follow Up: 9 weeks Mima ROBBINS n: Provider Name:SOBEIDA Bridges JUSTIN COSTA, 05/31/2025 10:40:00 AM, [address] [place] [address], [id number], History and Physical Notes * HPI (History of Present Illness) Category Sub-Category Detail Notes Category Not es HPI General care Patient presents to the office for at risk foot care. Patient states that their nails are thickened, elongated and painful. Patient states that it is aggravated by shoe gear. Onset is gradual. Patient denies being diabetic., Patient is taking prescription blood thinners., Date last seen by Dr. Ornelas was 03/2025., Initials ND Examination Category Sub-Category Detail Notes Category Not [...] bilateral, 1/4 Posterior tibial pulse: bilaterally, 1/4 Edema: +2, pitting edema, b ilateral calves loose and nontender Progress Notes * Deb AJ[birth year]DOB:[birth year] (75 yo F)Acc No.[id number]:03/22/2025 Patient: Yessy Cata white Provider: Lori STEARNS :1950 A ge:75 Y S ex:Female Date:03/22/2025 Address:[address] [place], [place] [id number] Subjective: * Chief Complaints: * * General care * HPI: H PI: General care P atient presents to the office for at risk foot care. Patient states that their nails are thickened, elongated and painful. Patient states that it is aggravated by shoe gear. Onset is gradual. Patient denies being diabetic., Patient is taking prescription blood thinners., Date last seen by Dr. Ornelas was 03/2025., Initials ND. * ROS: G eneral / Constitutional: Patient [...] F amily History Verified.. * Social History: Social History Verified. No Social History documented. * Medications: T akingVitamin D3 Vitamin C Vitamin B12 Triamcinolone & BUPivacaine Torsemide Spironolactone Prevalite PreserVision AREDS Potassium Metoprolol Succinate ER Leflunomide Irbesartan Gabapentin Folic Acid Ferrous Sulfate Eliquis Clotrimazole 1 % Cream 1 application Externally Once a day , stop date 01/13/2026Medication List reviewed and reconciled with the patientTaking Vitamin D3 Taking Vitamin C Taking Vitamin B12 Taking Triamcinolone & BUPivacaine Taking Torsemide Taking Spironolactone Taking Prevalite Taking PreserVision AREDS Taking Potassium Taking Metoprolol Succinate ER Taking Leflunomide Taking Irbesartan Taking Gabapentin Taking Folic Acid Taking Ferrous Sulfate Taking Eliquis Taking Clotrimazole 1 % Cream 1 application Externally Once a day , stop date 01/13/2026Medication List reviewed and reconciled with the patient * Allergies: N .K.D.A.yesAllergies Verified. Objective: * Vitals: S hoe Size: 8.5, Wt:200lbs, Wt-k.72 kg. * Examination: C onstitutional: Constitutional T [...] 1/4. Posterior tibial pulse: b ilaterally, 1/4. Edema: + 2, pitting edema, bilateral calves loose and nontender. Assessment: * Assessment: 1. T inea unguium - B35.1 (Primary) 2 . P ain in right foot - M79.671 ? 3 . P ain in left foot - M79.672 4 . A therosclerosis of [place] arteries of extremities with intermittent claudication, bilateral legs - I70.213 5 . Localized edema - R60.0 Plan: * Treatment: 2. A therosclerosis of [place] arteries of extremities with intermittent claudication, bilateral legs Notes: Patient educated on risks and aggravating factors of PVD, including conservative treatment options such as a diet and exercise regimen to aid in slowing progression of vascular disease. Check and protect LE bilateral daily. Call if any changes or concerns. 3. L ocalized edema Notes: Edema Recommendations: Advised patient on edema treatment recommendations. Recommendation for periodic elevation of feet and lower legs through the day. Recommend support compression hose. Recommend dietary restrictions salt intake. Followup with family physician for potential diuretic management if needed. * Procedure Codes: 1 1721 DEBRIDE NAIL, 6 OR MORE, Modifiers: Q8 * Follow Up: 9 weeks Billing Information: * Procedure Codes: 03273 DEBRIDE NAIL, 6 OR MORE. Modifiers: Q8 * Electronic signature of JUAN STEARNS DPM on 04/26/2025 at 11:41 AM SALES SPECIALIST Sign off status: Pending * Provider: Lori STEARNS Date: 05/22/2024 Generated for Awa cordova/Cynthia/Corrieitting on: 06/27/2024 11:41 AM SALES SPECIALIST
[2025-04-26 11:36] LABS: Anion Gap 11 mmol/L (4-12); Blood Urea Nitrogen 26 mg/dL (7-17); Calcium 9.6 mg/dL (8.4-10.2); Carbon Dioxide 28 mmol/L (22-30); Chloride 107 mmol/L (98-107); Estimated Glomerular Filt Rate 36; Glucose 100 mg/dL (65-110); Osmolality Calculated 306 mOsm/kg (285-295); Potassium 4.5 mmol/L (3.4-5.0); Sodium 146 mmol/L (137-145)
--- OUTSIDE RECORDS SUMMARY | 2025-04-26 11:41 | XMS_ITS | Patient Health Record ---
Author Organization [facility] Address [address] [place], [place] [address] Care Team Providers Care Senior Ui Software Engineer Name Role Phone SOBEIDA STEARNS Unavailable [phone] Gigi Ornelas Unavailable Unavailable Allergies No Known [...] 03/22/2025 Encounters Encounter Location Date Provider Diagnosis [address] [id number] 01/18/2025 SOBEIDA STEARNS Atherosclerosis of [place] arteries of extremities with intermittent claudication, bilateral legs I70.213 ; Tinea unguium B35.1 ; Pain in right foot M79.671 and Pain in left foot M79.[address] [id number] 03/22/2025 SOBEIDA STEARNS Tinea unguium B35.1 ; Pain in right foot M79.671 ; Pain in left foot M79.672 ; Atherosclerosis of [place] arteries of extremities with intermittent claudication, bilateral [...] OTC and prescription treatments. 01/18/2025 Atherosclerosis of [place] arteries of extremities with intermittent claudication, bilateral [...] Pain in left foot (ICD-10 - M79.672) 01/18/2025 Pain in right foot (ICD-10 - M79.671) 01/18/2025 Pain in left foot (ICD-10 - M79.672) 03/22/2025 Atherosclerosis of [place] arteries of extremities with intermittent claudication, bilateral [...] Details Provider Name:SOBEIDA COSTA, 05/31/2025 10:40:00 AM, [address] [place] [address], [id number], Insurance Providers Payer Name Payer Address Payer Phone Subscriber Number Group Number Insured Name Patient Relationship to Insured Coverage Start Date Coverage End Date Medicare Part B [place] [address] [place] [phone] [id number] Cata Aj Self - patient is the insured 7 [employer] [address] [address] [place] [address] [id number] Cata Aj Self - patient is the insured 7 Medical (General) History Medical History History ICD Code neuropathy Sleep apnea Arthritis Heart Disease
== END 2025-04-26 10:40 | disposition home or self-care (01) ==
PROVIDERS: PCP Family Medicine; Visit Provider Family Medicine
DX: I10 Essential (primary) hypertension (principal)
CPT/HCPCS: 36415; 80048